=== PATIENT | female | born 1975 | race Caucasian/White ===

== ENCOUNTER 2017-10-31 19:14 | Emergency (ER) | payer SELFPAY ==
[~2017-10-31] VITALS: Ht 162.6 cm; Wt 62.4 kg
[2017-10-31] MEDS ORDERED: GABA600T2 PO (19:31)
[2017-10-31] MEDS ORDERED: TRAM50TA PO (19:31)
[2017-10-31] MEDS ORDERED: TIZA4TAB PO (19:31)
[2017-10-31 20:18] VITALS: BP 114/65
--- NOTE | 2017-10-31 20:21 | ED.ADGEN ---
Past History Past Medical History: COPD, Other Past Surgical History: No Surgical History Alcohol Use: None Drug Use: Marijuana Adult General Chief Complaint Chief Complaint Multiple medical complaints [facility] Patient is a 42-year-old female with history of hemorrhoids and total abdominal hysterectomy presents with multiple medical complaints. Patient reports intermittent left upper quadrant pain for several days, bright red to dark red blood on stools and on tissue paper with wiping, and small swollen hair follicle pubic region. No history of GI bleed. Denies dizziness lightheadedness chest pain shortness of breath. Denies other symptoms or complaints. [] Review of Systems Review of Systems ROS as per HPI. All other systems were reviewed and found to be within normal limits, except as documented in this note. Allergies Allergies Allergies Coded Allergies Type Severity Reaction Last Updated Verified codeine Allergy Unknown 10/31/17 Yes meperidine Allergy Unknown 10/31/17 Yes morphine Allergy Unknown 10/31/17 Yes Physical Exam Physical Exam Constitutional: Well developed, well nourished, no acute distress, non-toxic appearance. [] HENT: Normocephalic, atraumatic, bilateral external ears normal, oropharynx moist, no oral exudates, nose normal. [] Eyes: PERRLA, EOMI, conjunctiva normal, no discharge. [] Neck: Normal range of motion, no tenderness, supple, no stridor. [] Cardiovascular:Heart rate regular rhythm, no murmur [] Lungs & Thorax: Bilateral breath sounds clear to auscultation [] Abdomen: Bowel sounds normal, soft, no distention, nontender. [] Skin: Ingrown hair/shave bump over right inguinal region. No fluctuance. [] Back: No tenderness, no CVA tenderness. [] Extremities: No tenderness. [] Neurologic: Alert and oriented X 3, normal motor function, normal sensory function, no focal deficits noted. [] Psychologic: Affect normal, judgement normal, mood normal. [] Current Patient Data Vital Signs Vital Signs Date Time Temp Pulse Resp B/P (MAP) Pulse Ox O2 Delivery O2 Flow Rate FiO2 10/31/17 19:18 98.3 82 16 97 Room Air EKG EKG [] Radiology/Procedures Radiology/Procedures [] Course & Med Decision Making Course & Med Decision Making Pertinent Labs and Imaging studies reviewed. (See chart for details) [Benign abdominal exam with stable vitals. Patient's description suspicious of hemorrhoids. Will tx presumptively. Further evaluation per PCP.] Final Impression Final Impression [1. Abdominal pain 2. rectal bleeding 3. Ingrown hair] Problems: Dragon Disclaimer Dragon Disclaimer This electronic medical record was generated, in whole or in part, using a voice recognition dictation system. BRENTON SANTOS DO Oct 31, 2017 20:21
== END 2017-10-31 20:21 | disposition home or self-care (01) ==
LOC: ER 19:14
DX: K62.5 Hemorrhage of anus and rectum (principal); L73.1 Pseudofolliculitis barbae; J44.9 Chronic obstructive pulmonary disease, unspecified; F12.10 Cannabis abuse, uncomplicated; Z88.5 Allergy status to narcotic agent; Z88.8 Allergy status to other drugs, medicaments and biological substances
CPT/HCPCS: 99281

== ENCOUNTER 2018-07-04 20:17 | Emergency (ER) | payer SELFPAY ==
[~2018-07-04] VITALS: Ht 162.6 cm; Wt 55.3 kg
[~2018-07-04 20:17] MED LIST: GABA600T2 PO; TIZA4TAB PO; TRAM50TA PO
--- NOTE | 2018-07-04 21:09 | PHYS DOC ---
Past History Past Medical History: COPD, Other Past Surgical History: Cholecystectomy, Hysterectomy Alcohol Use: None Drug Use: Marijuana Adult General Chief Complaint Chief Complaint: GENERAL COMPLAINT HPI HPI 42-year-old female presents with neck pain and generalized fatigue. Patient states that she had a tooth pulled one week ago was placed on Keflex. She is still taking this medication. Since having a tooth pulled, the patient states she has had a sore throat with swallowing as well as generalized neck pain, worse on the left. She denies fever or chills. She has a history of having resistant infections in the past and is concerned about developing systemic blood infection. She has been feeling tired and generally weak the last several days. She has had chest heaviness, but denies shortness of breath or diaphoresis. She has no cardiac history. Review of Systems Review of Systems Constitutional: Denies fever or chills. General fatigue [] Eyes: Denies change in visual acuity, redness, or eye pain [] HENT: Sore throat [] Respiratory: Denies cough or shortness of breath [] Cardiovascular: No additional information not addressed in HPI [] GI: Denies abdominal pain, nausea, vomiting, bloody stools or diarrhea [] : Denies dysuria or hematuria [] Musculoskeletal: Denies back pain or joint pain [] Integument: Denies rash or skin lesions [] Neurologic: Denies headache, focal weakness or sensory changes [] Endocrine: Denies polyuria or polydipsia [] All other systems were reviewed and found to be within normal limits, except as documented in this note. Current Medications Current Medications Current Medications Medications (Trade) Dose Ordered Sig/[facility] Start Time Stop Time Status Last Admin Dose Admin Ketorolac Tromethamine (Toradol 30mg Vial) 30 mg 1X ONCE 07/04/18 21:30 07/04/18 21:31 Allergies Allergies Allergies Coded Allergies Type Severity Reaction Last Updated Verified codeine Allergy Unknown 10/31/17 Yes meperidine Allergy Unknown 10/31/17 Yes morphine Allergy Unknown 10/31/17 Yes Physical Exam Physical Exam Constitutional: Well developed, well nourished, no acute distress, non-toxic appearance. [] HENT: Normocephalic, atraumatic, bilateral external ears normal, oropharynx moist, small ulcerations on the palate. Poor dentition.[] Eyes: PERRLA, EOMI, conjunctiva normal, no discharge. [] Neck: Normal range of motion, supple, no stridor. Mild lymphadenopathy anterior left. Tenderness with palpation.[] Cardiovascular:Heart rate regular rhythm, no murmur [] Lungs & Thorax: Bilateral breath sounds clear to auscultation [] Abdomen: Bowel sounds normal, soft, no tenderness, no masses, no pulsatile masses. [] Skin: Warm, dry, no erythema, no rash. [] Back: No tenderness, no CVA tenderness. [] Extremities: No tenderness, no cyanosis, no clubbing, ROM intact, no edema. [] Neurologic: Alert and oriented X 3, normal motor function, normal sensory function, no focal deficits noted. [] Psychologic: Affect normal, judgement normal, mood normal. [] Current Patient Data Vital Signs Vital Signs Date Time Temp Pulse Resp B/P (MAP) Pulse Ox O2 Delivery O2 Flow Rate FiO2 07/04/18 20:17 97.4 74 18 97 Room Air EKG EKG Sinus rhythm, rate 68, normal axis, no ST elevations or depressions. Inverted T waves V2 V3.[] Radiology/Procedures Radiology/Procedures [] Course & Med Decision Making Course & Med Decision Making Pertinent Labs and Imaging studies reviewed. (See chart for details) The patient's labs are unremarkable except for potassium of 3.1. Her troponin is negative. Her EKG is negative. Her rapid strep screen is positive despite her Keflex. I will give her 1 g of Rocephin in the ED followed by 10 days of Cefdinir 600mg once daily. The patient has had low blood pressures during her stay in the ED. She states that she is always low. She does not appear to be symptomatic. We gave her a total of 2 L normal saline. She had urine output in the ED. Her MAP blood pressure has improved to greater than 60 and has been as high as 70. She has no complaints of dizziness or lightheadedness. She does not have a fever. Her heart rate remains in the 60s. Since the patient appears to be clinically stable and she feels well enough to go home, I will discharge her. Dragon Disclaimer Dragon Disclaimer This electronic medical record was generated, in whole or in part, using a voice recognition dictation system. Departure Departure: Referrals: NON,STAFF (PCP) Scripts Tramadol Hcl (TRAMADOL HCL) 50 Mg Tablet 50 MG PO PRN Q6HRS PRN for PAIN, #10 TAB Prov: BRENTON MONROY DO 07/04/18 Cefdinir (CEFDINIR) 300 Mg Capsule 2 CAP PO DAILY for strep, #20 CAP Prov: BRENTON MONROY DO 07/04/18 BRENTON MONROY DO Jul 04, 2018 21:09
[2018-07-04 21:10] LABS: ALBUMIN/GLOBULIN RATIO 1.2 (1.0-1.7); CALCIUM 9.5 mg/dL (8.5-10.1); CREATININE 0.7 mg/dL (0.6-1.0); GFR 91.3; POTASSIUM 3.1 mmol/L (3.5-5.1); TOTAL BILIRUBIN 0.2 mg/dL (0.2-1.0); TOTAL PROTEIN 7.3 g/dL (6.4-8.2)
[2018-07-04 21:12] LABS: BASO % 1 % (0-3); EOS # 0.1 x10^3/uL (0.0-0.7); EOS % 2 % (0-3); HEMATOCRIT 46.1 % (36.0-47.0); HEMOGLOBIN 15.9 g/dL (12.0-15.5); LYMPH # 3.6 x10^3/uL (1.0-4.8); LYMPH % 52 % (24-48); MEAN CORPUSCULAR HEMOGLOBIN 31 pg (25-35); MEAN CORPUSCULAR HGB CONC 34 g/dL (31-37); MEAN CORPUSCULAR VOLUME 90 fL (79-100); MONO # 0.3 x10^3/uL (0.0-1.1); MONO % 5 % (0-9); NEUT # 2.8 x10^3uL (1.8-7.7); NEUT % 41 % (31-73); PLATELET COUNT 211 x10^3/uL (140-400); RED BLOOD COUNT 5.13 x10^6/uL (3.50-5.40); RED CELL DISTRIBUTION WIDTH 12.9 % (11.5-14.5); WHITE BLOOD COUNT 6.9 x10^3/uL (4.0-11.0)
[2018-07-04] MEDS ORDERED: KETOROLAC 30 MG/ML VIAL. IV ONE (21:30)
--- NOTE | 2018-07-04 21:46 | RAD ---
PROCEDURE: CHEST PA LATERAL CLINICAL INDICATION: Chest pain COMPARISON: None FINDINGS: No pneumothorax identified. Cardiac and mediastinal contours unremarkable. No pulmonary consolidation or acute airspace disease. No acute osseous abnormalities identified. IMPRESSION: No pulmonary consolidation or acute airspace disease. Electronically signed by: Clark Back DO (07/04/2018 9:43 PM) [facility]
[2018-07-04] MEDS ORDERED: IV NORMAL SALINE 1,000ML 1,000 ML IV ONE ×2 (22:30→23:45)
[2018-07-04 22:43] LABS: BACTERIA,URINE 0 /HPF (0-FEW); BILIRUBIN,URINE NEG (NEG); CLARITY,URINE CLEAR; COLOR,URINE STRAW; GLUCOSE,URINE NEG (NEG); NITRITE,URINE NEG (NEG); RBC,URINE OCC /HPF (0-2); SQUAMOUS EPITHELIAL CELL,UR FEW /LPF; UROBILINOGEN,URINE 0.2 mg/dL (0.2 mg/dL); WBC,URINE OCC /HPF (0-4)
[2018-07-04] MEDS ORDERED: cefTRIAXone SODIUM 1 GM VIAL IV ONE (22:59)
[2018-07-04] MEDS ORDERED: IV NORMAL SALINE 50ML 50 ML ONE (22:59)
[2018-07-04] MEDS ORDERED: traMADol 50 MG TABLET PO ONE (23:00)
[2018-07-04] MEDS ORDERED: CEFD300C PO (23:02)
[2018-07-04] MEDS ORDERED: TRAM50TA PO (23:02)
[2018-07-05 00:17] VITALS: BP 87/47
--- NOTE | 2018-07-05 02:55 | EKG ---
[address] [address] Test Date: 2018-07-04 Test Time: 20:38:53 Pat Name: MY PURCELL Department: Room: Gender: F Admission Nurse Coordinator: : 1975 Requested By: BRENTON MONROY Order Number: [id number] Reading MD: Gallo Cook Measurements Intervals [place] Rate: 68 P: 38 DE: 164 QRS: 7 QRSD: 92 T: 38 QT: 410 QTc: 441 Interpretive Statements SINUS RHYTHM NORMAL ECG Electronically Signed On 07-11-2018 10:02:28 AMMONIUM HYDROXIDE OPERATOR by Gallo Cook
== END 2018-07-05 00:36 | disposition home or self-care (01) ==
LOC: ER 20:17
DX: J02.0 Streptococcal pharyngitis (principal); B95.0 Streptococcus, group A, as the cause of diseases classified elsewhere; M54.2 Cervicalgia; I95.9 Hypotension, unspecified; J44.9 Chronic obstructive pulmonary disease, unspecified; Z88.5 Allergy status to narcotic agent; Z88.8 Allergy status to other drugs, medicaments and biological substances
CPT/HCPCS: 36415; 71046; 80053; 81001; 84484; 85025; 87880; 93005; 96365; 96375; 99284; J0696; J1885; J7030

== ENCOUNTER 2018-07-13 00:23 | Emergency (ER) | payer SELFPAY ==
[~2018-07-13] VITALS: Ht 162.6 cm; Wt 55.3 kg
[2018-07-13 00:23] VITALS: BP 95/61
[~2018-07-13 00:23] MED LIST changes: +CEFD300C PO
--- NOTE | 2018-07-13 01:04 | PHYS DOC ---
Adult General Chief Complaint Chief Complaint toe pain [facility] HPI 42 years old female presented emergency department with left fifth toe tender swollen after injury at home she is able to ambulate Review of Systems Review of Systems Constitutional: Denies fever or chills [] Eyes: Denies change in visual acuity, redness, or eye pain [] HENT: Denies nasal congestion or sore throat [] Respiratory: Denies cough or shortness of breath [] Cardiovascular: No additional information not addressed in HPI [] GI: Denies abdominal pain, nausea, vomiting, bloody stools or diarrhea [] : Denies dysuria or hematuria [] Musculoskeletal: Denies back pain Integument: Denies rash or skin lesions [] Neurologic: Denies headache, focal weakness or sensory changes [] Endocrine: Denies polyuria or polydipsia [] All other systems were reviewed and found to be within normal limits, except as documented in this note. Allergies Allergies Allergies Coded Allergies Type Severity Reaction Last Updated Verified codeine Allergy Unknown 10/31/17 Yes meperidine Allergy Unknown 10/31/17 Yes morphine Allergy Unknown 10/31/17 Yes Physical Exam Physical Exam Constitutional: Well developed, well nourished, no acute distress, non-toxic appearance. [] HENT: Normocephalic, atraumatic, bilateral external ears normal, oropharynx moist, no oral exudates, nose normal. [] Eyes: PERRLA, EOMI, conjunctiva normal, no discharge. [] Neck: Normal range of motion, no tenderness, supple, no stridor. [] Cardiovascular:Heart rate regular rhythm, no murmur [] Lungs & Thorax: Bilateral breath sounds clear to auscultation [] Abdomen: Bowel sounds normal, soft, no tenderness, no masses, no pulsatile masses. [] Skin: Warm, dry, no erythema, no rash. [] Back: No tenderness, no CVA tenderness. [] Extremities: No tenderness, no cyanosis, no clubbing, ROM intact, swollen fifth toe Neurologic: Alert and oriented X 3, normal motor function, normal sensory function, no focal deficits noted. [] Psychologic: Affect normal, judgement normal, mood normal. [] Current Patient Data Vital Signs Vital Signs Date Time Temp Pulse Resp B/P (MAP) Pulse Ox O2 Delivery O2 Flow Rate FiO2 07/13/18 00:23 99.1 85 16 98 Room Air EKG EKG [] Radiology/Procedures Radiology/Procedures [] Course & Med Decision Making Course & Med Decision Making Pertinent Labs and Imaging studies reviewed. (See chart for details) [] Final Impression Final Impression [] Problems: (1) Toe fracture, left Qualifiers: Dragon Disclaimer Dragon Disclaimer This electronic medical record was generated, in whole or in part, using a voice recognition dictation system. BARRINGTON MORTENSEN MD Jul 13, 2018 01:04
--- NOTE | 2018-07-13 08:52 | RAD ---
Examination: 3 views of the left foot HISTORY: History of left foot injury, pain COMPARISON: None available FINDINGS: The alignment of the tarsal bones, tarsometatarsal joints, tarsal joints, interphalangeal joints grossly appears unremarkable. There is no acute fracture identified. IMPRESSION: No acute osseous findings Electronically signed by: Willi Mast MD (07/13/2018 8:48 AM) [id number]
== END 2018-07-13 01:08 | disposition home or self-care (01) ==
LOC: ER 00:23
DX: S92.502A Displaced unspecified fracture of left lesser toe(s), initial encounter for closed fracture (principal); Z88.5 Allergy status to narcotic agent; Z88.8 Allergy status to other drugs, medicaments and biological substances; X58.XXXA Exposure to other specified factors, initial encounter; Y93.89 Activity, other specified; Y92.098 Other place in other non-institutional residence as the place of occurrence of the external cause; Y99.8 Other external cause status
CPT/HCPCS: 73630; 99283

== ENCOUNTER 2018-08-08 16:14 | Emergency (ER) | payer SELFPAY ==
[~2018-08-08] VITALS: Ht 162.6 cm; Wt 55.3 kg
--- NOTE | 2018-08-08 16:43 | PHYS DOC ---
Past History Past Medical History: COPD, Other Past Surgical History: Appendectomy, Cholecystectomy, Hysterectomy Alcohol Use: None Drug Use: Marijuana Adult General Chief Complaint Chief Complaint: FLANK PAIN HPI HPI 43-year-old female presents with left flank pain. The patient has had this pain that radiates through to her abdomen intermittently for the last 2 days. She describes it as a sharp, stabbing pain. She's had some nausea but no vomiting. She denies fever or chills. She has had decreased urine output, but no dysuria. The patient has a known T12 compression fracture, but that was 3 years ago. 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 Review of Systems Review of Systems Constitutional: Denies fever or chills [] Eyes: Denies change in visual acuity, redness, or eye pain [] HENT: Denies nasal congestion or sore throat [] Respiratory: Denies cough or shortness of breath [] Cardiovascular: No additional information not addressed in HPI [] GI: Denies abdominal pain, nausea, vomiting, bloody stools or diarrhea [] : Urinary retention[] Musculoskeletal: Left flank pain[] Integument: Denies rash or skin lesions [] Neurologic: Denies headache, focal weakness or sensory changes [] Endocrine: Denies polyuria or polydipsia [] All other systems were reviewed and found to be within normal limits, except as documented in this note. Allergies Allergies Allergies Coded Allergies Type Severity Reaction Last Updated Verified Penicillins Allergy Mild 08/08/18 Yes codeine Allergy Unknown 10/31/17 Yes meperidine Allergy Unknown 10/31/17 Yes morphine Allergy Unknown 10/31/17 Yes Physical Exam Physical Exam Constitutional: Well developed, well nourished, no acute distress, non-toxic appearance. [] HENT: Normocephalic, atraumatic, bilateral external ears normal, oropharynx moist, no oral exudates, nose normal. [] Eyes: PERRLA, EOMI, conjunctiva normal, no discharge. [] Neck: Normal range of motion, no tenderness, supple, no stridor. [] Cardiovascular:Heart rate regular rhythm, no murmur [] Lungs & Thorax: Bilateral breath sounds clear to auscultation [] Abdomen: Bowel sounds normal, soft, mild left upper quadrant tenderness, no masses, no pulsatile masses. [] Skin: Warm, dry, no erythema, no rash. [] Back: No tenderness. Left CVA tenderness. [] Extremities: No tenderness, no cyanosis, no clubbing, ROM intact, no edema. [] Neurologic: Alert and oriented X 3, normal motor function, normal sensory function, no focal deficits noted. [] Psychologic: Affect normal, judgement normal, mood normal. [] Current Patient Data Vital Signs Vital Signs Date Time Temp Pulse Resp B/P (MAP) Pulse Ox O2 Delivery O2 Flow Rate FiO2 08/08/18 16:33 98.7 72 18 98 Room Air EKG EKG [] Radiology/Procedures Radiology/Procedures [] Impressions: PQRS Compliance statement: One or more of the following individualized dose reduction techniques were utilized for this examination: 1. Automated exposure control. 2. Adjustment of the mA and/or kV according to patient size. 3. Use of iterative reconstruction technique. Indication:NAUSEA,BILAT FLANK PAIN, INCREASED PAIN ON LEFT, NO VISUALIZED HEMATURIA, HX RENAL STONES.
TECHNIQUE: CT abdomen and pelvis without IV contrast with multiplanar reformats. COMPARISON: None FINDINGS: Limited evaluation of solid abdominal and pelvic organs due to lack of IV contrast. Heart is normal in size. No pericardial or pleural effusion. Clear lung bases. 3.2 x 1.7 cm subcapsular low attenuating lesion adjacent to segment 7 of the liver. Multiple scattered low attenuating lesions are seen in the liver the represented to such lesion in segment 4A measures 7 mm (series 2 image 35) and in segment IVb measures 1.2 cm (series 2 image 57). Spleen is unenlarged. Status post cholecystectomy. Noncontrast appearance of the pancreas is within normal limits. Adrenal glands demonstrate no nodularity. No nephrolithiasis or hydronephrosis. No free pelvic fluid or ascites. No bowel obstruction. Uterus is surgically absent. Urinary bladder demonstrates no radiopaque stone. No pneumoperitoneum or pneumatosis intestinalis. No bowel obstruction. No suspicious bony lesion. Questionable minimal anterior wedge-shaped compression deformity of T12 vertebral body with no retropulsion the spinal canal. IMPRESSION: Limited evaluation of solid abdominal and pelvic organs due to lack of IV contrast. 1. No nephrolithiasis or hydronephrosis. 2. Multiple liver lesions, indeterminate. Differential diagnoses includes multiple hepatic cysts, hemangiomas or metastasis. Nonemergent MRI of the abdomen with IV contrast recommended. 3. Small amount of subcapsular fluid collection along segment 7, nonspecific but may be a seroma. Correlate with previous abdominal surgery. 4. Minimal wedge-shaped compression deformity of T12 vertebral body with no retropulsion in the spinal canal, age indeterminate. Correlate with focal tenderness. Electronically signed by: Clark Tellez DO (08/08/2018 5:14 PM) [facility] DICTATED AND SIGNED BY: CLARK TELLEZ DO DATE: 08/08/18 0307 CC: BRENTON MONROY DO; TRENT SANDOVAL Course & Med Decision Making Course & Med Decision Making Pertinent Labs and Imaging studies reviewed. (See chart for details) The patient's CT is negative for kidney stones or acute findings. There are several abnormal findings including liver lesions of unknown etiology. See official read for more details. The patient's labs are unremarkable. Her urinalysis is negative for infection. I am unsure what is causing the patient's pain. I will give her a short course of [place]. I reviewed the case tracks database and the patient has several entries but they are spread out and all low -dose short course prescriptions. I have stressed to the patient's importance of having consistent relationship with a PCP. She is stable for discharge at this time. [] Dragon Disclaimer Dragon Disclaimer This electronic medical record was generated, in whole or in part, using a voice recognition dictation system. Departure Departure: Impression: Primary Impression: Left flank pain Disposition: HOME, SELF-CARE Condition: LEFT WITHOUT BEING SEEN Referrals: TRENT SANDOVAL (PCP) Patient Instructions: Flank Pain, Disc-bd-[facility] Scripts Hydrocodone Bit/Acetaminophen (NORCO 5-325 TABLET) 1 Each Tablet 1 TAB PO PRN Q6HRS PRN for PAIN, #10 TAB 0 Refills Prov: BRENTON MONROY DO 08/08/18 BRENTON MONROY DO Aug 08, 2018 16:43
[2018-08-08 17:05] LABS: BASO % 0 % (0-3); EOS % 0 % (0-3); HEMATOCRIT 43.1 % (36.0-47.0); HEMOGLOBIN 14.8 g/dL (12.0-15.5); LYMPH # 2.1 x10^3/uL (1.0-4.8); LYMPH % 36 % (24-48); MEAN CORPUSCULAR HEMOGLOBIN 31 pg (25-35); MEAN CORPUSCULAR HGB CONC 34 g/dL (31-37); MEAN CORPUSCULAR VOLUME 91 fL (79-100); MONO # 0.3 x10^3/uL (0.0-1.1); MONO % 5 % (0-9); NEUT # 3.3 x10^3uL (1.8-7.7); NEUT % 58 % (31-73); PLATELET COUNT 186 x10^3/uL (140-400); RED BLOOD COUNT 4.73 x10^6/uL (3.50-5.40); RED CELL DISTRIBUTION WIDTH 13.5 % (11.5-14.5); WHITE BLOOD COUNT 5.7 x10^3/uL (4.0-11.0)
[2018-08-08 17:19] LABS: ALBUMIN 3.6 g/dL (3.4-5.0); ALBUMIN/GLOBULIN RATIO 1.1 (1.0-1.7); CREATININE 0.7 mg/dL (0.6-1.0); GFR 90.9; POTASSIUM 3.7 mmol/L (3.5-5.1); TOTAL BILIRUBIN 0.3 mg/dL (0.2-1.0)
--- NOTE | 2018-08-08 17:19 | RAD ---
PQRS Compliance statement: One or more of the following individualized dose reduction techniques were utilized for this examination: 1. Automated exposure control. 2. Adjustment of the mA and/or kV according to patient size. 3. Use of iterative reconstruction technique. Indication:NAUSEA,BILAT FLANK PAIN, INCREASED PAIN ON LEFT, NO VISUALIZED HEMATURIA, HX RENAL STONES.
TECHNIQUE: CT abdomen and pelvis without IV contrast with multiplanar reformats. COMPARISON: None FINDINGS: Limited evaluation of solid abdominal and pelvic organs due to lack of IV contrast. Heart is normal in size. No pericardial or pleural effusion. Clear lung bases. 3.2 x 1.7 cm subcapsular low attenuating lesion adjacent to segment 7 of the liver. Multiple scattered low attenuating lesions are seen in the liver the represented to such lesion in segment 4A measures 7 mm (series 2 image 35) and in segment IVb measures 1.2 cm (series 2 image 57). Spleen is unenlarged. Status post cholecystectomy. Noncontrast appearance of the pancreas is within normal limits. Adrenal glands demonstrate no nodularity. No nephrolithiasis or hydronephrosis. No free pelvic fluid or ascites. No bowel obstruction. Uterus is surgically absent. Urinary bladder demonstrates no radiopaque stone. No pneumoperitoneum or pneumatosis intestinalis. No bowel obstruction. No suspicious bony lesion. Questionable minimal anterior wedge-shaped compression deformity of T12 vertebral body with no retropulsion the spinal canal. IMPRESSION: Limited evaluation of solid abdominal and pelvic organs due to lack of IV contrast. 1. No nephrolithiasis or hydronephrosis. 2. Multiple liver lesions, indeterminate. Differential diagnoses includes multiple hepatic cysts, hemangiomas or metastasis. Nonemergent MRI of the abdomen with IV contrast recommended. 3. Small amount of subcapsular fluid collection along segment 7, nonspecific but may be a seroma. Correlate with previous abdominal surgery. 4. Minimal wedge-shaped compression deformity of T12 vertebral body with no retropulsion in the spinal canal, age indeterminate. Correlate with focal tenderness. Electronically signed by: Clark Back DO (08/08/2018 5:14 PM) [facility]
[2018-08-08] MEDS: KETOROLAC 30 MG/ML VIAL. IV ONE (18:00)
[2018-08-08] MEDS: ONDANSETRON PF 4 MG/2 ML VIAL. IV ONE (18:00)
[2018-08-08] MEDS: HYDROcodone/APAP 5/325MG 1 TAB TABLET PO ONE (18:30)
[2018-08-08] MEDS ORDERED: HYDR-3165 PO (18:44)
[2018-08-08 18:59] VITALS: BP 140/93
[2018-08-08 19:04] LABS: BACTERIA,URINE 0 /HPF (0-FEW); BILIRUBIN,URINE NEG (NEG); CLARITY,URINE CLEAR; COLOR,URINE YELLOW; GLUCOSE,URINE NEG (NEG); NITRITE,URINE NEG (NEG); RBC,URINE OCC /HPF (0-2); SQUAMOUS EPITHELIAL CELL,UR OCC /LPF; UROBILINOGEN,URINE 0.2 mg/dL (0.2 mg/dL); WBC,URINE OCC /HPF (0-4)
== END 2018-08-08 19:00 | disposition home or self-care (01) ==
LOC: ER 16:14
DX: R10.12 Left upper quadrant pain (principal); R10.11 Right upper quadrant pain; R33.9 Retention of urine, unspecified; M43.8X4 Other specified deforming dorsopathies, thoracic region; J44.9 Chronic obstructive pulmonary disease, unspecified; Z90.49 Acquired absence of other specified parts of digestive tract; Z90.89 Acquired absence of other organs; Z90.710 Acquired absence of both cervix and uterus; Z88.0 Allergy status to penicillin; Z88.5 Allergy status to narcotic agent; Z88.8 Allergy status to other drugs, medicaments and biological substances
CPT/HCPCS: 36415; 74176; 80053; 81001; 85025; 87086; 96374; 96375; 99284; J1885; J2405

== ENCOUNTER 2018-08-19 18:34 | Emergency (ER) | payer SELFPAY ==
[~2018-08-19] VITALS: Ht 162.6 cm; Wt 55.3 kg
[~2018-08-19 18:34] MED LIST changes: +HYDR-3165 PO
[2018-08-19 18:44] VITALS: BP 101/61
--- NOTE | 2018-08-19 20:00 | PHYS DOC ---
Past History Past Medical History: COPD, Other Past Surgical History: Appendectomy, Cholecystectomy, Hysterectomy Alcohol Use: None Drug Use: Marijuana Adult General Chief Complaint Chief Complaint: MULTIPLE COMPLAINTS HPI HPI 43-year-old female presents with left forearm pain. The patient was playing with her nephew and think she probably just tweaked it. The patient has had a history of fractures in both forearms and is wants to make sure nothing more serious. She has multiple other chronic medical issues. Patient denies fever or chills. She has no loss of feeling. Patient has been concerned with carpal tunnel or cubital tunnel in both arms, but this being worked up by her PCP. Review of Systems Review of Systems Constitutional: Denies fever or chills [] Eyes: Denies change in visual acuity, redness, or eye pain [] HENT: Denies nasal congestion or sore throat [] Respiratory: Denies cough or shortness of breath [] Cardiovascular: No additional information not addressed in HPI [] GI: Denies abdominal pain, nausea, vomiting, bloody stools or diarrhea [] : Denies dysuria or hematuria [] Musculoskeletal: Left forearm pain[] Integument: Denies rash or skin lesions [] Neurologic: Denies headache, focal weakness or sensory changes [] Endocrine: Denies polyuria or polydipsia [] All other systems were reviewed and found to be within normal limits, except as documented in this note. Allergies Allergies Allergies Coded Allergies Type Severity Reaction Last Updated Verified Penicillins Allergy Mild 08/08/18 Yes codeine Allergy Unknown 10/31/17 Yes meperidine Allergy Unknown 10/31/17 Yes morphine Allergy Unknown 10/31/17 Yes Physical Exam Physical Exam Constitutional: Well developed, well nourished, no acute distress, non-toxic appearance. [] HENT: Normocephalic, atraumatic, bilateral external ears normal, oropharynx moist, no oral exudates, nose normal. [] Eyes: PERRLA, EOMI, conjunctiva normal, no discharge. [] Neck: Normal range of motion, no tenderness, supple, no stridor. [] Cardiovascular:Heart rate regular rhythm, no murmur [] Lungs & Thorax: Bilateral breath sounds clear to auscultation [] Abdomen: Bowel sounds normal, soft, no tenderness, no masses, no pulsatile masses. [] Skin: Warm, dry, no erythema, no rash. [] Back: No tenderness, no CVA tenderness. [] Extremities: Mild tenderness to palpation of the left forearm, no deformity, ecchymosis, or swelling. No cyanosis, no clubbing, ROM intact, no edema. [] Neurologic: Alert and oriented X 3, normal motor function, normal sensory function, no focal deficits noted. [] Psychologic: Affect normal, judgement normal, mood normal. [] Current Patient Data Vital Signs Vital Signs Date Time Temp Pulse Resp B/P (MAP) Pulse Ox O2 Delivery O2 Flow Rate FiO2 08/19/18 18:44 Room Air 08/19/18 18:44 98.1 69 20 96 EKG EKG [] Radiology/Procedures Radiology/Procedures [] Course & Med Decision Making Course & Med Decision Making Pertinent Labs and Imaging studies reviewed. (See chart for details) The patient's x-rays unremarkable. My exam was unremarkable. I believe she just strained her arm. She is stable for discharge at this time. [] Dragon Disclaimer Dragon Disclaimer This electronic medical record was generated, in whole or in part, using a voice recognition dictation system. Departure Departure: Impression: Primary Impression: Left forearm pain Disposition: HOME, SELF-CARE Condition: STABLE Referrals: TRENT SANDOVAL (PCP) BRENTON MONROY DO Aug 19, 2018 20:00
--- NOTE | 2018-08-20 08:33 | RAD ---
2 view left forearm study Clinical indications: Left forearm pain. History of connective tissue disorder and left wrist fracture FINDINGS: No acute fracture or dislocation or osteolytic process is seen. No left elbow joint effusion is seen. No radiopaque foreign body or soft tissue calcification is evident. IMPRESSION: No acute osseous abnormality. Electronically signed by: Rc Mccauley MD (08/20/2018 8:29 AM) [facility]
== END 2018-08-19 20:30 | disposition home or self-care (01) ==
LOC: ER 18:34
DX: M79.632 Pain in left forearm (principal); J44.9 Chronic obstructive pulmonary disease, unspecified; Z88.0 Allergy status to penicillin; Z88.5 Allergy status to narcotic agent; Z88.8 Allergy status to other drugs, medicaments and biological substances
CPT/HCPCS: 73090; 99283

== ENCOUNTER 2018-08-24 20:32 | Emergency (ER) | payer SELFPAY ==
[~2018-08-24] VITALS: Ht 162.6 cm; Wt 54.0 kg
[2018-08-24] MEDS ORDERED: ONDANSETRON PF 4 MG/2 ML VIAL. IV ONE (21:00)
[2018-08-24] MEDS ORDERED: IV NORMAL SALINE 1,000ML 1,000 ML IV SCH (21:00)
[2018-08-24 21:13] LABS: BARBITURATES NEG (NEG); BENZODIAZEPINES NEG (NEG); CANNABINOIDS POS (NEG); CLARITY,URINE CLOUDY; COCAINE NEG (NEG); COLOR,URINE YELLOW; METHADONE NEG (NEG); OPIATES NEG (NEG); PHENCYCLIDINE NEG (NEG)
[2018-08-24 21:14] LABS: AMORPHOUS SEDIMENT,UR PRESENT /HPF; BACTERIA,URINE 0 /HPF (0-FEW); BILIRUBIN,URINE NEG (NEG); GLUCOSE,URINE NEG (NEG); NITRITE,URINE NEG (NEG); RBC,URINE 0 /HPF (0-2); SQUAMOUS EPITHELIAL CELL,UR OCC /LPF; UROBILINOGEN,URINE 2 mg/dL (0.2 mg/dL); WBC,URINE RARE /HPF (0-4)
[2018-08-24 21:15] LABS: AMPHETAMINE/METHAMPHETAMINE NEG (NEG)
--- NOTE | 2018-08-24 21:37 | PHYS DOC ---
Past History Past Medical History: Asthma, COPD, Other Past Surgical History: Appendectomy, Cholecystectomy, Hysterectomy Alcohol Use: None Drug Use: Marijuana Adult General Chief Complaint Chief Complaint: ABDOMINAL PAIN HPI HPI Patient is a 43-year-old female who presents with complaint of left-sided flank pain for the last couple of days. Patient states that today pain is more severe and she rates it at a 10 out of 10. She states that the pain is sharp and stabbing in nature. She states the pain is worsened with movement. She denies any fever. She does report to nausea and vomiting. Patient states that she has not been able to keep anything down due to the vomiting. Patient is scheduled for an MRI tomorrow to evaluate hepatic lesions. Review of Systems Review of Systems Constitutional: Denies fever or chills [] Respiratory: Denies cough or shortness of breath [] Cardiovascular: No additional information not addressed in HPI [] GI: Positive left sided abdominal/flank pain with nausea and vomiting. Denies diarrhea [] : Denies dysuria or hematuria [] Musculoskeletal: Complains of left-sided back pain [] Integument: Denies rash or skin lesions [] All other systems were reviewed and found to be within normal limits, except as documented in this note. Current Medications Current Medications Current Medications Medications (Trade) Dose Ordered Sig/La Start Time Stop Time Status Last Admin Dose Admin Fentanyl Citrate (Fentanyl 2ml Vial) 50 mcg PRN Q15MIN PRN 08/24/18 21:00 08/25/18 20:59 Ondansetron HCl (Zofran) 4 mg 1X ONCE 08/24/18 21:00 08/24/18 21:04 DC Sodium Chloride 1,000 ml @ 1,000 mls/hr Q1H 08/24/18 21:00 08/24/18 21:59 Allergies Allergies Allergies Coded Allergies Type Severity Reaction Last Updated Verified Penicillins Allergy Mild 08/24/18 Yes codeine Allergy Unknown 08/24/18 Yes meperidine Allergy Unknown 08/24/18 Yes morphine Allergy Unknown 08/24/18 Yes Physical Exam Physical Exam Constitutional: Well developed, well nourished, no acute distress, non-toxic appearance. [] HENT: Normocephalic, atraumatic, bilateral external ears normal, oropharynx moist, no oral exudates, nose normal. [] Eyes: PERRLA, EOMI, conjunctiva normal, no discharge. [] Neck: Normal range of motion, no tenderness, supple, no stridor. [] Cardiovascular:Heart rate regular rhythm, no murmur [] Lungs & Thorax: Bilateral breath sounds clear to auscultation [] Abdomen: Bowel sounds normal, soft, no tenderness, no masses, no pulsatile masses. [] Skin: Warm, dry, no erythema, no rash. [] Back: No tenderness, no CVA tenderness. [] Extremities: No tenderness, no cyanosis, no clubbing, ROM intact, no edema. [] Neurologic: Alert and oriented X 3, normal motor function, normal sensory function, no focal deficits noted. [] Psychologic: Affect normal, judgement normal, mood normal. [] Current Patient Data Vital Signs Vital Signs Date Time Temp Pulse Resp B/P (MAP) Pulse Ox O2 Delivery O2 Flow Rate FiO2 08/24/18 20:32 98.1 70 20 98 Room Air Lab Results Laboratory Tests Test 08/24/18 20:48 Urine Collection Type Clean catch Urine Color Yellow Urine Clarity Cloudy Urine pH 8.0 Urine Specific [place] 1.015 Urine Protein Neg (NEG-TRACE) Urine Glucose (UA) Neg mg/dL (NEG) Urine Ketones (Stick) Neg mg/dL (NEG) Urine Blood Trace (NEG) Urine Nitrite Neg (NEG) Urine Bilirubin Neg (NEG) Urine Urobilinogen Dipstick 2 mg/dL (0.2 mg/dL) Urine Leukocyte Esterase Neg (NEG) Urine RBC 0 /HPF (0-2) Urine WBC Rare /HPF (0-4) Urine Squamous Epithelial Cells Occ /LPF Urine Amorphous Sediment Present /HPF Urine Bacteria 0 /HPF (0-FEW) Urine Mucus Slight /LPF Urine Opiates Screen Neg (NEG) Urine Methadone Screen Neg (NEG) Urine Barbiturates Neg (NEG) Urine Phencyclidine Screen Neg (NEG) Urine Amphetamine/Methamphetamine Neg (NEG) Urine Benzodiazepines Screen Neg (NEG) Urine Cocaine Screen Neg (NEG) Urine Cannabinoids Screen Pos (NEG) Urine Ethyl Alcohol Neg (NEG) EKG EKG [] Radiology/Procedures Radiology/Procedures [] Course & Med Decision Making Course & Med Decision Making Pertinent Labs and Imaging studies reviewed. (See chart for details) Patient moved to room upon arrival was evaluated by medical staff after which an IV was established and blood work drawn. Patient was given IV fluids. Patient repeatedly has asked for additional pain medication throughout her emergency room stay. At one point one of the hospital staff members had gone into the room to check on a monitor and noted that patient was sitting comfortably, apparently texting on her phone, and as soon as patient saw staff member, she started moaning stating that she was in a lot of pain. After initial dosage of pain medication, patient's blood pressure had dropped down to the 80s systolic. She was repeatedly informed that we would not be able to provide additional opiate pain medication. Patient was offered a dose of Toradol which she refused. At one point patient was also offered tramadol to which she stated she has a prescription for tramadol at home and just wants to be discharged if she is not going to receive any additional narcotic pain medication. Dragon Disclaimer Dragon Disclaimer This electronic medical record was generated, in whole or in part, using a voice recognition dictation system. Departure Departure: Impression: Primary Impression: Left flank pain Additional Impression: Drug-seeking behavior Disposition: 01 HOME, SELF-CARE Condition: STABLE Referrals: [facility] (PCP) Patient Instructions: Flank Pain Problem Qualifiers JENARO MEDINA Jr. DO Aug 24, 2018 21:37
[2018-08-24 21:45] LABS: BASO # 0.1 x10^3/uL (0.0-0.2); BASO % 1 % (0-3); EOS # 0.1 x10^3/uL (0.0-0.7); EOS % 1 % (0-3); HEMOGLOBIN 14.3 g/dL (12.0-15.5); LYMPH # 2.5 x10^3/uL (1.0-4.8); LYMPH % 30 % (24-48); MEAN CORPUSCULAR HEMOGLOBIN 31 pg (25-35); MEAN CORPUSCULAR HGB CONC 34 g/dL (31-37); MEAN CORPUSCULAR VOLUME 92 fL (79-100); MONO # 0.4 x10^3/uL (0.0-1.1); MONO % 5 % (0-9); NEUT # 5.1 x10^3uL (1.8-7.7); NEUT % 63 % (31-73); PLATELET COUNT 195 x10^3/uL (140-400); RED BLOOD COUNT 4.59 x10^6/uL (3.50-5.40); RED CELL DISTRIBUTION WIDTH 13.8 % (11.5-14.5); WHITE BLOOD COUNT 8.1 x10^3/uL (4.0-11.0)
[2018-08-24 21:57] LABS: ALBUMIN 3.3 g/dL (3.4-5.0); ALBUMIN/GLOBULIN RATIO 0.9 (1.0-1.7); CALCIUM 8.6 mg/dL (8.5-10.1); CREATININE 0.8 mg/dL (0.6-1.0); GFR 77.9; POTASSIUM 3.5 mmol/L (3.5-5.1); TOTAL BILIRUBIN 0.3 mg/dL (0.2-1.0); TOTAL PROTEIN 6.8 g/dL (6.4-8.2)
[2018-08-24 22:10] VITALS: BP 96/62
== END 2018-08-24 23:02 | disposition home or self-care (01) ==
LOC: ER 20:32
DX: R10.9 Unspecified abdominal pain (principal); R11.2 Nausea with vomiting, unspecified; M54.89 Other dorsalgia; J44.9 Chronic obstructive pulmonary disease, unspecified; Z76.5 Malingerer [conscious simulation]; Z90.49 Acquired absence of other specified parts of digestive tract; Z90.89 Acquired absence of other organs; Z90.710 Acquired absence of both cervix and uterus; Z88.0 Allergy status to penicillin; Z88.5 Allergy status to narcotic agent; Z88.8 Allergy status to other drugs, medicaments and biological substances
CPT/HCPCS: 36415; 80053; 80307; 81001; 83690; 85025; 96361; 96374; 96375; 99283; J2405; J3010; J7030

== ENCOUNTER 2018-08-25 15:33 | Emergency (ER) | payer SELFPAY ==
[~2018-08-25] VITALS: Ht 162.6 cm; Wt 55.8 kg
[2018-08-25 16:00] VITALS: BP 99/59
--- NOTE | 2018-08-25 16:23 | RAD ---
Three-view left elbow dated 08/25/2018. No comparison available. Clinical indication: Pain after fall today. FINDINGS: 3 views left elbow show normal bony alignment. No displaced fracture. No acute osseous or articular abnormality. No fat pad elevation to suggest joint effusion. IMPRESSION: No acute radiographic abnormality. Electronically signed by: Solomon Ryan MD (08/25/2018 4:18 PM) [id number]
[2018-08-25] MEDS ORDERED: HYDROcodone/APAP 5/325MG 1 TAB TABLET PO ONE (17:00)
[2018-08-25] MEDS ORDERED: ONDANSETRON ODT 4 MG TAB.RAPDIS PO ONE (17:00)
--- NOTE | 2018-08-25 17:08 | PHYS DOC ---
Past History Past Medical History: COPD, Other Past Surgical History: Appendectomy, Hysterectomy, Other Alcohol Use: None Drug Use: Marijuana Adult General Chief Complaint Chief Complaint: ELBOW PROBLEM HPI HPI 43-year-old female returns emergency room with left elbow pain. The patient states that she was walking outside of a fast food restaurant and slipped on the ice. She fell down onto her left elbow. She presents to see if it is broken. It is painful with flexion and extension. She denies any other injuries. Review of Systems Review of Systems Constitutional: Denies fever or chills [] Eyes: Denies change in visual acuity, redness, or eye pain [] HENT: Denies nasal congestion or sore throat [] Respiratory: Denies cough or shortness of breath [] Cardiovascular: No additional information not addressed in HPI [] GI: Denies abdominal pain, nausea, vomiting, bloody stools or diarrhea [] : Denies dysuria or hematuria [] Musculoskeletal: Left elbow pain[] Integument: Denies rash or skin lesions [] Neurologic: Denies headache, focal weakness or sensory changes [] Endocrine: Denies polyuria or polydipsia [] All other systems were reviewed and found to be within normal limits, except as documented in this note. Current Medications Current Medications Current Medications Medications (Trade) Dose Ordered Sig/[facility] Start Time Stop Time Status Last Admin Dose Admin Acetaminophen/ Hydrocodone Bitart (Lortab 5/325) 1 tab 1X ONCE 08/25/18 17:00 08/25/18 17:01 DC Ondansetron HCl (Zofran Odt) 4 mg 1X ONCE 08/25/18 17:00 08/25/18 17:01 DC Allergies Allergies Allergies Coded Allergies Type Severity Reaction Last Updated Verified Penicillins Allergy Mild 08/24/18 Yes codeine Allergy Unknown 08/24/18 Yes meperidine Allergy Unknown 08/24/18 Yes morphine Allergy Unknown 08/24/18 Yes Physical Exam Physical Exam Constitutional: Well developed, well nourished, no acute distress, non-toxic appearance. [] HENT: Normocephalic, atraumatic, bilateral external ears normal, oropharynx moist, no oral exudates, nose normal. [] Eyes: PERRLA, EOMI, conjunctiva normal, no discharge. [] Neck: Normal range of motion, no tenderness, supple, no stridor. [] Cardiovascular:Heart rate regular rhythm, no murmur [] Lungs & Thorax: Bilateral breath sounds clear to auscultation [] Abdomen: Bowel sounds normal, soft, no tenderness, no masses, no pulsatile masses. [] Skin: Warm, dry, no erythema, no rash. [] Back: No tenderness, no CVA tenderness. [] Extremities: There is palpation of the left elbow, no ecchymosis, no significant swelling, no deformity.[] Neurologic: Alert and oriented X 3, normal motor function, normal sensory function, no focal deficits noted. [] Psychologic: Affect normal, judgement normal, mood normal. [] Current Patient Data Vital Signs Vital Signs Date Time Temp Pulse Resp B/P (MAP) Pulse Ox O2 Delivery O2 Flow Rate FiO2 08/25/18 16:00 98.3 73 18 95 Room Air EKG EKG [] Radiology/Procedures Radiology/Procedures [] Course & Med Decision Making Course & Med Decision Making Pertinent Labs and Imaging studies reviewed. (See chart for details) The patient's x-rays negative for fracture. Patient has had several intermittent ER visits for various kinds of pain. She has had over 40 controlled substance prescriptions in the last year or more than 10 providers feeling more than 10 pharmacies, into her states. The patient I was able to treat her pain in the ED with a single oral tablet, but I was unable to give her any prescription medicine at discharge as she is ready cared for by a physician prescribing pain medication. She must follow up with that physician if she needs a change her pain medication. She is stable for discharge at this time. [] Dragon Disclaimer Dragon Disclaimer This electronic medical record was generated, in whole or in part, using a voice recognition dictation system. Departure Departure: Impression: Primary Impression: Left elbow pain Additional Impressions: Fall due to slipping on ice or snow Drug-seeking behavior Disposition: 01 HOME, SELF-CARE Condition: STABLE Patient Instructions: Elbow Contusion, [id number] Problem Qualifiers Additional Impressions: Fall due to slipping on ice or snow Encounter type: initial encounter Qualified Codes: W00.9XXA - Unspecified fall due to ice and snow, initial encounter BRENTON MONROY DO Aug 25, 2018 17:08
== END 2018-08-25 17:06 | disposition home or self-care (01) ==
LOC: ER 15:33
DX: M25.522 Pain in left elbow (principal); G89.11 Acute pain due to trauma; Z76.5 Malingerer [conscious simulation]; J44.9 Chronic obstructive pulmonary disease, unspecified; Z88.0 Allergy status to penicillin; Z88.5 Allergy status to narcotic agent; Z88.8 Allergy status to other drugs, medicaments and biological substances; W00.0XXA Fall on same level due to ice and snow, initial encounter; Y93.01 Activity, walking, marching and hiking; Y92.511 Restaurant or cafe as the place of occurrence of the external cause; Y99.8 Other external cause status
CPT/HCPCS: 73080; 99284; Q0162

== ENCOUNTER 2018-09-11 17:35 | Emergency (ER) | payer SELFPAY ==
[~2018-09-11] VITALS: Ht 162.6 cm; Wt 54.4 kg
[~2018-09-11 17:35] MED LIST changes: -GABA600T2 PO; +GABA600T7 PO
[2018-09-11 17:50] VITALS: BP 125/81
[2018-09-11] MEDS ORDERED: predniSONE 20 MG TABLET PO ONE (18:15)
[2018-09-11] MEDS ORDERED: ALBUTEROL SULFATE 2.5 MG/3 ML NEBU. NEB ONE (18:15)
[2018-09-11] MEDS ORDERED: ALBU2.5V8 INH (18:32)
[2018-09-11] MEDS ORDERED: AZIT500T2 PO (18:32)
[2018-09-11] MEDS ORDERED: PRED20TA PO (18:32)
--- NOTE | 2018-09-11 18:35 | PHYS DOC ---
Adult General Chief Complaint Chief Complaint cough HPI HPI 43 years old female presented to the emergency department with the chief complaint of congestion, cough she stated that she's been living without heat for the past 6 days she continued smoke and she is feeling congestion in her chest cough and unable to produce any sputum she also mentioned that she's been having low-grade temperature at night and feeling tremors Denies chest pain no palpitation no neck pain no back pain .no exertional chest pain or shortness breath Review of Systems Review of Systems Constitutional: Denies fever or chills [] Eyes: Denies change in visual acuity, redness, or eye pain [] HENT: Denies nasal congestion or sore throat [] Respiratory: Mentioned in history of present illness Cardiovascular: No additional information not addressed in HPI [] GI: Denies abdominal pain, nausea, vomiting, bloody stools or diarrhea [] : Denies dysuria or hematuria [] Musculoskeletal: Denies back pain or joint pain [] Integument: Denies rash or skin lesions [] Neurologic: Denies headache, focal weakness or sensory changes [] Endocrine: Denies polyuria or polydipsia [] All other systems were reviewed and found to be within normal limits, except as documented in this note. Current Medications Current Medications Current Medications Medications (Trade) Dose Ordered Sig/La Start Time Stop Time Status Last Admin Dose Admin Albuterol Sulfate (Ventolin) 2.5 mg 1X ONCE 09/11/18 18:15 09/11/18 18:17 DC 09/11/18 18:15 2.5 MG Prednisone (Prednisone) 60 mg 1X ONCE 09/11/18 18:15 09/11/18 18:17 DC Allergies Allergies Allergies Coded Allergies Type Severity Reaction Last Updated Verified Penicillins Allergy Mild 08/24/18 Yes codeine Allergy Unknown 08/24/18 Yes meperidine Allergy Unknown 08/24/18 Yes morphine Allergy Unknown 08/24/18 Yes Physical Exam Physical Exam Constitutional: Well developed, well nourished, no acute distress, non-toxic appearance. [] HENT: Normocephalic, atraumatic, bilateral external ears normal, oropharynx moist, no oral exudates, nose normal. [] Eyes: PERRLA, EOMI, conjunctiva normal, no discharge. [] Neck: Normal range of motion, no tenderness, supple, no stridor. [] Cardiovascular:Heart rate regular rhythm, no murmur [] Lungs & Thorax: Diminished bilaterally with inspiratory and expiratory wheezing no crackles no rhonchi Abdomen: Bowel sounds normal, soft, no tenderness, no masses, no pulsatile masses. [] Skin: Warm, dry, no erythema, no rash. [] Back: No tenderness, no CVA tenderness. [] Extremities: No tenderness, no cyanosis, no clubbing, ROM intact, no edema. [] Neurologic: Alert and oriented X 3, normal motor function, normal sensory function, no focal deficits noted. [] Psychologic: Affect normal, judgement normal, mood normal. [] Current Patient Data Vital Signs Vital Signs Date Time Temp Pulse Resp B/P (MAP) Pulse Ox O2 Delivery O2 Flow Rate FiO2 09/11/18 18:31 96 Room Air 09/11/18 17:50 98.5 93 22 EKG EKG [] Radiology/Procedures Radiology/Procedures [] Course & Med Decision Making Course & Med Decision Making Pertinent Labs and Imaging studies reviewed. (See chart for details) [] Final Impression Final Impression [] Problems: (1) COPD (chronic obstructive pulmonary disease) Qualifiers: Qualified Codes: J42 - Unspecified chronic bronchitis Dragon Disclaimer Dragon Disclaimer This electronic medical record was generated, in whole or in part, using a voice recognition dictation system. BARRINGTON MORTENSEN MD Sep 11, 2018 18:35
--- NOTE | 2018-09-11 22:51 | RAD ---
PA and lateral chest radiographs 09/11/2018 CLINICAL HISTORY: Preoperative evaluation pre rotator cuff surgery. PA and lateral digital radiographs of chest were obtained. Comparison study is dated 07/04/2018. The cardiac and mediastinal silhouettes are within normal limits in size and configuration. Elevation of the right hemidiaphragm is again seen. Blunting of the right costophrenic angle is noted which may reflect pleural thickening. This is unchanged. No acute pulmonary infiltrate is seen. No pneumothorax or definite pleural effusion is seen. Mild degenerative changes are seen involving the thoracic spine. IMPRESSION: No acute abnormality is seen. Electronically signed by: Harsh Melendez MD (09/11/2018 10:48 PM) [facility]
== END 2018-09-11 18:49 | disposition home or self-care (01) ==
LOC: ER 17:35
DX: J44.9 Chronic obstructive pulmonary disease, unspecified (principal); Z88.0 Allergy status to penicillin; Z88.5 Allergy status to narcotic agent; Z88.8 Allergy status to other drugs, medicaments and biological substances
CPT/HCPCS: 71046; 94640; 99283; J7512; J7613

== ENCOUNTER 2018-09-28 21:53 | Emergency (ER) | payer OTHER ==
[~2018-09-28] VITALS: Ht 162.6 cm; Wt 55.3 kg
[~2018-09-28 21:53] MED LIST changes: +ALBU2.5V8 INH; +AZIT500T2 PO; +PRED20TA PO
[2018-09-28] MEDS ORDERED: KETOROLAC 15 MG/ML VIAL. IV ONE (22:45)
[2018-09-28] MEDS ORDERED: IV NORMAL SALINE 1,000ML 1,000 ML IV ONE (22:45)
[2018-09-28] MEDS ORDERED: diphenhydrAMINE 50 MG/ML VIAL IVP ONE (22:45)
[2018-09-28] MEDS ORDERED: METOCLOPRAMIDE HCL 10 MG/2 ML VIAL. IV ONE (22:45)
[2018-09-28] MEDS ORDERED: DEXAMETHASONE SOD PHOS 10 MG/ML VIAL IV ONE (22:45)
[2018-09-28 23:05] LABS: BASO % 0 % (0-3); EOS # 0.1 x10^3/uL (0.0-0.7); EOS % 1 % (0-3); HEMATOCRIT 42.3 % (36.0-47.0); HEMOGLOBIN 14.4 g/dL (12.0-15.5); LYMPH # 4.1 x10^3/uL (1.0-4.8); LYMPH % 45 % (24-48); MEAN CORPUSCULAR HEMOGLOBIN 31 pg (25-35); MEAN CORPUSCULAR HGB CONC 34 g/dL (31-37); MEAN CORPUSCULAR VOLUME 91 fL (79-100); MONO # 0.3 x10^3/uL (0.0-1.1); MONO % 3 % (0-9); NEUT # 4.6 x10^3uL (1.8-7.7); NEUT % 51 % (31-73); PLATELET COUNT 269 x10^3/uL (140-400); RED BLOOD COUNT 4.65 x10^6/uL (3.50-5.40); RED CELL DISTRIBUTION WIDTH 13.4 % (11.5-14.5); WHITE BLOOD COUNT 9.1 x10^3/uL (4.0-11.0)
[2018-09-28 23:12] LABS: COLOR,URINE YELLOW
[2018-09-28 23:13] LABS: BACTERIA,URINE 0 /HPF (0-FEW); BILIRUBIN,URINE NEG (NEG); CLARITY,URINE CLEAR; GLUCOSE,URINE NEG (NEG); NITRITE,URINE NEG (NEG); RBC,URINE 0 /HPF (0-2); SQUAMOUS EPITHELIAL CELL,UR OCC /LPF; UROBILINOGEN,URINE 0.2 mg/dL (0.2 mg/dL); WBC,URINE RARE /HPF (0-4)
[2018-09-28 23:26] LABS: ALBUMIN 3.5 g/dL (3.4-5.0); ALBUMIN/GLOBULIN RATIO 1.1 (1.0-1.7); C REACTIVE PROTEIN 0.9 mg/L (0-3.3); CALCIUM 9.2 mg/dL (8.5-10.1); CREATININE 0.8 mg/dL (0.6-1.0); GFR 77.9; MAGNESIUM 2.2 mg/dL (1.8-2.4); POTASSIUM 3.6 mmol/L (3.5-5.1); TOTAL BILIRUBIN 0.3 mg/dL (0.2-1.0); TOTAL PROTEIN 6.8 g/dL (6.4-8.2)
--- NOTE | 2018-09-28 23:55 | RAD ---
Examination: CT HEAD WO CONTRAST History: Headache, weakness Comparison/Correlation: None Findings: Axial images of the head were obtained without contrast. Ventricles are normal size. No intracranial hemorrhage, midline shift, or mass effect. Ventricles are normal size. Toro-white matter differentiation is adequate. Bony structures are unremarkable. Impression: No acute process. PQRS Compliance Statement: One or more of the following individualized dose reduction techniques were utilized for this examination: 1. Automated exposure control 2. Adjustment of the mA and/or kV according to patient size 3. Use of iterative reconstruction technique Electronically signed by: Gus Roberson MD (09/28/2018 11:52 PM) [facility]
[2018-09-29 00:01] LABS: SEDIMENTATION RATE 6 (0-25)
[2018-09-29 00:28] LABS: BARBITURATES NEG (NEG); BENZODIAZEPINES POS (NEG); CANNABINOIDS POS (NEG); COCAINE NEG (NEG); METHADONE NEG (NEG); OPIATES NEG (NEG); PHENCYCLIDINE NEG (NEG)
[2018-09-29 00:29] LABS: AMPHETAMINE/METHAMPHETAMINE NEG (NEG)
--- NOTE | 2018-09-29 01:09 | PHYS DOC ---
Past History Past Medical History: COPD, Other Past Surgical History: Appendectomy, Hysterectomy, Other Smoking: Cigarettes, Greater than 1 pack/day Alcohol Use: None Drug Use: Marijuana Adult General Chief Complaint Chief Complaint: MULTIPLE COMPLAINTS HPI HPI 43-year-old female presents with multiple complaints including pain to top of her head and right anabaptism as well as right-sided chest discomfort which is been ongoing for last 2 days. Reports she thinks she might have "bumps" on her head. Reports they are very painful. Denies known trauma. Denies fever or chills. Reports has seen her PCP and is supposed to follow up with pari mutuel clerk , aws developer, and neurologist. Patient reports she has a known right-sided pleural effusion. Patient also concerned she might have some blood in her urine. Patient reports took some tramadol at home without significant improvement. Denies neck pain. Reports increased anxiety. Reports is currently being treated with 2nd round of antibiotics for bronchitis and is also taking prednisone. Also reports near syncopal episode x 2 today. Review of Systems Review of Systems Constitutional: Denies fever or chills [] Eyes: Denies change in visual acuity, redness, or eye pain [] HENT: Denies nasal congestion or sore throat [] Respiratory: Denies cough or shortness of breath [] Cardiovascular: Reports right sided chest pain; denies palpitations GI: Denies abdominal pain, nausea, vomiting, or diarrhea [] : Denies dysuria or hematuria [] Musculoskeletal: Denies back pain or joint pain [] Integument: Denies rash; reports sensation of bumps on her scalp Neurologic: Reports headache and hard time finding her words due to pain; near syncope; denies focal weakness or sensory changes Complete systems were reviewed and found to be within normal limits, except as documented in this note. Current Medications Current Medications Current Medications Medications (Trade) Dose Ordered Sig/La Start Time Stop Time Status Last Admin Dose Admin Dexamethasone Sodium Phosphate (Decadron) 10 mg 1X ONCE 09/28/18 22:45 09/28/18 23:09 DC Diphenhydramine HCl (Benadryl) 50 mg 1X ONCE 09/28/18 22:45 09/28/18 22:51 DC 09/28/18 22:56 50 MG Fentanyl Citrate (Fentanyl 2ml Vial) 50 mcg 1X ONCE 09/28/18 23:15 09/29/18 00:42 DC 09/28/18 23:12 50 MCG Ketorolac Tromethamine (Toradol 15mg Vial) 15 mg 1X ONCE 09/28/18 22:45 09/28/18 23:09 DC Metoclopramide HCl (Reglan Vial) 10 mg 1X ONCE 09/28/18 22:45 09/28/18 22:51 DC 09/28/18 22:56 10 MG Sodium Chloride 1,000 ml @ 1,000 mls/hr 1X ONCE 09/28/18 22:45 09/28/18 23:44 DC 09/28/18 22:55 1,000 MLS/HR Allergies Allergies Allergies Coded Allergies Type Severity Reaction Last Updated Verified Penicillins Allergy Mild 08/24/18 Yes codeine Allergy Unknown 08/24/18 Yes meperidine Allergy Unknown 08/24/18 Yes morphine Allergy Unknown 08/24/18 Yes Physical Exam Physical Exam Constitutional: Well developed, well nourished, no acute distress, non-toxic appearance. [] HENT: Normocephalic, atraumatic, no scalp lesions noted, scalp tender to light touch, bilateral TMs normal, oropharynx moist, nose normal. [] Eyes: PERRL, EOMI, conjunctiva normal, no discharge. [] Neck: Normal range of motion, no tenderness, supple, no meningeal signs Cardiovascular: Heart rate regular rhythm, no murmur [] Lungs & Thorax: Bilateral breath sounds clear to auscultation [] Abdomen: Soft, no tenderness Skin: Warm, dry, no erythema, no rash Extremities: No tenderness, ROM intact, no edema. [] Neurologic: Alert and oriented X 3, normal motor function, normal sensory function, no focal deficits noted. [] Psychologic: Affect anxious judgement normal Current Patient Data Vital Signs Vital Signs Date Time Temp Pulse Resp B/P (MAP) Pulse Ox O2 Delivery O2 Flow Rate FiO2 09/28/18 23:12 18 97 Room Air 09/28/18 21:53 98.0 79 Lab Results Laboratory Tests Test 09/28/18 22:00 09/28/18 22:40 Urine Collection Type Unknown Urine Color Yellow Urine Clarity Clear Urine pH 5.5 Urine Specific [place] 1.015 Urine Protein Neg (NEG-TRACE) Urine Glucose (UA) Neg mg/dL (NEG) Urine Ketones (Stick) Trace mg/dL (NEG) Urine Blood Neg (NEG) Urine Nitrite Neg (NEG) Urine Bilirubin Neg (NEG) Urine Urobilinogen Dipstick 0.2 mg/dL (0.2 mg/dL) Urine Leukocyte Esterase Neg (NEG) Urine RBC 0 /HPF (0-2) Urine WBC Rare /HPF (0-4) Urine Squamous Epithelial Cells Occ /LPF Urine Bacteria 0 /HPF (0-FEW) Urine Opiates Screen Neg (NEG) Urine Methadone Screen Neg (NEG) Urine Barbiturates Neg (NEG) Urine Phencyclidine Screen Neg (NEG) Urine Amphetamine/Methamphetamine Neg (NEG) Urine Benzodiazepines Screen Pos (NEG) Urine Cocaine Screen Neg (NEG) Urine Cannabinoids Screen Pos (NEG) Urine Ethyl Alcohol Neg (NEG) White Blood Count 9.1 x10^3/uL (4.0-11.0) Red Blood Count 4.65 x10^6/uL (3.50-5.40) Hemoglobin 14.4 g/dL (12.0-15.5) Hematocrit 42.3 % (36.0-47.0) Mean Corpuscular Volume 91 fL (79-100) Mean Corpuscular Hemoglobin 31 pg (25-35) Mean Corpuscular Hemoglobin Concent 34 g/dL (31-37) Red Cell Distribution Width 13.4 % (11.5-14.5) Platelet Count 269 x10^3/uL (140-400) Neutrophils (%) (Auto) 51 % (31-73) Lymphocytes (%) (Auto) 45 % (24-48) Monocytes (%) (Auto) 3 % (0-9) Eosinophils (%) (Auto) 1 % (0-3) Basophils (%) (Auto) 0 % (0-3) Neutrophils # (Auto) 4.6 x10^3uL (1.8-7.7) Lymphocytes # (Auto) 4.1 x10^3/uL (1.0-4.8) Monocytes # (Auto) 0.3 x10^3/uL (0.0-1.1) Eosinophils # (Auto) 0.1 x10^3/uL (0.0-0.7) Basophils # (Auto) 0.0 x10^3/uL (0.0-0.2) Erythrocyte Sedimentation Rate 6 (0-25) Sodium Level 144 mmol/L (136-145) Potassium Level 3.6 mmol/L (3.5-5.1) Chloride Level 106 mmol/L (98-107) Carbon Dioxide Level 30 mmol/L (21-32) Anion Gap 8 (6-14) Blood Urea Nitrogen 11 mg/dL (7-20) Creatinine 0.8 mg/dL (0.6-1.0) Estimated GFR (Cockcroft-Gault) 77.9 BUN/Creatinine Ratio 14 (6-20) Glucose Level 104 mg/dL (70-99) H Calcium Level 9.2 mg/dL (8.5-10.1) Magnesium Level 2.2 mg/dL (1.8-2.4) Total Bilirubin 0.3 mg/dL (0.2-1.0) Aspartate Amino Transferase (AST) 10 U/L (15-37) L Alanine Aminotransferase (ALT) 12 U/L (14-59) L Alkaline Phosphatase 65 U/L (46-116) Creatine Kinase 38 U/L (26-192) Creatine Kinase MB (Mass) 0.5 ng/mL (0.0-3.6) Creatine Kinase MB Relative Index 1.3 % (0-4) Troponin I Quantitative < 0.017 ng/mL (0-0.055) C-Reactive Protein 0.9 mg/L (0-3.3) Total Protein 6.8 g/dL (6.4-8.2) Albumin 3.5 g/dL (3.4-5.0) Albumin/Globulin Ratio 1.1 (1.0-1.7) Ethyl Alcohol Level < 10 mg/dL (0-10) EKG EKG @2255 NSR 69bpm, NO ST elevation Radiology/Procedures Radiology/Procedures CXR 2 view (preliminary interpretation by ED physician): right sided pleural effusion, NO other infiltration Course & Med Decision Making Course & Med Decision Making Pertinent Labs and Imaging studies reviewed. (See chart for details) Patient presents with history of headache even to light touch and right sided chest pain. History of known right pleural effusion. NIHSS 0. CXR stable. EKG stable. Labs obtained and posted to chart. Troponin x [address] head without acute process. Pain/nausea addressed. IVF hydration given. HEART score : 1. Chest pain low risk and atypical. Patient stable for discharge with outpatient follow-up with PCP/neurologist/ aws developer/pari mutuel clerk. Discussed findings and plan with patient and family , who acknowledge understanding and agreement. Ana Disclaimer Ana Disclaimer This electronic medical record was generated, in whole or in part, using a voice recognition dictation system. Departure Departure: Impression: Primary Impression: Headache Additional Impression: Atypical chest pain Disposition: HOME, SELF-CARE Condition: STABLE Referrals: TRENT SANDOVAL SHOTGUN SHELL ASSEMBLY MACHINE OPERATOR-C (PCP) Patient Instructions: Chest Pain (Nonspecific), [id number], Headache, FAQs Scripts Butalb/Acetaminophen/Caffeine ([id number] 50-325-40) 1 Each Tablet 1 EACH PO Q6HRS PRN for HEADACHE, #14 TAB Prov: RAIZA RIVERA DO 09/29/18 NIHSS - ED NIH Stroke Scale: NIH Stroke Scale Response (Comments) Value Level of Consciousness: 0 Alert/Responsive 0 LOC Questions: 0 Answers both correctly 0 LOC Commands: 0 Performs both tasks 0 Best Gaze: 0 Normal 0 Visual: 0 No visual loss 0 Facial Palsy: 0 Normal, symmetrical 0 Motor - Left Arm 0 No drift 0 Motor - Right Arm 0 No drift 0 Motor - Left Leg 0 No drift 0 Motor: Right Leg 0 No drift 0 Limb Ataxia: 0 Absent 0 Sensory: 0 No loss 0 Best Language: 0 Normal 0 Dysathria: 0 Normal 0 Extinction and Inattention: 0 Normal 0 Total 0 Problem Qualifiers Primary Impression: Headache Headache type: unspecified Headache chronicity pattern: unspecified pattern Intractability: not intractable Qualified Codes: R51 - Headache RAIZA RIVERA DO Sep 29, 2018 01:09
[2018-09-29] MEDS ORDERED: BUTA1TAB23 PO (01:21)
[2018-09-29 01:25] VITALS: BP 111/45
--- NOTE | 2018-09-29 01:43 | RAD ---
Two-view chest dated 09/28/2018. Comparison made to 09/11/2018. Clinical indication: Chest pain. FINDINGS: PA and lateral views obtained. Heart and mediastinal contours are stable. Lungs are somewhat hyperinflated. There is blunting of the bilateral costophrenic sulci, right greater than left, unchanged. No pneumothorax. No consolidation. IMPRESSION: 1. No acute radiographic abnormality. 2. Blunting of the bilateral costophrenic sulci, unchanged, likely related to chronic pleural thickening. Electronically signed by: Solomon Ryan MD (09/29/2018 1:41 AM) [facility] [place]
--- NOTE | 2018-09-29 19:13 | EKG ---
[address] [address] Test Date: 2018-09-28 Test Time: 22:55:26 Pat Name: MY PURCELL Department: Room: Gender: F Senior Administrator Support: SHELLI : 1975 Requested By: RAIZA RIVERA Order Number: [id number] Reading MD: Raffy Ndiaye MD Measurements Intervals [place] Rate: 69 P: CA: QRS: 48 QRSD: 86 T: 73 QT: 372 QTc: 400 Interpretive Statements SR Electronically Signed On 10-10-2018 21:28:02 CDT by Raffy Ndiaye MD
== END 2018-09-29 01:30 | disposition home or self-care (01) ==
LOC: ER 21:53
DX: R51 Headache (principal); R07.89 Other chest pain; R55 Syncope and collapse; J44.9 Chronic obstructive pulmonary disease, unspecified; F17.210 Nicotine dependence, cigarettes, uncomplicated; Z88.0 Allergy status to penicillin; Z88.5 Allergy status to narcotic agent
CPT/HCPCS: 36415; 70450; 71046; 80053; 80307; 81001; 82553; 83735; 84484; 85025; 85651; 86140; 93005; 96361; 96374; 96375; 99284; G0480; J1200; J2765; J3010; J7030

== ENCOUNTER 2018-09-29 22:46 | Emergency (ER) | payer OTHER ==
[~2018-09-29] VITALS: Ht 162.6 cm; Wt 52.2 kg
[~2018-09-29 22:46] MED LIST changes: +BUTA1TAB23 PO
--- NOTE | 2018-09-29 23:09 | ED.ADGEN ---
Past History Past Medical History: COPD, Other Past Surgical History: Appendectomy, Hysterectomy, Other Smoking: Cigarettes, Greater than 1 pack/day Alcohol Use: None Drug Use: Marijuana Adult General Chief Complaint Chief Complaint ... " My hand got caught in the elevator door..... " " All my finger in my Rt. hand got caught... " " .. I t missed my thumb..." HPI HPI Patient is a 43 year old female who presents with above hx and complaints of contusion type injury to Rt. hand. Patient is right-hand dominant. Distal neurovascular intact. Patient states any movement makes her fingers hurt. No recent findings of decreasing. Refill or edema. Patient denies any other injury. Patient has history of chronic pain issues. Patient been seen here 7 times since June for pain type complaints. Patient reports very low pain threshold by history. No other injuries reported. Patient did take one her tramadol for pain while in the emergency department. Review of Systems Review of Systems Constitutional: Denies fever or chills [] Eyes: Denies change in visual acuity, redness, or eye pain [] HENT: Denies nasal congestion or sore throat [] Respiratory: Denies cough or shortness of breath [] Cardiovascular: No additional information not addressed in HPI [] GI: Denies abdominal pain, nausea, vomiting, bloody stools or diarrhea [] : Denies dysuria or hematuria [] Musculoskeletal: Denies back pain or joint pain [complaints of contusion injury right hand Integument: Denies rash or skin lesions [] Neurologic: Denies headache, focal weakness or sensory changes [] Endocrine: Denies polyuria or polydipsia [] All other systems were reviewed and found to be within normal limits, except as documented in this note. Family History Family History Noncontributory Current Medications Current Medications Current Medications Medications (Trade) Dose Ordered Sig/La Start Time Stop Time Status Last Admin Dose Admin Ondansetron HCl (Zofran Odt) 4 mg STK-MED ONCE 09/30/18 00:00 09/30/18 00:15 DC See nursing for home meds Allergies Allergies Allergies Coded Allergies Type Severity Reaction Last Updated Verified Penicillins Allergy Mild 09/29/18 Yes codeine Allergy Unknown 09/29/18 Yes hydromorphone Allergy Unknown 09/29/18 Yes meperidine Allergy Unknown 09/29/18 Yes morphine Allergy Unknown 09/29/18 Yes Uncoded Allergies Type Severity Reaction Last Updated Verified steroids Adverse Reaction Unknown 09/29/18 Physical Exam Physical Exam Constitutional: Reports she is in acute distress, non-toxic appearance. [] HENT: Normocephalic, atraumatic, bilateral external ears normal, oropharynx moist, no oral exudates, nose normal. Poor dentition Eyes: PERRLA, EOMI, conjunctiva normal, no discharge. [] Neck: Normal range of motion, no tenderness, supple, no stridor. [] Cardiovascular:Heart rate regular rhythm, no murmur [] Lungs & Thorax: Bilateral breath sounds equal apexes with scattered wheezes on auscultation [] Abdomen: Bowel sounds normal, soft, no tenderness, no masses, no pulsatile masses. [Old surgery scars. Skin: Warm, dry, no erythema, no rash. [] Multiple tattoos. Back: No tenderness, no CVA tenderness. [] Extremities: Complains of right hand tenderness, no cyanosis, no clubbing, ROM intact, no edema. [] Neurologic: Alert and oriented X 3, normal motor function, normal sensory function, no focal deficits noted. [] Psychologic: Affect anxious, judgement normal, mood normal. [] Current Patient Data Vital Signs Vital Signs Date Time Temp Pulse Resp B/P (MAP) Pulse Ox O2 Delivery O2 Flow Rate FiO2 09/30/18 00:10 77 20 111/47 (68) 96 Room Air 09/29/18 22:55 98.6 Lab Results Laboratory Tests Test 09/29/18 23:15 Urine Collection Type Void Urine Color Yellow Urine Clarity Cloudy Urine pH 7.5 Urine Specific [place] 1.015 Urine Protein Neg (NEG-TRACE) Urine Glucose (UA) Neg mg/dL (NEG) Urine Ketones (Stick) Neg mg/dL (NEG) Urine Blood Trace (NEG) Urine Nitrite Neg (NEG) Urine Bilirubin Neg (NEG) Urine Urobilinogen Dipstick 0.2 mg/dL (0.2 mg/dL) Urine Leukocyte Esterase Neg (NEG) Urine RBC 1-2 /HPF (0-2) Urine WBC 1-4 /HPF (0-4) Urine Squamous Epithelial Cells Few /LPF Urine Amorphous Sediment Present /HPF Urine Bacteria 0 /HPF (0-FEW) Urine Opiates Screen Neg (NEG) Urine Methadone Screen Neg (NEG) Urine Barbiturates Pos (NEG) Urine Phencyclidine Screen Neg (NEG) Urine Amphetamine/Methamphetamine Neg (NEG) Urine Benzodiazepines Screen Neg (NEG) Urine Cocaine Screen Neg (NEG) Urine Cannabinoids Screen Pos (NEG) Urine Ethyl Alcohol Neg (NEG) EKG EKG [] Radiology/Procedures Radiology/Procedures My interpretation of hand x-ray shows no obvious fracture dislocation.[] Course & Med Decision Making Course & Med Decision Making Pertinent Labs and Imaging studies reviewed. (See chart for details) Hand splinted by me with tape-bipin splint. Distal neurovascular intact. Pt. does exhibit possible narcotic seeking behavior . Rest, ice packs, splint, Tylenol and ibuprofen as needed for pain. Follow-up primary care. Encourage pt to stop smoking. [] Final Impression Final Impression 1. Contusion[] Rt. Hand 2. Possible Narcotic Seeking Behavior 3. Hx. Polysubstance abuse and tobacco use Dragon Disclaimer Dragon Disclaimer This electronic medical record was generated, in whole or in part, using a voice recognition dictation system. Dragon Disclaimer This chart was dictated in whole or in part using Voice Recognition software in a busy, high-work load, and often noisy Emergency Department environment. It may contain unintended and wholly unrecognized errors or omissions. Discharge Summary Visit Information Final Diagnosis Problems Medical Problems: (1) Contusion Status: Acute Brief Hospital Course Allergies Allergies Coded Allergies Type Severity Reaction Last Updated Verified Penicillins Allergy Mild 09/29/18 Yes codeine Allergy Unknown 09/29/18 Yes hydromorphone Allergy Unknown 09/29/18 Yes meperidine Allergy Unknown 09/29/18 Yes morphine Allergy Unknown 09/29/18 Yes Uncoded Allergies Type Severity Reaction Last Updated Verified steroids Adverse Reaction Unknown 09/29/18 Vital Signs Vital Signs Date Time Temp Pulse Resp B/P (MAP) Pulse Ox O2 Delivery O2 Flow Rate FiO2 09/30/18 00:10 77 20 111/47 (68) 96 Room Air 09/29/18 22:55 98.6 Lab Results Laboratory Tests Test 09/29/18 23:15 Urine Collection Type Void Urine Color Yellow Urine Clarity Cloudy Urine pH 7.5 Urine Specific [place] 1.015 Urine Protein Neg (NEG-TRACE) Urine Glucose (UA) Neg mg/dL (NEG) Urine Ketones (Stick) Neg mg/dL (NEG) Urine Blood Trace (NEG) Urine Nitrite Neg (NEG) Urine Bilirubin Neg (NEG) Urine Urobilinogen Dipstick 0.2 mg/dL (0.2 mg/dL) Urine Leukocyte Esterase Neg (NEG) Urine RBC 1-2 /HPF (0-2) Urine WBC 1-4 /HPF (0-4) Urine Squamous Epithelial Cells Few /LPF Urine Amorphous Sediment Present /HPF Urine Bacteria 0 /HPF (0-FEW) Urine Opiates Screen Neg (NEG) Urine Methadone Screen Neg (NEG) Urine Barbiturates Pos (NEG) Urine Phencyclidine Screen Neg (NEG) Urine Amphetamine/Methamphetamine Neg (NEG) Urine Benzodiazepines Screen Neg (NEG) Urine Cocaine Screen Neg (NEG) Urine Cannabinoids Screen Pos (NEG) Urine Ethyl Alcohol Neg (NEG) Brief Hospital Course Ms. Osuna is a 43 old female who presented with contusion to Rt. hand in elevator door. Discharged home with bipin tape splint. To take narcotic meds she already been prescribed as directed for pain. Ice, elevation, rest Discharge Information Condition at Discharge: Improved, Stable Disposition/Orders: D/C to Home Dischare Medications Current Medications Ondansetron HCl (Zofran Odt) 8 mg 1X ONCE PO Last administered on 09/30/18at 00: 03; Admin Dose 8 MG; Start 09/30/18 at 00:00; Stop 09/30/18 at 00:15; Status DC Ondansetron HCl (Zofran Odt) 4 mg STK-MED ONCE .ROUTE ; Start 09/30/18 at 00:00; Stop 09/30/18 at 00:15; Status DC Active Scripts Active Hsfrpu-Anfvacrl-Zwfk 50-325-40 (Butalb/Acetaminophen/Caffeine) 1 Each Tablet 1 Each PO Q6HRS PRN Proair Hfa Inhaler (Albuterol Sulfate) 8.5 Gm Hfa.aer.ad 1 Puff INH PRN Q6HRS PRN 7 Days Reported Tizanidine Hcl (Tizanidine HCl) 4 Mg Tablet 4 Mg PO BID Gabapentin 600 Mg Tablet 600 Mg PO TID BEN BUCKLEY MD Sep 29, 2018 23:09
[2018-09-29 23:37] LABS: AMPHETAMINE/METHAMPHETAMINE NEG (NEG); BARBITURATES POS (NEG); BENZODIAZEPINES NEG (NEG); CANNABINOIDS POS (NEG); COCAINE NEG (NEG); METHADONE NEG (NEG); OPIATES NEG (NEG); PHENCYCLIDINE NEG (NEG)
[2018-09-29 23:44] LABS: BILIRUBIN,URINE NEG (NEG); CLARITY,URINE CLOUDY; COLOR,URINE YELLOW; GLUCOSE,URINE NEG (NEG); NITRITE,URINE NEG (NEG); UROBILINOGEN,URINE 0.2 mg/dL (0.2 mg/dL)
[2018-09-29 23:45] LABS: AMORPHOUS SEDIMENT,UR PRESENT /HPF; BACTERIA,URINE 0 /HPF (0-FEW); SQUAMOUS EPITHELIAL CELL,UR FEW /LPF
[2018-09-30] MEDS ORDERED: ONDANSETRON ODT 4 MG TAB.RAPDIS PO ONE
[2018-09-30] MEDS ORDERED: ONDANSETRON ODT 4 MG TAB.RAPDIS ONE
[2018-09-30 00:10] VITALS: BP 111/47
--- NOTE | 2018-09-30 00:13 | RAD ---
Three-view right hand dated 09/29/2018. No comparison available. CLINICAL INDICATION: Pain after injury. FINDINGS: 3 views right hand show normal bony alignment. No displaced fracture. No acute osseous or articular abnormality. Mild soft tissue swelling of the digits. IMPRESSION: Mild soft tissue swelling with no evidence of underlying acute bony abnormality. Electronically signed by: Solomon Ryan MD (09/30/2018 12:09 AM) [facility]
== END 2018-09-30 00:12 | disposition home or self-care (01) ==
LOC: ER 22:46
DX: S60.221A Contusion of right hand, initial encounter (principal); J44.9 Chronic obstructive pulmonary disease, unspecified; F17.210 Nicotine dependence, cigarettes, uncomplicated; F19.10 Other psychoactive substance abuse, uncomplicated; F12.10 Cannabis abuse, uncomplicated; Z88.0 Allergy status to penicillin; Z88.5 Allergy status to narcotic agent; Z88.8 Allergy status to other drugs, medicaments and biological substances; W23.0XXA Caught, crushed, jammed, or pinched between moving objects, initial encounter; Y93.89 Activity, other specified; Y92.89 Other specified places as the place of occurrence of the external cause; Y99.8 Other external cause status
CPT/HCPCS: 36415; 73130; 80307; 81001; 99284; Q0162

== ENCOUNTER 2018-10-03 22:53 | Emergency (ER) | payer OTHER ==
[~2018-10-03] VITALS: Ht 162.6 cm; Wt 52.2 kg
[2018-10-03] MEDS ORDERED: ONDANSETRON PF 4 MG/2 ML VIAL. IV ONE (23:15)
[2018-10-03] MEDS ORDERED: ASPIRIN 81 MG TAB.CHEW PO ONE (23:15)
[2018-10-03] MEDS ORDERED: KETOROLAC 30 MG/ML VIAL. IV ONE (23:15)
--- NOTE | 2018-10-03 23:17 | EKG ---
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
[2018-10-04] LABS: BASO % 1 % (0-3); EOS % 0 % (0-3); HEMATOCRIT 43.3 % (36.0-47.0); LYMPH # 3.7 x10^3/uL (1.0-4.8); LYMPH % 46 % (24-48); MEAN CORPUSCULAR HEMOGLOBIN 31 pg (25-35); MEAN CORPUSCULAR HGB CONC 35 g/dL (31-37); MEAN CORPUSCULAR VOLUME 90 fL (79-100); MONO # 0.4 x10^3/uL (0.0-1.1); MONO % 5 % (0-9); NEUT # 3.9 x10^3uL (1.8-7.7); NEUT % 48 % (31-73); PLATELET COUNT 163 x10^3/uL (140-400); RED BLOOD COUNT 4.82 x10^6/uL (3.50-5.40); RED CELL DISTRIBUTION WIDTH 13.4 % (11.5-14.5); WHITE BLOOD COUNT 8.1 x10^3/uL (4.0-11.0)
--- NOTE | 2018-10-04 00:01 | PHYS DOC ---
Past History Past Medical History: Anxiety, COPD, Other Past Surgical History: Appendectomy, Hysterectomy, Other Smoking: Cigarettes, Greater than 1 pack/day Alcohol Use: None Drug Use: Marijuana Adult General Chief Complaint Chief Complaint: CHEST PAIN HPI HPI Patient is a 43-year-old female who presents with complaint of chest discomfort that started this morning. She states that pain has been waxing and waning and describes pain as sharp and stabbing in nature. She states it is worse with deep breathing and with palpation. States that she has had intermittent episodes like this for over a year now. She states that she also has chronic back pain associated with a T12 fracture. She states that that pain is also flaring up at this time. She rates her pain to be a 9 out of 10. She states that she has had some nausea but no vomiting. Patient states the pain is worsened with deep breathing, coughing and with movements. She states that her tramadol is not helping with her pain. Review of Systems Review of Systems Constitutional: Denies fever or chills [] Respiratory: Complains of dry cough without shortness of breath [] Cardiovascular: No additional information not addressed in HPI [] GI: Denies abdominal pain. Denies vomiting or diarrhea. [] Musculoskeletal: Complains of mid to lower back pain [] Integument: Denies rash or skin lesions [] All other systems were reviewed and found to be within normal limits, except as documented in this note. Current Medications Current Medications Current Medications Medications (Trade) Dose Ordered Sig/La Start Time Stop Time Status Last Admin Dose Admin Aspirin (Children'S Aspirin) 324 mg 1X ONCE 10/03/18 23:15 10/03/18 23:16 DC 10/03/18 23:33 324 MG Indomethacin (Indocin) 50 mg 1X STAT 10/03/18 23:43 10/03/18 23:44 UNV Ketorolac Tromethamine (Toradol 30mg Vial) 30 mg 1X ONCE 10/03/18 23:15 10/03/18 23:16 UNV Ondansetron HCl (Zofran) 4 mg 1X ONCE 10/03/18 23:15 10/03/18 23:16 DC 10/03/18 23:33 4 MG Allergies Allergies Allergies Coded Allergies Type Severity Reaction Last Updated Verified Penicillins Allergy Mild 09/29/18 Yes codeine Allergy Unknown 09/29/18 Yes hydromorphone Allergy Unknown 09/29/18 Yes meperidine Allergy Unknown 09/29/18 Yes morphine Allergy Unknown 09/29/18 Yes Uncoded Allergies Type Severity Reaction Last Updated Verified steroids Adverse Reaction Unknown 09/29/18 Physical Exam Physical Exam Constitutional: Well developed, well nourished, no acute distress, non-toxic appearance. [] HENT: Normocephalic, atraumatic, bilateral external ears normal, oropharynx moist, no oral exudates, nose normal. [] Eyes: PERRLA, EOMI, conjunctiva normal, no discharge. [] Neck: Normal range of motion, no tenderness, supple, no stridor. [] Cardiovascular: Regular rate and rhythm[] Lungs & Thorax: Bilateral breath sounds clear to auscultation [] Abdomen: Bowel sounds normal, soft, no tenderness. [] Skin: Warm, dry, no erythema, no rash. [] Extremities: No tenderness, no cyanosis, no clubbing, ROM intact. [] Neurologic: Alert and oriented X 3, no focal deficits noted. [] EKG EKG EKG demonstrates normal sinus rhythm[] Radiology/Procedures Radiology/Procedures [] Impressions: Chest x-ray demonstrates no acute process Course & Med Decision Making Course & Med Decision Making Pertinent Labs and Imaging studies reviewed. (See chart for details) [] Dragon Disclaimer Dragon Disclaimer This electronic medical record was generated, in whole or in part, using a voice recognition dictation system. Departure Departure: Impression: Primary Impression: Chronic chest pain Additional Impression: Chronic back pain Disposition: 01 HOME, SELF-CARE Condition: STABLE Referrals: TRENT SANDOVAL CARPET CLEANING TECHNICIAN-C (PCP) Patient Instructions: Chest Wall Pain, Chronic Back Pain Problem Qualifiers Additional Impression: Chronic back pain Back pain location: thoracic back pain Back pain laterality: unspecified Qualified Codes: M54.6 - Pain in thoracic spine; G89.29 - Other chronic pain JENARO MEDINA Jr. DO Oct 04, 2018 00:01
[2018-10-04 00:11] LABS: ALBUMIN 3.9 g/dL (3.4-5.0); ALBUMIN/GLOBULIN RATIO 1.2 (1.0-1.7); CALCIUM 9.1 mg/dL (8.5-10.1); CREATININE 0.6 mg/dL (0.6-1.0); GFR 108.6; POTASSIUM 3.2 mmol/L (3.5-5.1); TOTAL BILIRUBIN 0.5 mg/dL (0.2-1.0); TOTAL PROTEIN 7.2 g/dL (6.4-8.2)
[2018-10-04] MEDS ORDERED: INDOMETHACIN 25 MG CAPSULE PO ONE (00:15)
[2018-10-04 00:30] VITALS: BP 86/59
[2018-10-04] MEDS ORDERED: POTASSIUM CHLORIDE 20 MEQ/15 ML ORAL LIQUID. PO ONE (00:30)
--- NOTE | 2018-10-04 06:40 | RAD ---
PROCEDURE: PORTABLE CHEST 1V CLINICAL INDICATION: chest pain COMPARISON: 09/28/2018 FINDINGS: No pneumothorax identified. Cardiac and mediastinal contours unremarkable. No pulmonary consolidation or acute airspace disease. No acute osseous abnormalities identified. IMPRESSION: No pulmonary consolidation or acute airspace disease. Electronically signed by: Clark Back DO (10/04/2018 6:36 AM) [facility]
== END 2018-10-04 01:00 | disposition home or self-care (01) ==
LOC: ER 22:53
DX: G89.29 Other chronic pain (principal); R07.89 Other chest pain; M54.6 Pain in thoracic spine; M54.5 Low back pain; F17.210 Nicotine dependence, cigarettes, uncomplicated; J44.9 Chronic obstructive pulmonary disease, unspecified; Z90.89 Acquired absence of other organs; Z90.710 Acquired absence of both cervix and uterus; Z88.0 Allergy status to penicillin; Z88.5 Allergy status to narcotic agent; Z88.8 Allergy status to other drugs, medicaments and biological substances
CPT/HCPCS: 36415; 71045; 80053; 84484; 85025; 93005; 96374; 99284; J2405

== ENCOUNTER 2018-10-13 18:19 | Emergency (ER) | payer OTHER ==
[~2018-10-13] VITALS: Ht 162.6 cm; Wt 55.3 kg
[~2018-10-13 18:19] MED LIST changes: -AMIT25TA PO; -ATOM60CA PO; -HYOS0.1264 PO; -LORA0.5T PO; -MELO7.5T29 PO; -METO10TA81 PO
[2018-10-13] MEDS ORDERED: PROCHLORPERAZINE 10 MG/2 ML VIAL. IV ONE (18:30)
[2018-10-13] MEDS ORDERED: diphenhydrAMINE 50 MG/ML VIAL IVP ONE (18:30)
[2018-10-13] MEDS ORDERED: IV NORMAL SALINE 1,000ML 1,000 ML IV ONE (18:45)
[2018-10-13 18:46] LABS: HEMATOCRIT 39.5 % (36.0-47.0); HEMOGLOBIN 13.6 g/dL (12.0-15.5); RED BLOOD COUNT 4.36 x10^6/uL (3.50-5.40); RED CELL DISTRIBUTION WIDTH 13.3 % (11.5-14.5); WHITE BLOOD COUNT 7.4 x10^3/uL (4.0-11.0)
[2018-10-13 18:57] LABS: CALCIUM 9.1 mg/dL (8.5-10.1); CREATININE 0.6 mg/dL (0.6-1.0); GFR 108.6
--- NOTE | 2018-10-13 19:42 | ED.ADGEN ---
Past History Past Medical History: Anxiety, COPD, Other Past Surgical History: Appendectomy, Hysterectomy, Other Smoking: Cigarettes, Greater than 1 pack/day Alcohol Use: None Drug Use: Marijuana Adult General Chief Complaint Chief Complaint headache HPI HPI 43 years old female presented to the emergency department with headache started a few days ago described her headache as a throbbing on the right side radiate to her back upon EMS arrival to her house they checked her carbon monoxide level and was 14 she was placed on oxygen symptoms improved prior to her presentation upon arrival to the ER she rated her pain 9 out of 10 describes a throbbing pain on the left and right side of her head radiating to the back and her neck no fever no chills no urgency no frequency no hematuria no neck pain no sore throat Review of Systems Review of Systems Constitutional: Denies fever or chills [] Eyes: Denies change in visual acuity, redness, or eye pain [] HENT: Denies nasal congestion or sore throat [] Respiratory: Denies cough or shortness of breath [] Cardiovascular: No additional information not addressed in HPI [] GI: Denies abdominal pain, nausea, vomiting, bloody stools or diarrhea [] : Denies dysuria or hematuria [] Musculoskeletal: Denies back pain or joint pain [] Integument: Denies rash or skin lesions [] Neurologic: Denies focal weakness or sensory changes [] Endocrine: Denies polyuria or polydipsia [] All other systems were reviewed and found to be within normal limits, except as documented in this note. Current Medications Current Medications Current Medications Medications (Trade) Dose Ordered Sig/La Start Time Stop Time Status Last Admin Dose Admin Diphenhydramine HCl (Benadryl) 25 mg 1X ONCE 10/13/18 18:30 10/13/18 18:31 DC 10/13/18 19:01 25 MG Fentanyl Citrate (Fentanyl 2ml Vial) 25 mcg 1X ONCE 10/13/18 18:30 10/13/18 18:31 DC 10/13/18 19:01 25 MCG Haloperidol Lactate (Haldol) 2 mg 1X ONCE 10/13/18 20:15 10/13/18 20:22 DC 10/13/18 20:27 2 MG Ketorolac Tromethamine (Toradol 30mg Vial) 30 mg 1X ONCE 10/13/18 20:15 10/13/18 20:22 DC 10/13/18 20:27 30 MG Potassium Chloride (Klor-Con) 40 meq 1X ONCE 10/13/18 19:45 10/13/18 19:47 DC 10/13/18 20:01 40 MEQ Prochlorperazine Edisylate (Compazine) 10 mg 1X ONCE 10/13/18 18:30 10/13/18 18:31 DC 10/13/18 20:01 10 MG Sodium Chloride 1,000 ml @ 1,000 mls/hr 1X ONCE 10/13/18 18:45 10/13/18 19:44 DC 10/13/18 19:02 1,000 MLS/HR Allergies Allergies Allergies Coded Allergies Type Severity Reaction Last Updated Verified Penicillins Allergy Mild 10/13/18 Yes codeine Allergy Unknown 10/13/18 Yes hydromorphone Allergy Unknown 10/13/18 Yes meperidine Allergy Unknown 10/13/18 Yes morphine Allergy Unknown 10/13/18 Yes Uncoded Allergies Type Severity Reaction Last Updated Verified steroids Adverse Reaction Unknown 09/29/18 Physical Exam Physical Exam Constitutional: Well developed, well nourished, no acute distress, non-toxic appearance. [] HENT: Normocephalic, atraumatic, bilateral external ears normal, oropharynx moist, no oral exudates, nose normal. [] Eyes: PERRLA, EOMI, conjunctiva normal, no discharge. [] Neck: Normal range of motion, no tenderness, supple, no stridor. [] Cardiovascular:Heart rate regular rhythm, no murmur [] Lungs & Thorax: Bilateral breath sounds clear to auscultation [] Abdomen: Bowel sounds normal, soft, no tenderness, no masses, no pulsatile masses. [] Skin: Warm, dry, no erythema, no rash. [] Back: No tenderness, no CVA tenderness. [] Extremities: No tenderness, no cyanosis, no clubbing, ROM intact, no edema. [] Neurologic: Alert and oriented X 3, normal motor function, normal sensory function, no focal deficits noted. [] Psychologic: Affect normal, judgement normal, mood normal. [] Current Patient Data Vital Signs Vital Signs Date Time Temp Pulse Resp B/P (MAP) Pulse Ox O2 Delivery O2 Flow Rate FiO2 10/13/18 20:05 77 22 110/65 (80) 98 Room Air 10/13/18 19:04 15.0 10/13/18 18:19 98.8 Lab Results Laboratory Tests Test 10/13/18 18:34 10/13/18 19:10 White Blood Count 7.4 x10^3/uL (4.0-11.0) Red Blood Count 4.36 x10^6/uL (3.50-5.40) Hemoglobin 13.6 g/dL (12.0-15.5) Hematocrit 39.5 % (36.0-47.0) Mean Corpuscular Volume 91 fL (79-100) Mean Corpuscular Hemoglobin 31 pg (25-35) Mean Corpuscular Hemoglobin Concent 34 g/dL (31-37) Red Cell Distribution Width 13.3 % (11.5-14.5) Platelet Count 188 x10^3/uL (140-400) Sodium Level 139 mmol/L (136-145) Potassium Level 3.0 mmol/L (3.5-5.1) #L Chloride Level 101 mmol/L (98-107) Carbon Dioxide Level 26 mmol/L (21-32) Anion Gap 12 (6-14) Blood Urea Nitrogen 10 mg/dL (7-20) Creatinine 0.6 mg/dL (0.6-1.0) Estimated GFR (Cockcroft-Gault) 108.6 Glucose Level 110 mg/dL (70-99) H Calcium Level 9.1 mg/dL (8.5-10.1) Carbon Monoxide, Quantitative 8.3 (0.0-1.5) H EKG EKG [] Radiology/Procedures Radiology/Procedures [] Course & Med Decision Making Course & Med Decision Making Pertinent Labs and Imaging studies reviewed. (See chart for details) Patient received oxygen via nonrebreather for 1 hour and then changed to Venturi mask, headache resolved, nausea resolved feeling much better she is requesting to go home [] Final Impression Final Impression [] Problems: (1) Headache Qualifiers: Qualified Codes: R51 - Headache (2) Carbon monoxide exposure Dragon Disclaimer Dragon Disclaimer This electronic medical record was generated, in whole or in part, using a voice recognition dictation system. BARRINGTON MORTENSEN MD Oct 13, 2018 19:42
[2018-10-13] MEDS ORDERED: POTASSIUM CHLORIDE 20 MEQ TABLET.ER. PO ONE (19:45)
--- NOTE | 2018-10-13 19:48 | RAD ---
CT HEAD WO CONTRAST History: Sharp shooting pain in the right side of the head, headache Comparison: September 28, 2018 Technique: Noncontrast CT imaging was performed of the head. Exposure: One or more of the following individualized dose reduction techniques were utilized for this examination: 1. Automated exposure control 2. Adjustment of the mA and/or kV according to patient size 3. Use of iterative reconstruction technique. Findings: No acute extra-axial or parenchymal hemorrhage is identified. There is no significant intra-axial mass effect, midline shift, or extra-axial fluid collection. The garcia-white differentiation of the major vascular territories is preserved. The ventricles, sulci, and cisterns are within normal limits in size and configuration. The mastoid air cells and the visualized paranasal sinuses are aerated. No acute calvarial abnormality is identified. Impression: 1. No acute intracranial abnormality is identified. Electronically signed by: Servando Perdomo MD (10/13/2018 7:45 PM) [facility]
[2018-10-13] MEDS ORDERED: HALOPERIDOL LACT 5 MG/ML VIAL. IVP ONE (20:15)
[2018-10-13] MEDS ORDERED: KETOROLAC 30 MG/ML VIAL. IV ONE (20:15)
[2018-10-13 21:10] VITALS: BP 109/68
== END 2018-10-13 21:30 | disposition home or self-care (01) ==
LOC: ER 18:19
DX: R51 Headache (principal); T58.91XA Toxic effect of carbon monoxide from unspecified source, accidental (unintentional), initial encounter; F41.9 Anxiety disorder, unspecified; J44.9 Chronic obstructive pulmonary disease, unspecified; F17.210 Nicotine dependence, cigarettes, uncomplicated; Z88.0 Allergy status to penicillin; Z88.5 Allergy status to narcotic agent; Z88.8 Allergy status to other drugs, medicaments and biological substances; Y92.89 Other specified places as the place of occurrence of the external cause
CPT/HCPCS: 36415; 70450; 80048; 82375; 85027; 96374; 96375; 99284; J0780; J1200; J1630; J1885; J3010; J7030

== ENCOUNTER → 2018-10-13 | Outpatient (CLI) | payer OTHER ==
[2018-10-04 00:30] VITALS: BP 86/59
[~2018-10-13] MED LIST changes: +AMIT25TA PO; +ATOM60CA PO; +HYOS0.1264 PO; +LORA0.5T PO; +MELO7.5T29 PO; +METO10TA81 PO
[2018-10-13 13:21] LABS: BASO % 0 % (0-3); EOS % 1 % (0-3); HEMATOCRIT 44.6 % (36.0-47.0); HEMOGLOBIN 14.9 g/dL (12.0-15.5); LYMPH # 2.1 x10^3/uL (1.0-4.8); LYMPH % 31 % (24-48); MEAN CORPUSCULAR HEMOGLOBIN 31 pg (25-35); MEAN CORPUSCULAR HGB CONC 33 g/dL (31-37); MEAN CORPUSCULAR VOLUME 92 fL (79-100); MONO # 0.2 x10^3/uL (0.0-1.1); MONO % 3 % (0-9); NEUT # 4.5 x10^3uL (1.8-7.7); NEUT % 65 % (31-73); PLATELET COUNT 214 x10^3/uL (140-400); RED BLOOD COUNT 4.85 x10^6/uL (3.50-5.40); RED CELL DISTRIBUTION WIDTH 13.8 % (11.5-14.5); WHITE BLOOD COUNT 6.9 x10^3/uL (4.0-11.0)
[2018-10-13 13:22] LABS: ALBUMIN 4.1 g/dL (3.4-5.0); ALBUMIN/GLOBULIN RATIO 1.4 (1.0-1.7); CALCIUM 9.3 mg/dL (8.5-10.1); CREATININE 0.7 mg/dL (0.6-1.0); GFR 90.9; POTASSIUM 3.9 mmol/L (3.5-5.1); TOTAL BILIRUBIN 0.2 mg/dL (0.2-1.0)
== END | disposition home or self-care (01) ==
LOC: SPEC 12:46
PROVIDERS: ATTEND Nurse Practitioner Family
DX: Z87.828 Personal history of other (healed) physical injury and trauma (principal)
CPT/HCPCS: 36415; 80053; 80061; 85025; 86705; 86709; 86803; 87340

== ENCOUNTER 2018-10-21 14:35 | Emergency (ER) | payer OTHER ==
[~2018-10-21] VITALS: Ht 162.6 cm; Wt 52.2 kg
[2018-10-21 14:53] VITALS: BP 114/71
[2018-10-21] MEDS ORDERED: IOHEXOL 300 MG/ML 75 ML VIAL. IV ONE (15:00)
--- NOTE | 2018-10-21 15:36 | PHYS DOC ---
Past History Past Medical History: Anxiety, COPD, Other Past Surgical History: Appendectomy, Hysterectomy, Other Smoking: Cigarettes, Greater than 1 pack/day Alcohol Use: None Drug Use: Marijuana Adult General Chief Complaint Chief Complaint: FLANK PAIN [facility] HPI 43-year-old female presents with left flank pain and "nodules" in her left lower abdomen. The patient tells me that she has nodules in the lower abdomen that have become painful. She also feels like these nodules are in her medial thighs bilaterally. She states they're tender to the touch and it is difficult for her to sleep. She denies dysuria or frequency she denies change in bowel habits. She was told years ago that she had nodules in her liver, but is never really follow this up. The patient is nauseous but has not vomited. Review of Systems Review of Systems Constitutional: Denies fever or chills [] Eyes: Denies change in visual acuity, redness, or eye pain [] HENT: Denies nasal congestion or sore throat [] Respiratory: Denies cough or shortness of breath [] Cardiovascular: No additional information not addressed in HPI [] GI: Left flank and left lower quadrant abdominal tenderness[] : Denies dysuria or hematuria [] Musculoskeletal: Denies back pain or joint pain [] Integument: Superficial abdominal tenderness[] Neurologic: Denies headache, focal weakness or sensory changes [] Endocrine: Denies polyuria or polydipsia [] All other systems were reviewed and found to be within normal limits, except as documented in this note. Current Medications Current Medications Current Medications Medications (Trade) Dose Ordered Sig/La Start Time Stop Time Status Last Admin Dose Admin Iohexol (Omnipaque 300 Mg/ml) 75 ml 1X ONCE 10/21/18 15:00 10/21/18 15:01 DC Ondansetron HCl (Zofran) 4 mg 1X ONCE 10/21/18 15:45 10/21/18 15:46 Allergies Allergies Allergies Coded Allergies Type Severity Reaction Last Updated Verified Penicillins Allergy Mild 10/13/18 Yes codeine Allergy Unknown 10/13/18 Yes hydromorphone Allergy Unknown 10/13/18 Yes meperidine Allergy Unknown 10/13/18 Yes morphine Allergy Unknown 10/13/18 Yes Uncoded Allergies Type Severity Reaction Last Updated Verified steroids Adverse Reaction Unknown 09/29/18 Physical Exam Physical Exam Constitutional: Well developed, well nourished, no acute distress, non-toxic appearance. [] HENT: Normocephalic, atraumatic, bilateral external ears normal, oropharynx moist, no oral exudates, nose normal. [] Eyes: PERRLA, EOMI, conjunctiva normal, no discharge. [] Neck: Normal range of motion, no tenderness, supple, no stridor. [] Cardiovascular:Heart rate regular rhythm, no murmur [] Lungs & Thorax: Bilateral breath sounds clear to auscultation [] Abdomen: Bowel sounds normal, soft, no tenderness, no masses, no pulsatile masses. I do not feel any discrete palpable masses in the abdomen or thighs. [] Skin: Warm, dry, no erythema, no rash. [] Back: No tenderness, no CVA tenderness. [] Extremities: No tenderness, no cyanosis, no clubbing, ROM intact, no edema. [] Neurologic: Alert and oriented X 3, normal motor function, normal sensory function, no focal deficits noted. [] Psychologic: Affect concerned, judgement normal, mood normal. [] Current Patient Data Vital Signs Vital Signs Date Time Temp Pulse Resp B/P (MAP) Pulse Ox O2 Delivery O2 Flow Rate FiO2 10/21/18 14:53 98.5 70 20 114/71 (85) 96 Room Air EKG EKG [] Radiology/Procedures Radiology/Procedures [] Course & Med Decision Making Course & Med Decision Making Pertinent Labs and Imaging studies reviewed. (See chart for details) The patient's labs are unremarkable. Her CT is significant for cerebral stool in the colon. Possible this is causing all of her pain and it could be what you palpate through her skin. We will give her a bottle of magnesium citrate in the ED. 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 [] Dragon Disclaimer Dragon Disclaimer This electronic medical record was generated, in whole or in part, using a voice recognition dictation system. Departure Departure: Impression: Primary Impression: Constipation by delayed colonic transit Disposition: HOME, SELF-CARE Condition: STABLE Referrals: TRENT SANDOVAL (PCP) Patient Instructions: Constipation, Adult, [id number] BRENTON MONROY DO Oct 21, 2018 15:36
[2018-10-21] MEDS ORDERED: ONDANSETRON PF 4 MG/2 ML VIAL. IV ONE (15:45)
[2018-10-21 15:52] LABS: BACTERIA,URINE 0 /HPF (0-FEW); BILIRUBIN,URINE NEG (NEG); CLARITY,URINE CLEAR; COLOR,URINE YELLOW; GLUCOSE,URINE NEG (NEG); NITRITE,URINE NEG (NEG); RBC,URINE RARE /HPF (0-2); SQUAMOUS EPITHELIAL CELL,UR OCC /LPF; UROBILINOGEN,URINE 0.2 mg/dL (0.2 mg/dL); WBC,URINE OCC /HPF (0-4)
[2018-10-21 16:09] LABS: BASO % 1 % (0-3); EOS # 0.1 x10^3/uL (0.0-0.7); EOS % 1 % (0-3); HEMATOCRIT 40.8 % (36.0-47.0); HEMOGLOBIN 14.3 g/dL (12.0-15.5); LYMPH # 3.2 x10^3/uL (1.0-4.8); LYMPH % 51 % (24-48); MEAN CORPUSCULAR HEMOGLOBIN 32 pg (25-35); MEAN CORPUSCULAR HGB CONC 35 g/dL (31-37); MEAN CORPUSCULAR VOLUME 91 fL (79-100); MONO # 0.3 x10^3/uL (0.0-1.1); MONO % 5 % (0-9); NEUT # 2.7 x10^3uL (1.8-7.7); NEUT % 43 % (31-73); PLATELET COUNT 190 x10^3/uL (140-400); RED BLOOD COUNT 4.49 x10^6/uL (3.50-5.40); RED CELL DISTRIBUTION WIDTH 13.9 % (11.5-14.5); WHITE BLOOD COUNT 6.4 x10^3/uL (4.0-11.0)
--- NOTE | 2018-10-21 16:23 | RAD ---
CT ABD PELV W/ IV CONTRST ONLY Indication: Lower abdominal pain, nodules of the lower abdomen Technique: Postcontrast CT imaging was performed of the abdomen pelvis, multiplanar reconstruction images submitted. No oral contrast was given. One or more of the following individualized dose reduction techniques were utilized for this examination: 1. Automated exposure control 2. Adjustment of the mA and/or kV according to patient size 3. Use of iterative reconstruction technique. Comparison: August 08, 2018 Findings: There are some foci of density of the lower lobes bilaterally although may be fibrotic change, extent to the pleural surface. There again multiple scattered hypodense foci of the liver, small foci difficult to accurately characterize. There is again lentiform focus of subcapsular fluid posteriorly of the right lobe about 3.1 cm x 1.2 cm in size, unchanged. Gallbladder is again not seen. There is dilatation of the common bile duct about 1.2 cm as seen previously. Both kidneys enhance, no hydronephrosis. There is no adrenal nodularity. There is mild distention of stomach. Evaluation of bowel is limited without oral contrast. There is fairly prominent retained stool in the colon greater of the right colon. Small bowel is not significantly dilated. There is no free air. There is no significant free fluid. There is some distention of the urinary bladder. There likely has been appendectomy. IMPRESSION: 1. There is prominent retained stool in the colon greater of the right colon. 2. There is mild distention of the urinary bladder. 3. There are again scattered small hypodense foci of the liver too small to accurately characterize. There is similar focus of subcapsular fluid along the posterior right lobe of the liver. 4. There is stable extrahepatic biliary ductal dilatation. Electronically signed by: Servando Perdomo MD (10/21/2018 4:21 PM) [facility]
[2018-10-21 16:25] LABS: ALBUMIN 3.4 g/dL (3.4-5.0); CALCIUM 8.7 mg/dL (8.5-10.1); CREATININE 0.7 mg/dL (0.6-1.0); GFR 90.9; POTASSIUM 3.9 mmol/L (3.5-5.1); TOTAL BILIRUBIN 0.1 mg/dL (0.2-1.0); TOTAL PROTEIN 6.9 g/dL (6.4-8.2)
[2018-10-21] MEDS ORDERED: MAGNESIUM CITRATE 296 ML SOLUTION. PO ONE (17:00)
== END 2018-10-21 17:09 | disposition home or self-care (01) ==
LOC: ER 14:35
DX: K59.01 Slow transit constipation (principal); F41.9 Anxiety disorder, unspecified; J44.9 Chronic obstructive pulmonary disease, unspecified; Z90.89 Acquired absence of other organs; Z90.710 Acquired absence of both cervix and uterus; F17.210 Nicotine dependence, cigarettes, uncomplicated; Z88.0 Allergy status to penicillin; Z88.5 Allergy status to narcotic agent; Z88.8 Allergy status to other drugs, medicaments and biological substances
CPT/HCPCS: 36415; 74177; 80053; 81001; 85025; 96374; 99284; J2405; Q9967

== ENCOUNTER 2018-11-01 18:27 | Emergency (ER) | payer OTHER ==
--- NOTE | 2018-11-01 18:49 | ED.ADGEN ---
Past History Past Medical History: Anxiety, COPD, Other Past Medical History Chronic Pain Past Surgical History: Appendectomy, Cholecystectomy, Hysterectomy, Oophorectomy, Other Smoking: Cigarettes, Greater than 1 pack/day Alcohol Use: None Drug Use: Marijuana Adult General Chief Complaint Chief Complaint ".. I was not doing anything.. I got up and almost completely passed out.. I got severe pain. in my upper, then in my lower back and low mid back.. I had a fracture there before.. it was a compression fx of 12 or somewhere near there.. .. I think I fractured my back to night ... when I got up... . I ve got apt. to see Dr. Garcia for my medical issues.. I had a CT but... the nurse said the results were not reported... I ve had MRI and CT before on my back.. and was to see Neurology... and Neurosurgery... but that was when I was seeing [facility]... I need some strong pain meds.. Tramadol is not working...". HPI HPI Patient is a 43 year old female who presents with above hx and complaints syncope or near syncope from severe mid back pain. Pt. denies specific recent hx of injury. Pt. has hx multiple pain complaints. Pt. seen in ED 12 for different times for pain complaints just the past 4 months. Pt. has history of chronic back pain since a T12 compression fracture years ago. . Patient has a history of polysubstance abuse. Patient does continue to smoke tobacco and marijuana. Patient has had hx endocarditis in the past. Patient's had MRSA in the past. Patient currently denies any current fever or chills. Denies problems with defecation or urination. 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 Patient denies history of HIV or immunosuppression. Patient's had multiple abdomen surgeries. Patient in the past has exhibited possible narcotic seeking type behaviors. Patient reports Dilaudid is usually helpful for "severe pain" with her. Review of Systems Review of Systems Constitutional: Denies fever or chills [] Eyes: Denies change in visual acuity, redness, or eye pain [] HENT: Denies nasal congestion or sore throat []Complaints of bad teeth. Respiratory: Denies cough or shortness of breath [] Cardiovascular: No additional information not addressed in HPI [] GI: Denies abdominal pain, , vomiting, bloody stools or diarrhea []Complaints of nausea. : Denies dysuria or hematuria [] Musculoskeletal: Complaints of generalize back pain, muscle pain and joint pain [] Integument: Denies rash or skin lesions [] Neurologic: Denies headache, focal weakness or sensory changes [] Endocrine: Denies polyuria or polydipsia [] All other systems were reviewed and found to be within normal limits, except as documented in this note. Family History Family History Noncontributory Current Medications Current Medications Current Medications Medications (Trade) Dose Ordered Sig/La Start Time Stop Time Status Last Admin Dose Admin Ceftriaxone Sodium 1 gm/ Sodium Chloride 50 ml @ 100 mls/hr 1X ONCE 11/01/18 21:00 11/01/18 21:29 DC 11/01/18 20:57 100 MLS/HR Ceftriaxone Sodium (Rocephin) 1 gm STK-MED ONCE 11/01/18 20:52 11/01/18 20:53 DC Ketorolac Tromethamine (Toradol 30mg Vial) 30 mg 1X ONCE 11/01/18 21:00 11/01/18 21:01 DC Lactated Ringer's 1,000 ml @ 1,000 mls/hr Q1H 11/01/18 19:55 11/01/18 20:54 DC 11/01/18 20:47 1,000 MLS/HR Ondansetron HCl (Zofran) 4 mg STK-MED ONCE 11/01/18 20:21 11/01/18 20:22 DC Orphenadrine Citrate (Norflex) 60 mg 1X ONCE 11/01/18 21:00 11/01/18 21:01 DC 11/01/18 20:56 60 MG Sodium Chloride 50 ml @ As Directed STK-MED ONCE 11/01/18 20:51 11/01/18 20:52 DC Allergies Allergies Allergies Coded Allergies Type Severity Reaction Last Updated Verified codeine Allergy Unknown 11/01/18 Yes meperidine Allergy Unknown 11/01/18 Yes morphine Allergy Unknown 11/01/18 Yes ketorolac Adverse Reaction Unknown 11/01/18 Yes Uncoded Allergies Type Severity Reaction Last Updated Verified steroids Adverse Reaction Unknown 09/29/18 Physical Exam Physical Exam Constitutional: Rates her distress as 9 out of 10, non-toxic appearance. [] HENT: Normocephalic, atraumatic, bilateral external ears normal, oropharynx moist, no oral exudates, nose normal. []Poor dentition Eyes: PERRLA, EOMI, conjunctiva normal, no discharge. [] Neck: Normal range of motion, no tenderness, supple, no stridor. [] Cardiovascular:Heart rate regular rhythm, no murmur [] Lungs & Thorax: Bilateral breath sounds equal apex with scattered wheezes on auscultation [] Abdomen: Bowel sounds normal, soft, no tenderness, no masses, no pulsatile masses. [] Multiple surgery scars abdomen. Declines rectal at this time. No saddle loss reported. Skin: Warm, dry, no erythema, no rash. Isra erection.[] Tattoo's. Back: L1 midline tenderness, no CVA tenderness. [] No flank tenderness. Extremities: No tenderness, no cyanosis, no clubbing, ROM intact, no edema. [] Scar right shoulder Neurologic: Alert and oriented X 3, normal motor function, normal sensory function, no focal deficits noted. []Straight leg lift on right and left exhibit mild sciatic type complaints. DTRs +2 patella and brachial. [employer] equal. Pt. is ambulatory without problems. Psychologic: Affect flat judgement normal, mood depressed Current Patient Data Vital Signs Vital Signs Date Time Temp Pulse Resp B/P (MAP) Pulse Ox O2 Delivery O2 Flow Rate FiO2 11/01/18 20:48 82 18 90/51 (64) 95 Room Air 11/01/18 18:34 99.0 Lab Results Laboratory Tests Test 11/01/18 19:00 11/01/18 20:40 Urine Collection Type Unknown Urine Color Yellow Urine Clarity Clear Urine pH 7.0 Urine Specific [place] 1.015 Urine Protein Neg (NEG-TRACE) Urine Glucose (UA) Neg mg/dL (NEG) Urine Ketones (Stick) Neg mg/dL (NEG) Urine Blood Trace (NEG) Urine Nitrite Neg (NEG) Urine Bilirubin Neg (NEG) Urine Urobilinogen Dipstick 0.2 mg/dL (0.2 mg/dL) Urine Leukocyte Esterase Trace (NEG) Urine RBC 3-5 /HPF (0-2) Urine WBC 1-4 /HPF (0-4) Urine Squamous Epithelial Cells Occ /LPF Urine Bacteria 0 /HPF (0-FEW) Urine Mucus Slight /LPF Urine Opiates Screen Neg (NEG) Urine Methadone Screen Neg (NEG) Urine Barbiturates Neg (NEG) Urine Phencyclidine Screen Neg (NEG) Urine Amphetamine/Methamphetamine Neg (NEG) Urine Benzodiazepines Screen Neg (NEG) Urine Cocaine Screen Neg (NEG) Urine Cannabinoids Screen Pos (NEG) Urine Ethyl Alcohol Neg (NEG) White Blood Count 10.6 x10^3/uL (4.0-11.0) Red Blood Count 4.74 x10^6/uL (3.50-5.40) Hemoglobin 15.0 g/dL (12.0-15.5) Hematocrit 43.3 % (36.0-47.0) Mean Corpuscular Volume 92 fL (79-100) Mean Corpuscular Hemoglobin 32 pg (25-35) Mean Corpuscular Hemoglobin Concent 35 g/dL (31-37) Red Cell Distribution Width 13.9 % (11.5-14.5) Platelet Count 196 x10^3/uL (140-400) Neutrophils (%) (Auto) 68 % (31-73) Lymphocytes (%) (Auto) 27 % (24-48) Monocytes (%) (Auto) 4 % (0-9) Eosinophils (%) (Auto) 1 % (0-3) Basophils (%) (Auto) 1 % (0-3) Neutrophils # (Auto) 7.2 x10^3uL (1.8-7.7) Lymphocytes # (Auto) 2.8 x10^3/uL (1.0-4.8) Monocytes # (Auto) 0.5 x10^3/uL (0.0-1.1) Eosinophils # (Auto) 0.1 x10^3/uL (0.0-0.7) Basophils # (Auto) 0.1 x10^3/uL (0.0-0.2) Erythrocyte Sedimentation Rate 7 (0-25) Prothrombin Time 9.4 SEC (9.4-11.4) Prothrombin Time INR 0.9 (0.9-1.1) PTT 25 SEC (23-33) D-Dimer (Caryn) 0.29 mg/L (0.00-0.50) Sodium Level 142 mmol/L (136-145) Potassium Level 3.7 mmol/L (3.5-5.1) Chloride Level 104 mmol/L (98-107) Carbon Dioxide Level 31 mmol/L (21-32) Anion Gap 7 (6-14) Blood Urea Nitrogen 9 mg/dL (7-20) Creatinine 0.8 mg/dL (0.6-1.0) Estimated GFR (Cockcroft-Gault) 77.9 Glucose Level 92 mg/dL (70-99) Calcium Level 9.2 mg/dL (8.5-10.1) Magnesium Level 2.0 mg/dL (1.8-2.4) Total Bilirubin 0.2 mg/dL (0.2-1.0) Direct Bilirubin < 0.1 mg/dL (0.0-0.2) Aspartate Amino Transferase (AST) 18 U/L (15-37) Alanine Aminotransferase (ALT) 26 U/L (14-59) Alkaline Phosphatase 71 U/L (46-116) Creatine Kinase 47 U/L (26-192) Troponin I Quantitative < 0.017 ng/mL (0-0.055) Total Protein 6.8 g/dL (6.4-8.2) Albumin 3.3 g/dL (3.4-5.0) L Lipase 60 U/L (73-393) L EKG EKG My interpretation EKG shows a sinus rhythm at 76 bpm. No findings acute STEMI with contralateral changes.[] Radiology/Procedures Radiology/Procedures Refuse X-ray or CT[]- begged pt. to complete CT to evaluate her back pain complaints. Pt. Refused even plain CXR PA and Lateral. Course & Med Decision Making Course & Med Decision Making Pertinent Labs and Imaging studies reviewed. (See chart for details) Pt. refusing to complete CT . Stating unable to lay down for CT. Previous exam completed with pt. laying down. Pt. stating she need stronger pain meds. Refuses Tylenol. Now states she has an allergy to Toradol. Pt. demanding discharge if she does not receive a narcotic pain med. Pt. states she has tramadol at home, but need a stronger pain med. Advised pt. no narcotics at this time would be given pending completion of X-ray. Pt. then advised she would go to another hospital a get Strong meds for her pain. Advised her Tramadol at home was not working. Pt. advised she was going to another hospital for stronger pain meds. Advised if I did not give her meds here she would start yelling. Pt. then asked to be discharged. Note pt. left ambulatory without problem. Pt. to follow up with primary. [] Final Impression Final Impression 1. Ohsvrjd-pbmk-vsqecbh- from pain 2. Back pain[]- some localized to mid back center 3. Demonstrate Possible Narcotic Seeking Behaviors 4. Hx. of Chronic Pain 5. Hx. of Polysubstance Abuse, MJ, Tob. currently 6. Hx. of Endocarditis 7, In possible Narcotic Withdrawal 8. Essentially normal CBC, electrolytes,troponin, d-dimer and sedimentation rate 9. Possible UTI- Dragon Disclaimer Dragon Disclaimer This electronic medical record was generated, in whole or in part, using a voice recognition dictation system. Discharge Summary Visit Information Final Diagnosis Problems Medical Problems: (1) Back pain Status: Acute Brief Hospital Course Allergies Allergies Coded Allergies Type Severity Reaction Last Updated Verified codeine Allergy Unknown 11/01/18 Yes meperidine Allergy Unknown 11/01/18 Yes morphine Allergy Unknown 11/01/18 Yes ketorolac Adverse Reaction Unknown 11/01/18 Yes Uncoded Allergies Type Severity Reaction Last Updated Verified steroids Adverse Reaction Unknown 09/29/18 Vital Signs Vital Signs Date Time Temp Pulse Resp B/P (MAP) Pulse Ox O2 Delivery O2 Flow Rate FiO2 11/01/18 20:48 82 18 90/51 (64) 95 Room Air 11/01/18 18:34 99.0 Lab Results Laboratory Tests Test 11/01/18 19:00 11/01/18 20:40 Urine Collection Type Unknown Urine Color Yellow Urine Clarity Clear Urine pH 7.0 Urine Specific [place] 1.015 Urine Protein Neg (NEG-TRACE) Urine Glucose (UA) Neg mg/dL (NEG) Urine Ketones (Stick) Neg mg/dL (NEG) Urine Blood Trace (NEG) Urine Nitrite Neg (NEG) Urine Bilirubin Neg (NEG) Urine Urobilinogen Dipstick 0.2 mg/dL (0.2 mg/dL) Urine Leukocyte Esterase Trace (NEG) Urine RBC 3-5 /HPF (0-2) Urine WBC 1-4 /HPF (0-4) Urine Squamous Epithelial Cells Occ /LPF Urine Bacteria 0 /HPF (0-FEW) Urine Mucus Slight /LPF Urine Opiates Screen Neg (NEG) Urine Methadone Screen Neg (NEG) Urine Barbiturates Neg (NEG) Urine Phencyclidine Screen Neg (NEG) Urine Amphetamine/Methamphetamine Neg (NEG) Urine Benzodiazepines Screen Neg (NEG) Urine Cocaine Screen Neg (NEG) Urine Cannabinoids Screen Pos (NEG) Urine Ethyl Alcohol Neg (NEG) White Blood Count 10.6 x10^3/uL (4.0-11.0) Red Blood Count 4.74 x10^6/uL (3.50-5.40) Hemoglobin 15.0 g/dL (12.0-15.5) Hematocrit 43.3 % (36.0-47.0) Mean Corpuscular Volume 92 fL (79-100) Mean Corpuscular Hemoglobin 32 pg (25-35) Mean Corpuscular Hemoglobin Concent 35 g/dL (31-37) Red Cell Distribution Width 13.9 % (11.5-14.5) Platelet Count 196 x10^3/uL (140-400) Neutrophils (%) (Auto) 68 % (31-73) Lymphocytes (%) (Auto) 27 % (24-48) Monocytes (%) (Auto) 4 % (0-9) Eosinophils (%) (Auto) 1 % (0-3) Basophils (%) (Auto) 1 % (0-3) Neutrophils # (Auto) 7.2 x10^3uL (1.8-7.7) Lymphocytes # (Auto) 2.8 x10^3/uL (1.0-4.8) Monocytes # (Auto) 0.5 x10^3/uL (0.0-1.1) Eosinophils # (Auto) 0.1 x10^3/uL (0.0-0.7) Basophils # (Auto) 0.1 x10^3/uL (0.0-0.2) Erythrocyte Sedimentation Rate 7 (0-25) Prothrombin Time 9.4 SEC (9.4-11.4) Prothromb Time International Ratio 0.9 (0.9-1.1) Activated Partial Thromboplast Time 25 SEC (23-33) D-Dimer (Caryn) 0.29 mg/L (0.00-0.50) Sodium Level 142 mmol/L (136-145) Potassium Level 3.7 mmol/L (3.5-5.1) Chloride Level 104 mmol/L (98-107) Carbon Dioxide Level 31 mmol/L (21-32) Anion Gap 7 (6-14) Blood Urea Nitrogen 9 mg/dL (7-20) Creatinine 0.8 mg/dL (0.6-1.0) Estimated GFR (Cockcroft-Gault) 77.9 Glucose Level 92 mg/dL (70-99) Calcium Level 9.2 mg/dL (8.5-10.1) Magnesium Level 2.0 mg/dL (1.8-2.4) Total Bilirubin 0.2 mg/dL (0.2-1.0) Direct Bilirubin < 0.1 mg/dL (0.0-0.2) Aspartate Amino Transf (AST/SGOT) 18 U/L (15-37) Alanine Aminotransferase (ALT/SGPT) 26 U/L (14-59) Alkaline Phosphatase 71 U/L (46-116) Creatine Kinase 47 U/L (26-192) Troponin I Quantitative < 0.017 ng/mL (0-0.055) Total Protein 6.8 g/dL (6.4-8.2) Albumin 3.3 g/dL (3.4-5.0) Lipase 60 U/L (73-393) Brief Hospital Course Ms. Osuna is a 43 old female who presented with back pain. Refuse x-rays or CT. Seemed to exhibiting narcotic seeking behavior. Pt. left ambulatory without problem. Pt. encouraged to keep follow up with Dr. Bueno and review labs. Discharge Information Condition at Discharge: Stable Disposition/Orders: D/C to Home Dischare Medications Current Medications Lactated Ringer's 1,000 ml @ 1,000 mls/hr Q1H IV Last administered on at 20:47; Admin Dose 1,000 MLS/HR; Start 11/01/18 at 19:55; Stop 11/01/18 at 20:54; Status DC Ondansetron HCl (Zofran) 8 mg 1X ONCE IV Last administered on 11/01/18at 20:46 ; Admin Dose 8 MG; Start 11/01/18 at 20:30; Stop 11/01/18 at 20:31; Status DC Ondansetron HCl (Zofran) 4 mg STK-MED ONCE .ROUTE ; Start 11/01/18 at 20:21; Stop 11/01/18 at 20:22; Status DC Ceftriaxone Sodium 1 gm/ Sodium Chloride 50 ml @ 100 mls/hr 1X ONCE IV Last administered on 11/01/18at 20:57; Admin Dose 100 MLS/HR; Start 11/01/18 at 21:00 ; Stop 11/01/18 at 21:29; Status DC Ketorolac Tromethamine (Toradol 30mg Vial) 30 mg 1X ONCE IV ; Start 11/01/18 at 21:00; Stop 11/01/18 at 21:01; Status DC Orphenadrine Citrate (Norflex) 60 mg 1X ONCE IV Last administered on at 20:56; Admin Dose 60 MG; Start 11/01/18 at 21:00; Stop 11/01/18 at 21:01; Status DC Sodium Chloride 50 ml @ As Directed STK-MED ONCE .ROUTE ; Start 11/01/18 at 20: 51; Stop 11/01/18 at 20:52; Status DC Ceftriaxone Sodium (Rocephin) 1 gm STK-MED ONCE .ROUTE ; Start 11/01/18 at 20:52 ; Stop 11/01/18 at 20:53; Status DC Active Scripts Active Aglbbd-Vrwrgzix-Nemt 50-325-40 (Butalb/Acetaminophen/Caffeine) 1 Each Tablet 1 Each PO Q6HRS PRN Proair Hfa Inhaler (Albuterol Sulfate) 8.5 Gm Hfa.aer.ad 1 Puff INH PRN Q6HRS PRN 7 Days Reported Tizanidine Hcl (Tizanidine HCl) 4 Mg Tablet 4 Mg PO BID Gabapentin 600 Mg Tablet 600 Mg PO TID Ana Disclaimer This chart was dictated in whole or in part using Voice Recognition software in a busy, high-work load, and often noisy Emergency Department environment. It may contain unintended and wholly unrecognized errors or omissions. BEN BUCKLEY MD Nov 01, 2018 18:49
[2018-11-01 19:39] LABS: AMPHETAMINE/METHAMPHETAMINE NEG (NEG); BARBITURATES NEG (NEG); BENZODIAZEPINES NEG (NEG); CANNABINOIDS POS (NEG); COCAINE NEG (NEG); METHADONE NEG (NEG); OPIATES NEG (NEG); PHENCYCLIDINE NEG (NEG)
[2018-11-01 19:44] LABS: CLARITY,URINE CLEAR; COLOR,URINE YELLOW
[2018-11-01 19:45] LABS: BACTERIA,URINE 0 /HPF (0-FEW); BILIRUBIN,URINE NEG (NEG); GLUCOSE,URINE NEG (NEG); NITRITE,URINE NEG (NEG); SQUAMOUS EPITHELIAL CELL,UR OCC /LPF; UROBILINOGEN,URINE 0.2 mg/dL (0.2 mg/dL)
[2018-11-01] MEDS ORDERED: IV RINGERS SOLUTION,LACTATED 1,000 ML IV SCH (19:55)
[2018-11-01] MEDS ORDERED: ONDANSETRON PF 4 MG/2 ML VIAL. ONE (20:21)
[2018-11-01] MEDS ORDERED: ONDANSETRON PF 4 MG/2 ML VIAL. IV ONE (20:30)
[2018-11-01 20:48] VITALS: BP 90/51
[2018-11-01] MEDS ORDERED: IV NORMAL SALINE 50ML 50 ML ONE (20:51)
[2018-11-01] MEDS ORDERED: cefTRIAXone SODIUM 1 GM VIAL ONE (20:52)
[2018-11-01] MEDS: KETOROLAC 30 MG/ML VIAL. IV ONE ×2 (20:56→21:00)
[2018-11-01] MEDS ORDERED: ORPHENADRINE CITRATE 60 MG/2 ML VIAL. IV ONE (21:00)
[2018-11-01 21:22] LABS: BASO # 0.1 x10^3/uL (0.0-0.2); BASO % 1 % (0-3); EOS # 0.1 x10^3/uL (0.0-0.7); EOS % 1 % (0-3); HEMATOCRIT 43.3 % (36.0-47.0); LYMPH # 2.8 x10^3/uL (1.0-4.8); LYMPH % 27 % (24-48); MEAN CORPUSCULAR HEMOGLOBIN 32 pg (25-35); MEAN CORPUSCULAR HGB CONC 35 g/dL (31-37); MEAN CORPUSCULAR VOLUME 92 fL (79-100); MONO # 0.5 x10^3/uL (0.0-1.1); MONO % 4 % (0-9); NEUT # 7.2 x10^3uL (1.8-7.7); NEUT % 68 % (31-73); PLATELET COUNT 196 x10^3/uL (140-400); RED BLOOD COUNT 4.74 x10^6/uL (3.50-5.40); RED CELL DISTRIBUTION WIDTH 13.9 % (11.5-14.5); WHITE BLOOD COUNT 10.6 x10^3/uL (4.0-11.0)
[2018-11-01 21:40] LABS: ALBUMIN 3.3 g/dL (3.4-5.0); ALK PHOS 71 U/L (46-116); ALT (SGPT) 26 U/L (14-59); ANION GAP 7 (6-14); AST (SGOT) 18 U/L (15-37); BLOOD UREA NITROGEN 9 mg/dL (7-20); CALCIUM 9.2 mg/dL (8.5-10.1); CARBON DIOXIDE 31 mmol/L (21-32); CHLORIDE 104 mmol/L (98-107); CREATININE 0.8 mg/dL (0.6-1.0); DIRECT BILIRUBIN < 0.1 mg/dL (0.0-0.2); GFR 77.9; GLUCOSE 92 mg/dL (70-99); LIPASE 60 U/L (73-393); POTASSIUM 3.7 mmol/L (3.5-5.1); SODIUM 142 mmol/L (136-145); TOTAL BILIRUBIN 0.2 mg/dL (0.2-1.0); TOTAL PROTEIN 6.8 g/dL (6.4-8.2)
[2018-11-01 22:26] LABS: SEDIMENTATION RATE 7 (0-25)
--- NOTE | 2018-11-02 06:58 | EKG ---
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
== END 2018-11-01 22:41 | disposition home or self-care (01) ==
LOC: ER 18:27
DX: R55 Syncope and collapse (principal); G89.29 Other chronic pain; M54.5 Low back pain; F12.10 Cannabis abuse, uncomplicated; F17.210 Nicotine dependence, cigarettes, uncomplicated; F41.9 Anxiety disorder, unspecified; J44.9 Chronic obstructive pulmonary disease, unspecified; Z90.89 Acquired absence of other organs; Z90.721 Acquired absence of ovaries, unilateral; Z90.49 Acquired absence of other specified parts of digestive tract; Z88.5 Allergy status to narcotic agent; Z88.8 Allergy status to other drugs, medicaments and biological substances
CPT/HCPCS: 36415; 80048; 80076; 80307; 81001; 82550; 83690; 83735; 84443; 84484; 85025; 85379; 85610; 85651; 85730; 87086; 93005; 96365; 96375; 99284; J0696; J2360; J2405; J7120; J1885

== ENCOUNTER 2018-11-26 10:59 | Observation (INO) | payer OTHER ==
[~2018-11-26] VITALS: Ht 162.6 cm; Wt 53.7 kg
--- NOTE | 2018-11-26 13:00 | RAD ---
EXAM: Chest, single view. HISTORY: Chest pain. COMPARISON: 10/03/2018 FINDINGS: A frontal view of the chest obtained. There is stable blunting of the right costophrenic angle. There is no infiltrate. There is no pneumothorax. The heart is normal in size. There is stable sclerosis involving the proximal right humerus. IMPRESSION: Stable blunting of the right costophrenic angle likely due to basilar pleural thickening. Electronically signed by: Ximena Cedeño MD (11/26/2018 12:57 PM) [facility]
[2018-11-26] MEDS: IV NORMAL SALINE 1,000ML 1,000 ML IV SCH (13:18)
[2018-11-26 13:19] LABS: BASO # 0.1 x10^3/uL (0.0-0.2); BASO % 1 % (0-3); EOS % 0 % (0-3); HEMATOCRIT 42.9 % (36.0-47.0); HEMOGLOBIN 14.9 g/dL (12.0-15.5); LYMPH # 2.8 x10^3/uL (1.0-4.8); LYMPH % 37 % (24-48); MEAN CORPUSCULAR HEMOGLOBIN 31 pg (25-35); MEAN CORPUSCULAR HGB CONC 35 g/dL (31-37); MEAN CORPUSCULAR VOLUME 90 fL (79-100); MONO # 0.3 x10^3/uL (0.0-1.1); MONO % 3 % (0-9); NEUT # 4.4 x10^3uL (1.8-7.7); NEUT % 58 % (31-73); PLATELET COUNT 167 x10^3/uL (140-400); RED BLOOD COUNT 4.75 x10^6/uL (3.50-5.40); RED CELL DISTRIBUTION WIDTH 13.8 % (11.5-14.5); WHITE BLOOD COUNT 7.5 x10^3/uL (4.0-11.0)
[2018-11-26] MEDS: ONDANSETRON PF 4 MG/2 ML VIAL. IV ONE (13:19)
[2018-11-26] MEDS: ASPIRIN 81 MG TAB.CHEW PO ONE (13:19)
[2018-11-26 13:23] LABS: AMPHETAMINE/METHAMPHETAMINE NEG (NEG); BARBITURATES NEG (NEG); BENZODIAZEPINES NEG (NEG); CANNABINOIDS POS (NEG); COCAINE NEG (NEG); METHADONE NEG (NEG); OPIATES NEG (NEG); PHENCYCLIDINE NEG (NEG)
[2018-11-26 13:26] LABS: BACTERIA,URINE 0 /HPF (0-FEW); BILIRUBIN,URINE NEG (NEG); CLARITY,URINE CLEAR; COLOR,URINE YELLOW; GLUCOSE,URINE NEG (NEG); NITRITE,URINE NEG (NEG); RBC,URINE RARE /HPF (0-2); UROBILINOGEN,URINE 0.2 mg/dL (0.2 mg/dL); WBC,URINE RARE /HPF (0-4)
[2018-11-26 13:37] LABS: ALBUMIN 3.6 g/dL (3.4-5.0); CALCIUM 8.9 mg/dL (8.5-10.1); CREATININE 0.6 mg/dL (0.6-1.0); GFR 108.6; POTASSIUM 3.7 mmol/L (3.5-5.1); TOTAL BILIRUBIN 0.3 mg/dL (0.2-1.0); TOTAL PROTEIN 7.2 g/dL (6.4-8.2)
[2018-11-26] MEDS ORDERED: ACETAMINOPHEN 325 MG TABLET PO ONE (13:45)
--- NOTE | 2018-11-26 13:46 | PHYS DOC ---
Past History Past Medical History: Anxiety, COPD, Other Past Surgical History: Appendectomy, Cholecystectomy, Hysterectomy, Oophorectomy, Other Smoking: Cigarettes, Greater than 1 pack/day Alcohol Use: None Drug Use: Marijuana Adult General Chief Complaint Chief Complaint: MULTIPLE COMPLAINTS [facility] HPI Patient is a 43-year-old female who presents with multiple complaints to include chest pain and shortness breath. Patient states that over the last week she has been having increasing frequency of chest discomfort with dyspnea on exertion. Patient states that the chest pain is worsened with exertion. Patient also complains of some abdominal bloating. She states that she was seen at last month for similar complaints with her stomach. She states that they had performed an ultrasound to evaluate the abdomen. She indicates that she has been having some nausea but no vomiting and no diarrhea. Patient actually states that she has been thinking that she is a bit constipated but after taking some stool softeners she does not think that she is constipated. Review of Systems Review of Systems Constitutional: Denies fever or chills [] Respiratory: Complains of exertional shortness of breath [] Cardiovascular: No additional information not addressed in HPI [] GI: Complains of abdominal bloating but no vomiting or diarrhea [] Musculoskeletal: Complains of mid and lower back pain [] All other systems were reviewed and found to be within normal limits, except as documented in this note. Current Medications Current Medications Current Medications Medications (Trade) Dose Ordered Sig/[facility] Start Time Stop Time Status Last Admin Dose Admin Acetaminophen (Tylenol) 650 mg 1X ONCE 11/26/18 13:45 11/26/18 13:45 DC Aspirin (Children'S Aspirin) 324 mg 1X ONCE 11/26/18 12:30 11/26/18 12:35 DC 11/26/18 13:19 324 MG Fentanyl Citrate (Fentanyl 2ml Vial) 25 mcg 1X ONCE 11/26/18 13:45 11/26/18 13:46 UNV Ondansetron HCl (Zofran) 4 mg 1X ONCE 11/26/18 12:45 11/26/18 12:46 DC 11/26/18 13:19 4 MG Sodium Chloride 1,000 ml @ 1,000 mls/hr Q1H 11/26/18 12:28 11/26/18 13:27 DC 11/26/18 13:18 1,000 MLS/HR Allergies Allergies Allergies Coded Allergies Type Severity Reaction Last Updated Verified codeine Allergy Unknown 11/01/18 Yes meperidine Allergy Unknown 11/01/18 Yes morphine Allergy Unknown 11/01/18 Yes ketorolac Adverse Reaction Unknown 11/01/18 Yes Uncoded Allergies Type Severity Reaction Last Updated Verified steroids Adverse Reaction Unknown 09/29/18 Physical Exam Physical Exam Constitutional: Well developed, well nourished, no acute distress, non-toxic appearance. [] HENT: Normocephalic, atraumatic, bilateral external ears normal, oropharynx moist, no oral exudates, nose normal. [] Eyes: PERRLA, EOMI, conjunctiva normal, no discharge. [] Neck: Normal range of motion, no tenderness, supple, no stridor. [] Cardiovascular: Regular rate and rhythm[] Lungs & Thorax: Bilateral breath sounds clear to auscultation [] Abdomen: Bowel sounds normal, soft, no tenderness,. [] Skin: Warm, dry, no erythema, no rash. [] Extremities: No tenderness, no cyanosis, no clubbing, ROM intact. [] Neurologic: Alert and oriented X 3, no focal deficits noted. [] Current Patient Data Lab Results Laboratory Tests Test 11/26/18 13:05 White Blood Count 7.5 x10^3/uL (4.0-11.0) Red Blood Count 4.75 x10^6/uL (3.50-5.40) Hemoglobin 14.9 g/dL (12.0-15.5) Hematocrit 42.9 % (36.0-47.0) Mean Corpuscular Volume 90 fL (79-100) Mean Corpuscular Hemoglobin 31 pg (25-35) Mean Corpuscular Hemoglobin Concent 35 g/dL (31-37) Red Cell Distribution Width 13.8 % (11.5-14.5) Platelet Count 167 x10^3/uL (140-400) Neutrophils (%) (Auto) 58 % (31-73) Lymphocytes (%) (Auto) 37 % (24-48) Monocytes (%) (Auto) 3 % (0-9) Eosinophils (%) (Auto) 0 % (0-3) Basophils (%) (Auto) 1 % (0-3) Neutrophils # (Auto) 4.4 x10^3uL (1.8-7.7) Lymphocytes # (Auto) 2.8 x10^3/uL (1.0-4.8) Monocytes # (Auto) 0.3 x10^3/uL (0.0-1.1) Eosinophils # (Auto) 0.0 x10^3/uL (0.0-0.7) Basophils # (Auto) 0.1 x10^3/uL (0.0-0.2) Urine Collection Type Unknown Urine Color Yellow Urine Clarity Clear Urine pH 7.0 Urine Specific [place] 1.010 Urine Protein Neg (NEG-TRACE) Urine Glucose (UA) Neg mg/dL (NEG) Urine Ketones (Stick) Neg mg/dL (NEG) Urine Blood Small (NEG) Urine Nitrite Neg (NEG) Urine Bilirubin Neg (NEG) Urine Urobilinogen Dipstick 0.2 mg/dL (0.2 mg/dL) Urine Leukocyte Esterase Neg (NEG) Urine RBC Rare /HPF (0-2) Urine WBC Rare /HPF (0-4) Urine Squamous Epithelial Cells None /LPF Urine Bacteria 0 /HPF (0-FEW) Sodium Level 143 mmol/L (136-145) Potassium Level 3.7 mmol/L (3.5-5.1) Chloride Level 105 mmol/L (98-107) Carbon Dioxide Level 30 mmol/L (21-32) Anion Gap 8 (6-14) Blood Urea Nitrogen 5 mg/dL (7-20) L Creatinine 0.6 mg/dL (0.6-1.0) Estimated GFR (Cockcroft-Gault) 108.6 BUN/Creatinine Ratio 8 (6-20) Glucose Level 83 mg/dL (70-99) Calcium Level 8.9 mg/dL (8.5-10.1) Magnesium Level 2.0 mg/dL (1.8-2.4) Total Bilirubin 0.3 mg/dL (0.2-1.0) Aspartate Amino Transferase (AST) 14 U/L (15-37) L Alanine Aminotransferase (ALT) 21 U/L (14-59) Alkaline Phosphatase 66 U/L (46-116) Troponin I Quantitative < 0.017 ng/mL (0-0.055) UP-Ygj-H-Type Natriuretic Peptide 109 pg/mL (0-124) Total Protein 7.2 g/dL (6.4-8.2) Albumin 3.6 g/dL (3.4-5.0) Albumin/Globulin Ratio 1.0 (1.0-1.7) Lipase 62 U/L (73-393) L Urine Opiates Screen Neg (NEG) Urine Methadone Screen Neg (NEG) Urine Barbiturates Neg (NEG) Urine Phencyclidine Screen Neg (NEG) Urine Amphetamine/Methamphetamine Neg (NEG) Urine Benzodiazepines Screen Neg (NEG) Urine Cocaine Screen Neg (NEG) Urine Cannabinoids Screen Pos (NEG) Urine Ethyl Alcohol Neg (NEG) EKG EKG EKG demonstrates normal sinus rhythm with no ST segment abnormalities.[] Radiology/Procedures Radiology/Procedures [] Impressions: PROCEDURE: PORTABLE CHEST 1V EXAM: Chest, single view. HISTORY: Chest pain. COMPARISON: 10/03/2018 FINDINGS: A frontal view of the chest obtained. There is stable blunting of the right costophrenic angle. There is no infiltrate. There is no pneumothorax. The heart is normal in size. There is stable sclerosis involving the proximal right humerus. IMPRESSION: Stable blunting of the right costophrenic angle likely due to basilar pleural thickening. Electronically signed by: Ximena Cedeño MD (11/26/2018 12:57 PM) [facility] Course & Med Decision Making Course & Med Decision Making Pertinent Labs and Imaging studies reviewed. (See chart for details) [] Dragon Disclaimer Dragon Disclaimer This electronic medical record was generated, in whole or in part, using a voice recognition dictation system. Departure Departure: Impression: Primary Impression: Chest pain Disposition: 09 ADMITTED INPATIENT Admitting Physician: Norman Zuniga Condition: IMPROVED Referrals: PCP,UNKNOWN (PCP) Problem Qualifiers Primary Impression: Chest pain Chest pain type: unspecified Qualified Codes: R07.9 - Chest pain, unspecified JENARO MEDINA Jr. DO November 26, 2018 13:46
[2018-11-26] MEDS ORDERED: ONDANSETRON PF 4 MG/2 ML VIAL. IV PRN (14:00)
[2018-11-26 14:59] VITALS: BP 107/62
[2018-11-26] MEDS ORDERED: ATOM60CA PO (15:01)
[2018-11-26] MEDS ORDERED: LORA0.5T PO (15:06)
[2018-11-26] MEDS ORDERED: AMIT25TA PO (15:06)
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
== END 2018-11-26 19:00 | disposition home or self-care (01) ==
LOC: ER 10:59 → 1 SOUTH 14:20 → INTOOBSV 14:20
PROVIDERS: ADMIT Family Medicine; ATTEND Family Medicine
DX: R07.9 Chest pain, unspecified (principal); J44.9 Chronic obstructive pulmonary disease, unspecified; F17.210 Nicotine dependence, cigarettes, uncomplicated; F12.90 Cannabis use, unspecified, uncomplicated; Z87.442 Personal history of urinary calculi; Z90.49 Acquired absence of other specified parts of digestive tract; Z90.710 Acquired absence of both cervix and uterus; Z88.8 Allergy status to other drugs, medicaments and biological substances
CPT/HCPCS: 36415; 71045; 80053; 80061; 80307; 81001; 83690; 83735; 83880; 84443; 84484; 85025; 96374; G0378; G0379; J2405; 99284-25; J7030

== ENCOUNTER 2018-12-11 20:06 | Emergency (ER) | payer OTHER ==
[~2018-12-11] VITALS: Ht 162.6 cm; Wt 53.0 kg
[~2018-12-11 20:06] MED LIST changes: +AMIT25TA PO; +ATOM60CA PO; +LORA0.5T PO
[2018-12-11] MEDS ORDERED: IV NORMAL SALINE 1,000ML 1,000 ML IV SCH (20:23)
[2018-12-11] MEDS ORDERED: ONDANSETRON PF 4 MG/2 ML VIAL. IV ONE (20:30)
[2018-12-11] MEDS ORDERED: ASPIRIN 81 MG TAB.CHEW PO ONE (20:30)
[2018-12-11 20:35] LABS: BASO # 0.1 x10^3/uL (0.0-0.2); BASO % 1 % (0-3); EOS # 0.1 x10^3/uL (0.0-0.7); EOS % 1 % (0-3); HEMATOCRIT 46.6 % (36.0-47.0); HEMOGLOBIN 16.4 g/dL (12.0-15.5); LYMPH # 3.4 x10^3/uL (1.0-4.8); LYMPH % 40 % (24-48); MEAN CORPUSCULAR HEMOGLOBIN 32 pg (25-35); MEAN CORPUSCULAR HGB CONC 35 g/dL (31-37); MEAN CORPUSCULAR VOLUME 90 fL (79-100); MONO # 0.5 x10^3/uL (0.0-1.1); MONO % 6 % (0-9); NEUT # 4.5 x10^3uL (1.8-7.7); NEUT % 52 % (31-73); PLATELET COUNT 200 x10^3/uL (140-400); RED BLOOD COUNT 5.17 x10^6/uL (3.50-5.40); RED CELL DISTRIBUTION WIDTH 13.7 % (11.5-14.5); WHITE BLOOD COUNT 8.5 x10^3/uL (4.0-11.0)
--- NOTE | 2018-12-11 20:36 | PHYS DOC ---
Past History Past Medical History: Anxiety, Constipation, COPD, Endometriosis, Kidney Stones, Other Past Surgical History: Appendectomy, Cholecystectomy, Hysterectomy, Oophorectomy, Other Smoking: Cigarettes, Greater than 1 pack/day Alcohol Use: None Drug Use: Marijuana Adult General Chief Complaint Chief Complaint: CHEST PAIN HPI HPI Patient is a 43-year-old female who presents with complaint of left-sided chest wall pressure. Patient was seen here on November 26 and was admitted on that day for chest pain. Patient states that her symptoms have remained essentially the same since that time and admits that she had left hospital AGAINST MEDICAL ADVICE due to reported anxiety. Patient states that she just wasn't able to take the pressure on her chest any longer so decided to come back into the emergency room. She admits to nausea but is had no vomiting. She states that the pain in her chest has been constant for about 2 weeks now. She states that the pain is worsened with deep breathing and with movement. She states that nothing is improving her pain.[] Review of Systems Review of Systems Constitutional: Denies fever or chills [] Respiratory: Denies cough or shortness of breath [] Cardiovascular: No additional information not addressed in HPI [] GI: Denies abdominal pain.admits to nausea without vomiting or diarrhea [] Integument: Denies rash or skin lesions [] Neurologic: Denies headache, focal weakness or sensory changes [] All other systems were reviewed and found to be within normal limits, except as documented in this note. Current Medications Current Medications Current Medications Medications (Trade) Dose Ordered Sig/[facility] Start Time Stop Time Status Last Admin Dose Admin Aspirin (Children'S Aspirin) 324 mg 1X ONCE 12/11/18 20:30 12/11/18 20:31 UNV Ondansetron HCl (Zofran) 4 mg 1X ONCE 12/11/18 20:30 12/11/18 20:31 UNV Sodium Chloride 1,000 ml @ 1,000 mls/hr Q1H 12/11/18 20:23 12/11/18 21:22 UNV Allergies Allergies Allergies Coded Allergies Type Severity Reaction Last Updated Verified codeine Allergy Unknown 11/01/18 Yes meperidine Allergy Unknown 11/01/18 Yes morphine Allergy Unknown 11/01/18 Yes ketorolac Adverse Reaction Unknown 11/01/18 Yes Uncoded Allergies Type Severity Reaction Last Updated Verified steroids Adverse Reaction Unknown 09/29/18 Physical Exam Physical Exam Constitutional: Well developed, well nourished, no acute distress, non-toxic appearance. [] HENT: Normocephalic, atraumatic, bilateral external ears normal, oropharynx moist, no oral exudates, nose normal. [] Eyes: PERRLA, EOMI, conjunctiva normal, no discharge. [] Neck: Normal range of motion, no tenderness, supple. [] Cardiovascular: Regular rate and rhythm. There is reproducible chest wall tenderness along the left lower anterior rib margin.[] Lungs & Thorax: Bilateral breath sounds clear to auscultation [] Abdomen: Bowel sounds normal, soft, no tenderness. [] Skin: Warm, dry, no erythema, no rash. [] Extremities: No tenderness, no cyanosis, no clubbing, ROM intact, no edema. [] Neurologic: Alert and oriented X 3, no focal deficits noted. [] EKG EKG EKG demonstrates normal sinus rhythm with rate of 73.[] Radiology/Procedures Radiology/Procedures [] Impressions: Chest x-ray demonstrates no acute process. Course & Med Decision Making Course & Med Decision Making Pertinent Labs and Imaging studies reviewed. (See chart for details) [] Dragon Disclaimer Dragon Disclaimer This electronic medical record was generated, in whole or in part, using a voice recognition dictation system. Departure Departure: Impression: Primary Impression: Chest wall pain Disposition: HOME, SELF-CARE Condition: STABLE Referrals: GISSELLE HALL MD (PCP) Patient Instructions: Chest Wall Pain Additional Instructions: Call to schedule appointment with your primary care provider first thing tomorrow morning for ongoing management of your chronic pain. JENARO MEDINA Jr. DO December 11, 2018 20:36
--- NOTE | 2018-12-11 20:50 | RAD ---
Single view chest dated 12/11/2018. Comparison made to 11/26/2018. CLINICAL INDICATION: Chest pain. FINDINGS: Single upright portable exam performed. Heart and mediastinal contours are stable. Lungs are somewhat hyperinflated but otherwise clear. No consolidation or pleural effusion. There is blunting of the costophrenic sulci, unchanged. IMPRESSION: No acute radiographic abnormality. Stable findings compared to 11/26/2018. Electronically signed by: Solomon Ryan MD (12/11/2018 8:47 PM) [facility]
[2018-12-11 20:55] LABS: ALBUMIN/GLOBULIN RATIO 1.1 (1.0-1.7); CALCIUM 9.4 mg/dL (8.5-10.1); CREATININE 0.7 mg/dL (0.6-1.0); GFR 90.9; MAGNESIUM 2.2 mg/dL (1.8-2.4); POTASSIUM 4.1 mmol/L (3.5-5.1); TOTAL BILIRUBIN 0.3 mg/dL (0.2-1.0); TOTAL PROTEIN 7.5 g/dL (6.4-8.2)
[2018-12-11] MEDS ORDERED: KETOROLAC 15 MG/ML VIAL. IV ONE (21:00)
[2018-12-11] MEDS ORDERED: ACETAMINOPHEN 325 MG TABLET PO ONE (21:00)
[2018-12-11 21:20] VITALS: BP 99/52
--- NOTE | 2018-12-12 11:22 | EKG ---
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
== END 2018-12-11 21:29 | disposition home or self-care (01) ==
LOC: ER 20:06
DX: R07.89 Other chest pain (principal); F41.9 Anxiety disorder, unspecified; J44.9 Chronic obstructive pulmonary disease, unspecified; F17.210 Nicotine dependence, cigarettes, uncomplicated; Z87.442 Personal history of urinary calculi; Z88.5 Allergy status to narcotic agent; Z88.8 Allergy status to other drugs, medicaments and biological substances
CPT/HCPCS: 36415; 71045; 80053; 83690; 83735; 83880; 84484; 85025; 87040; 93005; 96374; 96375; 99285; J1885; J2405; J7030

== ENCOUNTER 2018-12-17 10:28 | Emergency (ER) | payer OTHER ==
[~2018-12-17] VITALS: Ht 162.6 cm; Wt 53.0 kg
[2018-12-17] MEDS ORDERED: IV NORMAL SALINE 1,000ML 1,000 ML IV SCH (10:53)
--- NOTE | 2018-12-17 10:58 | PHYS DOC ---
Past History Past Medical History: Anxiety, Constipation, COPD, Endometriosis, Kidney Stones, Other Past Surgical History: Appendectomy, Cholecystectomy, Hysterectomy, Oophorectomy, Other Smoking: Cigarettes, Greater than 1 pack/day Alcohol Use: None Drug Use: Marijuana Adult General Chief Complaint Chief Complaint: ABDOMINAL PAIN HPI HPI Patient is a 43-year-old female presenting with upper abdominal pain for the past 2-3 days. Normally it is on the left side however over the past 2-3 days it is been on the right side. She has had long-standing issues on the left side for which she is reporting that she is post to have surgery next month. She is concerned that she has pancreatitis again. She denies any alcohol use. Reports that she is having increased burping and belching. Also some shortness of breath. Denies any diarrhea. Some nausea is present without any vomiting. She admits to using marijuana with her last use 2 days ago. She denies any dysuria or hematuria. Denies any vaginal bleeding or discharge. Surgical history is significant for appendectomy, cholecystectomy, as well as hysterectomy. Nothing makes the symptoms better or worse. Symptoms are severe in intensity.[] Review of Systems Review of Systems Constitutional: Denies fever or chills [] Eyes: Denies change in visual acuity, redness, or eye pain [] HENT: Denies nasal congestion or sore throat [] Respiratory: Denies cough or shortness of breath [] Cardiovascular: See history of present illness[] GI: See history of present illness[] : Denies dysuria or hematuria [] Musculoskeletal: Denies back pain or joint pain [] Integument: Denies rash or skin lesions [] Neurologic: Denies headache, focal weakness or sensory changes [] Endocrine: Denies polyuria or polydipsia [] All other systems were reviewed and found to be within normal limits, except as documented in this note. Allergies Allergies Allergies Coded Allergies Type Severity Reaction Last Updated Verified codeine Allergy Unknown 11/01/18 Yes meperidine Allergy Unknown 11/01/18 Yes morphine Allergy Unknown 11/01/18 Yes Uncoded Allergies Type Severity Reaction Last Updated Verified steroids Adverse Reaction Unknown 09/29/18 Physical Exam Physical Exam Constitutional: Well developed, well nourished, no acute distress, non-toxic appearance. [] HENT: Normocephalic, atraumatic, bilateral external ears normal, oropharynx moist, no oral exudates, nose normal. [] Eyes: PERRLA, EOMI, conjunctiva normal, no discharge. [] Neck: Normal range of motion, no tenderness, supple, no stridor. [] Cardiovascular:Heart rate regular rhythm, no murmur [] Lungs & Thorax: Bilateral breath sounds clear to auscultation [] Abdomen: Bowel sounds normal, soft, epigastric and right upper quadrant tenderness without rebound, no guarding, no rigidity, sits up and lays back without any difficulty, no masses, no pulsatile masses. [] Skin: Warm, dry, no erythema, no rash. [] Back: No tenderness, no CVA tenderness. [] Extremities: No tenderness, no cyanosis, no clubbing, ROM intact, no edema. [] Neurologic: Alert and oriented X 3, normal motor function, normal sensory function, no focal deficits noted. [] Psychologic: Affect normal, judgement normal, mood normal. [] Current Patient Data Vital Signs Vital Signs Date Time Temp Pulse Resp B/P (MAP) Pulse Ox O2 Delivery O2 Flow Rate FiO2 12/17/18 10:28 98.3 86 16 97 Room Air EKG EKG EKG shows a sinus rhythm at 73 bpm, normal axis, QTC of 396 ms, no ST elevations. Interpreted by me at 1111. [] Radiology/Procedures Radiology/Procedures PROCEDURE: CT ABDOMEN PELVIS WO CONTRAST CT study of abdomen and pelvis with contrast Clinical indications: Right-sided abdominal pain. History of appendectomy and cholecystectomy. COMPARISON: October 21, 2018. TECHNIQUE: Noncontrast helical CT scanning of the abdomen and pelvis was performed. Without contrast, the sensitivity to detect organ pathology and GI tract pathology is decreased. PQRS compliance Statement One or more of the following individualized dose reduction techniques were utilized for this study: 1. Automated exposure control 2. Adjustment of the mA and/or kV according to patient size 3. Use of iterative reconstruction technique FINDINGS: The previously seen indeterminate subcentimeter hypodense nodules of the liver are difficult to discern today without IV contrast due to their small size. No obvious enlarging hepatic mass is seen otherwise. Again seen is a posterior subcapsular fluid collection of the liver which is stable. The spleen is not enlarged. The pancreas is unremarkable this noncontrast study. The gallbladder is surgically absent. The extra hepatic biliary tree is mildly prominent but otherwise unchanged consistent with the reservoir effect after cholecystectomy. No adrenal mass is evident. No hydronephrosis or hydroureter is seen. No renal mass is seen on either side on this noncontrast study. The urinary bladder wall is smooth. Uterus is surgically absent. No focal aneurysmal dilatation of the abdominal aorta is seen. No enlarged abdominal or pelvic lymphadenopathy is evident. No obstructive bowel pattern is evident. There is mild fecal retention throughout the colon and rectosigmoid region. No free air or free fluid or mesenteric edema is seen. Chronic scarring is seen within the posterior right lung base. No new lung base consolidation is evident. Again seen is a compression fracture T12 which is stable. No lytic process is evident. IMPRESSION: No acute abnormality of the abdomen or pelvis.[] Course & Med Decision Making Course & Med Decision Making Pertinent Labs and Imaging studies reviewed. (See chart for details) ED course: Patient arrived, was placed in bed, and tolerated exam well. She was transported to and from [place] with any complications. She was given IV fluids as well as antiemetics and anti-spasmodics. She reports feeling anxious after the antispasmodics. Vital signs were obtained that showed a heart rate in the 50s. Normal blood pressure. He elected to let that medication apple eyes rather than aggressively chasing it with anti-anxiety medicines. After the return of the laboratory and imaging studies, these were discussed with the patient and her partner at her request. All questions were answered. She was discharged in improved condition. Medical decision making: There is no evidence of pancreatitis, pericarditis, obstruction, perforation, kidney stone, nor other significant intra-abdominal pathology nor cardiac issue. Review of her previous records as well as evaluation of K tra reveals a long history of narcotic use and seeking behavior. Do not see any evidence of pathology requiring narcotic prescription at this time.[] Dragon Disclaimer Dragon Disclaimer This electronic medical record was generated, in whole or in part, using a voice recognition dictation system. Departure Departure: Impression: Primary Impression: Abdominal pain Disposition: HOME, SELF-CARE Condition: IMPROVED Referrals: GISSELLE HALL MD (PCP) Follow-up in 2 days Patient Instructions: Abdominal Pain (Nonspecific), Chronic Pain Management Additional Instructions: Follow-up with your regular doctor in 2 days. Continue your regular medicine as prescribed. Return to the ER if worsening discomfort or any other concerns. Scripts Metoclopramide Hcl (REGLAN) 10 Mg Tablet 10 MG PO QID for nausea and vomiting, #30 TAB Prov: ELMO CASTRO DO 12/17/18 Meloxicam (MELOXICAM) 7.5 Mg Tablet 7.5 MG PO DAILY for PAIN, #20 TAB Prov: ELMO CASTRO DO 12/17/18 Hyoscyamine Sulfate (LEVSIN) 0.125 Mg Tablet 0.125 MG PO QID for abdominal pain/cramping, #30 TAB Prov: ELMO CASTRO DO 12/17/18 Problem Qualifiers Primary Impression: Abdominal pain Abdominal location: right upper quadrant Qualified Codes: R10.11 - Right upper quadrant pain ELMO CASTRO DO December 17, 2018 10:58
--- NOTE | 2018-12-17 11:02 | EKG ---
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
[2018-12-17] MEDS ORDERED: KETOROLAC 30 MG/ML VIAL. IV ONE (11:15)
[2018-12-17] MEDS ORDERED: PROCHLORPERAZINE 10 MG/2 ML VIAL. IV ONE (11:15)
[2018-12-17] MEDS ORDERED: DICYCLOMINE 20 MG/2 ML AMPUL. IM ONE (11:15)
[2018-12-17 11:28] LABS: BASO % 0 % (0-3); EOS % 1 % (0-3); HEMATOCRIT 42.6 % (36.0-47.0); LYMPH # 2.4 x10^3/uL (1.0-4.8); LYMPH % 34 % (24-48); MEAN CORPUSCULAR HEMOGLOBIN 31 pg (25-35); MEAN CORPUSCULAR HGB CONC 35 g/dL (31-37); MEAN CORPUSCULAR VOLUME 89 fL (79-100); MONO # 0.3 x10^3/uL (0.0-1.1); MONO % 4 % (0-9); NEUT # 4.5 x10^3uL (1.8-7.7); NEUT % 61 % (31-73); PLATELET COUNT 171 x10^3/uL (140-400); RED BLOOD COUNT 4.77 x10^6/uL (3.50-5.40); RED CELL DISTRIBUTION WIDTH 13.4 % (11.5-14.5); WHITE BLOOD COUNT 7.3 x10^3/uL (4.0-11.0)
[2018-12-17 11:43] LABS: ALBUMIN 3.9 g/dL (3.4-5.0); ALBUMIN/GLOBULIN RATIO 1.1 (1.0-1.7); CALCIUM 9.3 mg/dL (8.5-10.1); CREATININE 0.9 mg/dL (0.6-1.0); TOTAL BILIRUBIN 0.3 mg/dL (0.2-1.0); TOTAL PROTEIN 7.3 g/dL (6.4-8.2)
--- NOTE | 2018-12-17 12:34 | RAD ---
CT study of abdomen and pelvis with contrast Clinical indications: Right-sided abdominal pain. History of appendectomy and cholecystectomy. COMPARISON: October 21, 2018. TECHNIQUE: Noncontrast helical CT scanning of the abdomen and pelvis was performed. Without contrast, the sensitivity to detect organ pathology and GI tract pathology is decreased. PQRS compliance Statement One or more of the following individualized dose reduction techniques were utilized for this study: 1. Automated exposure control 2. Adjustment of the mA and/or kV according to patient size 3. Use of iterative reconstruction technique FINDINGS: The previously seen indeterminate subcentimeter hypodense nodules of the liver are difficult to discern today without IV contrast due to their small size. No obvious enlarging hepatic mass is seen otherwise. Again seen is a posterior subcapsular fluid collection of the liver which is stable. The spleen is not enlarged. The pancreas is unremarkable this noncontrast study. The gallbladder is surgically absent. The extra hepatic biliary tree is mildly prominent but otherwise unchanged consistent with the reservoir effect after cholecystectomy. No adrenal mass is evident. No hydronephrosis or hydroureter is seen. No renal mass is seen on either side on this noncontrast study. The urinary bladder wall is smooth. Uterus is surgically absent. No focal aneurysmal dilatation of the abdominal aorta is seen. No enlarged abdominal or pelvic lymphadenopathy is evident. No obstructive bowel pattern is evident. There is mild fecal retention throughout the colon and rectosigmoid region. No free air or free fluid or mesenteric edema is seen. Chronic scarring is seen within the posterior right lung base. No new lung base consolidation is evident. Again seen is a compression fracture T12 which is stable. No lytic process is evident. IMPRESSION: No acute abnormality of the abdomen or pelvis. Electronically signed by: Rc Mccauley MD (12/17/2018 12:30 PM) [facility]
[2018-12-17 12:37] VITALS: BP 95/58
[2018-12-17 12:42] LABS: BACTERIA,URINE 0 /HPF (0-FEW); BILIRUBIN,URINE NEG (NEG); CLARITY,URINE CLEAR; COLOR,URINE YELLOW; GLUCOSE,URINE NEG (NEG); NITRITE,URINE NEG (NEG); SQUAMOUS EPITHELIAL CELL,UR OCC /LPF; UROBILINOGEN,URINE 0.2 mg/dL (0.2 mg/dL); WBC,URINE RARE /HPF (0-4)
[2018-12-17 12:43] LABS: AMPHETAMINE/METHAMPHETAMINE NEG (NEG); BARBITURATES NEG (NEG); BENZODIAZEPINES NEG (NEG); CANNABINOIDS POS (NEG); COCAINE NEG (NEG); METHADONE NEG (NEG); OPIATES NEG (NEG); PHENCYCLIDINE NEG (NEG)
[2018-12-17] MEDS ORDERED: METO10TA81 PO (12:44)
[2018-12-17] MEDS ORDERED: MELO7.5T29 PO (12:44)
[2018-12-17] MEDS ORDERED: HYOS0.1264 PO (12:44)
== END 2018-12-17 12:50 | disposition home or self-care (01) ==
LOC: ER 10:28
DX: R10.11 Right upper quadrant pain (principal); R10.13 Epigastric pain; R14.2 Eructation; R06.02 Shortness of breath; F41.9 Anxiety disorder, unspecified; J44.9 Chronic obstructive pulmonary disease, unspecified; F17.210 Nicotine dependence, cigarettes, uncomplicated; Z87.442 Personal history of urinary calculi; Z90.49 Acquired absence of other specified parts of digestive tract; Z90.89 Acquired absence of other organs; Z90.710 Acquired absence of both cervix and uterus; Z90.722 Acquired absence of ovaries, bilateral; Z88.5 Allergy status to narcotic agent; Z88.8 Allergy status to other drugs, medicaments and biological substances
CPT/HCPCS: 36415; 74176; 80053; 80307; 81001; 83690; 84484; 85025; 93005; 96372; 96374; 96375; 99285; J0500; J0780; J1885; J7030

== ENCOUNTER 2018-12-31 08:03 | Emergency (ER) | payer OTHER ==
[~2018-12-31] VITALS: Ht 162.6 cm; Wt 51.8 kg
[2018-12-31 08:03] VITALS: BP 104/73
[~2018-12-31 08:03] MED LIST changes: +HYOS0.1264 PO; +MELO7.5T29 PO; +METO10TA81 PO
--- NOTE | 2018-12-31 09:03 | RAD ---
Right tibia-fibula AP lateral x-rays HISTORY: Pain and contusion. FINDINGS: No fracture or dislocation. Dystrophic soft tissue calcification typical of fat necrosis at the anterior pretibial soft tissues. IMPRESSION: No acute osseous injury. Electronically signed by: Curtis Melchor MD (12/31/2018 9:00 AM) [facility]
[2018-12-31] MEDS ORDERED: TRAM50TA PO (09:34)
--- NOTE | 2018-12-31 09:34 | PHYS DOC ---
Past History Past Medical History: Anxiety, Constipation, COPD, Endometriosis, Kidney Stones, Other Additional Past Medical Histor: Endometriosis Past Surgical History: Appendectomy, Cholecystectomy, Hysterectomy, Oophorectomy, Other Smoking: Cigarettes, Greater than 1 pack/day Alcohol Use: None Drug Use: Marijuana Adult General Chief Complaint Chief Complaint: LOWER EXT PAIN HPI HPI 43-year-old female presents with right lower extremity pain to calf and anterior tibia since yesterday. Patient reports she accidentally got it shut in a door. Patient reports history of known pretibial lesion which has increased over the years. Patient reports she has not had ability to follow with anyone regarding. Denies any laceration. Reports some slight bruising to calf. Denies redness. Review of Systems Review of Systems Constitutional: Denies fever or chills Eyes: Denies redness or eye pain HENT: Denies nasal congestion or sore throat Respiratory: Denies cough or shortness of breath Cardiovascular: Denies chest pain or palpitations GI: Denies abdominal pain, nausea, or vomiting : Denies dysuria or hematuria Musculoskeletal: Reports right lower leg and calf pain and tenderness Integument: Denies rash; reports ecchymosis Neurologic: Denies headache, focal weakness or sensory changes Complete systems were reviewed and found to be within normal limits, except as documented in this note. Allergies Allergies Allergies Coded Allergies Type Severity Reaction Last Updated Verified codeine Allergy Unknown 11/01/18 Yes meperidine Allergy Unknown 11/01/18 Yes morphine Allergy Unknown 11/01/18 Yes Uncoded Allergies Type Severity Reaction Last Updated Verified steroids Adverse Reaction Unknown 09/29/18 Physical Exam Physical Exam Constitutional: Well developed, well nourished, no acute distress, non-toxic appearance HENT: Normocephalic, atraumatic, oropharynx moist Eyes: Conjunctiva normal, no discharge Neck: Normal range of motion, no tenderness, supple Cardiovascular: Heart rate normal, regular rhythm Lungs & Thorax: Bilateral breath sounds clear to auscultation, no wheezing Skin: Warm, dry, no erythema, small ecchymosis noted to right calf Extremities: Right calf pain and anterior tibial pain on palpation, no def ormity, CR < 2 sec, PT/DP +2 Neurologic: Alert and oriented X 3, no focal deficits noted Psychologic: Affect normal, judgement normal EKG EKG [] Radiology/Procedures Radiology/Procedures PROCEDURE: TIBIA FIBULA RIGHT Right tibia-fibula AP lateral x-rays HISTORY: Pain and contusion. FINDINGS: No fracture or dislocation. Dystrophic soft tissue calcification typical of fat necrosis at the anterior pretibial soft tissues. IMPRESSION: No acute osseous injury. Electronically signed by: Curtis Melchor MD (12/31/2018 9:00 AM) [facility] Course & Med Decision Making Course & Med Decision Making Pertinent Imaging studies reviewed. (See chart for details) Patient presents with right tib-fib and calf tenderness after report of blunt trauma. No obvious deformity noted. Limb neurovascularly intact. Patient has history of chronic soft tissue lesion which has not been followed in several years. Pain addressed. Ice applied. X-ray obtained without acute fracture or dislocation. Ghulam wrap applied. Crutches provided. Patient stable for discharge with outpatient follow-up with PCP/orthopedics. Orthopedic referral provided. Discussed findings and plan with patient and family, who acknowledge understanding and agreement. Dragon Disclaimer Dragon Disclaimer This electronic medical record was generated, in whole or in part, using a voice recognition dictation system. Splinting Splinting : Location: Right Tib/Fib Pre-Made Type: GHULAM bandage Pre-Proc Neuro Vasc Exam: normal Post-Proc Neuro Vasc Exam: normal, unchanged from pre-exam Departure Departure: Impression: Primary Impression: Contusion of right lower leg, initial encounter Disposition: 01 HOME, SELF-CARE Condition: STABLE Referrals: GISSELLE HALL MD (PCP) LISA AGUILA MD Patient Instructions: Contusion, [id number], Crutch Use, [id number], RICE - Routine Care for Injuries, Myih-ue-Hduu Scripts Tramadol Hcl (TRAMADOL HCL) 50 Mg Tablet 50 MG PO PRN Q6HRS PRN for PAIN, #10 TAB Prov: RAIZA RIVERA DO 12/31/18 RAIZA RIVERA DO Dec 31, 2018 09:34
[2018-12-31] MEDS ORDERED: traMADol 50 MG TABLET PO ONE (10:00)
== END 2018-12-31 09:48 | disposition home or self-care (01) ==
LOC: ER 08:03
DX: S80.11XA Contusion of right lower leg, initial encounter (principal); F41.9 Anxiety disorder, unspecified; J44.9 Chronic obstructive pulmonary disease, unspecified; Z87.442 Personal history of urinary calculi; F17.210 Nicotine dependence, cigarettes, uncomplicated; Z88.5 Allergy status to narcotic agent; Z88.8 Allergy status to other drugs, medicaments and biological substances; W22.8XXA Striking against or struck by other objects, initial encounter; Y93.89 Activity, other specified; Y92.89 Other specified places as the place of occurrence of the external cause; Y99.8 Other external cause status
CPT/HCPCS: 73590; 99284

== ENCOUNTER 2019-01-03 10:44 | Emergency (ER) | payer OTHER ==
[~2019-01-03] VITALS: Ht 162.6 cm; Wt 52.2 kg
[2019-01-03 11:01] VITALS: BP 126/74
[2019-01-03] MEDS ORDERED: ONDA4TAB7 PO (11:46)
[2019-01-03] MEDS ORDERED: HYDR-3165 PO (11:46)
--- NOTE | 2019-01-03 11:46 | PHYS DOC ---
Past History Past Medical History: Other Additional Past Medical Histor: Endometriosis, Francois-Danlos syndrome Past Surgical History: Appendectomy, Cholecystectomy, Hysterectomy Smoking: Cigarettes, Greater than 1 pack/day Additional Smoking Information: 7/DAY Alcohol Use: None Drug Use: Marijuana Adult General Chief Complaint Chief Complaint: LOWER EXTREMITY EDEMA HPI HPI Patient is a 43-year-old female presents with right leg pain. She is here for pain management while waiting for an appointment with Dr. Villalobos. She is able to walk on it. Denies any new trauma. She was seen 3 days ago for this. She reports that she has increased walking to do today because she does not have a car. Tramadol does work at she gets headaches with it. Pain is moderate to severe[] Review of Systems Review of Systems Constitutional: Denies fever or chills [] Eyes: Denies change in visual acuity, redness, or eye pain [] HENT: Denies nasal congestion or sore throat [] Respiratory: Denies cough or shortness of breath [] Cardiovascular: No chest pain or palpitations[] GI: Denies abdominal pain, nausea, vomiting, bloody stools or diarrhea [] : Denies dysuria or hematuria [] Musculoskeletal: Denies back pain, see history of present illness[] Integument: Denies rash or skin lesions [] Neurologic: Denies headache, focal weakness or sensory changes [] Endocrine: Denies polyuria or polydipsia [] All other systems were reviewed and found to be within normal limits, except as documented in this note. Allergies Allergies Allergies Coded Allergies Type Severity Reaction Last Updated Verified codeine Allergy Unknown 11/01/18 Yes meperidine Allergy Unknown 11/01/18 Yes morphine Allergy Unknown 11/01/18 Yes Uncoded Allergies Type Severity Reaction Last Updated Verified steroids Adverse Reaction Unknown 09/29/18 Physical Exam Physical Exam Constitutional: Well developed, well nourished, no acute distress, non-toxic ap pearance. [] HENT: Normocephalic, atraumatic, bilateral external ears normal, oropharynx moist, no oral exudates, nose normal. [] Eyes: PERRLA, EOMI, conjunctiva normal, no discharge. [] Neck: Normal range of motion, no tenderness, supple, no stridor. [] Cardiovascular:Heart rate regular rhythm, no murmur [] Lungs & Thorax: Bilateral breath sounds clear to auscultation [] Abdomen: Bowel sounds normal, soft, no tenderness, no masses, no pulsatile masses. [] Skin: Warm, dry, no erythema, no rash. [] Back: No tenderness, no CVA tenderness. [] Extremities: No cyanosis, no clubbing, ROM intact, mild edema of right anterior lower leg with tenderness[] Neurologic: Alert and oriented X 3, normal motor function, normal sensory function, no focal deficits noted. [] Psychologic: Affect normal, judgement normal, mood normal. [] Current Patient Data Vital Signs Vital Signs Date Time Temp Pulse Resp B/P (MAP) Pulse Ox O2 Delivery O2 Flow Rate FiO2 01/03/19 11:01 98.7 97 20 95 Room Air EKG EKG [] Radiology/Procedures Radiology/Procedures [] Course & Med Decision Making Course & Med Decision Making Pertinent Labs and Imaging studies reviewed. (See chart for details) Medical decision making: Patient had x-rays performed on 12/31/2018 that showed dystrophic soft tissue calcification typical fat necrosis at the anterior pretibial soft tissues. Believe that is what I am feeling. There was no acute osseous injury. Patient has follow-up with her orthopedic surgeon. Will prescribe a short course of narcotic pain medicine.[] Dragon Disclaimer Dragon Disclaimer This electronic medical record was generated, in whole or in part, using a voice recognition dictation system. Departure Departure: Impression: Primary Impression: Fat necrosis Disposition: HOME, SELF-CARE Condition: IMPROVED Referrals: KAREN PRAJAPATI MD (PCP) Follow-up in 2 days Patient Instructions: Contusion Additional Instructions: Follow-up with your regular doctor in 2 days. Keep your appointment with Dr. Villalobos. Return to the ER if worsening pain or any other concerns. Scripts Ondansetron Hcl (ZOFRAN) 4 Mg Tablet 1 TAB PO Q6HRS for nausea or vomiting, #10 TAB Prov: ELMO CASTRO DO 01/03/19 Hydrocodone Bit/Acetaminophen (NORCO 5-325 TABLET) 1 Each Tablet 1 TAB PO Q4-6HRS for severe pain, #10 TAB Prov: ELMO CASTRO DO 01/03/19 ELMO CASTRO DO Jan 03, 2019 11:46
[2019-01-03] MEDS ORDERED: ONDANSETRON ODT 4 MG TAB.RAPDIS PO ONE (12:00)
== END 2019-01-03 11:50 | disposition home or self-care (01) ==
LOC: ER 10:44
DX: M79.89 Other specified soft tissue disorders (principal); M79.604 Pain in right leg; R51 Headache; F17.210 Nicotine dependence, cigarettes, uncomplicated; Z88.5 Allergy status to narcotic agent; Z88.8 Allergy status to other drugs, medicaments and biological substances
CPT/HCPCS: 99283; Q0162

== ENCOUNTER 2019-01-06 11:35 | Emergency (ER) | payer OTHER ==
[~2019-01-06] VITALS: Ht 162.6 cm; Wt 51.8 kg
[~2019-01-06 11:35] MED LIST changes: +ONDA4TAB7 PO
--- NOTE | 2019-01-06 11:55 | PHYS DOC ---
Past History Past Medical History: Other Additional Past Medical Histor: Endometriosis, Francois-Danlos syndrome Past Surgical History: Appendectomy, Cholecystectomy, Hysterectomy Smoking: Cigarettes, Greater than 1 pack/day Alcohol Use: None Drug Use: Marijuana Adult General Chief Complaint Chief Complaint: OTHER COMPLAINTS HPI HPI Patient is a 43-year-old female presents complaining of neck pain and increased pain with turning her neck. This started yesterday. She has a long-standing lymph node and it feels like "it grew friends"on the left side. Pain was improved with hydrocodone, but she took her last tablet last night. There is no difficulty breathing or swallowing. No fever. No weakness or numbness in her arms or legs. No loss of bowel or bladder control. No recent weight changes. Movement makes the symptoms worse. Pain is moderate to severe in intensity.[] Review of Systems Review of Systems Constitutional: Denies fever or chills [] Eyes: Denies change in visual acuity, redness, or eye pain [] HENT: Denies nasal congestion or sore throat, see history of present illness [] Respiratory: Denies cough or shortness of breath [] Cardiovascular: No chest pain or palpitations[] GI: Denies abdominal pain, nausea, vomiting, bloody stools or diarrhea [] : Denies dysuria or hematuria [] Musculoskeletal: Denies back pain or joint pain [] Integument: Denies rash or skin lesions [] Neurologic: Denies headache, focal weakness or sensory changes [] Endocrine: Denies polyuria or polydipsia [] All other systems were reviewed and found to be within normal limits, except as documented in this note. Allergies Allergies Allergies Coded Allergies Type Severity Reaction Last Updated Verified codeine Allergy Unknown 11/01/18 Yes Uncoded Allergies Type Severity Reaction Last Updated Verified steroids Adverse Reaction Unknown 09/29/18 Physical Exam Physical Exam Constitutional: Well developed, well nourished, no acute distress, non-toxic appearance. [] HENT: Normocephalic, atraumatic, bilateral external ears normal, oropharynx moist, no oral exudates, nose normal. [] Eyes: PERRLA, EOMI, conjunctiva normal, no discharge. [] Neck: Range of motion with turning left to right, no nuchal rigidity, no midline step off or crepitus on palpation of the cervical spine, no significant lymphadenopathy, diffuse tenderness, no bruit, supple, no stridor. [] Cardiovascular:Heart rate regular rhythm, no murmur [] Lungs & Thorax: Bilateral breath sounds clear to auscultation [] Abdomen: Bowel sounds normal, soft, no tenderness, no masses, no pulsatile masses. [] Skin: Warm, dry, no erythema, no rash. [] Back: No tenderness, no CVA tenderness. [] Extremities: No tenderness, no cyanosis, no clubbing, ROM intact, no edema. [] Neurologic: Alert and oriented X 3, normal motor function, normal sensory function, no focal deficits noted. [] Psychologic: Affect normal, judgement normal, mood normal. [] EKG EKG [] Radiology/Procedures Radiology/Procedures EXAM: CT NECK SOFT TISSUES WITH CONTRAST. HISTORY: Neck pain and swelling. TECHNIQUE: Computed tomography of the neck soft tissues was performed after the intravenous administration of iodinated contrast. COMPARISON: None. FINDINGS: Images of the lung apices reveal moderate centrilobular emphysema or multiple blebs bilaterally in the apices. Bone windows reveal no suspicious lesions. A skin marker is placed at the site of concern along the left neck. Underlying this, there are small posterior cervical lymph nodes that measure up to 8 x 4 mm. These are likely reactive. There are no pathologically enlarged cervical or supraclavicular lymph nodes. The parotid glands and submandibular glands are unremarkable. The thyroid gland reveals no focal lesions. There are no clear laryngeal or pharyngeal masses. IMPRESSION: 1. The palpable sites of concern along the left neck correspond with a subcentimeter posterior cervical triangle lymph nodes. These are likely reactive. Follow-up of palpable findings to resolution or stability is recommended.[] Course & Med Decision Making Course & Med Decision Making Pertinent Labs and Imaging studies reviewed. (See chart for details) ED course: Patient arrived, was placed in bed, and tolerated exam well. She was transported to and from [place] with any complications. She noted that she had some nausea and so this was addressed with medication while in the emergency department. The return of the laboratory and imaging findings, these were discussed with the patient who voiced understanding. All questions were answered. She was discharged in improved condition. Medical decision making: There is no evidence of meningitis or encephalitis. No evidence of ischemia or lymphoma. No evidence of airway or esophageal compromise. Nontoxic patient. This appears to be a reactive lymphadenopathy. We'll cover with outpatient antibiotics, and pain medicine.[] Dragon Disclaimer Dragon Disclaimer This electronic medical record was generated, in whole or in part, using a voice recognition dictation system. Departure Departure: Impression: Primary Impression: Reactive cervical lymphadenopathy Disposition: 01 HOME, SELF-CARE Condition: IMPROVED Referrals: KAREN PRAJAPATI MD (PCP) Follow-up in 2 days Additional Instructions: You have reactive lymph nodes on the CAT scan. WHAT YOU NEED TO KNOW: Lymphadenopathy is swelling of your lymph nodes. Lymph nodes are small organs that are part of your immune system. The lymph nodes are found throughout your body. They are most easily felt in your neck, under your arms, and near your groin. Lymphadenopathy can occur in one or more areas of your body. It is usua lly caused by an infection. DISCHARGE INSTRUCTIONS: Return to the emergency department if: The swollen lymph nodes bleed. You have swollen lymph nodes in your neck that affect your breathing or swallowing. Contact your healthcare provider if: You have a fever. You have a new swollen and painful lymph node. You have a skin rash. Your lymph node remains swollen or painful, or it gets bigger. Your lymph node has red streaks around it, or the skin around the lymph node is red. You have questions or concerns about your condition or care. Follow up with your healthcare provider as directed: In 2 days Write down your questions so you remember to ask them during your visits. Self-care: Do not poke or squeeze the swollen lymph nodes. Apply heat to the swollen glands. You may use warm compresses, or an electric heating pad set on low. Rest as needed. If you have a fever, rest until your temperature returns to normal. Return to your normal daily activities slowly after your fever is gone. Scripts Oxaprozin (OXAPROZIN) 600 Mg Tablet 600 MG PO BID for PAIN, #20 TAB Prov: ELMO CASTRO DO 01/06/19 Amoxicillin (AMOXICILLIN) 500 Mg Tablet 1 TAB PO TID for LYMPHADENOPATHY, #30 TAB Prov: ELMO CASTRO DO 01/06/19 ELMO CASTRO DO Jan 06, 2019 11:55
[2019-01-06] MEDS ORDERED: IOHEXOL 300 MG/ML 75 ML VIAL. IV ONE (12:00)
[2019-01-06 12:31] LABS: BASO # 0.1 x10^3/uL (0.0-0.2); BASO % 1 % (0-3); EOS # 0.1 x10^3/uL (0.0-0.7); EOS % 1 % (0-3); HEMATOCRIT 41.2 % (36.0-47.0); HEMOGLOBIN 14.2 g/dL (12.0-15.5); LYMPH # 1.9 x10^3/uL (1.0-4.8); LYMPH % 29 % (24-48); MEAN CORPUSCULAR HEMOGLOBIN 32 pg (25-35); MEAN CORPUSCULAR HGB CONC 35 g/dL (31-37); MEAN CORPUSCULAR VOLUME 92 fL (79-100); MONO # 0.3 x10^3/uL (0.0-1.1); MONO % 5 % (0-9); NEUT # 4.3 x10^3uL (1.8-7.7); NEUT % 65 % (31-73); PLATELET COUNT 190 x10^3/uL (140-400); RED BLOOD COUNT 4.46 x10^6/uL (3.50-5.40); WHITE BLOOD COUNT 6.7 x10^3/uL (4.0-11.0)
[2019-01-06 12:37] LABS: CREATININE 0.6 mg/dL (0.6-1.0); GFR 108.6; PREG TEST PT QUAL NEGATIVE (NEG)
[2019-01-06] MEDS ORDERED: PROCHLORPERAZINE 10 MG/2 ML VIAL. IV ONE (12:45)
[2019-01-06 13:33] VITALS: BP 112/68
--- NOTE | 2019-01-06 13:59 | RAD ---
EXAM: CT NECK SOFT TISSUES WITH CONTRAST. HISTORY: Neck pain and swelling. TECHNIQUE: Computed tomography of the neck soft tissues was performed after the intravenous administration of iodinated contrast. COMPARISON: None. FINDINGS: Images of the lung apices reveal moderate centrilobular emphysema or multiple blebs bilaterally in the apices. Bone windows reveal no suspicious lesions. A skin marker is placed at the site of concern along the left neck. Underlying this, there are small posterior cervical lymph nodes that measure up to 8 x 4 mm. These are likely reactive. There are no pathologically enlarged cervical or supraclavicular lymph nodes. The parotid glands and submandibular glands are unremarkable. The thyroid gland reveals no focal lesions. There are no clear laryngeal or pharyngeal masses. IMPRESSION: 1. The palpable sites of concern along the left neck correspond with a subcentimeter posterior cervical triangle lymph nodes. These are likely reactive. Follow-up of palpable findings to resolution or stability is recommended. *One or more of the following individualized dose reduction techniques were utilized for this examination: 1. Automated exposure control. 2. Adjustment of the mA and/or kV according to patient size. 3. Use of iterative reconstruction technique. Electronically signed by: Camryn Oneill MD (01/06/2019 1:55 PM) [facility]
[2019-01-06] MEDS ORDERED: OXAP600T2 PO (14:10)
[2019-01-06] MEDS ORDERED: AMOX500T PO (14:10)
== END 2019-01-06 14:20 | disposition home or self-care (01) ==
LOC: ER 11:35
DX: R59.0 Localized enlarged lymph nodes (principal); F17.210 Nicotine dependence, cigarettes, uncomplicated; Z88.5 Allergy status to narcotic agent
CPT/HCPCS: 36415; 70491; 80048; 84703; 85025; 87040; 87077; 87205; 96374; 99285; J0780; Q9967

== ENCOUNTER 2019-01-09 13:19 | Emergency (ER) | payer OTHER ==
[~2019-01-09] VITALS: Ht 162.6 cm; Wt 52.2 kg
[~2019-01-09 13:19] MED LIST changes: +AMOX500T PO; +OXAP600T2 PO
[2019-01-09 13:48] VITALS: BP 114/64
[2019-01-09] MEDS ORDERED: LORazepam 1 MG TABLET ONE (13:57)
[2019-01-09] MEDS ORDERED: LORazepam 1 MG TABLET PO ONE (14:00)
[2019-01-09] MEDS ORDERED: LORA0.5T PO (14:00)
--- NOTE | 2019-01-09 14:00 | PHYS DOC ---
Past History Past Medical History: COPD, Other Additional Past Medical Histor: Endometriosis, Francois-Danlos syndrome Past Surgical History: Appendectomy, Cholecystectomy, Hysterectomy, Other Smoking: Cigarettes, Greater than 1 pack/day Alcohol Use: Sober Drug Use: Other Adult General Chief Complaint Chief Complaint: ANXIETY/PANIC ATTACK HPI HPI Patient is a 43-year-old female with known benzodiazepine requiring anxiety presents with a panic attack. She is out of her benzodiazepines. She admits she has an appointment tomorrow and does not need a prescription for benzos. She states she has some things going on that are very stressful with her significant other which caused her to have a panic attack today. She had an appointment at the [facility] with a counselor today but did not get her prescriptions. She is not suicidal or homicidal.[] Review of Systems Review of Systems Constitutional: Denies fever or chills [] Eyes: Denies change in visual acuity, redness, or eye pain [] HENT: Denies nasal congestion or sore throat [] Respiratory: Denies cough or shortness of breath [] Cardiovascular: No additional information not addressed in HPI [] GI: Denies abdominal pain, nausea, vomiting, bloody stools or diarrhea [] : Denies dysuria or hematuria [] Musculoskeletal: Denies back pain or joint pain [] Integument: Denies rash or skin lesions [] Neurologic: Denies headache, focal weakness or sensory changes [] Endocrine: Denies polyuria or polydipsia [] All other systems were reviewed and found to be within normal limits, except as documented in this note. Current Medications Current Medications Current Medications Medications (Trade) Dose Ordered Sig/La Start Time Stop Time Status Last Admin Dose Admin Lorazepam (Ativan) 1 mg 1X ONCE 01/09/19 14:00 01/09/19 14:01 UNV Allergies Allergies Allergies Coded Allergies Type Severity Reaction Last Updated Verified codeine Allergy Unknown 11/01/18 Yes Uncoded Allergies Type Severity Reaction Last Updated Verified steroids Adverse Reaction Unknown 09/29/18 Physical Exam Physical Exam Constitutional: Well developed, well nourished, no acute distress, non-toxic appearance. [] HENT: Normocephalic, atraumatic, bilateral external ears normal, oropharynx mo ist, no oral exudates, nose normal. [] Eyes: PERRLA, EOMI, conjunctiva normal, no discharge. [] Neck: Normal range of motion, no tenderness, supple, no stridor. [] Cardiovascular:Heart rate regular rhythm, no murmur [] Lungs & Thorax: Bilateral breath sounds clear to auscultation [] Abdomen: Bowel sounds normal, soft, no tenderness, no masses, no pulsatile masses. [] Skin: Warm, dry, no erythema, no rash. [] Back: No tenderness, no CVA tenderness. [] Extremities: No tenderness, no cyanosis, no clubbing, ROM intact, no edema. [] Neurologic: Alert and oriented X 3, normal motor function, normal sensory function, no focal deficits noted. [] Psychologic: Anxious and tearful[] Current Patient Data Vital Signs Vital Signs Date Time Temp Pulse Resp B/P (MAP) Pulse Ox O2 Delivery O2 Flow Rate FiO2 01/09/19 13:48 98.6 76 22 95 Room Air EKG EKG [] Radiology/Procedures Radiology/Procedures [] Course & Med Decision Making Course & Med Decision Making Pertinent Labs and Imaging studies reviewed. (See chart for details) [ED course: Evaluation reveals a 43-year-old female with panic attack. She was given 1 mg of Ativan during her stay in the department. I feel she is safe to go home for the rest the day.] Dragon Disclaimer Dragon Disclaimer This electronic medical record was generated, in whole or in part, using a voice recognition dictation system. Departure Departure: Impression: Primary Impression: Panic attack Disposition: HOME, SELF-CARE Condition: STABLE Referrals: GISSELLE HALL MD (PCP) Patient Instructions: Anxiety and Panic Attacks Additional Instructions: [facility]. Return to the emergency permit any new or concerning symptoms Scripts Lorazepam (LORAZEPAM) 0.5 Mg Tablet 1 TAB PO TID for anxiety for 3 Days, #9 TAB Prov: GERRI GRAJEDA DO 01/09/19 GERRI GRAJEDA DO Jan 09, 2019 14:00
== END 2019-01-09 14:05 | disposition home or self-care (01) ==
LOC: ER 13:19
DX: F41.0 Panic disorder [episodic paroxysmal anxiety] (principal); J44.9 Chronic obstructive pulmonary disease, unspecified; F17.210 Nicotine dependence, cigarettes, uncomplicated; Z88.5 Allergy status to narcotic agent
CPT/HCPCS: 99284

== ENCOUNTER 2019-01-13 08:16 | Emergency (ER) | payer OTHER ==
[~2019-01-13] VITALS: Ht 162.6 cm; Wt 51.8 kg
[2019-01-13] MEDS ORDERED: IV NORMAL SALINE 1,000ML 1,000 ML IV ONE (08:45)
[2019-01-13] MEDS ORDERED: MORPHINE SULFATE 2 MG/ML DISP.SYRIN. IV ONE (08:45)
[2019-01-13] MEDS ORDERED: ONDANSETRON PF 4 MG/2 ML VIAL. IV ONE (08:45)
--- NOTE | 2019-01-13 08:54 | PHYS DOC ---
Past History Past Medical History: COPD, Other Additional Past Medical Histor: Endometriosis, Francois-Danlos syndrome Past Surgical History: Appendectomy, Cholecystectomy, Hysterectomy, Other Smoking: Cigarettes, Greater than 1 pack/day Alcohol Use: Sober Drug Use: Other Adult General Chief Complaint Chief Complaint: LOWER EXT PAIN HPI HPI 43-year-old female presents with right lower extremity pain. The patient has been seen in this ED a couple of times for this. She tells me that this morning she up and could not bear weight on her right leg is pain from the mid lower leg up into her right hip. She denies any trauma or falls. She was told that she had some fat necrosis in her lower leg. She tells me that she is supposed to be following up with Dr. Villalobos, but she had lots of pain today and couldn't wait. She denies fever or chills. She has had some episodes of vomiting. Review of Systems Review of Systems Constitutional: Denies fever or chills [] Eyes: Denies change in visual acuity, redness, or eye pain [] HENT: Denies nasal congestion or sore throat [] Respiratory: Denies cough or shortness of breath [] Cardiovascular: No additional information not addressed in HPI [] GI: Denies abdominal pain, nausea, vomiting, bloody stools or diarrhea [] : Denies dysuria or hematuria [] Musculoskeletal: Right lower extremity pain[] Integument: Denies rash or skin lesions [] Neurologic: Denies headache, focal weakness or sensory changes [] Endocrine: Denies polyuria or polydipsia [] All other systems were reviewed and found to be within normal limits, except as documented in this note. Current Medications Current Medications Current Medications Medications (Trade) Dose Ordered Sig/[facility] Start Time Stop Time Status Last Admin Dose Admin Morphine Sulfate (Morphine 2mg Syringe) 2 mg 1X ONCE 01/13/19 08:45 01/13/19 08:46 UNV Ondansetron HCl (Zofran) 4 mg 1X ONCE 01/13/19 08:45 01/13/19 08:46 UNV Sodium Chloride 1,000 ml @ 1,000 mls/hr 1X ONCE 01/13/19 08:45 01/13/19 09:44 UNV Allergies Allergies Allergies Coded Allergies Type Severity Reaction Last Updated Verified codeine Allergy Unknown 11/01/18 Yes Uncoded Allergies Type Severity Reaction Last Updated Verified steroids Adverse Reaction Unknown 09/29/18 Physical Exam Physical Exam Constitutional: Well developed, well nourished, no acute distress, non-toxic appearance. [] HENT: Normocephalic, atraumatic, bilateral external ears normal, oropharynx moist, no oral exudates, nose normal. [] Eyes: PERRLA, EOMI, conjunctiva normal, no discharge. [] Neck: Normal range of motion, no tenderness, supple, no stridor. [] Cardiovascular:Heart rate regular rhythm, no murmur [] Lungs & Thorax: Bilateral breath sounds clear to auscultation [] Abdomen: Bowel sounds normal, soft, no tenderness, no masses, no pulsatile masses. [] Skin: Warm, dry, no erythema, no rash. [] Back: No tenderness, no CVA tenderness. [] Extremities: no cyanosis, no clubbing, ROM intact, no edema. Tenderness over the anterior right tibia.[] Neurologic: Alert and oriented X 3, normal motor function, normal sensory function, no focal deficits noted. [] Psychologic: Affect normal, judgement normal, mood anxious and emotional. [] Current Patient Data Vital Signs Vital Signs Date Time Temp Pulse Resp B/P (MAP) Pulse Ox O2 Delivery O2 Flow Rate FiO2 01/13/19 08:32 Room Air 01/13/19 08:25 97.9 89 20 99 EKG EKG [] Radiology/Procedures Radiology/Procedures [] Impressions: Indication: Pain TECHNIQUE: 2 views of the right hip COMPARISON: None Findings/ impression: No acute fracture or dislocation. No evidence of osteoarthritis. Right SI joint within normal limits. Electronically signed by: Clark Back DO (01/13/2019 9:27 AM) [facility] DICTATED AND SIGNED BY: CLARK BACK DO DATE: 01/13/19 0927 CC: BRENTON MONROY DO; GISSELLE HALL MD ~ [facility] Compliance statement: One or more of the following individualized dose reduction techniques were utilized for this examination: 1. Automated exposure control. 2. Adjustment of the mA and/or kV according to patient size. 3. Use of iterative reconstruction technique. INDICATION: Right hip pain. Rule out fracture and/or mass. TECHNIQUE: CT of the right hip and entire right lower extremity without and with IV contrast with multiplanar reformats. COMPARISON: None FINDINGS: No hip joint osteoarthritis. No suspicious bony lesion. No acute fractures. Urinary bladder is severely distended. No right inguinal adenopathy. No joint effusion. No apparent soft tissue mass is seen. No skin edema or inflammatory changes to suggest cellulitis. No apparent enhancing mass seen. IMPRESSION: No acute findings. Electronically signed by: Clark Back DO (01/13/2019 12:40 PM) [facility] DICTATED AND SIGNED BY: CLARK BACK DO DATE: 01/13/19 1240 CC: BRENTON MONROY DO; GISSELLE HALL MD ~ Course & Med Decision Making Course & Med Decision Making Pertinent Labs and Imaging studies reviewed. (See chart for details) On exam, the patient had tenderness over the right anterior tibia, but no skin changes or deformity. The patient appeared be very dramatic about her pain. She has been given tramadol and hydrocodone prescriptions within the last 2 weeks from this facility. The patient's hip x-rays are unremarkable. I've given her 4 mg of Zofran and 6 total milligrams of morphine to help with her pain. Labs are pending. The patient's labs are unremarkable. I don't see any acute reason for the patient's pain. I've advised that she follow-up with Dr. Villalobos as already planned. The patient has been unable to tolerate her pain. She has had additional Dilaudid for her pain. I discussed the patient with Dr. Maldonado and he has recommended CT of the right hip and transferred to [facility] for admission. He will admit the patient. She will go by ambulance. [] Dragon Disclaimer Dragon Disclaimer This electronic medical record was generated, in whole or in part, using a voice recognition dictation system. Departure Departure: Impression: Primary Impression: Right hip pain Additional Impression: Intractable pain Disposition: 02 XFER SHT-TRM HOSP Condition: STABLE Referrals: GISSELLE HALL MD (PCP) Problem Qualifiers BRENTON MONROY DO Jan 13, 2019 08:54
--- NOTE | 2019-01-13 09:30 | RAD ---
Indication: Pain TECHNIQUE: 2 views of the right hip COMPARISON: None Findings/ impression: No acute fracture or dislocation. No evidence of osteoarthritis. Right SI joint within normal limits. Electronically signed by: Clark Back DO (01/13/2019 9:27 AM) [facility]
[2019-01-13 09:42] LABS: MEAN CORPUSCULAR HEMOGLOBIN 30 pg (25-35); MEAN CORPUSCULAR VOLUME 93 fL (79-100); RED BLOOD COUNT 4.61 x10^6/uL (3.50-5.40); WHITE BLOOD COUNT 6.3 x10^3/uL (4.0-11.0)
[2019-01-13 09:43] LABS: MEAN CORPUSCULAR HGB CONC 32 g/dL (31-37); PLATELET COUNT 187 x10^3/uL (140-400); RED CELL DISTRIBUTION WIDTH 13.5 % (11.5-14.5)
[2019-01-13] MEDS ORDERED: diphenhydrAMINE 50 MG/ML VIAL IVP ONE (09:45)
[2019-01-13] MEDS ORDERED: MORPHINE SULFATE 4 MG/ML DISP.SYRIN. IV ONE (09:45)
[2019-01-13 10:02] LABS: HEMOGLOBIN ISTAT 13.9 gm/dL; POTASSIUM ISTAT 4.7 mmol/L (3.5-5.0)
[2019-01-13 10:12] LABS: % ATYL 2 % (0-0); % EOS 1 % (0-5); % LYMPHS 30 % (24-48); % MONOS 5 % (0-10); % SEGS 62 % (35-66)
[2019-01-13 10:13] LABS: PLT ESTIMATE ADEQUATE (ADEQUATE)
[2019-01-13] MEDS ORDERED: HYDROmorphone PF 1 MG/ML DISP.SYRIN IV ONE ×2 (11:30→13:00)
[2019-01-13] MEDS ORDERED: IOHEXOL 300 MG/ML 75 ML VIAL. IV ONE (11:45)
--- NOTE | 2019-01-13 12:43 | RAD ---
PQRS Compliance statement: One or more of the following individualized dose reduction techniques were utilized for this examination: 1. Automated exposure control. 2. Adjustment of the mA and/or kV according to patient size. 3. Use of iterative reconstruction technique. INDICATION: Right hip pain. Rule out fracture and/or mass. TECHNIQUE: CT of the right hip and entire right lower extremity without and with IV contrast with multiplanar reformats. COMPARISON: None FINDINGS: No hip joint osteoarthritis. No suspicious bony lesion. No acute fractures. Urinary bladder is severely distended. No right inguinal adenopathy. No joint effusion. No apparent soft tissue mass is seen. No skin edema or inflammatory changes to suggest cellulitis. No apparent enhancing mass seen. IMPRESSION: No acute findings. Electronically signed by: Clark Back DO (01/13/2019 12:40 PM) [facility]
[2019-01-13 13:11] VITALS: BP 90/54
[2019-01-13 13:37] LABS: BACTERIA,URINE 0 /HPF (0-FEW); BILIRUBIN,URINE NEG (NEG); CLARITY,URINE HAZY; COLOR,URINE YELLOW; GLUCOSE,URINE NEG (NEG); NITRITE,URINE NEG (NEG); SQUAMOUS EPITHELIAL CELL,UR FEW /LPF; UROBILINOGEN,URINE 0.2 mg/dL (0.2 mg/dL); WBC,URINE RARE /HPF (0-4)
== END 2019-01-13 13:40 | disposition short-term general hospital (02) ==
LOC: ER 08:16
DX: M25.551 Pain in right hip (principal); M79.604 Pain in right leg; M79.89 Other specified soft tissue disorders; R11.11 Vomiting without nausea; J44.9 Chronic obstructive pulmonary disease, unspecified; Q79.6 Ehlers-Danlos syndromes; F17.210 Nicotine dependence, cigarettes, uncomplicated; Z88.5 Allergy status to narcotic agent
CPT/HCPCS: 36415; 73502; 73702; 80047; 81001; 85007; 85025; 85651; 86140; 96361; 96374; 96375; 96376; 99285; J1170; J1200; J2060; J2270; J2405; J7030

== ENCOUNTER 2019-01-16 13:00 | Emergency (ER) | payer OTHER ==
[~2019-01-16] VITALS: Ht 162.6 cm; Wt 52.2 kg
[2019-01-16 13:19] VITALS: BP 107/79
[2019-01-16] MEDS ORDERED: METH4TAB2 PO (13:38)
--- NOTE | 2019-01-16 13:38 | PHYS DOC ---
Past History Past Medical History: COPD, Other Additional Past Medical Histor: Endometriosis, Francois-Danlos syndrome Past Surgical History: Appendectomy, Cholecystectomy, Hysterectomy, Other Smoking: Cigarettes, Greater than 1 pack/day Alcohol Use: Sober Drug Use: Other Adult General Chief Complaint Chief Complaint: LOWER EXT PAIN HPI HPI Patient is a 43 year old female who presents with complaint of right lower leg pain. Patient is on multiple visits to the emergency department with the same complaint. Was last seen on January 13, 2019 here in the emergency department. Underwent CT imaging of the entire right lower extremity with no abnormalities found. Notes that her pain is in the anterior proximal to mid right lower leg and worsens with walking. States that she also suffers from anxiety and states that this could be worsening her symptoms. The patient was transferred to [facility] after her last visit in the emergency Department, however she states that she signed out AGAINST MEDICAL ADVICE once she was there as she was afraid they may have to do surgery. Patient is slated to follow-up with Dr. Villalobos of orthopedic surgery and her appointment is on February 08. Has received multiple narcotic prescriptions recently from the emergency department. Has not noticed any increasing swelling or redness to the right lower extremity. States that the pain sometimes radiates up towards the back of her right leg and hip with movement. Currently out of pain medication. Review of Systems Review of Systems Constitutional: Denies fever or chills [] Eyes: Denies change in visual acuity, redness, or eye pain [] HENT: Denies nasal congestion or sore throat [] Respiratory: Denies cough or shortness of breath [] Cardiovascular: Denies chest pain or edema [] GI: Denies abdominal pain, nausea, vomiting, bloody stools or diarrhea [] : Denies dysuria or hematuria [] Musculoskeletal: Right lower leg pain[] Integument: Denies rash or skin lesions [] Neurologic: Denies headache, focal weakness or sensory changes [] All other systems were reviewed and found to be within normal limits, except as documented in this note. Current Medications Current Medications Current Medications Medications (Trade) Dose Ordered Sig/La Start Time Stop Time Status Last Admin Dose Admin Tramadol HCl (Ultram) 50 mg 1X ONCE 01/16/19 13:45 01/16/19 13:46 UNV Allergies Allergies Allergies Coded Allergies Type Severity Reaction Last Updated Verified codeine Allergy Intermediate 01/16/19 Yes Uncoded Allergies Type Severity Reaction Last Updated Verified steroids Adverse Reaction Unknown 09/29/18 Physical Exam Physical Exam Constitutional: Alert, afebrile, appears anxious. [] HENT: Normocephalic, atraumatic, bilateral external ears normal, oropharynx moist, no oral exudates, nose normal. [] Eyes: PERRLA, EOMI, conjunctiva normal, no discharge. [] Neck: Normal range of motion, no tenderness, supple, no stridor. [] Cardiovascular:Heart rate regular rhythm, no murmur [] Lungs & Thorax: Bilateral breath sounds clear to auscultation [] Abdomen: Bowel sounds normal, soft, no tenderness, no masses, no pulsatile masses. [] Skin: Warm, dry, no erythema, no rash. [] Back: No tenderness, no CVA tenderness. [] Extremities: There is palpation along right anterior tibialis muscle, no palpable tightness in the compartment, normal pulses in the right lower extremity including dorsalis pedis and posterior tibialis, normal range of motion, normal weightbearing. [] Neurologic: Alert and oriented X 3, normal motor function, normal sensory function, no focal deficits noted. [] Current Patient Data Vital Signs Vital Signs Date Time Temp Pulse Resp B/P (MAP) Pulse Ox O2 Delivery O2 Flow Rate FiO2 01/16/19 13:19 98.8 99 22 97 Room Air Lab Results Not performed EKG EKG Not performed[] Radiology/Procedures Radiology/Procedures Not performed[] Course & Med Decision Making Course & Med Decision Making Pertinent Labs and Imaging studies reviewed. (See chart for details) The patient has had multiple evaluations in the emergency department with no d efinitive cause for the patient's pain symptoms. As weightbearing as worsened her symptoms, I suggested use of crutches. Patient was given crutches to help reduce weightbearing to the affected extremity while it is painful. Patient was given 1 tramadol dose in the emergency department. Prescribed Medrol Dosepak for higher powered anti-inflammatory effect to see if this will help improve symptoms. Advised to keep the scheduled appointment with orthopedic surgery. Advised return to emergency department for any worsening symptoms. Patient was understanding and in agreement with treatment plan.[] Dragon Disclaimer Dragon Disclaimer This electronic medical record was generated, in whole or in part, using a voice recognition dictation system. Departure Departure: Impression: Primary Impression: Pain of right lower leg Disposition: HOME, SELF-CARE Condition: STABLE Referrals: GISSELLE HALL MD (PCP) Patient Instructions: Pain of Unknown Etiology (Pain without a known Cause) Additional Instructions: Be sure to follow with Dr. Villalobos of orthopedic surgery as previously scheduled. Return to the emergency department for any worsening symptoms. Scripts Methylprednisolone (MEDROL) 4 Mg Tab.ds.pk 1 PKG PO UD, #1 PKG Prov: KIERRA ANGLIN MD 01/16/19 KIERRA ANGLIN MD Jan 16, 2019 13:38
[2019-01-16] MEDS ORDERED: traMADol 50 MG TABLET PO ONE (13:45)
== END 2019-01-16 13:45 | disposition home or self-care (01) ==
LOC: ER 13:00
DX: M79.661 Pain in right lower leg (principal); J44.9 Chronic obstructive pulmonary disease, unspecified; Q79.6 Ehlers-Danlos syndromes; F17.210 Nicotine dependence, cigarettes, uncomplicated; Z88.5 Allergy status to narcotic agent
CPT/HCPCS: 99283

== ENCOUNTER 2019-02-28 17:35 | Emergency (ER) | payer OTHER ==
[~2019-02-28] VITALS: Ht 162.6 cm; Wt 51.8 kg
[~2019-02-28 17:35] MED LIST changes: +METH4TAB2 PO; -TIZA4TAB PO; +TIZA4TAB2 PO
[2019-02-28] MEDS ORDERED: IOHEXOL 240 MG/ML 50ML VIAL. ONE (18:35)
--- NOTE | 2019-02-28 18:39 | PHYS DOC ---
Past History Past Medical History: COPD, Other Additional Past Medical Histor: Endometriosis, Francois-Danlos syndrome Past Surgical History: Appendectomy, Cholecystectomy, Hysterectomy, Other Smoking: Cigarettes, Greater than 1 pack/day Alcohol Use: Sober Drug Use: Marijuana, Other Adult General Chief Complaint Chief Complaint: LOWER EXT PAIN [facility] HPI Patient is a 43-year-old female presents with lower abdominal pain that goes superiorly into her upper abdomen as well as some chest discomfort. This is been intermittently occurring for the past 4 days. She's noted bruising on the inside of both eyes. No specific leg pain. No worsening with exertion. No dysuria, no vaginal discharge. Patient has a history of a hysterectomy. No diarrhea. No relief with home medicines. 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 Patient denies being on any blood thinners. Symptoms are waxing and waning, and are severe when they're at their worst.[] Review of Systems Review of Systems Constitutional: Denies fever or chills [] Eyes: Denies change in visual acuity, redness, or eye pain [] HENT: Denies nasal congestion or sore throat [] Respiratory: Denies cough or shortness of breath [] Cardiovascular: No additional information not addressed in HPI [] GI: See History of present illness[] : Denies dysuria or hematuria [] Musculoskeletal: Denies back pain or joint pain [] Integument: Denies rash or skin lesions [] Neurologic: Denies headache, focal weakness or sensory changes [] Endocrine: Denies polyuria or polydipsia [] All other systems were reviewed and found to be within normal limits, except as documented in this note. Current Medications Current Medications Current Medications Medications (Trade) Dose Ordered Sig/La Start Time Stop Time Status Last Admin Dose Admin Hyoscyamine (Anaspaz) 0.125 mg 1X ONCE 02/28/19 18:45 02/28/19 18:46 UNV Iohexol (Omnipaque 240 Mg/ml) 50 ml STK-MED ONCE 02/28/19 18:35 02/28/19 18:35 DC Ketorolac Tromethamine (Toradol 30mg Vial) 30 mg 1X ONCE 02/28/19 18:45 02/28/19 18:46 UNV Metoclopramide HCl (Reglan Vial) 10 mg 1X ONCE 02/28/19 18:45 02/28/19 18:46 UNV Allergies Allergies Allergies Coded Allergies Type Severity Reaction Last Updated Verified codeine Allergy Intermediate 01/16/19 Yes Uncoded Allergies Type Severity Reaction Last Updated Verified steroids Adverse Reaction Unknown 09/29/18 Physical Exam Physical Exam Constitutional: Well developed, well nourished, no acute distress, non-toxic appearance. [] HENT: Normocephalic, atraumatic, bilateral external ears normal, oropharynx moist, no oral exudates, nose normal. [] Eyes: PERRLA, EOMI, conjunctiva normal, no discharge. [] Neck: Normal range of motion, no tenderness, supple, no stridor. [] Cardiovascular:Heart rate regular rhythm, no murmur [] Lungs & Thorax: Bilateral breath sounds clear to auscultation, no tenderness to palpation along the sternum. [] Abdomen: Bowel sounds normal, soft, lower abdominal tenderness, no rebound, no guarding, no rigidity, able to sit up and lay back without any difficulty, no masses, no pulsatile masses. [] Skin: Warm, dry, no erythema, no rash. Scattered bruises bilateral thighs. [] Back: No tenderness, no CVA tenderness. [] Extremities: No tenderness, no cyanosis, no clubbing, ROM intact, no edema. [] Neurologic: Alert and oriented X 3, normal motor function, normal sensory function, no focal deficits noted. [] Psychologic: Affect normal, judgement normal, mood normal. [] Current Patient Data Vital Signs Vital Signs Date Time Temp Pulse Resp B/P (MAP) Pulse Ox O2 Delivery O2 Flow Rate FiO2 02/28/19 17:57 98.4 81 18 Room Air EKG EKG [] Radiology/Procedures Radiology/Procedures PROCEDURE: CT ABD PELV W/ORAL&IV CONTRAST PQRS Compliance Statement: One or more of the following individualized dose reduction techniques were utilized for this examination: 1. Automated exposure control 2. Adjustment of the mA and/or kV according to patient size 3. Use of iterative reconstruction technique CT abdomen/pelvis with contrast 02/28/2019 6:31 PM INDICATION: Lower abdominal pain COMPARISON: CT abdomen/pelvis December 17, 2018 TECHNIQUE: Multiple axial CT images of the abdomen and pelvis were obtained after the intravenous administration of 75 mL Omnipaque 300. Coronal and sagittal reformats are provided. FINDINGS: Lung bases are clear. Heart size is within normal limits. Stable subcapsular cystic lesion with peripheral calcification measuring 3.4 x 1.5 cm. Subcentimeter hypodensities scattered throughout the liver statistically favored represent simple cysts or biliary hamartomas. Gallbladder is surgically absent. Mild intrahepatic and extra hepatic biliary ductal dilatation most favors reservoir effect status post cholecystectomy. Spleen, bilateral adrenal glands and pancreas are normal in appearance. The abdominal aorta is normal in course and caliber. There are no pathologically enlarged lymph nodes in the abdomen and pelvis. There is no abdominal free fluid. There is no free intraperitoneal air. Moderate amount of stool is noted throughout the colon. Appendix is not definitively visualized. Oral contrast was administered. Opacified bowel loops demonstrate normal mucosal fold pattern. Stomach is normal in appearance. No bowel obstruction or inflammation. The kidneys enhance symmetrically. There is no suspicious renal mass. There is no hydronephrosis. There are no suspected calculi within the kidneys, ureters or urinary bladder. Urinary bladder is within normal limits given degree of distention. Status post hysterectomy. No suspicious adnexal masses are identified. No suspicious osseous abnormality. Stable superior plate compression deformity involving T12 with 15 percent height loss. IMPRESSION: No acute abnormality is identified in abdomen and pelvis. Chest x-ray shows no infiltrate, no effusion, no pneumothorax[] Course & Med Decision Making Course & Med Decision Making Pertinent Labs and Imaging studies reviewed. (See chart for details) ED course: Patient arrived, was placed in bed, and tolerated exam well. She was able to tolerate oral contrast was transported to and from CT with any complications. She received IV narcotic pain medicine which didn't improve her pain. After the return of the laboratory and imaging studies, these were discussed with the patient who voiced understanding. All questions were answered. She was discharged in improved condition. Medical decision making: There is no evidence of an obstruction perforation, dissecting aneurysm which was a high concern due to her history of Francois- Danlos, no evidence of urinary tract infection, appendicitis, diverticulitis, nor significant electrolyte abnormality. No evidence of urinary tract infection. No evidence of a fracture or dislocation given her history of Francois-Danlos syndrome. No evidence of acute coronary syndrome nor dissecting thoracic aneurysm. Reluctant to give the patient additional outpatient narcotic pain medicines because it appears that she has many of them prescribed by multiple prescribers including 120 hydrocodone acetaminophen 7.5/325 mg tablets prescribed on 02/08/2019, and no narcotics on her urine drug screen.[] Dragon Disclaimer Dragon Disclaimer This electronic medical record was generated, in whole or in part, using a voice recognition dictation system. Departure Departure: Impression: Primary Impression: Lower abdominal pain Disposition: HOME, SELF-CARE Condition: STABLE Referrals: GISSELLE HALL MD (PCP) Follow-up in 2 days Patient Instructions: Abdominal Pain Additional Instructions: Drink plenty of fluids, frequent small sips. No fatty foods, no milk, and no pepper for the next 48 hours. For the next 48 hours eat a diet rich in carbohydrates with foods such as bananas, rice, applesauce, and toast. Follow-up with your regular doctor in 2 days. Return to the ER if worsening pain, difficulty breathing, fever of more than 101�, or any other concerns. Was given and 3 Scripts Oxaprozin (OXAPROZIN) 600 Mg Tablet 600 MG PO BID for pin, #20 TAB Prov: ELMO CASTRO DO 02/28/19 ELMO CASTRO DO Feb 28, 2019 18:39
[2019-02-28] MEDS ORDERED: KETOROLAC 30 MG/ML VIAL. IV ONE (18:45)
[2019-02-28] MEDS ORDERED: HYOSCYAMINE 0.125 MG TAB.RAPDIS PO ONE (18:45)
[2019-02-28] MEDS ORDERED: METOCLOPRAMIDE HCL 10 MG/2 ML VIAL. IV ONE (18:45)
[2019-02-28] MEDS ORDERED: IOHEXOL 300 MG/ML 75 ML VIAL. IV ONE (19:00)
[2019-02-28 19:20] LABS: BARBITURATES NEG (NEG); BENZODIAZEPINES POS (NEG); CANNABINOIDS POS (NEG); COCAINE NEG (NEG); METHADONE NEG (NEG); OPIATES NEG (NEG); PHENCYCLIDINE NEG (NEG)
[2019-02-28 19:21] LABS: AMPHETAMINE/METHAMPHETAMINE NEG (NEG)
[2019-02-28 19:24] LABS: BILIRUBIN,URINE NEG (NEG); CLARITY,URINE CLEAR; COLOR,URINE STRAW; GLUCOSE,URINE NEG (NEG)
[2019-02-28 19:25] LABS: BACTERIA,URINE FEW /HPF (0-FEW); NITRITE,URINE NEG (NEG); SQUAMOUS EPITHELIAL CELL,UR OCC /LPF; UROBILINOGEN,URINE 0.2 mg/dL (0.2 mg/dL); WBC,URINE OCC /HPF (0-4)
[2019-02-28 19:33] LABS: BASO % 1 % (0-3); EOS # 0.1 x10^3/uL (0.0-0.7); EOS % 1 % (0-3); HEMATOCRIT 42.9 % (36.0-47.0); HEMOGLOBIN 14.4 g/dL (12.0-15.5); LYMPH # 2.8 x10^3/uL (1.0-4.8); LYMPH % 43 % (24-48); MEAN CORPUSCULAR HEMOGLOBIN 31 pg (25-35); MEAN CORPUSCULAR HGB CONC 34 g/dL (31-37); MEAN CORPUSCULAR VOLUME 93 fL (79-100); MONO # 0.3 x10^3/uL (0.0-1.1); MONO % 5 % (0-9); NEUT # 3.3 x10^3uL (1.8-7.7); NEUT % 50 % (31-73); PLATELET COUNT 188 x10^3/uL (140-400); RED CELL DISTRIBUTION WIDTH 13.9 % (11.5-14.5); WHITE BLOOD COUNT 6.5 x10^3/uL (4.0-11.0)
[2019-02-28 19:50] LABS: ALBUMIN 3.6 g/dL (3.4-5.0); ALBUMIN/GLOBULIN RATIO 1.2 (1.0-1.7); CALCIUM 8.8 mg/dL (8.5-10.1); CREATININE 0.6 mg/dL (0.6-1.0); GFR 108.6; POTASSIUM 3.7 mmol/L (3.5-5.1); TOTAL BILIRUBIN 0.1 mg/dL (0.2-1.0); TOTAL PROTEIN 6.6 g/dL (6.4-8.2)
--- NOTE | 2019-02-28 19:57 | EKG ---
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
--- NOTE | 2019-02-28 20:34 | RAD ---
PQRS Compliance Statement: One or more of the following individualized dose reduction techniques were utilized for this examination: 1. Automated exposure control 2. Adjustment of the mA and/or kV according to patient size 3. Use of iterative reconstruction technique CT abdomen/pelvis with contrast 02/28/2019 6:31 PM INDICATION: Lower abdominal pain COMPARISON: CT abdomen/pelvis December 17, 2018 TECHNIQUE: Multiple axial CT images of the abdomen and pelvis were obtained after the intravenous administration of 75 mL Omnipaque 300. Coronal and sagittal reformats are provided. FINDINGS: Lung bases are clear. Heart size is within normal limits. Stable subcapsular cystic lesion with peripheral calcification measuring 3.4 x 1.5 cm. Subcentimeter hypodensities scattered throughout the liver statistically favored represent simple cysts or biliary hamartomas. Gallbladder is surgically absent. Mild intrahepatic and extra hepatic biliary ductal dilatation most favors reservoir effect status post cholecystectomy. Spleen, bilateral adrenal glands and pancreas are normal in appearance. The abdominal aorta is normal in course and caliber. There are no pathologically enlarged lymph nodes in the abdomen and pelvis. There is no abdominal free fluid. There is no free intraperitoneal air. Moderate amount of stool is noted throughout the colon. Appendix is not definitively visualized. Oral contrast was administered. Opacified bowel loops demonstrate normal mucosal fold pattern. Stomach is normal in appearance. No bowel obstruction or inflammation. The kidneys enhance symmetrically. There is no suspicious renal mass. There is no hydronephrosis. There are no suspected calculi within the kidneys, ureters or urinary bladder. Urinary bladder is within normal limits given degree of distention. Status post hysterectomy. No suspicious adnexal masses are identified. No suspicious osseous abnormality. Stable superior plate compression deformity involving T12 with 15 percent height loss. IMPRESSION: No acute abnormality is identified in abdomen and pelvis. Electronically signed by: Helga Weir MD (02/28/2019 8:31 PM) [facility]
[2019-02-28] MEDS ORDERED: OXAP600T2 PO (20:53)
[2019-02-28 21:06] VITALS: BP 94/38
--- NOTE | 2019-02-28 23:07 | RAD ---
Chest radiograph 02/28/2019 6:31 PM INDICATION: Chest pain COMPARISON: December 11, 2018 TECHNIQUE: Portable upright frontal view of the chest is provided. FINDINGS: The cardiomediastinal silhouette is within normal limits. There are no pleural effusions. There is no pulmonary vascular congestion. There is no pneumothorax. Stable blunting of the right costophrenic angle suggestive of pleural thickening. No significant osseous abnormality is identified. IMPRESSION: Suspect pleural thickening at the right lung base without acute cardiopulmonary process. Electronically signed by: Helga Weir MD (02/28/2019 11:04 PM) [facility]
== END 2019-02-28 21:06 | disposition home or self-care (01) ==
LOC: ER 17:35
DX: S70.12XA Contusion of left thigh, initial encounter (principal); S70.11XA Contusion of right thigh, initial encounter; R10.30 Lower abdominal pain, unspecified; R07.89 Other chest pain; F17.210 Nicotine dependence, cigarettes, uncomplicated; J44.9 Chronic obstructive pulmonary disease, unspecified; Z90.49 Acquired absence of other specified parts of digestive tract; Z90.89 Acquired absence of other organs; Z88.5 Allergy status to narcotic agent; Z90.710 Acquired absence of both cervix and uterus; X58.XXXA Exposure to other specified factors, initial encounter; Y93.89 Activity, other specified; Y92.89 Other specified places as the place of occurrence of the external cause; Y99.8 Other external cause status
CPT/HCPCS: 36415; 71045; 74177; 80053; 80307; 81001; 83690; 84484; 85025; 85610; 85730; 87491; 87591; 93005; 96374; 96375; 99285; J2765; J3010; Q9967

== ENCOUNTER 2019-04-01 09:44 | Emergency (ER) | payer OTHER ==
[2019-04-01] MEDS ORDERED: ACETAMINOPHEN 500 MG TABLET PO ONE (10:20)
--- NOTE | 2019-04-01 10:32 | RAD ---
AP portable chest radiograph 04/01/2019 Clinical History: Chest pain for one day. An AP erect portable digital radiograph of the chest was obtained. Comparison study is dated 02/28/2019. The cardiac silhouette is normal in size. The thoracic aorta is minimally tortuous. Blunting of the right costophrenic angle is seen which could reflect pleural thickening versus a small right pleural effusion. No acute pulmonary infiltrate is seen. No pneumothorax is noted. The osseous structures are unchanged. IMPRESSION: No acute pulmonary infiltrate is seen. Electronically signed by: Harsh Melendez MD (04/01/2019 10:29 AM) [facility]
[2019-04-01 10:43] LABS: BASO % 1 % (0-3); EOS % 1 % (0-3); HEMOGLOBIN 15.5 g/dL (12.0-15.5); LYMPH # 1.5 x10^3/uL (1.0-4.8); LYMPH % 35 % (24-48); MEAN CORPUSCULAR HEMOGLOBIN 32 pg (25-35); MEAN CORPUSCULAR HGB CONC 35 g/dL (31-37); MEAN CORPUSCULAR VOLUME 93 fL (79-100); MONO # 0.3 x10^3/uL (0.0-1.1); MONO % 6 % (0-9); NEUT # 2.4 x10^3uL (1.8-7.7); NEUT % 57 % (31-73); PLATELET COUNT 139 x10^3/uL (140-400); RED BLOOD COUNT 4.85 x10^6/uL (3.50-5.40); RED CELL DISTRIBUTION WIDTH 13.8 % (11.5-14.5); WHITE BLOOD COUNT 4.2 x10^3/uL (4.0-11.0)
[2019-04-01 10:55] LABS: ALBUMIN 3.7 g/dL (3.4-5.0); CREATININE 0.7 mg/dL (0.6-1.0); GFR 90.9; POTASSIUM 3.5 mmol/L (3.5-5.1); TOTAL BILIRUBIN 0.3 mg/dL (0.2-1.0); TOTAL PROTEIN 7.4 g/dL (6.4-8.2)
--- NOTE | 2019-04-01 11:48 | PHYS DOC ---
Past History Past Medical History: Other Additional Past Medical Histor: adhd; endocarditis; kidney stones Past Surgical History: Hysterectomy Smoking: Cigarettes, Greater than 1 pack/day Alcohol Use: None Drug Use: None Adult General Chief Complaint Chief Complaint: MULTIPLE COMPLAINTS HPI HPI Patient is a 43 yo f with cc of complaints of some left-sided neck pain as well as left upper back pain. Times last couple of days. She was having some pain underneath her left jaw for about a week that went away but now is more in her left lateral neck she has history of chronic neck pain she tells me she has nerve damage. She also had some tingling at the tip of her tongue. She wanted to get her heart checked out because she has history of endocarditis although at this point time she has no fever no chest pain no shortness of breath otherwise well she was at [employer] prior to coming over Review of Systems Review of Systems Constitutional: Denies fever or chills [] Eyes: Denies change in visual acuity, redness, or eye pain [] Neurologic: Denies headache, focal weakness or sensory changes [] All other systems were reviewed and found to be within normal limits, except as documented in this note. Current Medications Current Medications Current Medications Medications (Trade) Dose Ordered Sig/La Start Time Stop Time Status Last Admin Dose Admin Acetaminophen (Tylenol) 1,000 mg 1X ONCE 04/01/19 10:20 04/01/19 10:21 DC 04/01/19 10:13 1,000 MG Allergies Allergies Allergies Coded Allergies Type Severity Reaction Last Updated Verified codeine Allergy Intermediate 01/16/19 Yes amitriptyline Allergy Unknown 02/28/19 Yes ketorolac Allergy Unknown 02/28/19 Yes Uncoded Allergies Type Severity Reaction Last Updated Verified steroids Adverse Reaction Unknown 09/29/18 Physical Exam Physical Exam Constitutional: Well developed, well nourished, no acute distress, non-toxic appearance. [] HENT: Normocephalic, atraumatic, bilateral external ears normal, oropharynx moist, no oral exudates, nose normal. [] Eyes: PERRLA, EOMI, conjunctiva normal, no discharge. [] Neck: Normal range of motion,mild lateral muscle tenderness no focal midline ttp also mild just medial to scapula muslce ttp Cardiovascular:Heart rate regular rhythm, no murmur [] Lungs & Thorax: Bilateral breath sounds clear to auscultation [] Abdomen: Bowel sounds normal, soft, no tenderness, no masses, no pulsatile masses. [] Skin: Warm, dry, no erythema, no rash. [] Back: No tenderness, no CVA tenderness. [] Extremities: No tenderness, no cyanosis, no clubbing, ROM intact, no edema. [] Neurologic: Alert and oriented X 3, normal motor function, normal sensory function, no focal deficits noted. [] Psychologic: Affect normal, judgement normal, mood normal. [] Current Patient Data Vital Signs Vital Signs Date Time Temp Pulse Resp B/P (MAP) Pulse Ox O2 Delivery O2 Flow Rate FiO2 04/01/19 10:21 76 18 93 Room Air bp 130/87 per marc crane Lab Results Laboratory Tests Test 04/01/19 09:53 04/01/19 10:31 04/01/19 10:32 Troponin I Quantitative < 0.017 ng/mL (0-0.055) POC Urine HCG, Qualitative hcg negative (Negative) White Blood Count 4.2 x10^3/uL (4.0-11.0) Red Blood Count 4.85 x10^6/uL (3.50-5.40) Hemoglobin 15.5 g/dL (12.0-15.5) Hematocrit 45.0 % (36.0-47.0) Mean Corpuscular Volume 93 fL (79-100) Mean Corpuscular Hemoglobin 32 pg (25-35) Mean Corpuscular Hemoglobin Concent 35 g/dL (31-37) Red Cell Distribution Width 13.8 % (11.5-14.5) Platelet Count 139 x10^3/uL (140-400) L Neutrophils (%) (Auto) 57 % (31-73) Lymphocytes (%) (Auto) 35 % (24-48) Monocytes (%) (Auto) 6 % (0-9) Eosinophils (%) (Auto) 1 % (0-3) Basophils (%) (Auto) 1 % (0-3) Neutrophils # (Auto) 2.4 x10^3uL (1.8-7.7) Lymphocytes # (Auto) 1.5 x10^3/uL (1.0-4.8) Monocytes # (Auto) 0.3 x10^3/uL (0.0-1.1) Eosinophils # (Auto) 0.0 x10^3/uL (0.0-0.7) Basophils # (Auto) 0.0 x10^3/uL (0.0-0.2) Sodium Level 138 mmol/L (136-145) Potassium Level 3.5 mmol/L (3.5-5.1) Chloride Level 101 mmol/L (98-107) Carbon Dioxide Level 25 mmol/L (21-32) Anion Gap 12 (6-14) Blood Urea Nitrogen 6 mg/dL (7-20) L Creatinine 0.7 mg/dL (0.6-1.0) Estimated GFR (Cockcroft-Gault) 90.9 BUN/Creatinine Ratio 9 (6-20) Glucose Level 124 mg/dL (70-99) H Calcium Level 9.0 mg/dL (8.5-10.1) Total Bilirubin 0.3 mg/dL (0.2-1.0) Aspartate Amino Transferase (AST) 18 U/L (15-37) Alanine Aminotransferase (ALT) 18 U/L (14-59) Alkaline Phosphatase 68 U/L (46-116) Total Protein 7.4 g/dL (6.4-8.2) Albumin 3.7 g/dL (3.4-5.0) Albumin/Globulin Ratio 1.0 (1.0-1.7) EKG EKG []nsr rate 62 twi noted. identical to 07/04/18 Radiology/Procedures Radiology/Procedures [] Impressions: The cardiac silhouette is normal in size. The thoracic aorta is minimally tortuous. Blunting of the right costophrenic angle is seen which could reflect pleural thickening versus a small right pleural effusion. No acute pulmonary infiltrate is seen. No pneumothorax is noted. The osseous structures are unchanged. IMPRESSION: No acute pulmonary infiltrate is seen. Electronically signed by: Harsh Melendez MD (04/01/2019 10:29 AM) [facility] DICTATED AND SIGNED BY: HARSH MELENDEZ MD DATE: 04/01/19 1029 CC: MARTHA MOON MD; GISSELLE HALL MD ~ Course & Med Decision Making Course & Med Decision Making Pertinent Labs and Imaging studies reviewed. (See chart for details) 43 yo f with cc of some neck pain suspect chronic checked labs/trop everything looks good. 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 just lateral muscle area. Dragon Disclaimer Dragon Disclaimer This electronic medical record was generated, in whole or in part, using a voice recognition dictation system. Departure Departure: Impression: Primary Impression: Neck pain Disposition: 01 HOME, SELF-CARE Condition: STABLE Patient Instructions: Muscle Strain, [id number] MARTHA MONO MD Apr 01, 2019 11:48
--- NOTE | 2019-04-02 03:33 | EKG ---
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
== END 2019-04-01 11:15 | disposition home or self-care (01) ==
LOC: ER 09:44
DX: M54.2 Cervicalgia (principal); G89.29 Other chronic pain; M54.6 Pain in thoracic spine; F17.210 Nicotine dependence, cigarettes, uncomplicated; Z90.710 Acquired absence of both cervix and uterus; Z87.442 Personal history of urinary calculi; Z88.5 Allergy status to narcotic agent; Z88.8 Allergy status to other drugs, medicaments and biological substances
CPT/HCPCS: 36415; 71045; 80053; 81025; 84484; 85025; 93005; 99285

== ENCOUNTER 2019-04-10 22:29 | Emergency (ER) | payer OTHER ==
[~2019-04-10] VITALS: Ht 162.6 cm; Wt 54.4 kg
[2019-04-10 22:35] VITALS: BP 94/38
--- NOTE | 2019-04-10 22:47 | ED.ADGEN ---
Past History Past Medical History: Other Additional Past Medical Histor: adhd; endocarditis; kidney stones; right shoulder dislocations Past Surgical History: Hysterectomy Smoking: Cigarettes, Greater than 1 pack/day Alcohol Use: None Drug Use: None Adult General Chief Complaint Chief Complaint ".. I dislocated my shoulder when I tripped and fell down three broken stairs at my house.. I had this shoulder repaired previously.. It feels like I dis located it again. ... HPI HPI Patient is a 43 year old female who presents with above hx and complaints if dislocated Rt. shoulder. Patient has had previous repair of right shoulder. Distal neurovascular intact. Patient is right-hand dominant. Patient refuses to move shoulder because of pain complaints. Patient did receive fentanyl en route by paramedics. Review of Systems Review of Systems Constitutional: Denies fever or chills [] Eyes: Denies change in visual acuity, redness, or eye pain [] HENT: Denies nasal congestion or sore throat [] Respiratory: Denies cough or shortness of breath [] Cardiovascular: No additional information not addressed in HPI [] GI: Denies abdominal pain, nausea, vomiting, bloody stools or diarrhea [] : Denies dysuria or hematuria [] Musculoskeletal: Denies back pain or joint pain []complains of right shoulder pain Integument: Denies rash or skin lesions [] Neurologic: Denies headache, focal weakness or sensory changes [] Endocrine: Denies polyuria or polydipsia [] All other systems were reviewed and found to be within normal limits, except as documented in this note. Family History Family History Noncontributory Current Medications Current Medications Current Medications Medications (Trade) Dose Ordered Sig/[facility] Start Time Stop Time Status Last Admin Dose Admin Acetaminophen (Tylenol) 1,000 mg 1X ONCE 04/11/19 01:00 04/11/19 01:01 DC Morphine Sulfate (Morphine 10mg Syringe) 10 mg 1X ONCE 04/10/19 23:45 04/10/19 23:46 DC 04/10/19 23:42 10 MG Allergies Allergies Allergies Coded Allergies Type Severity Reaction Last Updated Verified codeine Allergy Intermediate 01/16/19 Yes amitriptyline Allergy Unknown 02/28/19 Yes ketorolac Allergy Unknown 02/28/19 Yes Corticosteroids (Glucocorticoids) Adverse Reaction Intermediate 04/10/19 Yes Physical Exam Physical Exam Constitutional: Reports acute distress, non-toxic appearance. [] HENT: Normocephalic, atraumatic, bilateral external ears normal, oropharynx moist, no oral exudates, nose normal. []Poor dentition Eyes: PERRLA, EOMI, conjunctiva normal, no discharge. [] Neck: Normal range of motion, no tenderness, supple, no stridor. [] Cardiovascular:Heart rate regular rhythm, no murmur [] Lungs & Thorax: Bilateral breath sounds equal apex with scattered wheezes on auscultation [] Abdomen: Bowel sounds normal, soft, no tenderness, no masses, no pulsatile masses. [] Skin: Warm, dry, no erythema, no rash. [] Back: No tenderness, no CVA tenderness. [] Extremities: Right shoulder tenderness, no cyanosis, no clubbing, ROM limited in right shoulder because of pain complaints, no edema. [] Old surgery scars pulsatile shoulder. Sensation in right deltoid. Neurologic: Alert and oriented X 3, normal motor function, normal sensory function, no focal deficits noted. [] Psychologic: Affect anxious, judgement normal, mood normal. [] Current Patient Data Vital Signs Vital Signs Date Time Temp Pulse Resp B/P (MAP) Pulse Ox O2 Delivery O2 Flow Rate FiO2 04/10/19 23:42 18 98 04/10/19 22:35 98.6 96 Room Air Lab Results Laboratory Tests Test 04/10/19 23:39 Urine Collection Type Unknown Urine Color Yellow Urine Clarity Clear Urine pH 6.5 Urine Specific [place] 1.010 Urine Protein Neg (NEG-TRACE) Urine Glucose (UA) Neg mg/dL (NEG) Urine Ketones (Stick) Neg mg/dL (NEG) Urine Blood Small (NEG) Urine Nitrite Neg (NEG) Urine Bilirubin Neg (NEG) Urine Urobilinogen Dipstick 0.2 mg/dL (0.2 mg/dL) Urine Leukocyte Esterase Trace (NEG) Urine RBC 0 /HPF (0-2) Urine WBC 5-10 /HPF (0-4) Urine Squamous Epithelial Cells Occ /LPF Urine Bacteria 0 /HPF (0-FEW) Urine Opiates Screen Pos (NEG) Urine Methadone Screen Neg (NEG) Urine Barbiturates Neg (NEG) Urine Phencyclidine Screen Neg (NEG) Urine Amphetamine/Methamphetamine Neg (NEG) Urine Benzodiazepines Screen Neg (NEG) Urine Cocaine Screen Neg (NEG) Urine Cannabinoids Screen Pos (NEG) Urine Ethyl Alcohol Neg (NEG) EKG EKG [] Radiology/Procedures Radiology/Procedures [][place] [address] IMAGING REPORT Signed PATIENT: MY DERAS ACCOUNT: [id number] : 1975 LOCATION: ER AGE: 43 SEX: F EXAM STATUS: REG ER ORD. PHYSICIAN: BEN BUCKLEY MD REASON: Inj from fall, right chest and shoulder pain, cannnot lower arm PROCEDURE: SHOULDER 2+V RIGHT PA and lateral chest x-ray HISTORY: Right-sided chest pain after fall injury. FINDINGS: Heart size normal. Mediastinal silhouette is normal. Slight elevation of the right lateral diaphragm stable. Mild bilateral chronic pleural effusions or pleural thickening along the diaphragms also stable. No pneumothorax. No pulmonary opacities. Bones are unremarkable. IMPRESSION: No acute process. Stable exam. Right shoulder x-rays 4 views HISTORY: Fall, right shoulder pain, cannot abduct the arm. FINDINGS: There is a fixation pin at the medial humeral head similar to prior x-rays likely from prior biceps tenodesis. There is abnormal abduction of the humerus on all x-rays resulting in a somewhat unusual appearance of the humeral head and neck on the AP films due to overlapping of the head and neck which may limit the ability to detect a fracture however on the scapular Y film there is no apparent fracture. IMPRESSION: Abnormal abduction of the humerus. In light of this there is no fracture or dislocation evident. See discussion above. Electronically signed by: Natalio Melchor MD (04/11/2019 12:31 AM) [facility] DICTATED AND SIGNED BY: NATALIO MELCHOR MD DATE: 04/11/19 003 CC: BEN BUCKLEY MD; GISSELLE HALL MD ~ Course & Med Decision Making Course & Med Decision Making Pertinent Labs and Imaging studies reviewed. (See chart for details) Patient use ice packs as needed. Tylenol ibuprofen pain. Follow-up primary care. Return if any concerns. [] Final Impression Final Impression 1. Rt. shoulder injury[] 2. Narcotic seeking behavior. 3. Marijuana and tobacco use Dragon Disclaimer Dragon Disclaimer This electronic medical record was generated, in whole or in part, using a voice recognition dictation system. Dragon Disclaimer This chart was dictated in whole or in part using Voice Recognition software in a busy, high-work load, and often noisy Emergency Department environment. It may contain unintended and wholly unrecognized errors or omissions. BEN BUCKLEY MD Apr 10, 2019 22:47
[2019-04-10] MEDS ORDERED: MORPHINE SULFATE 10 MG/ML SYRINGE. SQ ONE (23:45)
[2019-04-11 00:35] LABS: BACTERIA,URINE 0 /HPF (0-FEW); BILIRUBIN,URINE NEG (NEG); CLARITY,URINE CLEAR; COLOR,URINE YELLOW; GLUCOSE,URINE NEG (NEG); NITRITE,URINE NEG (NEG); RBC,URINE 0 /HPF (0-2); SQUAMOUS EPITHELIAL CELL,UR OCC /LPF; UROBILINOGEN,URINE 0.2 mg/dL (0.2 mg/dL)
--- NOTE | 2019-04-11 00:35 | RAD ---
PA and lateral chest x-ray HISTORY: Right-sided chest pain after fall injury. FINDINGS: Heart size normal. Mediastinal silhouette is normal. Slight elevation of the right lateral diaphragm stable. Mild bilateral chronic pleural effusions or pleural thickening along the diaphragms also stable. No pneumothorax. No pulmonary opacities. Bones are unremarkable. IMPRESSION: No acute process. Stable exam. Right shoulder x-rays 4 views HISTORY: Fall, right shoulder pain, cannot abduct the arm. FINDINGS: There is a fixation pin at the medial humeral head similar to prior x-rays likely from prior biceps tenodesis. There is abnormal abduction of the humerus on all x-rays resulting in a somewhat unusual appearance of the humeral head and neck on the AP films due to overlapping of the head and neck which may limit the ability to detect a fracture however on the scapular Y film there is no apparent fracture. IMPRESSION: Abnormal abduction of the humerus. In light of this there is no fracture or dislocation evident. See discussion above. Electronically signed by: Curtis Melchor MD (04/11/2019 12:31 AM) [facility]
[2019-04-11 00:36] LABS: BARBITURATES NEG (NEG); BENZODIAZEPINES NEG (NEG); CANNABINOIDS POS (NEG); COCAINE NEG (NEG); METHADONE NEG (NEG); OPIATES POS (NEG); PHENCYCLIDINE NEG (NEG)
[2019-04-11 00:37] LABS: AMPHETAMINE/METHAMPHETAMINE NEG (NEG)
[2019-04-11] MEDS ORDERED: ACETAMINOPHEN 500 MG TABLET PO ONE (01:00)
== END 2019-04-11 01:15 | disposition home or self-care (01) ==
LOC: ER 22:29
DX: S49.91XA Unspecified injury of right shoulder and upper arm, initial encounter (principal); M24.511 Contracture, right shoulder; F17.210 Nicotine dependence, cigarettes, uncomplicated; Z76.5 Malingerer [conscious simulation]; F12.90 Cannabis use, unspecified, uncomplicated; Z87.442 Personal history of urinary calculi; Z88.5 Allergy status to narcotic agent; Z88.8 Allergy status to other drugs, medicaments and biological substances; W10.8XXA Fall (on) (from) other stairs and steps, initial encounter; Y93.89 Activity, other specified; Y92.89 Other specified places as the place of occurrence of the external cause; Y99.8 Other external cause status
CPT/HCPCS: 36415; 71046; 73030; 80307; 81001; 87086; 96372; 99285; J2270; 99284

== ENCOUNTER → 2019-12-11 | Outpatient (CLI) | payer OTHER ==
[~2019-12-11] MED LIST changes: +ALPR0.5T PO; +FAMO-63 PO; +PEG4000S8 PO
--- NOTE | 2019-12-11 13:16 | RAD ---
EXAM: LUMBAR SPINE 2-3V, CERVICAL SPINE 2-3V 12/11/2019 12:00 AM CLINICAL INDICATION:Neck and back pain. COMPARISON:CT abdomen and pelvis 02/28/2019 TECHNIQUE:3 views of the cervical spine. 3 views of the lumbar spine. FINDINGS:Cervical spine: No acute fracture. The cervical spine is normal in alignment. Disc spaces are maintained. Facet joints are normal. Prevertebral soft tissue is normal. Lumbar spine: There are small ribs at T12 and 5 nonrib-bearing lumbar vertebral bodies. Unchanged old mild compression deformity of T12 superior endplate. No acute fracture. Vertebral body heights and disc spaces are maintained. Facet joints are within normal limits. There is mild degenerative joint disease of the right sacroiliac joint. IMPRESSION: 1. Normal cervical spine. 2. Normal lumbar spine. 3. Unchanged old mild T12 compression fracture. Electronically signed by: Yamini Malhotra MD (12/11/2019 1:13 PM) [id number]
== END | disposition home or self-care (01) ==
LOC: LAB 12:12
PROVIDERS: ATTEND Family Medicine
DX: M47.814 Spondylosis without myelopathy or radiculopathy, thoracic region (principal)
CPT/HCPCS: 72040; 72100

== ENCOUNTER 2020-01-21 11:53 | Emergency (ER) | payer OTHER ==
[~2020-01-21] VITALS: Ht 162.6 cm; Wt 50.5 kg
[2020-01-21 11:53] VITALS: BP 123/73
[~2020-01-21 11:53] MED LIST changes: -ALPR0.5T PO; -FAMO-63 PO; -PEG4000S8 PO
[2020-01-21] MEDS ORDERED: diazePAM 2 MG TABLET. PO ONE (12:30)
--- NOTE | 2020-01-21 12:31 | PHYS DOC ---
Past History Past Medical History: Anxiety, Depression, Kidney Stones, Other Additional Past Medical Histor: adhd; endocarditis; right shoulder dislocations Past Surgical History: Hysterectomy Smoking: Cigarettes, Greater than 1 pack/day Alcohol Use: None Drug Use: None General Adult EDM: Chief Complaint: SORE THROAT HPI: HPI: 44-year-old female presents with report of sensation of a "lump in her throat "which is been intermittent for the past few days. Patient denies any problems swallowing. Denies actual pain in her throat. Denies fever or chills. Denies known sick contacts. Patient does report some increased life stressors. Reports history of anxiety and depression. Review of Systems: Review of Systems: Constitutional: Denies fever or chills Eyes: Denies redness or eye pain HENT: Denies nasal congestion; reports sensation of "lump "in throat Respiratory: Denies cough or shortness of breath Cardiovascular: Denies chest pain or palpitations GI: Denies abdominal pain, nausea, or vomiting : Denies dysuria or hematuria Musculoskeletal: Denies back pain or joint pain Integument: Denies rash or skin lesions Neurologic: Denies headache, focal weakness or sensory changes Complete systems were reviewed and found to be within normal limits, except as documented in this note. Allergies: Allergies: Allergies Coded Allergies Type Severity Reaction Last Updated Verified codeine Allergy Intermediate 01/16/19 Yes amitriptyline Allergy Unknown 02/28/19 Yes ketorolac Allergy Unknown 02/28/19 Yes Corticosteroids (Glucocorticoids) Adverse Reaction Intermediate 04/10/19 Yes Physical Exam: PE: Constitutional: Well developed, well nourished, anxious HENT: Normocephalic, atraumatic, no tonsillar erythema or exudate Eyes: Conjunctiva normal, no discharge Neck: Normal range of motion, no tenderness, supple, no significant lymphadenopathy Lungs & Thorax: No respiratory distress, equal chest rise and fall Skin: Warm, dry, no erythema, no rash Extremities: No tenderness, ROM intact, no edema Neurologic: Alert and oriented X 3, no focal deficits noted Psychologic: Affect anxious, judgment normal EKG: EKG: [] Radiology/Procedures: Radiology/Procedures: [] Course & Med Decision Making: Course & Med Decision Making Patient presents with HPI and physical exam consistent for anxiety. No tonsillar erythema or exudate appreciated. Patient is afebrile. Symptomatic treatment provided. Patient stable for discharge with outpatient follow-up with PCP. Discussed findings and plan with patient, who acknowledges understanding and agreement. Ana Disclaimer: Ana Disclaimer: This electronic medical record was generated, in whole or in part, using a voice recognition dictation system. Departure Departure: Impression: Primary Impression: Anxiety Disposition: HOME/RESIDENCE PRIOR TO ADM Condition: STABLE Referrals: HEBER GRAJEDA MD (PCP) DASHA PRICE MD Patient Instructions: Anxiety and Panic Attacks, [id number] Justification of Admission: Justification of Admission: Justification of Admission Dx: N/A RAIZA RIVERA DO Jan 21, 2020 12:31
== END 2020-01-21 12:40 | disposition home or self-care (01) ==
LOC: ER 11:53
DX: F41.9 Anxiety disorder, unspecified (principal); J02.9 Acute pharyngitis, unspecified; F17.210 Nicotine dependence, cigarettes, uncomplicated; Z87.442 Personal history of urinary calculi; Z88.5 Allergy status to narcotic agent; Z88.8 Allergy status to other drugs, medicaments and biological substances
CPT/HCPCS: 99283

== ENCOUNTER 2020-02-01 14:38 | Emergency (ER) | payer OTHER ==
[~2020-02-01] VITALS: Ht 162.6 cm; Wt 50.0 kg
[2020-02-01 15:46] LABS: BILIRUBIN,URINE NEG (NEG); CLARITY,URINE CLEAR; COLOR,URINE STRAW; GLUCOSE,URINE NEG (NEG); NITRITE,URINE NEG (NEG); UROBILINOGEN,URINE 0.2 mg/dL (0.2 mg/dL)
[2020-02-01 15:47] LABS: BACTERIA,URINE 0 /HPF (0-FEW); SQUAMOUS EPITHELIAL CELL,UR FEW /LPF; WBC,URINE OCC /HPF (0-4)
[2020-02-01] MEDS ORDERED: IOHEXOL 240 MG/ML 50ML VIAL. ONE (15:54)
[2020-02-01 16:15] LABS: BASO % 0 % (0-3); EOS % 0 % (0-3); HEMATOCRIT 45.3 % (36.0-47.0); HEMOGLOBIN 15.6 g/dL (12.0-15.5); LYMPH # 2.4 x10^3/uL (1.0-4.8); LYMPH % 22 % (24-48); MEAN CORPUSCULAR HEMOGLOBIN 32 pg (25-35); MEAN CORPUSCULAR HGB CONC 34 g/dL (31-37); MEAN CORPUSCULAR VOLUME 92 fL (79-100); MONO # 0.5 x10^3/uL (0.0-1.1); MONO % 5 % (0-9); NEUT # 8.3 x10^3uL (1.8-7.7); NEUT % 73 % (31-73); PLATELET COUNT 182 x10^3/uL (140-400); RED BLOOD COUNT 4.93 x10^6/uL (3.50-5.40); RED CELL DISTRIBUTION WIDTH 13.7 % (11.5-14.5); WHITE BLOOD COUNT 11.3 x10^3/uL (4.0-11.0)
[2020-02-01] MEDS ORDERED: CONTRAST GIVEN MC PRN (16:15)
[2020-02-01] MEDS ORDERED: IOHEXOL 300 MG/ML 75 ML VIAL. IV ONE (16:15)
[2020-02-01] MEDS ORDERED: ONDANSETRON PF 4 MG/2 ML VIAL. IVP ONE (16:15)
[2020-02-01] MEDS ORDERED: IOHEXOL 240 MG/ML 50ML VIAL. PO ONE (16:15)
[2020-02-01 16:34] LABS: CALCIUM 9.5 mg/dL (8.5-10.1); CREATININE 0.8 mg/dL (0.6-1.0); GFR 77.6; POTASSIUM 3.8 mmol/L (3.5-5.1)
[2020-02-01 16:38] LABS: ALBUMIN 4.1 g/dL (3.4-5.0); ALBUMIN/GLOBULIN RATIO 1.2 (1.0-1.7); TOTAL BILIRUBIN 0.4 mg/dL (0.2-1.0); TOTAL PROTEIN 7.5 g/dL (6.4-8.2)
[2020-02-01] MEDS ORDERED: MORPHINE SULFATE 4 MG/ML DISP.SYRIN. IV ONE (17:00)
--- NOTE | 2020-02-01 17:34 | RAD ---
CT abdomen and pelvis with contrast. HISTORY: Left upper quadrant abdominal pain, history of pancreatitis CT scan the abdomen pelvis was done using 75 mL Omnipaque 300 contrast. Comparison is made with a study from February 2019. There is respiratory motion artifact. There is scarring or atelectasis in the lung bases. There is mild elevation of the right diaphragm. There are multiple tiny hepatic cysts without change. There is a cyst or subcapsular low-density collection along the right liver without change. Spleen and adrenal glands are unremarkable. Pancreas is normal in appearance. There is no CT evidence of an acute pancreatitis. Common duct is dilated. There is dilatation the intrahepatic bile ducts. The patient's had a cholecystectomy. Bile duct dilatation is similar to the prior study. There is no mass or hydronephrosis in the kidneys. There is no bowel obstruction. There is no free air or free fluid. Patient's had a hysterectomy. There is density at the cecal tip probably from a appendectomy. The appendix is not identified. There is moderate stool in the right colon. IMPRESSION: 1. No bowel obstruction or acute finding in the abdomen. 2. There is not CT evidence of acute pancreatitis. 3. Hepatic cysts without change. 4. Dilated bile duct similar to the prior study PQRS Compliance Statement: One or more of the following individualized dose reduction techniques were utilized for this examination: 1. Automated exposure control 2. Adjustment of the mA and/or kV according to patient size 3. Use of iterative reconstruction technique Electronically signed by: Nikolay Martinez MD (02/01/2020 5:31 PM) [facility]
[2020-02-01 17:40] VITALS: BP 107/52
[2020-02-01] MEDS ORDERED: ONDA4TAB7 PO (17:43)
--- NOTE | 2020-02-01 17:43 | PHYS DOC ---
Past History Past Medical History: Alcoholism, COPD, Pancreatitis Additional Past Medical Histor: adhd; endocarditis; right shoulder dislocations Past Surgical History: Other Smoking: Cigarettes, Greater than 1 pack/day Alcohol Use: Sober Additional Alcohol Information: 10 days sober. States abdominal pain caused her to drink alcohol and prior to that she was sober 11 months Drug Use: None Adult General Chief Complaint Chief Complaint: ABDOMINAL PAIN HPI HPI Patient is a [age] year old [sex] who presents with [] Review of Systems Review of Systems Constitutional: Denies fever or chills [] Eyes: Denies change in visual acuity, redness, or eye pain [] HENT: Denies nasal congestion or sore throat [] Respiratory: Denies cough or shortness of breath [] Cardiovascular: No additional information not addressed in HPI [] GI: Denies abdominal pain, nausea, vomiting, bloody stools or diarrhea [] : Denies dysuria or hematuria [] Musculoskeletal: Denies back pain or joint pain [] Integument: Denies rash or skin lesions [] Neurologic: Denies headache, focal weakness or sensory changes [] Endocrine: Denies polyuria or polydipsia [] All other systems were reviewed and found to be within normal limits, except as documented in this note. Current Medications Current Medications Current Medications Medications (Trade) Dose Ordered Sig/La Start Time Stop Time Status Last Admin Dose Admin Info (Do NOT chart on this entry -- for MONITORING) 1 each PRN DAILY PRN 02/01/20 16:15 02/03/20 16:14 Iohexol (Omnipaque 240 Mg/ml) 50 ml 1X ONCE 02/01/20 16:15 02/01/20 16:16 DC 02/01/20 17:04 50 ML Iohexol (Omnipaque 300 Mg/ml) 75 ml 1X ONCE 02/01/20 16:15 02/01/20 16:16 DC 02/01/20 17:04 75 ML Morphine Sulfate (Morphine 4mg Syringe) 4 mg 1X ONCE 02/01/20 17:00 02/01/20 17:01 DC 02/01/20 16:55 4 MG Ondansetron HCl (Zofran) 4 mg 1X ONCE 02/01/20 16:15 02/01/20 16:17 DC 02/01/20 16:21 4 MG Allergies Allergies Allergies Coded Allergies Type Severity Reaction Last Updated Verified codeine Allergy Intermediate 01/16/19 Yes amitriptyline Allergy Unknown 02/28/19 Yes ketorolac Allergy Unknown 02/28/19 Yes meperidine Allergy Unknown 02/01/20 Yes Corticosteroids (Glucocorticoids) Adverse Reaction Intermediate 04/10/19 Yes Physical Exam Physical Exam Constitutional: Well developed, well nourished, no acute distress, non-toxic appearance. [] HENT: Normocephalic, atraumatic, bilateral external ears normal, oropharynx moist, no oral exudates, nose normal. [] Eyes: PERRLA, EOMI, conjunctiva normal, no discharge. [] Neck: Normal range of motion, no tenderness, supple, no stridor. [] Cardiovascular:Heart rate regular rhythm, no murmur [] Lungs & Thorax: Bilateral breath sounds clear to auscultation [] Abdomen: Bowel sounds normal, soft, no tenderness, no masses, no pulsatile masses. [] Skin: Warm, dry, no erythema, no rash. [] Back: No tenderness, no CVA tenderness. [] Extremities: No tenderness, no cyanosis, no clubbing, ROM intact, no edema. [] Neurologic: Alert and oriented X 3, normal motor function, normal sensory function, no focal deficits noted. [] Psychologic: Affect normal, judgement normal, mood normal. [] Current Patient Data Vital Signs Vital Signs Date Time Temp Pulse Resp B/P (MAP) Pulse Ox O2 Delivery O2 Flow Rate FiO2 02/01/20 17:40 76 16 107/52 (70) 98 Room Air 02/01/20 17:25 0.0 02/01/20 14:45 98.1 Lab Results Laboratory Tests Test 02/01/20 15:16 02/01/20 15:29 02/01/20 15:50 Urine Collection Type Unknown Urine Color Straw Urine Clarity Clear Urine pH 7.5 Urine Specific [place] 1.015 Urine Protein Neg (NEG-TRACE) Urine Glucose (UA) Neg mg/dL (NEG) Urine Ketones (Stick) Neg mg/dL (NEG) Urine Blood Mod (NEG) Urine Nitrite Neg (NEG) Urine Bilirubin Neg (NEG) Urine Urobilinogen Dipstick 0.2 mg/dL (0.2 mg/dL) Urine Leukocyte Esterase Neg (NEG) Urine RBC 6-10 /HPF (0-2) Urine WBC Occ /HPF (0-4) Urine Squamous Epithelial Cells Few /LPF Urine Bacteria 0 /HPF (0-FEW) POC Urine HCG, Qualitative hcg negative (Negative) White Blood Count 11.3 x10^3/uL (4.0-11.0) H Red Blood Count 4.93 x10^6/uL (3.50-5.40) Hemoglobin 15.6 g/dL (12.0-15.5) H Hematocrit 45.3 % (36.0-47.0) Mean Corpuscular Volume 92 fL (79-100) Mean Corpuscular Hemoglobin 32 pg (25-35) Mean Corpuscular Hemoglobin Concent 34 g/dL (31-37) Red Cell Distribution Width 13.7 % (11.5-14.5) Platelet Count 182 x10^3/uL (140-400) Neutrophils (%) (Auto) 73 % (31-73) Lymphocytes (%) (Auto) 22 % (24-48) L Monocytes (%) (Auto) 5 % (0-9) Eosinophils (%) (Auto) 0 % (0-3) Basophils (%) (Auto) 0 % (0-3) Neutrophils # (Auto) 8.3 x10^3uL (1.8-7.7) H Lymphocytes # (Auto) 2.4 x10^3/uL (1.0-4.8) Monocytes # (Auto) 0.5 x10^3/uL (0.0-1.1) Eosinophils # (Auto) 0.0 x10^3/uL (0.0-0.7) Basophils # (Auto) 0.0 x10^3/uL (0.0-0.2) Sodium Level 141 mmol/L (136-145) Potassium Level 3.8 mmol/L (3.5-5.1) Chloride Level 102 mmol/L (98-107) Carbon Dioxide Level 30 mmol/L (21-32) Anion Gap 9 (6-14) Blood Urea Nitrogen 8 mg/dL (7-20) Creatinine 0.8 mg/dL (0.6-1.0) Estimated GFR (Cockcroft-Gault) 77.6 BUN/Creatinine Ratio 10 (6-20) Glucose Level 91 mg/dL (70-99) Calcium Level 9.5 mg/dL (8.5-10.1) Total Bilirubin 0.4 mg/dL (0.2-1.0) Aspartate Amino Transferase (AST) 11 U/L (15-37) L Alanine Aminotransferase (ALT) 16 U/L (14-59) Alkaline Phosphatase 72 U/L (46-116) Total Protein 7.5 g/dL (6.4-8.2) Albumin 4.1 g/dL (3.4-5.0) Albumin/Globulin Ratio 1.2 (1.0-1.7) Lipase 73 U/L (73-393) EKG EKG [] Radiology/Procedures Radiology/Procedures [] Course & Med Decision Making Course & Med Decision Making Pertinent Labs and Imaging studies reviewed. (See chart for details) [] Dragon Disclaimer Dragon Disclaimer This electronic medical record was generated, in whole or in part, using a voice recognition dictation system. Departure Departure: Impression: Primary Impression: Abdominal pain Disposition: 01 HOME/RESIDENCE PRIOR TO ADM Condition: STABLE Referrals: HEBER GRAJEDA MD (PCP) Patient Instructions: Abdominal Pain Scripts Ondansetron Hcl (ZOFRAN) 4 Mg Tablet 1 TAB PO PRN Q6HRS PRN for NAUSEA, #6 TAB Prov: CARLA MONTENEGRO MD 02/01/20 Justification of Admission: Justification of Admission: Justification of Admission Dx: No CARLA MONTENEGRO MD Feb 01, 2020 17:43
[2020-02-01] MEDS ORDERED: LIDO:MAALOX 1:1 20 ML SINGLE DOSE. PO ONE (17:45)
== END 2020-02-01 17:52 | disposition home or self-care (01) ==
LOC: ER 14:38
DX: R10.32 Left lower quadrant pain (principal); R11.2 Nausea with vomiting, unspecified; R19.7 Diarrhea, unspecified; F10.20 Alcohol dependence, uncomplicated; J44.9 Chronic obstructive pulmonary disease, unspecified; F17.210 Nicotine dependence, cigarettes, uncomplicated; Z88.5 Allergy status to narcotic agent; Z88.8 Allergy status to other drugs, medicaments and biological substances; Y90.9 Presence of alcohol in blood, level not specified
CPT/HCPCS: 36415; 74177; 80053; 81001; 81025; 83690; 85025; 96374; 96375; 99285; J2270; J2405; Q9966; Q9967

== ENCOUNTER 2020-02-05 18:26 | Emergency (ER) | payer OTHER ==
[~2020-02-05] VITALS: Ht 162.6 cm; Wt 48.6 kg
[2020-02-05] MEDS ORDERED: IV NORMAL SALINE 1,000ML 1,000 ML IV ONE (19:30)
--- NOTE | 2020-02-05 19:48 | PHYS DOC ---
Past History Past Medical History: Alcoholism, COPD, Pancreatitis Additional Past Medical Histor: adhd; endocarditis; right shoulder dislocations Past Surgical History: Other Smoking: Cigarettes, Greater than 1 pack/day Alcohol Use: Sober Drug Use: None General Adult EDM: Chief Complaint: FLANK PAIN HPI: HPI: 44-year-old female, prior history of hysterectomy, cholecystectomy, pancreatitis and peritonitis, who presents for evaluation of left upper quadrant pain over the last several days. She was seen on 01/31, with negative CT imaging. She was sent by her primary physician due to ongoing pain. Reported nausea and vomiting. Pain is worsened with movement. Prior history of peritonitis in the setting of hysterectomy. Review of Systems: Review of Systems: Gen: No fever, chills. Eyes: No blurred vision, diplopia. ENT: No nasal congestion, sore throat. CV: No CP, palpitations. Resp. No SOB, cough. GI: Reports left upper quadrant abd pain, N/V. : No dysuria, hematuria. Neuro: No CAI, dizziness, weakness. MSK: No myalgia, arthralgia, back pain. Skin: No acute rash or lesion. Heart Score: Risk Factors: Risk Factors: DM, Current or recent (<one month) smoker, HTN, HLP, family history of CAD, obesity. Risk Scores: Score 0 - 3: 2.5% MACE over next 6 weeks - Discharge Home Score 4 - 6: 20.3% MACE over next 6 weeks - Admit for Clinical Observation Score 7 - 10: 72.7% MACE over next 6 weeks - Early Invasive Strategies Current Medications: Current Meds: Current Medications Medications (Trade) Dose Ordered Sig/La Start Time Stop Time Status Last Admin Dose Admin Sodium Chloride 1,000 ml @ 1,000 mls/hr 1X ONCE 02/05/20 19:30 02/05/20 20:29 02/05/20 19:30 1,000 MLS/HR Allergies: Allergies: Allergies Coded Allergies Type Severity Reaction Last Updated Verified codeine Allergy Intermediate 01/16/19 Yes amitriptyline Allergy Unknown 02/28/19 Yes ketorolac Allergy Unknown 02/28/19 Yes meperidine Allergy Unknown 02/01/20 Yes Corticosteroids (Glucocorticoids) Adverse Reaction Intermediate 04/10/19 Yes Physical Exam: PE: Gen: NAD. Well nourished. Head: NC/AT. Eyes: No scleral icterus. No conjunctival injection. ENT: MMM. Posterior OP clear. Neck: Supple. NT. CV: RRR. Peripheral pulses intact. Resp: CTAB. Abd: Soft. ND. Diffuse nonfocal tenderness. No rebound, guarding, or rigidity. MSK: No peripheral cyanosis. No edema. Neuro: A&Ox3. Strength & sensation grossly intact throughout. Skin. Warm. Dry. Psych: Appropriate mood & affect. Current Patient Data: Labs: Laboratory Tests Test 02/05/20 19:23 02/05/20 19:40 White Blood Count 7.8 x10^3/uL (4.0-11.0) Red Blood Count 4.64 x10^6/uL (3.50-5.40) Hemoglobin 14.8 g/dL (12.0-15.5) Hematocrit 43.1 % (36.0-47.0) Mean Corpuscular Volume 93 fL (79-100) Mean Corpuscular Hemoglobin 32 pg (25-35) Mean Corpuscular Hemoglobin Concent 34 g/dL (31-37) Red Cell Distribution Width 13.7 % (11.5-14.5) Platelet Count 174 x10^3/uL (140-400) Neutrophils (%) (Auto) 54 % (31-73) Lymphocytes (%) (Auto) 38 % (24-48) Monocytes (%) (Auto) 6 % (0-9) Eosinophils (%) (Auto) 2 % (0-3) Basophils (%) (Auto) 1 % (0-3) Neutrophils # (Auto) 4.2 x10^3uL (1.8-7.7) Lymphocytes # (Auto) 3.0 x10^3/uL (1.0-4.8) Monocytes # (Auto) 0.4 x10^3/uL (0.0-1.1) Eosinophils # (Auto) 0.1 x10^3/uL (0.0-0.7) Basophils # (Auto) 0.1 x10^3/uL (0.0-0.2) Sodium Level 141 mmol/L (136-145) Potassium Level 3.8 mmol/L (3.5-5.1) Chloride Level 105 mmol/L (98-107) Carbon Dioxide Level 26 mmol/L (21-32) Anion Gap 10 (6-14) Blood Urea Nitrogen 9 mg/dL (7-20) Creatinine 0.7 mg/dL (0.6-1.0) Estimated GFR (Cockcroft-Gault) 90.5 BUN/Creatinine Ratio 13 (6-20) Glucose Level 99 mg/dL (70-99) Calcium Level 8.7 mg/dL (8.5-10.1) Total Bilirubin 0.2 mg/dL (0.2-1.0) Aspartate Amino Transferase (AST) 15 U/L (15-37) Alanine Aminotransferase (ALT) 16 U/L (14-59) Alkaline Phosphatase 68 U/L (46-116) Troponin I Quantitative < 0.017 ng/mL (0-0.055) Total Protein 7.1 g/dL (6.4-8.2) Albumin 3.8 g/dL (3.4-5.0) Albumin/Globulin Ratio 1.2 (1.0-1.7) Lipase 114 U/L (73-393) Serum Test, Qualitative Negative (NEG) Urine Collection Type Unknown Urine Color Yellow Urine Clarity Clear Urine pH 6.0 Urine Specific [place] >=1.030 Urine Protein Neg (NEG-TRACE) Urine Glucose (UA) 100 mg/dL (NEG) Urine Ketones (Stick) Trace mg/dL (NEG) Urine Blood Mod (NEG) Urine Nitrite Pos (NEG) Urine Bilirubin Neg (NEG) Urine Urobilinogen Dipstick 1.0 mg/dL (0.2 mg/dL) Urine Leukocyte Esterase Neg (NEG) Urine RBC 11-20 /HPF (0-2) Urine WBC 1-4 /HPF (0-4) Urine Squamous Epithelial Cells Few /LPF Urine Bacteria Few /HPF (0-FEW) Urine Mucus Mod /LPF EKG: EKG: [] Radiology/Procedures: Radiology/Procedures: linear opacities at the lung bases could be from scarring or atelectasis. Low density region along the periphery of the right lobe of the liver is again seen measuring up to 37 mm and could be from a cyst or other causes such as seroma or lymphocele. Mild scattered calcific atherosclerosis. Abdominal aortic aneurysm. Additional subcentimeter low-density hepatic lesions are seen and a common finding frequently from causes such as cyst or hemangioma. The liver is enlarged. Limited evaluation of the pancreas without contrast. Spleen unremarkable. Low-density thickening of the left adrenal gland which could be from adenoma or hyperplasia. No hydronephrosis. Mild hypodensity in the medullary kidney bilaterally which could be from mild medullary nephrocalcinosis. Urinary bladder is decompressed. Contrast within the colon. Appendix not well seen. No evidence of bowel obstruction.. Mild compression fracture of T12. This was also present on prior. Degenerative changes of the spine. IMPRESSION: * Similar examination compared to prior. Electronically signed by: Rogelio Cornelius MD (02/05/2020 9:21 PM) [id number] Course & Med Decision Making: Course & Med Decision Making Pertinent Labs and Imaging studies reviewed. (See chart for details) In summary, 44-year-old female who presents for evaluation of recurrent/ongoing left upper quadrant pain, with a prior history of gastritis on Carafate and pantoprazole. Was sent by primary physician due to ongoing pain. She was seen 4 days ago for similar symptoms. Imaging at that time was negative, with repeat imaging today unrevealing. Repeat imaging was obtained due to reported significant worsening pain. Lab work is otherwise unrevealing. Benign abdominal examination without peritoneal signs. Suspect gastric etiology, possibly gastritis or gastroparesis; though no history of diabetes mellitus. Will be discharged home with prescription for Reglan and Pepcid. Outpatient gastroenterology follow-up at [facility] per patient. Also provided with contact information for gastroenterology at [facility]. Ana Disclaimer: Ana Disclaimer: This electronic medical record was generated, in whole or in part, using a voice recognition dictation system. Departure Departure: Impression: Primary Impression: LUQ abdominal pain Disposition: 01 HOME/RESIDENCE PRIOR TO ADM Condition: STABLE Referrals: HEBER GRAJEDA MD (PCP) [facility] GASTROINTESTINAL CONS Patient Instructions: Gastritis, Adult, Nast-ca-[id number] Additional Instructions: Please follow-up with gastroenterology. You may benefit from outpatient endoscopy and/or gastric emptying study. Continue your pantoprazole and Carafate. Start taking the prescribed medications as well. Return to the ED if you develop new or worsening symptoms. Scripts Famotidine (PEPCID) 20 Mg Tablet 2 TAB PO BID for gastritis, #30 TAB 0 Refills Prov: LEJONY H DO 02/05/20 Metoclopramide Hcl (REGLAN) 10 Mg Tablet 1 TAB PO QID for nausea, #20 TAB 0 Refills before food and bedtime Prov: JONY BULLARD DO 02/05/20 Justification of Admission: Justification of Admission: Justification of Admission Dx: No JONY BULLARD DO Feb 05, 2020 19:48
[2020-02-05 19:52] LABS: BASO # 0.1 x10^3/uL (0.0-0.2); BASO % 1 % (0-3); EOS # 0.1 x10^3/uL (0.0-0.7); EOS % 2 % (0-3); HEMATOCRIT 43.1 % (36.0-47.0); HEMOGLOBIN 14.8 g/dL (12.0-15.5); LYMPH % 38 % (24-48); MEAN CORPUSCULAR HEMOGLOBIN 32 pg (25-35); MEAN CORPUSCULAR HGB CONC 34 g/dL (31-37); MEAN CORPUSCULAR VOLUME 93 fL (79-100); MONO # 0.4 x10^3/uL (0.0-1.1); MONO % 6 % (0-9); NEUT # 4.2 x10^3uL (1.8-7.7); NEUT % 54 % (31-73); PLATELET COUNT 174 x10^3/uL (140-400); RED BLOOD COUNT 4.64 x10^6/uL (3.50-5.40); RED CELL DISTRIBUTION WIDTH 13.7 % (11.5-14.5); WHITE BLOOD COUNT 7.8 x10^3/uL (4.0-11.0)
[2020-02-05 19:55] LABS: CALCIUM 8.7 mg/dL (8.5-10.1); CREATININE 0.7 mg/dL (0.6-1.0); GFR 90.5; POTASSIUM 3.8 mmol/L (3.5-5.1)
[2020-02-05 19:57] LABS: PREG TEST PT QUAL NEGATIVE (NEG)
[2020-02-05 20:00] LABS: ALBUMIN 3.8 g/dL (3.4-5.0); ALBUMIN/GLOBULIN RATIO 1.2 (1.0-1.7); TOTAL BILIRUBIN 0.2 mg/dL (0.2-1.0); TOTAL PROTEIN 7.1 g/dL (6.4-8.2)
[2020-02-05] MEDS ORDERED: IOHEXOL 300 MG/ML 75 ML VIAL. IV ONE (20:00)
[2020-02-05 20:22] LABS: CLARITY,URINE CLEAR; COLOR,URINE YELLOW; GLUCOSE,URINE 100 mg/dL (NEG)
[2020-02-05 20:23] LABS: BACTERIA,URINE FEW /HPF (0-FEW); BILIRUBIN,URINE NEG (NEG); NITRITE,URINE POS (NEG); SQUAMOUS EPITHELIAL CELL,UR FEW /LPF
[2020-02-05] MEDS ORDERED: ONDANSETRON PF 4 MG/2 ML VIAL. ONE (20:47)
[2020-02-05] MEDS ORDERED: ONDANSETRON PF 4 MG/2 ML VIAL. IVP ONE (21:00)
[2020-02-05] MEDS ORDERED: HALOPERIDOL LACT 5 MG/ML VIAL. IVP ONE (21:15)
[2020-02-05] MEDS ORDERED: fentaNYL PF 250 MCG/5 ML VIAL IV ONE (21:15)
--- NOTE | 2020-02-05 21:24 | RAD ---
INDICATION: Reason: LUQ, Left flank pain, N/V. HX:Pancreatitis, cholecystectomy, gabriel / Spl. Instructions: / History: COMPARISON: February 01, 2020 TECHNIQUE: Axial CT images obtained through the abdomen and pelvis without contrast One or more of the following individualized dose reduction techniques were utilized for this examination: 1. Automated exposure control; 2. Adjustment of the mA and/or kV according to patient size; 3. Use of iterative reconstruction technique. FINDINGS: linear opacities at the lung bases could be from scarring or atelectasis. Low density region along the periphery of the right lobe of the liver is again seen measuring up to 37 mm and could be from a cyst or other causes such as seroma or lymphocele. Mild scattered calcific atherosclerosis. Abdominal aortic aneurysm. Additional subcentimeter low-density hepatic lesions are seen and a common finding frequently from causes such as cyst or hemangioma. The liver is enlarged. Limited evaluation of the pancreas without contrast. Spleen unremarkable. Low-density thickening of the left adrenal gland which could be from adenoma or hyperplasia. No hydronephrosis. Mild hypodensity in the medullary kidney bilaterally which could be from mild medullary nephrocalcinosis. Urinary bladder is decompressed. Contrast within the colon. Appendix not well seen. No evidence of bowel obstruction.. Mild compression fracture of T12. This was also present on prior. Degenerative changes of the spine. IMPRESSION: * Similar examination compared to prior. Electronically signed by: Rogelio Cornelius MD (02/05/2020 9:21 PM) [id number]
[2020-02-05 21:49] VITALS: BP 117/67
[2020-02-05] MEDS ORDERED: FAMO-63 PO (21:56)
[2020-02-05] MEDS ORDERED: METO10TA81 PO (21:56)
== END 2020-02-05 22:03 | disposition home or self-care (01) ==
LOC: ER 18:26
DX: R10.12 Left upper quadrant pain (principal); R11.2 Nausea with vomiting, unspecified; J44.9 Chronic obstructive pulmonary disease, unspecified; K86.1 Other chronic pancreatitis; F90.9 Attention-deficit hyperactivity disorder, unspecified type; F17.210 Nicotine dependence, cigarettes, uncomplicated; F10.10 Alcohol abuse, uncomplicated; Z98.890 Other specified postprocedural states; Z88.5 Allergy status to narcotic agent; Z88.8 Allergy status to other drugs, medicaments and biological substances; Z88.6 Allergy status to analgesic agent; Z90.49 Acquired absence of other specified parts of digestive tract; Z90.710 Acquired absence of both cervix and uterus
CPT/HCPCS: 36415; 74176; 80053; 81001; 83690; 84484; 84703; 85025; 96361; 96374; 96375; 99284; J2405; J3010; J7030

== ENCOUNTER 2020-02-12 14:18 | Emergency (ER) | payer OTHER ==
[~2020-02-12] VITALS: Ht 162.6 cm; Wt 48.3 kg
[~2020-02-12 14:18] MED LIST changes: +FAMO-63 PO
[2020-02-12] MEDS: IV NORMAL SALINE 1,000ML 1,000 ML IV ONE (14:57)
[2020-02-12] MEDS: ONDANSETRON PF 4 MG/2 ML VIAL. IV ONE (14:59)
[2020-02-12 15:07] LABS: BASO % 0 % (0-3); EOS # 0.1 x10^3/uL (0.0-0.7); EOS % 1 % (0-3); HEMATOCRIT 42.4 % (36.0-47.0); HEMOGLOBIN 14.7 g/dL (12.0-15.5); LYMPH # 2.6 x10^3/uL (1.0-4.8); LYMPH % 27 % (24-48); MEAN CORPUSCULAR HEMOGLOBIN 32 pg (25-35); MEAN CORPUSCULAR HGB CONC 35 g/dL (31-37); MEAN CORPUSCULAR VOLUME 93 fL (79-100); MONO # 0.4 x10^3/uL (0.0-1.1); MONO % 5 % (0-9); NEUT # 6.6 x10^3uL (1.8-7.7); NEUT % 67 % (31-73); PLATELET COUNT 172 x10^3/uL (140-400); RED BLOOD COUNT 4.54 x10^6/uL (3.50-5.40); RED CELL DISTRIBUTION WIDTH 13.7 % (11.5-14.5); WHITE BLOOD COUNT 9.8 x10^3/uL (4.0-11.0)
[2020-02-12 15:16] LABS: CALCIUM 9.3 mg/dL (8.5-10.1); CREATININE 0.8 mg/dL (0.6-1.0); GFR 77.6; POTASSIUM 3.6 mmol/L (3.5-5.1)
[2020-02-12 15:21] LABS: ALBUMIN 3.9 g/dL (3.4-5.0); ALBUMIN/GLOBULIN RATIO 1.2 (1.0-1.7); TOTAL BILIRUBIN 0.1 mg/dL (0.2-1.0); TOTAL PROTEIN 7.2 g/dL (6.4-8.2)
[2020-02-12 15:29] VITALS: BP 99/57
[2020-02-12 15:42] LABS: BILIRUBIN,URINE NEG (NEG); CLARITY,URINE CLEAR; COLOR,URINE YELLOW; GLUCOSE,URINE NEG (NEG)
[2020-02-12 15:43] LABS: BACTERIA,URINE FEW /HPF (0-FEW); NITRITE,URINE NEG (NEG); SQUAMOUS EPITHELIAL CELL,UR FEW /LPF; UROBILINOGEN,URINE 0.2 mg/dL (0.2 mg/dL); WBC,URINE OCC /HPF (0-4)
[2020-02-12] MEDS ORDERED: TRAM50TA PO (15:53)
--- NOTE | 2020-02-12 15:53 | PHYS DOC ---
Past History Past Medical History: Alcoholism, Anxiety, COPD, Pancreatitis, Pneumonia Additional Past Medical Histor: adhd; endocarditis; right shoulder dislocations, H PYLORI Past Surgical History: Cholecystectomy, Hysterectomy Smoking: Cigarettes, Greater than 1 pack/day Alcohol Use: Sober Drug Use: None General Adult EDM: Chief Complaint: NAUSEA/VOMITING/DIARRHEA HPI: HPI: Patient is a 44-year-old female with chronic abdominal pain. She presents with 2-1/2-month history of left upper quadrant pain. She has medication at home but she says is just not working. She has a follow-up appointment in the way of a consult in the coming weeks. In the past she is had an opioid dependence based on her chronic abdominal pain. She denies any fever chills or sweats. She denies any vomiting she has had some nausea. [] Review of Systems: Review of Systems: Constitutional: Denies fever or chills Eyes: Denies change in visual acuity HENT: Denies nasal congestion or sore throat Respiratory: Denies cough or shortness of breath Cardiovascular: Denies chest pain or edema GI: Per HPI : Denies dysuria Musculoskeletal: Denies back pain or joint pain Integument: Denies rash Neurologic: Denies headache, focal weakness or sensory changes Endocrine: Denies polyuria or polydipsia Lymphatic: Denies swollen glands Psychiatric: Denies depression or anxiety Heart Score: Risk Factors: Risk Factors: DM, Current or recent (<one month) smoker, HTN, HLP, family history of CAD, obesity. Risk Scores: Score 0 - 3: 2.5% MACE over next 6 weeks - Discharge Home Score 4 - 6: 20.3% MACE over next 6 weeks - Admit for Clinical Observation Score 7 - 10: 72.7% MACE over next 6 weeks - Early Invasive Strategies Current Medications: Current Meds: Current Medications Medications (Trade) Dose Ordered Sig/La Start Time Stop Time Status Last Admin Dose Admin Fentanyl Citrate (Fentanyl 2ml Vial) 50 mcg 1X ONCE 02/12/20 14:30 02/12/20 14:35 DC 02/12/20 15:01 50 MCG Ondansetron HCl (Zofran) 4 mg 1X ONCE 02/12/20 14:30 02/12/20 14:35 DC 02/12/20 14:59 4 MG Sodium Chloride 1,000 ml @ 1,000 mls/hr 1X ONCE 02/12/20 14:30 02/12/20 15:30 DC 02/12/20 14:57 1,000 MLS/HR Allergies: Allergies: Allergies Coded Allergies Type Severity Reaction Last Updated Verified codeine Allergy Intermediate 01/16/19 Yes Sulfa (Sulfonamide Antibiotics) Allergy Unknown 02/12/20 Yes amitriptyline Allergy Unknown 02/28/19 Yes meperidine Allergy Unknown 02/01/20 Yes Corticosteroids (Glucocorticoids) Adverse Reaction Intermediate 04/10/19 Yes Physical Exam: PE: Constitutional: Well developed, well nourished, no acute distress, non-toxic appearance. [] HENT: Normocephalic, atraumatic, bilateral external ears normal, oropharynx moist, no oral exudates, nose normal. [] Eyes: PERRLA, EOMI, conjunctiva normal, no discharge. [] Neck: Normal range of motion, no tenderness, supple, no stridor. [] Cardiovascular:Heart rate regular rhythm, no murmur [] Lungs & Thorax: Bilateral breath sounds clear to auscultation [] Abdomen: Bowel sounds normal, soft, no tenderness, no masses, no pulsatile masses. [] Skin: Warm, dry, no erythema, no rash. [] Back: No tenderness, no CVA tenderness. [] Extremities: No tenderness, no cyanosis, no clubbing, ROM intact, no edema. [] Neurologic: Alert and oriented X 3, normal motor function, normal sensory function, no focal deficits noted. [] Psychologic: Anxious. [] Current Patient Data: Labs: Laboratory Tests Test 02/12/20 14:30 02/12/20 14:52 Urine Collection Type Unknown Urine Color Yellow Urine Clarity Clear Urine pH 7.0 Urine Specific [place] 1.020 Urine Protein Neg (NEG-TRACE) Urine Glucose (UA) Neg mg/dL (NEG) Urine Ketones (Stick) Neg mg/dL (NEG) Urine Blood Small (NEG) Urine Nitrite Neg (NEG) Urine Bilirubin Neg (NEG) Urine Urobilinogen Dipstick 0.2 mg/dL (0.2 mg/dL) Urine Leukocyte Esterase Neg (NEG) Urine RBC 6-10 /HPF (0-2) Urine WBC Occ /HPF (0-4) Urine Squamous Epithelial Cells Few /LPF Urine Bacteria Few /HPF (0-FEW) White Blood Count 9.8 x10^3/uL (4.0-11.0) Red Blood Count 4.54 x10^6/uL (3.50-5.40) Hemoglobin 14.7 g/dL (12.0-15.5) Hematocrit 42.4 % (36.0-47.0) Mean Corpuscular Volume 93 fL (79-100) Mean Corpuscular Hemoglobin 32 pg (25-35) Mean Corpuscular Hemoglobin Concent 35 g/dL (31-37) Red Cell Distribution Width 13.7 % (11.5-14.5) Platelet Count 172 x10^3/uL (140-400) Neutrophils (%) (Auto) 67 % (31-73) Lymphocytes (%) (Auto) 27 % (24-48) Monocytes (%) (Auto) 5 % (0-9) Eosinophils (%) (Auto) 1 % (0-3) Basophils (%) (Auto) 0 % (0-3) Neutrophils # (Auto) 6.6 x10^3uL (1.8-7.7) Lymphocytes # (Auto) 2.6 x10^3/uL (1.0-4.8) Monocytes # (Auto) 0.4 x10^3/uL (0.0-1.1) Eosinophils # (Auto) 0.1 x10^3/uL (0.0-0.7) Basophils # (Auto) 0.0 x10^3/uL (0.0-0.2) Sodium Level 142 mmol/L (136-145) Potassium Level 3.6 mmol/L (3.5-5.1) Chloride Level 105 mmol/L (98-107) Carbon Dioxide Level 27 mmol/L (21-32) Anion Gap 10 (6-14) Blood Urea Nitrogen 10 mg/dL (7-20) Creatinine 0.8 mg/dL (0.6-1.0) Estimated GFR (Cockcroft-Gault) 77.6 BUN/Creatinine Ratio 13 (6-20) Glucose Level 94 mg/dL (70-99) Calcium Level 9.3 mg/dL (8.5-10.1) Total Bilirubin 0.1 mg/dL (0.2-1.0) L Aspartate Amino Transferase (AST) 13 U/L (15-37) L Alanine Aminotransferase (ALT) 20 U/L (14-59) Alkaline Phosphatase 67 U/L (46-116) Total Protein 7.2 g/dL (6.4-8.2) Albumin 3.9 g/dL (3.4-5.0) Albumin/Globulin Ratio 1.2 (1.0-1.7) Lipase 80 U/L (73-393) Vital Signs: Vital Signs Date Time Temp Pulse Resp B/P (MAP) Pulse Ox O2 Delivery O2 Flow Rate FiO2 02/12/20 15:04 49 20 119/59 (79) 95 Room Air 02/12/20 14:25 98.2 EKG: EKG: [] Radiology/Procedures: Radiology/Procedures: [] Course & Med Decision Making: Course & Med Decision Making Pertinent Labs and Imaging studies reviewed. (See chart for details) [ED course: Evaluation reveals a 44-year-old female with an exacerbation of chronic abdominal pain. She was given IV fluids fentanyl and Zofran during her stay in the department which did help alleviate her symptoms. I informed the patient that her laboratory studies look normal and encouraged her to follow with her consult as scheduled.] Dragon Disclaimer: Dragon Disclaimer: This electronic medical record was generated, in whole or in part, using a voice recognition dictation system. Departure Departure: Impression: Primary Impression: Abdominal pain, chronic, left upper quadrant Disposition: 01 HOME/RESIDENCE PRIOR TO ADM Condition: STABLE Referrals: HEBER GRAJEDA MD (PCP) Patient Instructions: Abdominal Pain Additional Instructions: Return to the emergency department with any new or concerning symptoms Scripts Tramadol Hcl (TRAMADOL HCL) 50 Mg Tablet 50 MG PO PRN Q6HRS PRN for PAIN, #15 TAB Prov: GERRI GRAJEDA DO 02/12/20 Justification of Admission: Justification of Admission: Justification of Admission Dx: No GERRI GRAJEDA DO Feb 12, 2020 15:53
[2020-02-14] MEDS ORDERED: ALPRAZolam 0.25 MG TABLET PO ONE (12:30)
== END 2020-02-12 16:10 | disposition home or self-care (01) ==
LOC: ER 14:18
DX: G89.29 Other chronic pain (principal); R10.12 Left upper quadrant pain; J44.9 Chronic obstructive pulmonary disease, unspecified; F10.20 Alcohol dependence, uncomplicated; F17.210 Nicotine dependence, cigarettes, uncomplicated; Z90.49 Acquired absence of other specified parts of digestive tract; Z88.5 Allergy status to narcotic agent; Z88.2 Allergy status to sulfonamides; Z88.8 Allergy status to other drugs, medicaments and biological substances; Y90.9 Presence of alcohol in blood, level not specified
CPT/HCPCS: 36415; 80053; 81001; 83690; 85025; 96374; 96375; 99284; J2405; J3010; J7030; 99285-25

== ENCOUNTER 2020-02-14 11:53 | Emergency (ER) | payer OTHER ==
[~2020-02-14] VITALS: Ht 162.6 cm; Wt 48.3 kg
[2020-02-14] MEDS ORDERED: ALPRAZolam 0.5 MG TABLET PO ONE (12:30)
[2020-02-14] MEDS ORDERED: ALPR0.5T PO (12:38)
--- NOTE | 2020-02-14 12:38 | PHYS DOC ---
Past History Past Medical History: Alcoholism, Anxiety, COPD, Pancreatitis, Pneumonia Additional Past Medical Histor: adhd; endocarditis; right shoulder dislocations, H PYLORI Past Surgical History: Cholecystectomy, Hysterectomy Smoking: Cigarettes, Greater than 1 pack/day Alcohol Use: Sober Drug Use: None Adult General Chief Complaint Chief Complaint: MEDICATION REFILL HPI HPI Patient is a 44-year-old female well-known to our facility presents for anxiety. Patient has a long period of anxiety and PTSD related to prior service and male partners. She is established with Dr. Conklin, a psychiatrist in the area for whom she seeks her mental health care from. She is prescribed Xanax, 0.5 mg daily as needed with last fill on 01/22/2020. She states she has been sober from alcohol but had a relapse this last 22 January. She reports losing keys, her phone, and 8 days worth of her medicine and so, she is out. She is currently living in a stressful home environment with her current who also suffers from his own mental health problems. He is pending psychiatric inpatient treatment February 25, 2020. Her home life has been hectic due to this impending date. She is attempted to contact Dr. Conklin and has follow-up scheduled within the next couple weeks. She has not been able to see her counselor consistently recently due to lack of access given loss of phone and lack of access to provider given COVID-19 pandemic. She presents today in acute anxiety requesting temporary medication refill until she sees Dr. Conklin. She is anxious today, denies any suicidal ideation or self-harm Review of Systems Review of Systems Constitutional: Denies fever or chills [] Eyes: Denies change in visual acuity, redness, or eye pain [] HENT: Denies nasal congestion or sore throat [] Respiratory: Denies cough or shortness of breath [] Cardiovascular: No chest pain, palpitations GI: Denies abdominal pain, nausea, vomiting, bloody stools or diarrhea [] : Denies dysuria or hematuria [] Musculoskeletal: Denies back pain or joint pain [] Integument: Denies rash or skin lesions [] Neurologic: Denies headache, focal weakness or sensory changes [] Endocrine: Denies polyuria or polydipsia [] All other systems were reviewed and found to be within normal limits, except as documented in this note. Allergies Allergies Allergies Coded Allergies Type Severity Reaction Last Updated Verified codeine Allergy Intermediate 01/16/19 Yes Sulfa (Sulfonamide Antibiotics) Allergy Unknown 02/12/20 Yes amitriptyline Allergy Unknown 02/28/19 Yes meperidine Allergy Unknown 02/01/20 Yes Corticosteroids (Glucocorticoids) Adverse Reaction Intermediate 04/10/19 Yes Physical Exam Physical Exam Constitutional: Well developed, skinny, appears malnourished, mild distress, non-toxic appearance. Thin in appearance [] HENT: Normocephalic, atraumatic, bilateral external ears normal, oropharynx moist, no oral exudates, nose normal. [] Eyes: PERRLA, EOMI, conjunctiva normal, no discharge. [] Neck: Normal range of motion, no tenderness, supple, no stridor. [] Cardiovascular:Heart rate regular rhythm, no murmur [] Lungs & Thorax: Bilateral breath sounds clear to auscultation [] Abdomen: Bowel sounds normal, soft, no tenderness, no masses, no pulsatile masses. [] Skin: Warm, dry, no erythema, no rash. Tattoos on bilateral upper extremities [] Back: No tenderness, no CVA tenderness. [] Extremities: No tenderness, no cyanosis, no clubbing, ROM intact, no edema. [] Neurologic: Alert and oriented X 3, normal motor function, normal sensory function, no focal deficits noted. [] Psychologic: Anxious, depressed mood, normal judgment, no active homicidal or suicidal ideation [] EKG EKG [] Radiology/Procedures Radiology/Procedures [] Course & Med Decision Making Course & Med Decision Making Pertinent Labs and Imaging studies reviewed from recent ER visit 2 days ago. (See chart for details) Patient seen immediately on ED arrival. Vital signs within normal limits. Grossly non-concerning physical exam. Patient is not an acute harm to self or others at this time I do believe patient is suffering from panic attack. I have given 0.5 mg Xanax today. I have written x1 pill of 0.5 mg Xanax as needed use for acute anxiety until patient is seen by Dr. Cnoklin within the next 2 to 7 days Patient feels safe at home, went over contingency plans with her and created a safe escape plan while in ED today. Patient knows she is welcome here if she feels unsafe Discussed local resources for her but she is well versed on these. All questions and concerns addressed prior to departure. Strict return precautions given with good understanding by patient [] Dragon Disclaimer Dragon Disclaimer This electronic medical record was generated, in whole or in part, using a voice recognition dictation system. Departure Departure: Impression: Primary Impression: Anxiety Additional Impressions: PTSD (post-traumatic stress disorder) Drug-seeking behavior Disposition: HOME/RESIDENCE PRIOR TO ADM Condition: STABLE Referrals: HEBER GRAJEDA MD (PCP) Follow-up to ensure counseling sessions and appointment with Dr. Conklin is scheduled within 2 to 7 days Follow-up on patient's contingency plans in outpatient setting Routine outpatient wellness care Patient Instructions: Anxiety and Panic Attacks, Qqcl-iy-Nrdu Scripts Alprazolam (XANAX) 0.5 Mg Tablet 1 TAB PO PRN PRN for ANXIETY / AGITATION for 1 Day, #1 TAB Prov: DIAN TORO DO 02/14/20 Justification of Admission: Justification of Admission: Justification of Admission Dx: No Problem Qualifiers DIAN TORO DO Feb 14, 2020 12:38
[2020-02-14] MEDS ORDERED: ALPRAZolam 0.25 MG TABLET PO ONE (12:45)
== END 2020-02-14 13:12 | disposition home or self-care (01) ==
LOC: ER 11:53
DX: F41.9 Anxiety disorder, unspecified (principal); F43.10 Post-traumatic stress disorder, unspecified; Z76.5 Malingerer [conscious simulation]; J44.9 Chronic obstructive pulmonary disease, unspecified; F10.20 Alcohol dependence, uncomplicated; F17.210 Nicotine dependence, cigarettes, uncomplicated; Z88.5 Allergy status to narcotic agent; Z88.2 Allergy status to sulfonamides; Z88.8 Allergy status to other drugs, medicaments and biological substances; Y90.9 Presence of alcohol in blood, level not specified
CPT/HCPCS: 99283

== ENCOUNTER 2020-02-27 02:50 | Emergency (ER) | payer OTHER ==
[~2020-02-27] VITALS: Ht 162.6 cm; Wt 48.3 kg
[~2020-02-27 02:50] MED LIST changes: +ALPR0.5T PO
--- NOTE | 2020-02-27 02:58 | PHYS DOC ---
Past History Past Medical History: Alcoholism, Anxiety, COPD, GERD, IBS, Kidney Stones, Pancreatitis, Pneumonia Additional Past Medical Histor: adhd; endocarditis; right shoulder dislocations, H PYLORI Past Surgical History: Cholecystectomy, Hysterectomy Smoking: Cigarettes, Greater than 1 pack/day Alcohol Use: Sober Drug Use: None General Adult EDM: Chief Complaint: ABDOMINAL PAIN HPI: HPI: "..I ve been trying to tuff..it .out this Lt. flank and abdomen pain the past couple days.. it just got to hurting to bad to... night...".."...I have chronic abdomen pain..and my anxiety..just makes it worse..." Patient is a 44 year old female who presents with Lt flank and up Lt abd. pain x 48 rhs. Patient localizes pain in left upper quadrant and left flank. Patient has known history of chronic abdomen pain. Patient also has known history of anxiety, PTSD, depression, pancreatitis, pneumonia, urinary tract infections, kidney stones,, appears to have drug-seeking behavior patterns. Patient has had previous multiple abdomen surgeries cholecystectomy, hysterectomy, appendectomy, right shoulder dislocations, laparotomies due to complications of other surgeries. Patient denies any recent trauma. Patient denies any recent bad food intake. Patient denies any specific ill contacts. No recent fever or chills. No recent travel outside the [place] area Review of Systems: Review of Systems: Constitutional: Denies fever or chills Eyes: Denies change in visual acuity HENT: Denies nasal congestion or sore throat Respiratory: Denies cough or shortness of breath Cardiovascular: Denies chest pain or edema GI: Complains of generalized and left upper quadrant abdominal pain, nausea, vomiting,. Denies bloody stools or diarrhea : Denies dysuria Musculoskeletal: Denies back pain or joint pain Integument: Denies rash Neurologic: Denies headache, focal weakness or sensory changes Endocrine: Denies polyuria or polydipsia Lymphatic: Denies swollen glands Psychiatric: Denies depression or anxiety Heart Score: Risk Factors: Risk Factors: DM, Current or recent (<one month) smoker, HTN, HLP, family history of CAD, obesity. Risk Scores: Score 0 - 3: 2.5% MACE over next 6 weeks - Discharge Home Score 4 - 6: 20.3% MACE over next 6 weeks - Admit for Clinical Observation Score 7 - 10: 72.7% MACE over next 6 weeks - Early Invasive Strategies Family History: Family History: Noncontributory Current Medications: Current Meds: See nursing for home meds Allergies: Allergies: Allergies Coded Allergies Type Severity Reaction Last Updated Verified codeine Allergy Intermediate 01/16/19 Yes Sulfa (Sulfonamide Antibiotics) Allergy Unknown 02/12/20 Yes amitriptyline Allergy Unknown 02/28/19 Yes meperidine Allergy Unknown 02/01/20 Yes Corticosteroids (Glucocorticoids) Adverse Reaction Intermediate 04/10/19 Yes Physical Exam: PE: Constitutional: Reports acute distress, non-toxic appearance. [] HENT: Normocephalic, atraumatic, bilateral external ears normal, oropharynx moist, no oral exudates, nose normal. [] Eyes: PERRLA, EOMI, conjunctiva normal, no discharge. [] Neck: Normal range of motion, no tenderness, supple, no stridor. [] Cardiovascular:Heart rate regular rhythm, no murmur [] Lungs & Thorax: Bilateral breath sounds equal apex with scattered wheezes auscultation [] Abdomen: Bowel sounds decreased, soft, complains of left flank and upper abdomen tenderness, no masses, no pulsatile masses. [Distended. Old surgery scars. Rebound to left upper quadrant Skin: Warm, dry, no erythema, no rash. [] Back: No tenderness, no CVA tenderness. [] Extremities: No tenderness, no cyanosis, no clubbing, ROM intact, no edema. [] No psoas sign on left or right. Neurologic: Alert and oriented X 3, normal motor function, normal sensory function, no focal deficits noted. [] Psychologic: Affect very anxious, judgement normal, mood normal. [] EKG: EKG: [] Radiology/Procedures: Radiology/Procedures: [][address] [address] IMAGING REPORT Signed PATIENT: MY DERAS ACCOUNT: [id number] : 1975 LOCATION: ER AGE: 44 SEX: F EXAM STATUS: REG ER ORD. PHYSICIAN: BEN BUCKLEY MD REASON: Severe abdomen pain with nausea PROCEDURE: ACUTE ABDOMEN SERIES INDICATION: Reason: Severe abdomen pain with nausea / Spl. Instructions: / History: COMPARISON: February 05, 2020 CT abdomen IMPRESSION: 3 views of the chest and abdomen obtained. Blunting of right costophrenic angle is again seen. No definite new region of airspace consolidation. Cardiac silhouette is unremarkable. There is air-filled distention of the large bowel measuring up to approximately 7 cm but the patient also had some prominence of the large bowel prior exam as well. Causes such as colonic ileus within the differential. Electronically signed by: Dayna Velasquez MD (02/27/2020 3:58 AM) [id number] DICTATED AND SIGNED BY: DAYNA VELASQUEZ MD DATE: 02/27/20 0358 CC: BEN BUCKLEY MD; HEBER GRAJEDA MD ~ Course & Med Decision Making: Course & Med Decision Making Pertinent Labs and Imaging studies reviewed. (See chart for details) Patient stay on a clear fluid diet only for the next 48 hours. No solids or milk products. Patient to drink GoLYTELY with fruit juice until actively stooling. Keep follow-up with primary care. Reexam after stooling clear if still having abdomen pain. Avoid marijuana since it can cause a cyclic vomiting and exacerbation of abdomen pain. Note pt.requested discharge after morphine injection. Refused complete her IV fluids. Impression: 1. Acute on chronic abdomen pain 2. Constipation 3. History of ileus and adhesions 4. Tobacco and marijuana use 5. History of possible drug-seeking behavior [] Dragon Disclaimer: Dragon Disclaimer: This electronic medical record was generated, in whole or in part, using a voice recognition dictation system. Departure Departure: Disposition: 01 HOME/RESIDENCE PRIOR TO ADM Condition: STABLE Referrals: HEBER GRAJEDA MD (PCP) Scripts Peg 3350/Na Sulf,Bicarb,Cl/Kcl (GOLYTELY SOLUTION) 4,000 Ml Soln.recon 4000 ML PO 1X for constipation,obstipation, #1 MISC Prov: BEN BUCKLEY MD 02/27/20 Justification of Admission: Justification of Admission: Justification of Admission Dx: N/A Dragon Disclaimer This chart was dictated in whole or in part using Voice Recognition software in a busy, high-work load, and often noisy Emergency Department environment. It may contain unintended and wholly unrecognized errors or omissions. Dragon Disclaimer This chart was dictated in whole or in part using Voice Recognition software in a busy, high-work load, and often noisy Emergency Department environment. It may contain unintended and wholly unrecognized errors or omissions. Dragon Disclaimer This chart was dictated in whole or in part using Voice Recognition software in a busy, high-work load, and often noisy Emergency Department environment. It may contain unintended and wholly unrecognized errors or omissions. BEN BUCKLEY MD Feb 27, 2020 02:58
[2020-02-27] MEDS ORDERED: MORPHINE SULFATE 10 MG/ML SYRINGE. SQ ONE (03:30)
[2020-02-27] MEDS ORDERED: ONDANSETRON PF 4 MG/2 ML VIAL. IVP ONE (03:30)
[2020-02-27] MEDS ORDERED: IV RINGERS SOLUTION,LACTATED 1,000 ML IV SCH (03:30)
[2020-02-27] MEDS ORDERED: MAGNESIUM HYDROXIDE 2,400 MG/30 ML ORAL.SUSP. PO ONE (03:30)
[2020-02-27] MEDS ORDERED: FAMOTIDINE 20 MG/2 ML VIAL IVP ONE (03:30)
[2020-02-27] MEDS ORDERED: KETOROLAC 30 MG/ML VIAL. IVP ONE (03:30)
[2020-02-27 03:36] LABS: BASO % 1 % (0-3); EOS # 0.1 x10^3/uL (0.0-0.7); EOS % 1 % (0-3); HEMATOCRIT 41.2 % (36.0-47.0); HEMOGLOBIN 14.3 g/dL (12.0-15.5); LYMPH # 2.9 x10^3/uL (1.0-4.8); LYMPH % 41 % (24-48); MEAN CORPUSCULAR HEMOGLOBIN 32 pg (25-35); MEAN CORPUSCULAR HGB CONC 35 g/dL (31-37); MEAN CORPUSCULAR VOLUME 93 fL (79-100); MONO # 0.3 x10^3/uL (0.0-1.1); MONO % 5 % (0-9); NEUT # 3.7 x10^3uL (1.8-7.7); NEUT % 52 % (31-73); PLATELET COUNT 161 x10^3/uL (140-400); RED BLOOD COUNT 4.43 x10^6/uL (3.50-5.40); RED CELL DISTRIBUTION WIDTH 13.8 % (11.5-14.5); WHITE BLOOD COUNT 7.1 x10^3/uL (4.0-11.0)
[2020-02-27 03:43] LABS: BILIRUBIN,URINE NEG (NEG); CLARITY,URINE HAZY; COLOR,URINE YELLOW; GLUCOSE,URINE NEG (NEG); NITRITE,URINE NEG (NEG); RBC,URINE OCC /HPF (0-2); UROBILINOGEN,URINE 0.2 mg/dL (0.2 mg/dL); WBC,URINE OCC /HPF (0-4)
[2020-02-27 03:44] LABS: BACTERIA,URINE 0 /HPF (0-FEW); SQUAMOUS EPITHELIAL CELL,UR FEW /LPF
[2020-02-27 03:46] LABS: CALCIUM 8.8 mg/dL (8.5-10.1); CREATININE 0.9 mg/dL (0.6-1.0); GFR 67.7; POTASSIUM 3.7 mmol/L (3.5-5.1)
[2020-02-27 03:48] LABS: BARBITURATES NEG (NEG); BENZODIAZEPINES POS (NEG); CANNABINOIDS POS (NEG); COCAINE NEG (NEG); METHADONE NEG (NEG); OPIATES NEG (NEG); PHENCYCLIDINE NEG (NEG)
[2020-02-27 03:51] LABS: ALBUMIN 3.7 g/dL (3.4-5.0); DIRECT BILIRUBIN 0.1 mg/dL (0.0-0.2); TOTAL BILIRUBIN 0.2 mg/dL (0.2-1.0); TOTAL PROTEIN 6.6 g/dL (6.4-8.2)
[2020-02-27 03:54] LABS: AMPHETAMINE/METHAMPHETAMINE NEG (NEG)
--- NOTE | 2020-02-27 04:01 | RAD ---
INDICATION: Reason: Severe abdomen pain with nausea / Spl. Instructions: / History: COMPARISON: February 05, 2020 CT abdomen IMPRESSION: 3 views of the chest and abdomen obtained. Blunting of right costophrenic angle is again seen. No definite new region of airspace consolidation. Cardiac silhouette is unremarkable. There is air-filled distention of the large bowel measuring up to approximately 7 cm but the patient also had some prominence of the large bowel prior exam as well. Causes such as colonic ileus within the differential. Electronically signed by: Rogelio Cornelius MD (02/27/2020 3:58 AM) [id number]
[2020-02-27] MEDS ORDERED: PEG4000S8 PO (04:17)
[2020-02-27 04:30] VITALS: BP 97/43
== END 2020-02-27 05:00 | disposition home or self-care (01) ==
LOC: ER 02:50
DX: K59.00 Constipation, unspecified (principal); R10.84 Generalized abdominal pain; R10.12 Left upper quadrant pain; F41.9 Anxiety disorder, unspecified; J44.9 Chronic obstructive pulmonary disease, unspecified; K21.9 Gastro-esophageal reflux disease without esophagitis; K58.9 Irritable bowel syndrome, unspecified; F17.210 Nicotine dependence, cigarettes, uncomplicated; F12.10 Cannabis abuse, uncomplicated; Z87.442 Personal history of urinary calculi; Z90.49 Acquired absence of other specified parts of digestive tract; Z90.710 Acquired absence of both cervix and uterus; Z88.2 Allergy status to sulfonamides; Z88.8 Allergy status to other drugs, medicaments and biological substances
CPT/HCPCS: 36415; 74022; 80048; 80076; 80307; 81001; 82150; 82550; 83690; 84484; 85025; 85610; 85730; 87086; 96361; 96372; 96374; 96375; 99284; G0480; J1885; J2270; J2405; J3490; J7120

== ENCOUNTER 2020-03-04 17:45 | Emergency (ER) | payer OTHER ==
[~2020-03-04] VITALS: Ht 162.6 cm; Wt 48.0 kg
[~2020-03-04 17:45] MED LIST changes: +PEG4000S8 PO
[2020-03-04] MEDS ORDERED: IV NORMAL SALINE 1,000ML 1,000 ML IV SCH (18:08)
--- NOTE | 2020-03-04 18:16 | PHYS DOC ---
Past History Past Medical History: Alcoholism, Anxiety, COPD, GERD, IBS, Kidney Stones, Pancreatitis, Pneumonia Additional Past Medical Histor: adhd; endocarditis; right shoulder dislocations, H PYLORI Past Surgical History: Cholecystectomy, Hysterectomy Smoking: Cigarettes, Greater than 1 pack/day Alcohol Use: Sober Drug Use: None Adult General Chief Complaint Chief Complaint: FLANK PAIN HPI HPI Patient is a 44-year-old female who presents with acute on chronic abdominal pain Onset was several months ago as this is chronic in nature; however, reports this is acutely worsened in last 48 hours with known inciting event Nothing known makes better, patient has been taking Carafate and PPI without significant relief Eating makes worse, reports pain is worse approximately 1 to 2 hours after eat ing Timing of symptoms have waxed and waned since onset, patient reports being well established with urology in outpatient setting and was recently referred to outpatient gastroenterology for evaluation Prior to arrival, patient was seen by her PCP, Dr. Bueno, who recommended patient seek ED evaluation for troublesome abdominal pain given acute on chronic symptoms and feelings of anorexia for the past 24 hours Patient denies any febrile illness, COVID-19 contacts, changes in medications, recent antibiotic use, or recent travel. Of note, patient has prior total hysterectomy involving bilateral ovaries, cholecystectomy, and appendectomy Review of Systems Review of Systems Fourteen body systems of review of systems have been reviewed. See HPI for pertinent positives and negative responses, other walters all other systems are negative, non-pertinent or non-contributory Allergies Allergies Allergies Coded Allergies Type Severity Reaction Last Updated Verified codeine Allergy Intermediate 01/16/19 Yes Sulfa (Sulfonamide Antibiotics) Allergy Unknown 02/12/20 Yes amitriptyline Allergy Unknown 02/28/19 Yes meperidine Allergy Unknown 02/01/20 Yes Corticosteroids (Glucocorticoids) Adverse Reaction Intermediate 04/10/19 Yes Physical Exam Physical Exam Constitutional: Well developed, well nourished, moderate distress, non-toxic appearance. Able to ambulate with cane to ED room without issues HENT: Normocephalic, atraumatic, bilateral external ears normal, oropharynx moist, no oral exudates, nose normal. Eyes: PERRLA, EOMI, conjunctiva normal, no discharge. Neck: Normal range of motion, no tenderness, supple, no stridor. Cardiovascular: Heart rate regular, sinus rhythm, no murmurs rubs or gallops Lungs & Thorax: Bilateral breath sounds clear to auscultation Abdomen: Bowel sounds normal, soft, generalized tenderness diffusely, no rebound, voluntary guarding present, no masses, no pulsatile masses. Nonsurgical abdomen, no peritoneal signs Skin: Warm, dry, no erythema, no rash. Back: No tenderness, no CVA tenderness. Extremities: No tenderness, no cyanosis, no clubbing, ROM intact, no edema. Neurologic: Alert and oriented X 3, grossly normal motor & sensory function, no focal deficits noted. Psychologic: Judgment normal, anxious, tearful Current Patient Data Vital Signs Vital Signs Date Time Temp Pulse Resp B/P (MAP) Pulse Ox O2 Delivery O2 Flow Rate FiO2 03/04/20 17:57 97.8 56 14 102/57 (72) 98 Room Air Lab Results Laboratory Tests Test 03/04/20 18:33 White Blood Count 6.6 x10^3/uL Red Blood Count 4.46 x10^6/uL Hemoglobin 14.2 g/dL Hematocrit 41.4 % Mean Corpuscular Volume 93 fL Mean Corpuscular Hemoglobin 32 pg Mean Corpuscular Hemoglobin Concent 34 g/dL Red Cell Distribution Width 13.8 % Platelet Count 172 x10^3/uL Neutrophils (%) (Auto) 48 % Lymphocytes (%) (Auto) 44 % Monocytes (%) (Auto) 6 % Eosinophils (%) (Auto) 1 % Basophils (%) (Auto) 0 % Neutrophils # (Auto) 3.2 x10^3uL Lymphocytes # (Auto) 2.9 x10^3/uL Monocytes # (Auto) 0.4 x10^3/uL Eosinophils # (Auto) 0.1 x10^3/uL Basophils # (Auto) 0.0 x10^3/uL Sodium Level 141 mmol/L Potassium Level 3.7 mmol/L Chloride Level 104 mmol/L Carbon Dioxide Level 29 mmol/L Anion Gap 8 Blood Urea Nitrogen 8 mg/dL Creatinine 0.7 mg/dL Estimated GFR (Cockcroft-Gault) 90.5 BUN/Creatinine Ratio 11 Glucose Level 87 mg/dL Calcium Level 8.8 mg/dL Total Bilirubin 0.2 mg/dL Aspartate Amino Transf (AST/SGOT) 17 U/L Alanine Aminotransferase (ALT/SGPT) 23 U/L Alkaline Phosphatase 67 U/L Troponin I Quantitative < 0.017 ng/mL Total Protein 6.5 g/dL Albumin 3.5 g/dL Albumin/Globulin Ratio 1.2 Lipase 117 U/L Current Medications Medications (Trade) Dose Ordered Sig/La Route PRN Reason Start Time Stop Time Status Last Admin Dose Admin Morphine Sulfate (Morphine 4mg Syringe) 4 mg PRN Q15MIN PRN IV/SQ PAIN GREATER THAN 3/10 03/04/20 18:15 03/05/20 18:14 03/04/20 18:48 Sodium Chloride 1,000 ml @ 1,000 mls/hr Q1H IV 03/04/20 18:08 03/04/20 19:07 DC 03/04/20 18:49 Iohexol (Omnipaque 300 Mg/ml) 75 ml 1X ONCE IV 03/04/20 18:30 03/04/20 18:31 DC 03/04/20 18:35 Ondansetron HCl (Zofran) 4 mg 1X ONCE IVP 03/04/20 19:00 03/04/20 19:01 DC 03/04/20 18:49 EKG EKG EKG ordered and interpreted by myself at 1830 hrs. as sinus rhythm at 63 bpm, unremarkable intervals, no axis deviation, right bundle branch block, T wave inversions in leads V1 through V3. This EKG was reviewed to prior study obtained 02/28/2019. Findings of right bundle branch block and T wave inversions in leads V1 through 3 were present at that time as well. Overall, no ischemic changes, no STEMI Radiology/Procedures Radiology/Procedures PROCEDURE: CHEST AP ONLY Exam: Chest one view INDICATION: Chest and epigastric pain TECHNIQUE: Frontal view of the chest Comparisons: 04/10/2019 FINDINGS: The cardiomediastinal silhouette and pulmonary vessels are within normal limits. The lung and pleural spaces are clear. IMPRESSION: No acute cardiopulmonary process. Electronically signed by: Yamile Belcher MD (03/04/2020 7:13 PM) [id number] PROCEDURE: CT ABD PELV W/ IV CONTRST ONLY INDICATION: Reason: abdominal pain; hx hysterectomy, appendectomy, cholecystectomy / Spl. Instructions: / History: COMPARISON: February 05, 2020 TECHNIQUE: Axial CT images obtained through the abdomen and pelvis with contrast. One or more of the following individualized dose reduction techniques were utilized for this examination: 1. Automated exposure control; 2. Adjustment of the mA and/or kV according to patient size; 3. Use of iterative reconstruction technique. FINDINGS: Linear opacity at the right lung base is again seen and could be from atelectasis or scarring. Abdominal aorta is not aneurysmal. There is scattered plaque. Numerous low-density lesions are scattered throughout the liver. Repeat demonstration of a cystic region along the peripheral aspect of the right lobe liver with rim calcification measuring approximately 18 x 34 mm. The liver appears prominent in size. No peripancreatic fluid collection. Heterogenous enhancement of the spleen. No hydronephrosis. Urinary bladder is somewhat distended at time of exam. No dilated loops of bowel to suggest obstruction. Mild prominence of the wall of some of small bowel loops. Can the from regions of contraction Mild wedging of the T12 vertebral body similar to prior. IMPRESSION: * No evidence of bowel obstruction. * Repeat demonstration of numerous low-density lesions scattered throughout the liver. Electronically signed by: Rogelio Cornelius MD (03/04/2020 7:04 PM) [id number] Course & Med Decision Making Course & Med Decision Making Nontoxic-appearing patient who ambulated to her ED room without issues was seen on immediate presentation by myself Vital signs stable, comprehensive history and physical exam obtained, further reviewed patient's previous visits and studies and subsequently ordered pertinent labs and imaging today IV access obtained, IV fluids started in addition to a total of 4 mg IV morphine with significant relief in symptoms ED course reviewed, no emergent/surgical processes identified this visit. No indication for further work-up or admission at this time Patient reports having technical difficulties causing her to miss recent GI telehealth visit, I advised patient to call them first thing tomorrow morning to reschedule this In meantime, recommended continued supportive care for her acute on chronic abdo bernie pain. Advise continue use of PPI and Carafate Strict return precautions discussed with good understanding by patient, all questions and concerns addressed prior to discharge home in stable condition Draglo Disclaimer Dragon Disclaimer This electronic medical record was generated, in whole or in part, using a voice recognition dictation system. Departure Departure: Impression: Primary Impression: Chronic generalized abdominal pain Disposition: HOME/RESIDENCE PRIOR TO ADM Condition: IMPROVED Referrals: HEBER BUENO MD (PCP) Patient Instructions: Abdominal Pain (Nonspecific) Additional Instructions: You have been evaluated in the Emergency Department today for abdominal pain. Your evaluation was not suggestive of any emergent condition requiring medical intervention at this time. However, some abdominal problems make take more time to appear. Therefore, it is important for you to watch for any new symptoms or worsening of your current condition. Please follow up with your primary care physician. I also recommend you follow- up with previously referred to cage shift manager for evaluation and need for potential outpatient scope Return to the Emergency Department if you experience worsening pain, persistent fevers greater than 100.4, recurrent vomiting, blood in vomit, blood in stool, dark tarry stool, chest pain, difficulty breathing, or any other concerning symptoms. Justification of Admission: Justification of Admission: Justification of Admission Dx: N/A DIAN TORO DO Mar 04, 2020 18:16
--- NOTE | 2020-03-04 18:24 | EKG ---
[address] [address] Test Date: 2020-03-04 Test Time: 18:17:44 Pat Name: MY DERAS Department: Room: Gender: F Geodetic Technician: KRISTA : 1975 Requested By: DIAN TORO Order Number: [id number] Reading MD: Measurements Intervals [place] Rate: 63 P: 53 SD: 156 QRS: 53 QRSD: 92 T: 59 QT: 370 QTc: 381 Interpretive Statements SINUS ARRHYTHMIA INCOMPLETE RIGHT BUNDLE BRANCH BLOCK T ABNORMALITY IN ANTEROSEPTAL LEADS ABNORMAL ECG RI6.02 No previous ECG available for comparison
[2020-03-04] MEDS ORDERED: IOHEXOL 300 MG/ML 75 ML VIAL. IV ONE (18:30)
[2020-03-04] MEDS: MORPHINE SULFATE 4 MG/ML DISP.SYRIN. IV/SQ PRN ×2 (18:48→19:45)
[2020-03-04] MEDS ORDERED: ONDANSETRON PF 4 MG/2 ML VIAL. IVP ONE (19:00)
[2020-03-04 19:02] LABS: BASO % 0 % (0-3); EOS # 0.1 x10^3/uL (0.0-0.7); EOS % 1 % (0-3); HEMATOCRIT 41.4 % (36.0-47.0); HEMOGLOBIN 14.2 g/dL (12.0-15.5); LYMPH # 2.9 x10^3/uL (1.0-4.8); LYMPH % 44 % (24-48); MEAN CORPUSCULAR HEMOGLOBIN 32 pg (25-35); MEAN CORPUSCULAR HGB CONC 34 g/dL (31-37); MEAN CORPUSCULAR VOLUME 93 fL (79-100); MONO # 0.4 x10^3/uL (0.0-1.1); MONO % 6 % (0-9); NEUT # 3.2 x10^3uL (1.8-7.7); NEUT % 48 % (31-73); PLATELET COUNT 172 x10^3/uL (140-400); RED BLOOD COUNT 4.46 x10^6/uL (3.50-5.40); RED CELL DISTRIBUTION WIDTH 13.8 % (11.5-14.5); WHITE BLOOD COUNT 6.6 x10^3/uL (4.0-11.0)
--- NOTE | 2020-03-04 19:07 | RAD ---
INDICATION: Reason: abdominal pain; hx hysterectomy, appendectomy, cholecystectomy / Spl. Instructions: / History: COMPARISON: February 05, 2020 TECHNIQUE: Axial CT images obtained through the abdomen and pelvis with contrast. One or more of the following individualized dose reduction techniques were utilized for this examination: 1. Automated exposure control; 2. Adjustment of the mA and/or kV according to patient size; 3. Use of iterative reconstruction technique. FINDINGS: Linear opacity at the right lung base is again seen and could be from atelectasis or scarring. Abdominal aorta is not aneurysmal. There is scattered plaque. Numerous low-density lesions are scattered throughout the liver. Repeat demonstration of a cystic region along the peripheral aspect of the right lobe liver with rim calcification measuring approximately 18 x 34 mm. The liver appears prominent in size. No peripancreatic fluid collection. Heterogenous enhancement of the spleen. No hydronephrosis. Urinary bladder is somewhat distended at time of exam. No dilated loops of bowel to suggest obstruction. Mild prominence of the wall of some of small bowel loops. Can the from regions of contraction Mild wedging of the T12 vertebral body similar to prior. IMPRESSION: * No evidence of bowel obstruction. * Repeat demonstration of numerous low-density lesions scattered throughout the liver. Electronically signed by: Rogelio Cornelius MD (03/04/2020 7:04 PM) [id number]
--- NOTE | 2020-03-04 19:16 | RAD ---
Exam: Chest one view INDICATION: Chest and epigastric pain TECHNIQUE: Frontal view of the chest Comparisons: 04/10/2019 FINDINGS: The cardiomediastinal silhouette and pulmonary vessels are within normal limits. The lung and pleural spaces are clear. IMPRESSION: No acute cardiopulmonary process. Electronically signed by: Yamile Belcher MD (03/04/2020 7:13 PM) [id number]
[2020-03-04 19:20] LABS: ALBUMIN 3.5 g/dL (3.4-5.0); ALBUMIN/GLOBULIN RATIO 1.2 (1.0-1.7); CALCIUM 8.8 mg/dL (8.5-10.1); CREATININE 0.7 mg/dL (0.6-1.0); GFR 90.5; POTASSIUM 3.7 mmol/L (3.5-5.1); TOTAL BILIRUBIN 0.2 mg/dL (0.2-1.0); TOTAL PROTEIN 6.5 g/dL (6.4-8.2)
[2020-03-04 19:45] VITALS: BP 108/61
[2020-03-04 19:58] LABS: AMPHETAMINE/METHAMPHETAMINE NEG (NEG); BARBITURATES NEG (NEG); BENZODIAZEPINES NEG (NEG); CANNABINOIDS POS (NEG); COCAINE NEG (NEG); METHADONE NEG (NEG); OPIATES POS (NEG); PHENCYCLIDINE NEG (NEG)
[2020-03-04 20:11] LABS: BACTERIA,URINE 0 /HPF (0-FEW); BILIRUBIN,URINE NEG (NEG); CLARITY,URINE CLEAR; COLOR,URINE YELLOW; GLUCOSE,URINE NEG (NEG); NITRITE,URINE NEG (NEG); RBC,URINE OCC /HPF (0-2); SQUAMOUS EPITHELIAL CELL,UR OCC /LPF; UROBILINOGEN,URINE 0.2 mg/dL (0.2 mg/dL); WBC,URINE OCC /HPF (0-4)
== END 2020-03-04 19:56 | disposition home or self-care (01) ==
LOC: ER 17:45
DX: G89.29 Other chronic pain (principal); R10.84 Generalized abdominal pain; F41.9 Anxiety disorder, unspecified; J44.9 Chronic obstructive pulmonary disease, unspecified; K52.89 Other specified noninfective gastroenteritis and colitis; F17.210 Nicotine dependence, cigarettes, uncomplicated; F10.20 Alcohol dependence, uncomplicated; Z87.442 Personal history of urinary calculi; Z90.49 Acquired absence of other specified parts of digestive tract; Z90.710 Acquired absence of both cervix and uterus; Z88.5 Allergy status to narcotic agent; Z88.2 Allergy status to sulfonamides; Z88.8 Allergy status to other drugs, medicaments and biological substances; Y90.9 Presence of alcohol in blood, level not specified
CPT/HCPCS: 36415; 71045; 74177; 80053; 80307; 81001; 83690; 84484; 85025; 93005; 96361; 96374; 96375; 96376; 99285; J2270; J2405; J7030; Q9967

== ENCOUNTER 2020-03-16 08:26 | Emergency (ER) | payer OTHER ==
[~2020-03-16] VITALS: Ht 162.6 cm; Wt 48.0 kg
[2020-03-16 08:30] VITALS: BP 118/63
--- NOTE | 2020-03-16 08:56 | PHYS DOC ---
Past History Past Medical History: Alcoholism, Anxiety, COPD, GERD, IBS, Kidney Stones, Pancreatitis, Pneumonia Additional Past Medical Histor: adhd; endocarditis; right shoulder dislocations, H PYLORI Past Surgical History: Cholecystectomy, Hysterectomy Smoking: Cigarettes, Greater than 1 pack/day Alcohol Use: Sober Drug Use: None General Adult EDM: Chief Complaint: RIB PAIN HPI: HPI: 44-year-old female presents with left-sided rib pain. She is being treated for this by her primary care physician with steroids. She does not clearly explain what her diagnosis is. She has had what sounds like a spontaneous pneumothorax in the past and she states that this feels similar. She denies fever chills. Review of Systems: Review of Systems: Constitutional: Denies fever or chills Eyes: Denies change in visual acuity HENT: Denies nasal congestion or sore throat Respiratory: Denies cough or shortness of breath Cardiovascular: Denies chest pain or edema GI: Denies abdominal pain, nausea, vomiting, bloody stools or diarrhea : Denies dysuria Musculoskeletal: Left rib pain Integument: Denies rash Neurologic: Denies headache, focal weakness or sensory changes Endocrine: Denies polyuria or polydipsia Lymphatic: Denies swollen glands Psychiatric: Denies depression or anxiety Heart Score: Risk Factors: Risk Factors: DM, Current or recent (<one month) smoker, HTN, HLP, family history of CAD, obesity. Risk Scores: Score 0 - 3: 2.5% MACE over next 6 weeks - Discharge Home Score 4 - 6: 20.3% MACE over next 6 weeks - Admit for Clinical Observation Score 7 - 10: 72.7% MACE over next 6 weeks - Early Invasive Strategies Allergies: Allergies: Allergies Coded Allergies Type Severity Reaction Last Updated Verified codeine Allergy Intermediate 01/16/19 Yes Sulfa (Sulfonamide Antibiotics) Allergy Unknown 02/12/20 Yes amitriptyline Allergy Unknown 02/28/19 Yes meperidine Allergy Unknown 02/01/20 Yes Corticosteroids (Glucocorticoids) Adverse Reaction Intermediate 04/10/19 Yes Physical Exam: PE: Constitutional: Well developed, thin, no acute distress, non-toxic appearance. [] HENT: Normocephalic, atraumatic, bilateral external ears normal, oropharynx sonyn st, no oral exudates, nose normal. [] Eyes: PERRLA, EOMI, conjunctiva normal, no discharge. [] Neck: Normal range of motion, no tenderness, supple, no stridor. [] Cardiovascular:Heart rate regular rhythm, no murmur [] Lungs & Thorax: Bilateral breath sounds clear to auscultation [] Abdomen: Bowel sounds normal, soft, no tenderness, no masses, no pulsatile masses. [] Skin: Warm, dry, no erythema, no rash. [] Back: No tenderness, no CVA tenderness. [] Extremities: No tenderness, no cyanosis, no clubbing, ROM intact, no edema. [] Neurologic: Alert and oriented X 3, normal motor function, normal sensory function, no focal deficits noted. [] Psychologic: Affect normal, judgement normal, mood anxious. [] Current Patient Data: Vital Signs: Vital Signs Date Time Temp Pulse Resp B/P (MAP) Pulse Ox O2 Delivery O2 Flow Rate FiO2 03/16/20 08:30 98.4 64 16 118/63 (81) 96 Room Air EKG: EKG: [] Radiology/Procedures: Radiology/Procedures: [] Impressions: CHEST PA LATERAL Clinical indications: LEFT RIB/CHEST PAIN, SHORTNESS OF BREATH, HX SMOKER, COPD, emphysema COMPARISON: 03/04/2020. April 10, 2019. Findings: Chronic blunting the lateral costophrenic angles is seen consistent chronic pleural thickening. No acute lung infiltrate or pleural effusion or pulmonary edema or lung mass or pneumothorax is seen. The heart size, pulmonary vasculature, mediastinum and both rene are unremarkable. The osseous structures appear intact. Surgical anchor is seen within the right shoulder. Impression: No acute radiographic abnormality is seen. Electronically signed by: Wesley Mccauley MD (03/16/2020 9:33 AM) [id number] DICTATED AND SIGNED BY: WESLEY MCCAULEY MD DATE: 03/16/20 0933 CC: BRENTON MONROY DO; HEBER GRAJEDA MD ~ Course & Med Decision Making: Course & Med Decision Making Pertinent Labs and Imaging studies reviewed. (See chart for details) The patient's chest x-ray is negative for acute findings. Unsure why the ribs are hurting more this morning. I advised she continue treatment and follow-up with her primary physician as planned. She is stable for discharge at this time. [] Dragon Disclaimer: Draglo Disclaimer: This electronic medical record was generated, in whole or in part, using a voice recognition dictation system. Departure Departure: Impression: Primary Impression: Rib pain on left side Disposition: 01 HOME/RESIDENCE PRIOR TO ADM Condition: STABLE Referrals: HEBER GRAJEDA MD (PCP) Patient Instructions: Chest Wall Pain, [id number] Justification of Admission: Justification of Admission: Justification of Admission Dx: N/A BRENTON MONROY DO Mar 16, 2020 08:55
--- NOTE | 2020-03-16 09:36 | RAD ---
CHEST PA LATERAL Clinical indications: LEFT RIB/CHEST PAIN, SHORTNESS OF BREATH, HX SMOKER, COPD, emphysema COMPARISON: 03/04/2020. April 10, 2019. Findings: Chronic blunting the lateral costophrenic angles is seen consistent chronic pleural thickening. No acute lung infiltrate or pleural effusion or pulmonary edema or lung mass or pneumothorax is seen. The heart size, pulmonary vasculature, mediastinum and both rene are unremarkable. The osseous structures appear intact. Surgical anchor is seen within the right shoulder. Impression: No acute radiographic abnormality is seen. Electronically signed by: Rc Mccauley MD (03/16/2020 9:33 AM) [id number]
== END 2020-03-16 09:55 | disposition home or self-care (01) ==
LOC: ER 08:26
DX: R07.81 Pleurodynia (principal); J44.9 Chronic obstructive pulmonary disease, unspecified; K21.9 Gastro-esophageal reflux disease without esophagitis; K58.9 Irritable bowel syndrome, unspecified; F17.210 Nicotine dependence, cigarettes, uncomplicated; F10.20 Alcohol dependence, uncomplicated; F41.9 Anxiety disorder, unspecified; Z87.442 Personal history of urinary calculi; Z88.5 Allergy status to narcotic agent; Z88.2 Allergy status to sulfonamides; Z88.8 Allergy status to other drugs, medicaments and biological substances; Y90.9 Presence of alcohol in blood, level not specified
CPT/HCPCS: 71046; 99283

== ENCOUNTER 2020-04-08 15:29 | Emergency (ER) | payer OTHER ==
[~2020-04-08] VITALS: Ht 162.6 cm; Wt 47.9 kg
--- NOTE | 2020-04-08 16:40 | RAD ---
EXAM: CHEST AP ONLY INDICATION: Reason: chest pain / Spl. Instructions: / History: . TECHNIQUE: Single view COMPARISON: 03/16/2020 chest x-ray FINDINGS: The heart size is normal. The great vessels appear unremarkable. There is no hilar or mediastinal mass. The lungs are clear. There is no pleural effusion or pneumothorax. Proximal right humerus shows ill-defined reticular densities in the marrow of the proximal right humerus that is suggestive of an enchondroma or healing bone infarct. IMPRESSION: No active cardiopulmonary disease. Is there any chance the patient has sickle cell disease ? Electronically signed by: Henok Mcallister MD (04/08/2020 4:37 PM) [id number]
[2020-04-08 16:44] LABS: BASO % 0 % (0-3); CREATININE 0.7 mg/dL (0.6-1.0); EOS # 0.1 x10^3/uL (0.0-0.7); EOS % 1 % (0-3); GFR 90.5; HEMATOCRIT 43.6 % (36.0-47.0); HEMOGLOBIN 14.9 g/dL (12.0-15.5); LYMPH # 2.6 x10^3/uL (1.0-4.8); LYMPH % 45 % (24-48); MEAN CORPUSCULAR HEMOGLOBIN 32 pg (25-35); MEAN CORPUSCULAR HGB CONC 34 g/dL (31-37); MEAN CORPUSCULAR VOLUME 94 fL (79-100); MONO # 0.2 x10^3/uL (0.0-1.1); MONO % 4 % (0-9); NEUT # 2.9 x10^3uL (1.8-7.7); NEUT % 50 % (31-73); PLATELET COUNT 172 x10^3/uL (140-400); POTASSIUM 3.3 mmol/L (3.5-5.1); RED BLOOD COUNT 4.63 x10^6/uL (3.50-5.40); WHITE BLOOD COUNT 5.8 x10^3/uL (4.0-11.0)
[2020-04-08 16:58] LABS: ALBUMIN 3.8 g/dL (3.4-5.0); ALBUMIN/GLOBULIN RATIO 1.2 (1.0-1.7); TOTAL BILIRUBIN 0.3 mg/dL (0.2-1.0); TOTAL PROTEIN 7.1 g/dL (6.4-8.2)
[2020-04-08] MEDS ORDERED: ONDANSETRON PF 4 MG/2 ML VIAL. IVP ONE (17:30)
--- NOTE | 2020-04-08 18:06 | PHYS DOC ---
Past History Past Medical History: Alcoholism, Anxiety, COPD, GERD, IBS, Kidney Stones, Pancreatitis, Pneumonia Additional Past Medical Histor: adhd; endocarditis; right shoulder dislocations, H PYLORI (CARLA MARIA MD) Past Surgical History: Appendectomy, Cholecystectomy, Hysterectomy, Ooph orectomy, Other Additional Past Surgical Histo: RIGHT SHOULDER X2 (CARLA MARIA MD) Smoking: Cigarettes, Greater than 1 pack/day Alcohol Use: Sober Additional Alcohol Information: LAST DRINK 1.5 MONTHS AGO Drug Use: None (CARLA MARIA MD) Adult General Chief Complaint Chief Complaint: CHEST PAIN HPI HPI Patient is a 44-year-old female who is well-known to this emergency who presents to the emergency room complaining of chest pain that radiates into her face, abdomen, groin, leg. She states this started earlier today. She also has chronic abdominal pain. She is having pain in the back of her head. She denies any fever, cough, shortness of breath, rhinorrhea, nausea, vomiting. She is requesting something for pain. She states the pain is a sharp pain and has been constant. (CARLA MARIA MD) Review of Systems Review of Systems General: Denies fever, chills, sweats, fatigue Eyes: Denies drainage, blurred vision, eye redness HENT: Denies rhinorrhea, sore throat, earache Respiratory: Denies cough, shortness of breath, wheezing Cardiac: Denies edema. Reports palpitations, chest pain GI: Denies Nausea, vomiting reports abdominal pain MSK: Denies back pain, neck pain Skin: Denies rash, jaundice Neuro: Denies headache, dizziness Psychiatric: Denies SI/HI (CARLA MARIA MD) Current Medications Current Medications Current Medications Medications (Trade) Dose Ordered Sig/La Start Time Stop Time Status Last Admin Dose Admin Ondansetron HCl (Zofran) 4 mg 1X ONCE 04/08/20 17:30 04/08/20 17:37 DC 04/08/20 17:31 4 MG (CARLA MARIA MD) Allergies Allergies Allergies Coded Allergies Type Severity Reaction Last Updated Verified codeine Allergy Intermediate 04/08/20 Yes Sulfa (Sulfonamide Antibiotics) Allergy Unknown 04/08/20 Yes amitriptyline Allergy Unknown 04/08/20 Yes meperidine Allergy Unknown 04/08/20 Yes Corticosteroids (Glucocorticoids) Adverse Reaction Intermediate 04/08/20 Yes (CARLA MARIA MD) Physical Exam Physical Exam General: Awake, alert, NAD. Well Nourished, well hydrated. Cooperative HEENT: Atraumatic, EOMI, PERRL, airway patent, moist oral mucosa Neck: Supple, trachea midline Respiratory: CTA bilaterally, normal effort, no wheezing/crackles CV: RRR, no murmur, cap refill <2 GI: Soft, nondistended, nontender, no masses MSK: No obvious deformities Skin: Warm, dry, intact Neuro: A&O x3, speech NL, sensory and motor grossly intact, no focal deficits Psych: Normal affect, normal mood, not suicidal or homicidal (CARLA MARIA MD) Current Patient Data Vital Signs Vital Signs Date Time Temp Pulse Resp B/P (MAP) Pulse Ox O2 Delivery O2 Flow Rate FiO2 04/08/20 18:00 52 20 87/50 (62) 98 Room Air 04/08/20 15:33 98.1 Lab Results Laboratory Tests Test 04/08/20 16:05 White Blood Count 5.8 x10^3/uL (4.0-11.0) Red Blood Count 4.63 x10^6/uL (3.50-5.40) Hemoglobin 14.9 g/dL (12.0-15.5) Hematocrit 43.6 % (36.0-47.0) Mean Corpuscular Volume 94 fL (79-100) Mean Corpuscular Hemoglobin 32 pg (25-35) Mean Corpuscular Hemoglobin Concent 34 g/dL (31-37) Red Cell Distribution Width 14.0 % (11.5-14.5) Platelet Count 172 x10^3/uL (140-400) Neutrophils (%) (Auto) 50 % (31-73) Lymphocytes (%) (Auto) 45 % (24-48) Monocytes (%) (Auto) 4 % (0-9) Eosinophils (%) (Auto) 1 % (0-3) Basophils (%) (Auto) 0 % (0-3) Neutrophils # (Auto) 2.9 x10^3uL (1.8-7.7) Lymphocytes # (Auto) 2.6 x10^3/uL (1.0-4.8) Monocytes # (Auto) 0.2 x10^3/uL (0.0-1.1) Eosinophils # (Auto) 0.1 x10^3/uL (0.0-0.7) Basophils # (Auto) 0.0 x10^3/uL (0.0-0.2) Sodium Level 140 mmol/L (136-145) Potassium Level 3.3 mmol/L (3.5-5.1) L Chloride Level 104 mmol/L (98-107) Carbon Dioxide Level 27 mmol/L (21-32) Anion Gap 9 (6-14) Blood Urea Nitrogen 8 mg/dL (7-20) Creatinine 0.7 mg/dL (0.6-1.0) Estimated GFR (Cockcroft-Gault) 90.5 BUN/Creatinine Ratio 11 (6-20) Glucose Level 86 mg/dL (70-99) Calcium Level 9.0 mg/dL (8.5-10.1) Total Bilirubin 0.3 mg/dL (0.2-1.0) Aspartate Amino Transferase (AST) 11 U/L (15-37) L Alanine Aminotransferase (ALT) 20 U/L (14-59) Alkaline Phosphatase 60 U/L (46-116) Troponin I Quantitative < 0.017 ng/mL (0-0.055) CV-Twv-Z-Type Natriuretic Peptide 18 pg/mL (0-124) Total Protein 7.1 g/dL (6.4-8.2) Albumin 3.8 g/dL (3.4-5.0) Albumin/Globulin Ratio 1.2 (1.0-1.7) (CARLA MARIA MD) EKG EKG [] (CARLA MARIA MD) Radiology/Procedures Radiology/Procedures [] (CARLA MARIA MD) Course & Med Decision Making Course & Med Decision Making Pertinent Labs and Imaging studies reviewed. (See chart for details) Patient is a 44 year-old female well-known to this emergency room who presents to the Emergency Room complaining of chest pain and abdominal pain. At this time, given patient's risk factors and story there is concern for possible cardiac pathology. EKG was ordered and shows normal sinus rhythm. At this time there is no signs of STEMI, pericarditis, or unstable arrthymia on EKG. Patient has received aspirin today. CBC, BMP, troponin, CXR were ordered to evaluate for causes of chest pain including ACS, anemia, electrolyte abnormalities that can lead to arrhythmias, PTX, pneumonia, pneumomediastinum. Patient does not have any abdominal tenderness that would suggest pancreaititis or cholecystitis and does not need an abdominal work up at this time. Patient's HEART score is 1 placing the patient at low risk. Patient does not have any signs or symptoms suggestive of endocarditis. Patient requested pain medicine multiple times while here in the emergency room. Patient will need a delta troponin. If normal patient is stable for discharge. Patient discussed with oncoming physician who will assume care. (CARLA MARIA MD) Course & Med Decision Making I have received signout on the patient's emergency department care from Dr. Maria. We discussed the history, physical exam findings, completed and pending laboratory results and imaging studies. We have also discussed the current treatment plan and expected clinical course. Please refer to further update notes for additional information regarding the patient's final diagnosis and disposition. In brief patient is a 44-year-old female who presents with chief complaint of chest pain and abdominal pain. EKG unremarkable. Patient has had multiple extensive cardiac work-ups in the recent past. 2 troponins obtained today were both negative. Patient does have a low risk heart score. Patient is appropriate for discharge home at this time. On my repeat evaluation she remains chest pain-free. Return precautions discussed and understood. Instructed to follow-up with her primary care physician. Stable for discharge home. (PATRICIA SANTIAGO DO) Dragon Disclaimer Dragon Disclaimer This electronic medical record was generated, in whole or in part, using a voice recognition dictation system. (CARLA MARIA MD) Departure Departure: Impression: Primary Impression: Headache Additional Impression: Chest pain Disposition: 01 HOME/RESIDENCE PRIOR TO ADM Condition: STABLE Referrals: HEBER GRAJEDA MD (PCP) Patient Instructions: Chest Pain (Nonspecific) Justification of Admission: Justification of Admission: Justification of Admission Dx: N/A (CARLA MARIA MD) Justification of Admission Dx: N/A (PATRICIA SANTIAGO DO) Problem Qualifiers Primary Impression: Headache Headache type: unspecified Headache chronicity pattern: unspecified pattern Intractability: not intractable Qualified Codes: R51 - Headache Additional Impression: Chest pain Chest pain type: unspecified Qualified Codes: R07.9 - Chest pain, unspecified CARLA MARIA MD Apr 08, 2020 18:06 PATRICIA SANTIAGO DO Apr 08, 2020 18:56
[2020-04-08] MEDS ORDERED: IV NORMAL SALINE 1,000ML 1,000 ML IV ONE (18:15)
[2020-04-08 19:00] VITALS: BP 103/61
--- NOTE | 2020-04-10 07:04 | EKG ---
[address] [address] Test Date: 2020-04-08 Test Time: 15:37:36 Pat Name: MY DERAS Department: Room: Gender: F [employer] Operator: PJ : 1975 Requested By: CARLA MONTENEGRO Order Number: [id number] Reading MD: Measurements Intervals [place] Rate: 68 P: 54 MS: 148 QRS: 42 QRSD: 88 T: 52 QT: 370 QTc: 398 Interpretive Statements SINUS RHYTHM VENTRICULAR PREMATURE COMPLEX(ES) ATRIAL PREMATURE COMPLEX(ES) R-S TRANSITION ZONE IN V LEADS DISPLACED TO THE RIGHT INCOMPLETE RIGHT BUNDLE BRANCH BLOCK ABNORMAL ECG RI6.02 No previous ECG available for comparison
== END 2020-04-08 19:04 | disposition home or self-care (01) ==
LOC: ER 15:29
DX: R07.9 Chest pain, unspecified (principal); R51 Headache; G89.29 Other chronic pain; F10.20 Alcohol dependence, uncomplicated; F41.9 Anxiety disorder, unspecified; J44.9 Chronic obstructive pulmonary disease, unspecified; K21.9 Gastro-esophageal reflux disease without esophagitis; K58.9 Irritable bowel syndrome, unspecified; F17.210 Nicotine dependence, cigarettes, uncomplicated; Z87.442 Personal history of urinary calculi; Z90.49 Acquired absence of other specified parts of digestive tract; Z90.89 Acquired absence of other organs; Z90.710 Acquired absence of both cervix and uterus; Z90.722 Acquired absence of ovaries, bilateral; Z88.5 Allergy status to narcotic agent; Z88.2 Allergy status to sulfonamides; Z88.8 Allergy status to other drugs, medicaments and biological substances; Y90.9 Presence of alcohol in blood, level not specified
CPT/HCPCS: 36415; 71045; 80053; 83880; 84484; 85025; 93005; 96361; 96374; 99285; J2405; J7030

== ENCOUNTER 2020-04-25 07:10 | Emergency (ER) | payer OTHER ==
[~2020-04-25] VITALS: Ht 162.6 cm; Wt 48.6 kg
--- NOTE | 2020-04-25 07:37 | PHYS DOC ---
Past History Past Medical History: Alcoholism, Anxiety, COPD, GERD, IBS, Kidney Stones, Pancreatitis, Pneumonia Additional Past Medical Histor: adhd; endocarditis; right shoulder dislocations, H PYLORI Past Surgical History: Appendectomy, Cholecystectomy, Hysterectomy, Oophorectomy, Other Additional Past Surgical Histo: RIGHT SHOULDER X2 Smoking: Cigarettes, Greater than 1 pack/day Alcohol Use: Sober Drug Use: None General Adult EDM: Chief Complaint: SHOULDER INJURY HPI: HPI: Patient is a 44-year-old female who presented to ER for evaluation of right shoulder pain after she was lifting a bag of dog food about 1 hour ago. Patient felt like her shoulder popped out of the place because it stuck at 90 degree angle. Patient has history of recurrent right shoulder dislocation, previous surgery in her right shoulder in the past. Patient denies any weakness or numbness in her right finger. Patient said she can not rest her right shoulder down. Review of Systems: Review of Systems: Constitutional: Denies fever or chills Eyes: Denies change in visual acuity HENT: Denies nasal congestion or sore throat Respiratory: Denies cough or shortness of breath Cardiovascular: Denies chest pain or edema GI: Denies abdominal pain, nausea, vomiting, bloody stools or diarrhea : Denies dysuria Musculoskeletal: Positive for right shoulder pain. Integument: Denies rash Neurologic: Denies headache, focal weakness or sensory changes Endocrine: Denies polyuria or polydipsia Lymphatic: Denies swollen glands Psychiatric: Denies depression or anxiety Heart Score: Risk Factors: Risk Factors: DM, Current or recent (<one month) smoker, HTN, HLP, family history of CAD, obesity. Risk Scores: Score 0 - 3: 2.5% MACE over next 6 weeks - Discharge Home Score 4 - 6: 20.3% MACE over next 6 weeks - Admit for Clinical Observation Score 7 - 10: 72.7% MACE over next 6 weeks - Early Invasive Strategies Allergies: Allergies: Allergies Coded Allergies Type Severity Reaction Last Updated Verified codeine Allergy Intermediate 04/08/20 Yes Sulfa (Sulfonamide Antibiotics) Allergy Unknown 04/08/20 Yes amitriptyline Allergy Unknown 04/08/20 Yes meperidine Allergy Unknown 04/08/20 Yes Corticosteroids (Glucocorticoids) Adverse Reaction Intermediate 04/08/20 Yes Physical Exam: PE: Constitutional: Well developed, well nourished, no acute distress, non-toxic appearance. [] HENT: Normocephalic, atraumatic, bilateral external ears normal, oropharynx moist, no oral exudates, nose normal. [] Eyes: PERRLA, EOMI, conjunctiva normal, no discharge. [] Neck: Normal range of motion, no tenderness, supple, no stridor. [] Cardiovascular:Heart rate regular rhythm, no murmur [] Lungs & Thorax: Bilateral breath sounds clear to auscultation [] Abdomen: Bowel sounds normal, soft, no tenderness, no masses, no pulsatile m asses. [] Skin: Warm, dry, no erythema, no rash. [] Back: No tenderness, no CVA tenderness. [] Extremities: Patient held her right shoulder in abducted position. She will not allow us to exam her right shoulder. She said she cannot pull her right shoulder into her chest. There is no deformity noted. No swelling. Patient can move all fingers and wrist on right side. NO neurovascular deficit. Neurologic: Alert and oriented X 3, normal motor function, normal sensory function, no focal deficits noted. [] Psychologic: Affect normal, judgement normal, mood normal. [] Current Patient Data: Vital Signs: Current Medications Medications (Trade) Dose Ordered Sig/La Route PRN Reason Start Time Stop Time Status Last Admin Dose Admin Ondansetron HCl (Zofran) 4 mg 1X ONCE IVP 04/25/20 07:45 04/25/20 07:46 DC 04/25/20 07:48 Fentanyl Citrate (Fentanyl 2ml Vial) 50 mcg 1X ONCE IVP 04/25/20 07:45 04/25/20 07:46 DC 04/25/20 07:50 Fentanyl Citrate (Fentanyl 2ml Vial) 100 mcg STK-MED ONCE .ROUTE 04/25/20 07:46 04/25/20 07:46 DC Sodium Chloride 1,000 ml @ 1,000 mls/hr 1X ONCE IV 04/25/20 08:30 04/25/20 09:29 Ketamine HCl (Ketamine) 100 mg 1X ONCE IV 04/25/20 08:30 04/25/20 08:34 DC Ketamine HCl (Ketamine) 500 mg STK-MED ONCE .ROUTE 04/25/20 08:29 04/25/20 08:29 DC Midazolam HCl (Versed) 5 mg 1X ONCE IV 04/25/20 08:45 04/25/20 08:46 DC Midazolam HCl (Versed) 5 mg STK-MED ONCE .ROUTE 04/25/20 08:34 04/25/20 08:35 DC EKG: EKG: [] Radiology/Procedures: Radiology/Procedures: [][address] [address] IMAGING REPORT Signed PATIENT: MY DERAS ACCOUNT: [id number] : 1975 LOCATION: ER AGE: 44 SEX: F EXAM STATUS: PRE ER ORD. PHYSICIAN: KELLIE CONNELLY DO REASON: right shoulder injured - best images obtained PROCEDURE: SHOULDER 2+V RIGHT Examination: SHOULDER 2+V RIGHT History: right shoulder injured - best images obtained Comparison/Correlation: None Findings: 3 images of the right shoulder were obtained. Nonstandard positioning on images provided noted and this limits evaluation. Deformity of the proximal right humeral neck is suggested. Correlate with previous history of trauma. No acute fracture evident on images provided. No evidence of dislocation. Acromioclavicular joint is unremarkable. Impression: Limited exam.No acute process. Electronically signed by: Gus Tyler MD (04/25/2020 8:44 AM) [id number] DICTATED AND SIGNED BY: GUS TYLER MD DATE: 04/25/20 0844 CC: KELLIE CONNELLY DO; HEBER GRAJEDA MD ~ Course & Med Decision Making: Course & Med Decision Making Pertinent Labs and Imaging studies reviewed. (See chart for details) There is no evidence of dislocation but patient was acting like something is wrong with her right shoulder because she cannot rest it down. This physician decided to give medication to sedate her so we can exam her better. Patient asked what medication we are going to use, when told that we are using ketamine. She said why ketamine but not versed. Patient earlier did not include ketamine at the medication she was allergic to. She said whenever she got ketamine, she did not like it, " I WAS ACTING CRAZY". Patient requested versed. Patient was given 5 mg of versed. She was not sedated. She was awake and alert. This physician informed her that we are going to straight her right elbow out first. This physician slowly straighted her right elbow while talking with her and distracting her. Patient was observed actively adducting and abducting her right shoulder without any problem. This physician informed patient that her right shoulder was not dislocated. Patient became mad and said that because " you violently yanked on it and popped it in place". She can move her right shoulder now without any problem. Patient was informed that her right shoulder was not dislocated because she can actually move it without any problem. She was not happy with it. PATIENT DECLINED REPEAT XRAY OF HER RIGHT SHOULDER Draglo Disclaimer: Ana Disclaimer: This electronic medical record was generated, in whole or in part, using a voice recognition dictation system. Departure Departure: Impression: Primary Impression: Right shoulder pain Disposition: 01 HOME/RESIDENCE PRIOR TO ADM Condition: STABLE Referrals: HEBER GRAJEDA MD (PCP) PLEASE FOLLOW UP WITH YOUR DOCTOR ON TUESDAY Patient Instructions: Sedation, Moderate, Adult, Shoulder Pain KELLIE CONNELLY DO Apr 25, 2020 07:37
[2020-04-25] MEDS ORDERED: ONDANSETRON PF 4 MG/2 ML VIAL. IVP ONE (07:45)
[2020-04-25] MEDS ORDERED: KETAMINE HCL 500 MG/10 ML VIAL. ONE (08:29)
[2020-04-25] MEDS ORDERED: IV NORMAL SALINE 1,000ML 1,000 ML IV ONE (08:30)
[2020-04-25] MEDS ORDERED: KETAMINE HCL IN NACL, ISO-OSM 50 MG/5 ML SYRINGE IV ONE (08:30)
[2020-04-25] MEDS ORDERED: MIDAZOLAM HCL PF 5 MG/5 ML VIAL. ONE (08:34)
[2020-04-25] MEDS ORDERED: MIDAZOLAM HCL PF 5 MG/5 ML VIAL. IV ONE (08:45)
--- NOTE | 2020-04-25 08:47 | RAD ---
Examination: SHOULDER 2+V RIGHT History: right shoulder injured - best images obtained Comparison/Correlation: None Findings: 3 images of the right shoulder were obtained. Nonstandard positioning on images provided noted and this limits evaluation. Deformity of the proximal right humeral neck is suggested. Correlate with previous history of trauma. No acute fracture evident on images provided. No evidence of dislocation. Acromioclavicular joint is unremarkable. Impression: Limited exam.No acute process. Electronically signed by: Gus Roberson MD (04/25/2020 8:44 AM) [id number]
[2020-04-25 09:44] VITALS: BP 102/74
== END 2020-04-25 09:45 | disposition home or self-care (01) ==
LOC: ER 07:10
DX: M25.511 Pain in right shoulder (principal); F10.20 Alcohol dependence, uncomplicated; J44.9 Chronic obstructive pulmonary disease, unspecified; K21.9 Gastro-esophageal reflux disease without esophagitis; K58.9 Irritable bowel syndrome, unspecified; F17.210 Nicotine dependence, cigarettes, uncomplicated; Z87.442 Personal history of urinary calculi; Z88.5 Allergy status to narcotic agent; Z88.2 Allergy status to sulfonamides; Z88.8 Allergy status to other drugs, medicaments and biological substances; Y90.9 Presence of alcohol in blood, level not specified
CPT/HCPCS: 73030; 96361; 96374; 96375; 99285; J2250; J2405; J3010; J7030

== ENCOUNTER → 2020-05-14 | Outpatient (CLI) | payer OTHER ==
[2020-04-25 09:44] VITALS: BP 102/74
--- NOTE | 2020-05-14 10:05 | RAD ---
KNEE LEFT 3V 05/14/2020 12:00 AM INDICATION: Left knee pain COMPARISON: None available. TECHNIQUE: 3 views of left knee are provided. FINDINGS/ IMPRESSION: No significant knee joint effusion. There is no acute fracture or dislocation. Joint spaces are maintained. Bone mineralization is within normal limits. Regional soft tissues are within normal limits. There is no soft tissue gas or osseous erosion. No radiopaque foreign body. Electronically signed by: Helga Weir MD (05/14/2020 10:01 AM) [id number]
--- NOTE | 2020-05-14 11:44 | RAD ---
EXAMINATION: HIP RIGHT 2V WITH PELVIS CLINICAL HISTORY: Right hip pain TECHNIQUE: HIP RIGHT 2V WITH PELVIS Number of Images/Views: 3 COMPARISON: None FINDINGS: Joint spaces and alignment maintained in the right hip. Limited evaluation of the left hip unremarkable. Pubic symphysis and SI joints maintained. No acute fracture. Surgical clips projected anterior to the left SI joint. IMPRESSION: No acute osseous abnormality right hip. Electronically signed by: Tomer Villarreal DO (05/14/2020 11:41 AM) [id number]
== END ==
LOC: DXRAD 09:31
PROVIDERS: ATTEND Physician Assistant
DX: M25.562 Pain in left knee (principal); M25.551 Pain in right hip
CPT/HCPCS: 73502; 73562

== ENCOUNTER 2020-05-25 07:50 | Emergency (ER) | payer OTHER ==
[~2020-05-25] VITALS: Ht 162.6 cm; Wt 48.6 kg
[2020-05-25 07:50] VITALS: BP 103/65
== END 2020-05-25 08:20 | disposition left against medical advice (07) ==
LOC: ER 07:50
DX: M54.9 Dorsalgia, unspecified (principal); Z53.21 Procedure and treatment not carried out due to patient leaving prior to being seen by health care provider

== ENCOUNTER 2020-06-05 12:20 | Emergency (ER) | payer OTHER ==
[~2020-06-05] VITALS: Ht 162.6 cm; Wt 48.6 kg
[2020-06-05 12:33] VITALS: BP 126/76
--- NOTE | 2020-06-05 13:25 | PHYS DOC ---
Past History Past Medical History: Anxiety, COPD, Seizure, Other Additional Past Medical Histor: adhd; endocarditis; right shoulder dislocations, H PYLORI Past Surgical History: Cholecystectomy, Hysterectomy, Other Additional Past Surgical Histo: shoulder repair, hernia, abd surgery,tumor removal Smoking: Cigarettes, Greater than 1 pack/day Alcohol Use: None Drug Use: None Adult General Chief Complaint Chief Complaint: Dysphagia HPI HPI Patient is a 44yo female presenting for dysphagia. Has extensive history of dysphagia and recently had outpatient EGD performed at [facility] that was unremarkable in past 4 weeks. Reports trying to take AM medications and feels she has a pill stuck in the back of her throat. She is tolerating PO intake at this time, no fever Review of Systems Review of Systems Fourteen body systems of review of systems have been reviewed. See HPI for pertinent positives and negative responses, other walters all other systems are negative, non-pertinent or non-contributory Allergies Allergies Allergies Coded Allergies Type Severity Reaction Last Updated Verified codeine Allergy Intermediate 04/25/20 Yes Sulfa (Sulfonamide Antibiotics) Allergy Unknown 04/25/20 Yes amitriptyline Allergy Unknown 04/25/20 Yes meperidine Allergy Unknown 04/25/20 Yes Corticosteroids (Glucocorticoids) Adverse Reaction Intermediate 04/25/20 Yes Physical Exam Physical Exam Constitutional: Well developed, well nourished, no acute distress, non-toxic appearance. HENT: Normocephalic, atraumatic, bilateral external ears normal, oropharynx moist, no oral exudates, nose normal. Eyes: PERRLA, EOMI, conjunctiva normal, no discharge. Neck: Normal range of motion, no tenderness, supple, no stridor. Cardiovascular: Heart rate regular, sinus rhythm, no murmurs rubs or gallops Lungs & Thorax: Bilateral breath sounds clear to auscultation Abdomen: Bowel sounds normal, soft, no tenderness, no masses, no pulsatile masses. Nonsurgical abdomen, no peritoneal signs Skin: Warm, dry, no erythema, no rash. Back: No tenderness, no CVA tenderness. Extremities: No tenderness, no cyanosis, no clubbing, ROM intact, no edema. Neurologic: Alert and oriented X 3, grossly normal motor & sensory function, no focal deficits noted. Psychologic: Affect normal, judgement normal, mood normal. Current Patient Data Vital Signs Vital Signs Date Time Temp Pulse Resp B/P (MAP) Pulse Ox O2 Delivery O2 Flow Rate FiO2 11/12/20 12:33 97.8 60 16 126/76 (93) 96 Room Air EKG EKG [] Radiology/Procedures Radiology/Procedures [] Heart Score Risk Factors: Risk Factors: DM, Current or recent (<one month) smoker, HTN, HLP, family history of CAD, obesity. Risk Scores: Risk Factors: DM, Current or recent (<one month) smoker, HTN, HLP, family history of CAD, obesity. Course & Med Decision Making Course & Med Decision Making Glidoscope used at bedside and evaluated patient's posterior oropharynx , no observable pill in areas evaluated above vocal cords Airway patient, no resp distress, I do not have any concern for impending resp compromise I advised patient to follow-up in outpatient setting to discuss potential balloon of esophageal area if this is likely cause of patient's symptoms. She is safe for departure home at this time Dragon Disclaimer Dragon Disclaimer This electronic medical record was generated, in whole or in part, using a voice recognition dictation system. Departure Departure: Impression: Primary Impression: Dysphagia Disposition: 01 DC HOME SELF CARE/HOMELESS Condition: STABLE Referrals: HEBER GRAJEDA MD (PCP) Patient Instructions: Dysphagia Additional Instructions: As discussed prior to ER departure, please call your primary care physician to schedule outpatient follow-up in upcoming 7 days. Also recommend you call your GI physician immediately after departure to discuss ER visit for further Your evaluation was not suggestive of any emergent condition requiring medical intervention at this time. However, some problems make take more time to appear. Therefore, it is important for you to watch for any new symptoms or worsening of your current condition. Return to the Emergency Department if you experience worsening pain, persistent fevers greater than 100.4, recurrent vomiting, blood in vomit, blood in stool, dark tarry stool, chest pain, difficulty breathing, or any other concerning symptoms. DIAN TORO DO Jun 05, 2020 13:25
== END 2020-06-05 13:38 | disposition home or self-care (01) ==
LOC: ER 12:20
DX: R13.10 Dysphagia, unspecified (principal); F41.9 Anxiety disorder, unspecified; J44.9 Chronic obstructive pulmonary disease, unspecified; F17.210 Nicotine dependence, cigarettes, uncomplicated; Z90.710 Acquired absence of both cervix and uterus; Z90.49 Acquired absence of other specified parts of digestive tract; Z98.890 Other specified postprocedural states; Z88.5 Allergy status to narcotic agent; Z88.2 Allergy status to sulfonamides; Z88.8 Allergy status to other drugs, medicaments and biological substances
CPT/HCPCS: 99284

== ENCOUNTER 2020-06-22 09:41 | Emergency (ER) | payer OTHER ==
[~2020-06-22] VITALS: Ht 162.6 cm; Wt 48.6 kg
[2020-06-22 09:42] VITALS: BP 126/76
--- NOTE | 2020-06-22 10:00 | PHYS DOC ---
Past History Past Medical History: Anxiety, COPD, Seizure, Other Additional Past Medical Histor: adhd; endocarditis; right shoulder dislocations, H PYLORI Past Surgical History: Cholecystectomy, Hysterectomy, Other Additional Past Surgical Histo: shoulder repair, hernia, abd surgery,tumor removal Smoking: Cigarettes, Greater than 1 pack/day Alcohol Use: None Drug Use: None Adult General Chief Complaint Chief Complaint: SKIN RASH/ABSCESS HPI HPI Patient is a 44-year-old female well-known to our facility who presents for skin issue on scalp. She reports having an unknown appearing lesion on her scalp for quite a long time "but she has been scratching it more recently which has in turn causes mild bleeding and continued pruritus. She has not tried anything in attempt to alleviate itching. She has never had this evaluated by her primary care physician. She has no history of skin cancers or other concerning abnormalities. No fever Review of Systems Review of Systems Fourteen body systems of review of systems have been reviewed. See HPI for pertinent positives and negative responses, other walters all other systems are negative, non-pertinent or non-contributory Allergies Allergies Allergies Coded Allergies Type Severity Reaction Last Updated Verified codeine Allergy Intermediate 04/25/20 Yes Sulfa (Sulfonamide Antibiotics) Allergy Unknown 04/25/20 Yes amitriptyline Allergy Unknown 04/25/20 Yes meperidine Allergy Unknown 04/25/20 Yes Corticosteroids (Glucocorticoids) Adverse Reaction Intermediate 04/25/20 Yes Physical Exam Physical Exam Constitutional: Well developed, well nourished, no acute distress, non-toxic appearance. HENT: Normocephalic, atraumatic, bilateral external ears normal, oropharynx dry, no oral exudates, nose normal. Eyes: PERRLA, EOMI, conjunctiva normal, no discharge. Neck: Normal range of motion, no tenderness, supple, no stridor. Cardiovascular: Heart rate regular, sinus rhythm, no murmurs rubs or gallops Lungs & Thorax: Bilateral breath sounds clear to auscultation Abdomen: Bowel sounds normal, soft, no tenderness, no masses, no pulsatile masses. Nonsurgical abdomen, no peritoneal signs Skin: Warm, dry, no erythema, no rash. Inflamed nevus on superior portion of scalp with obvious self-induced excoriations noted, no abscess, no streaking, no other signs of infection or other concerning Derm pathology Back: No tenderness, no CVA tenderness. Extremities: No tenderness, no cyanosis, no clubbing, ROM intact, no edema. Neurologic: Alert and oriented X 3, grossly normal motor & sensory function, no focal deficits noted. Psychologic: Affect normal, judgement normal, anxious mood Current Patient Data Vital Signs Vital Signs Date Time Temp Pulse Resp B/P (MAP) Pulse Ox O2 Delivery O2 Flow Rate FiO2 06/22/20 09:42 98.3 84 16 126/76 (93) 98 Room Air EKG EKG [] Radiology/Procedures Radiology/Procedures [] Heart Score Risk Factors: Risk Factors: DM, Current or recent (<one month) smoker, HTN, HLP, family history of CAD, obesity. Risk Scores: Risk Factors: DM, Current or recent (<one month) smoker, HTN, HLP, family history of CAD, obesity. Course & Med Decision Making Course & Med Decision Making ABCs unremarkable, patient in no acute distress, well appearing and ambulatory Discussed most likely diagnosis of benign inflamed nevus of scalp. Advised supportive care, advised patient to stop scratching it, offered she put Vaseline on lesion to assist in healing I advised patient to follow-up with her primary care physician regarding this matter. Strict return precautions were discussed with good understanding by patient, all questions and concerns addressed prior to ER departure in stable condition Dragon Disclaimer Dragon Disclaimer This electronic medical record was generated, in whole or in part, using a voice recognition dictation system. Departure Departure: Impression: Primary Impression: Nevus of head Disposition: 01 DC HOME SELF CARE/HOMELESS Condition: STABLE Referrals: HEBER GRAJEDA MD (PCP) Additional Instructions: As discussed prior to ER departure, please call your primary care physician first thing Tuesday morning to schedule outpatient follow-up for upcoming 7 to 14 days after ER departure You are diagnosed with AN inflamed/irritated nevus on your head which appears benign looking in etiology. No indications for antibiotics or other ER work-up. You were advised to continue supportive care practices such as applying Vase line on to lesion and not itching it as this will worsen your symptoms If any concerning signs or symptoms present prior to outpatient follow-up please do not hesitate to come back for repeat examination It was pleasure to take care of you and I wish you the best going forward DIAN TORO DO Jun 22, 2020 10:00
== END 2020-06-22 10:24 | disposition home or self-care (01) ==
LOC: ER 09:41
DX: D22.4 Melanocytic nevi of scalp and neck (principal); L29.9 Pruritus, unspecified; F41.9 Anxiety disorder, unspecified; J44.9 Chronic obstructive pulmonary disease, unspecified; F17.210 Nicotine dependence, cigarettes, uncomplicated; Z90.49 Acquired absence of other specified parts of digestive tract; Z90.710 Acquired absence of both cervix and uterus; Z98.890 Other specified postprocedural states; Z88.2 Allergy status to sulfonamides; Z88.5 Allergy status to narcotic agent; Z88.8 Allergy status to other drugs, medicaments and biological substances
CPT/HCPCS: 99281

== ENCOUNTER 2020-07-05 15:07 | Emergency (ER) | payer OTHER ==
[~2020-07-05] VITALS: Ht 162.6 cm; Wt 48.6 kg
[2020-07-05 15:07] VITALS: BP 125/75
--- NOTE | 2020-07-05 15:21 | PHYS DOC ---
Past History Past Medical History: Anxiety, COPD, Seizure, Other Additional Past Medical Histor: adhd; endocarditis; right shoulder dislocations, H PYLORI Past Surgical History: Cholecystectomy, Hysterectomy, Other Additional Past Surgical Histo: shoulder repair, hernia, abd surgery,tumor removal Smoking: Cigarettes, Greater than 1 pack/day Alcohol Use: None Drug Use: None Adult General Chief Complaint Chief Complaint: HAND PROBLEM HPI HPI Patient is a 44-year-old female who presents emergency department today with r ight index finger pain. Patient states she was horse playing with her boyfriend when she poked him in the ribs with her pointed finger and he moved in such a way that jammed her knuckle. Patient states she has pain with movement of her right pointer finger. Patient states this happened at approximately 10 AM, patient states she took Tylenol or Motrin for pain which helps some, patient fears that she may have broken her finger and has come in for an x-ray today. Patient denies any other physical symptoms or physical illnesses. Patient denies COVID-19 symptoms and does not wish to be checked for the COVID-19 virus today. Review of Systems Review of Systems 14 body systems of review of systems have been reviewed. See HPI for pertinent positives and negative responses, otherwise all other systems are negative, nonpertinent or noncontributory. Allergies Allergies Allergies Coded Allergies Type Severity Reaction Last Updated Verified codeine Allergy Intermediate 04/25/20 Yes Sulfa (Sulfonamide Antibiotics) Allergy Unknown 04/25/20 Yes Physical Exam Physical Exam Constitutional: Well developed, well nourished, no acute distress, non-toxic appearance. [] HENT: Normocephalic, atraumatic, bilateral external ears normal, oropharynx moist, no oral exudates, nose normal. [] Eyes: PERRLA, EOMI, conjunctiva normal, no discharge. [] Neck: Normal range of motion, no tenderness, supple, no stridor. [] Cardiovascular:Heart rate regular rhythm, no murmur [] Lungs & Thorax: Bilateral breath sounds clear to auscultation [] Abdomen: Bowel sounds normal, soft, no tenderness, no masses, no pulsatile masses. [] Skin: Warm, dry, no erythema, no rash. [] Back: No tenderness, no CVA tenderness. [] Extremities: No tenderness, no cyanosis, no clubbing, ROM intact, no edema. Focused examination of right hand, full AROM/PROM of all digits, no deformities appreciated, no crepitus noted, distal cap refill of right index finger less th an 2 seconds, no swelling noted. Neurologic: Alert and oriented X 3, normal motor function, normal sensory function, no focal deficits noted. [] Psychologic: Affect normal, judgement normal, mood normal. [] EKG EKG [] Radiology/Procedures Radiology/Procedures STATUS: REG ER ORD. PHYSICIAN: RAIZA LOZANO APRN REASON: BLUNT TRAUMA #2 DIGIT MP JOINT PROCEDURE: HAND RIGHT 3V EXAMINATION: XR HAND_RIGHT 3 VIEWS CLINICAL HISTORY: Blunt trauma second MCP joint TECHNIQUE: XR HAND_RIGHT 3 VIEWS Number of Images/Views: 3 COMPARISON: 09/29/2018 FINDINGS: Mild degenerative changes first CMC joint. Joint spaces and alignment otherwise maintained. No acute fracture. Small corticated ossicle along the volar aspect of the third middle phalangeal base, similar to prior study and possibly related to remote trauma. No focal soft tissue swelling. IMPRESSION: No acute osseous abnormality right hand. Electronically signed by: Tomer Villarreal DO (07/05/2020 3:50 PM) [facility] DICTATED AND SIGNED BY: TOMER VILLARREAL DO DATE: 07/05/20 1546 CC: RAIZA LOZANO APRN; HEBER GRAJEDA MD ~MTH0 0 Heart Score Risk Factors: Risk Factors: DM, Current or recent (<one month) smoker, HTN, HLP, family history of CAD, obesity. Risk Scores: Risk Factors: DM, Current or recent (<one month) smoker, HTN, HLP, family history of CAD, obesity. Course & Med Decision Making Course & Med Decision Making Pertinent Labs and Imaging studies reviewed. (See chart for details) 44-year-old female presented to emergency department, vital signs reviewed, reports she was horse playing with boyfriend and jammed her right index finger, patient had right #2 digit MP joint pain without swelling or crepitus. X-ray was performed and read negative per house radiologist interpretation. Discussed findings with patient, discharge home instructions to include using [id number] Tylenol and/or Motrin for pain, no splinting required, ice and elevate over the next couple of days. Patient gave verbal understanding of discharge home instructions, return to ER precautions and concerns, patient had no further questions or concerns, patient discharged home without incident. Diagnosis contusion of right MP joint without acute fracture. Dragon Disclaimer Dragon Disclaimer This electronic medical record was generated, in whole or in part, using a voice recognition dictation system. Departure Departure: Impression: Primary Impression: Finger contusion Disposition: 01 DC HOME SELF CARE/HOMELESS Condition: GOOD Referrals: HEBER GRAJEDA MD (PCP) Patient Instructions: Contusion Additional Instructions: We have done an x-ray of your right hand, there is no fracture noted, continue to use [id number] Tylenol and/or Motrin for generalized pain, return to the emergency department for worsening symptoms or other concerns. Scripts Ibuprofen (IBUPROFEN) 200 Mg Tablet 600 MG PO QIDPRN PRN for PAIN, #15 TAB 0 Refills Prov: RAIZA LOZANO APRN 07/05/20 Problem Qualifiers Primary Impression: Finger contusion Encounter type: initial encounter Finger: index finger Damage to nail status: without damage Laterality: right Qualified Codes: S60.021A - Contusion of right index finger without damage to nail, initial encounter RAIZA LOZANO APRN Jul 05, 2020 15:21
--- NOTE | 2020-07-05 15:52 | RAD ---
EXAMINATION: XR HAND_RIGHT 3 VIEWS CLINICAL HISTORY: Blunt trauma second MCP joint TECHNIQUE: XR HAND_RIGHT 3 VIEWS Number of Images/Views: 3 COMPARISON: 09/29/2018 FINDINGS: Mild degenerative changes first CMC joint. Joint spaces and alignment otherwise maintained. No acute fracture. Small corticated ossicle along the volar aspect of the third middle phalangeal base, simila r to prior study and possibly related to remote trauma. No focal soft tissue swelling. IMPRESSION: No acute osseous abnormality right hand. Electronically signed by: Tomer Villarreal DO (07/05/2020 3:50 PM) [place]
[2020-07-05] MEDS ORDERED: IBUP-1673 PO (16:26)
== END 2020-07-05 16:25 | disposition home or self-care (01) ==
LOC: ER 15:07
DX: S60.021A Contusion of right index finger without damage to nail, initial encounter (principal); J44.9 Chronic obstructive pulmonary disease, unspecified; F17.210 Nicotine dependence, cigarettes, uncomplicated; Z88.5 Allergy status to narcotic agent; Z88.2 Allergy status to sulfonamides; W50.0XXA Accidental hit or strike by another person, initial encounter; Y93.83 Activity, rough housing and horseplay; Y92.89 Other specified places as the place of occurrence of the external cause; Y99.8 Other external cause status
CPT/HCPCS: 73130; 99283

== ENCOUNTER 2020-07-12 16:31 | Emergency (ER) | payer OTHER ==
[~2020-07-12] VITALS: Ht 162.6 cm; Wt 48.6 kg
[2020-07-12 16:31] VITALS: BP 105/77
[~2020-07-12 16:31] MED LIST changes: +IBUP-1673 PO
--- NOTE | 2020-07-12 17:17 | PHYS DOC ---
Past History Past Medical History: Anxiety, COPD, Seizure, Other Additional Past Medical Histor: adhd; endocarditis; right shoulder dislocations, H PYLORI Past Surgical History: Cholecystectomy, Hysterectomy, Other Additional Past Surgical Histo: shoulder repair, hernia, abd surgery,tumor removal Smoking: Cigarettes, Greater than 1 pack/day Alcohol Use: None Drug Use: None General Adult EDM: Chief Complaint: WRIST PAIN HPI: HPI: Patient is a 44-year-old female who presents with right wrist pain. Patient states that she slammed her fist down on the table, and now is unable to use her right hand. Patient has pain with extending and flexing her wrist. Review of Systems: Review of Systems: Constitutional: Denies fever or chills Eyes: Denies change in visual acuity HENT: Denies nasal congestion or sore throat Respiratory: Denies cough or shortness of breath Cardiovascular: Denies chest pain or edema GI: Denies abdominal pain, nausea, vomiting, bloody stools or diarrhea : Denies dysuria Musculoskeletal: Denies back pain or joint pain, right wrist pain with extension and flexion Integument: Denies rash Neurologic: Denies headache, focal weakness or sensory changes Endocrine: Denies polyuria or polydipsia Lymphatic: Denies swollen glands Psychiatric: Denies depression or anxiety Allergies: Allergies: Allergies Coded Allergies Type Severity Reaction Last Updated Verified codeine Allergy Intermediate 04/25/20 Yes Sulfa (Sulfonamide Antibiotics) Allergy Unknown 04/25/20 Yes Physical Exam: PE: Constitutional: Well developed, well nourished, no acute distress, non-toxic radha earance. [] HENT: Normocephalic, atraumatic, bilateral external ears normal, oropharynx moist, no oral exudates, nose normal. [] Eyes: PERRLA, EOMI, conjunctiva normal, no discharge. [] Neck: Normal range of motion, no tenderness, supple, no stridor. [] Cardiovascular:Heart rate regular rhythm, no murmur [] Lungs & Thorax: Bilateral breath sounds clear to auscultation [] Abdomen: Bowel sounds normal, soft, no tenderness, no masses, no pulsatile masses. [] Skin: Warm, dry, no erythema, no rash. [] Back: No tenderness, no CVA tenderness. [] Extremities: No tenderness, no cyanosis, no clubbing, ROM intact, no edema.Pain with wrist extension and flexion. No swelling noted. Radial pulse strong. Cap refill <2sec Neurologic: Alert and oriented X 3, normal motor function, normal sensory function, no focal deficits noted. [] Psychologic: Affect normal, judgement normal, mood normal. [] Radiology/Procedures: Radiology/Procedures: [] Heart Score: Risk Factors: Risk Factors: DM, Current or recent (<one month) smoker, HTN, HLP, family history of CAD, obesity. Risk Scores: Score 0 - 3: 2.5% MACE over next 6 weeks - Discharge Home Score 4 - 6: 20.3% MACE over next 6 weeks - Admit for Clinical Observation Score 7 - 10: 72.7% MACE over next 6 weeks - Early Invasive Strategies Course & Med Decision Making: Course & Med Decision Making Pertinent Labs and Imaging studies reviewed. (See chart for details) 44-year-old female presents with right wrist pain patient reports hitting her hand down on a table. Patient number stating she has pain with extension extending and flexing her wrist. Right wrist x-ray ordered to rule out fracture. No swelling noted, strong radial pulse, cap refill less than 2 seconds. [] Dragon Disclaimer: Dragon Disclaimer: This electronic medical record was generated, in whole or in part, using a voice recognition dictation system. Departure Departure: Impression: Primary Impression: Wrist pain Qualified Codes: M25.531 - Pain in right wrist Disposition: 01 DC HOME SELF CARE/HOMELESS Condition: GOOD Referrals: HEBER GRAJEDA MD (PCP) Patient Instructions: Wrist Pain, [id number] Additional Instructions: EMERGENCY DEPARTMENT GENERAL DISCHARGE INSTRUCTIONS Thank you for coming to [facility] (ED) today and trusting us with you care. We trust that you had a positivie experience in our Emergency Department. If you wish to speak to the department management, you may call the director at [phone]. YOUR FOLLOW UP INSTRUCTIONS ARE FOLLOWS: 1. Do you have a private Doctor? If you do not have a private doctor, please ask for a resource list of physicians or clinics that may be able to assist you with follow up care. 2. The Emergency Physician has interpreted your x-rays. The X-Ray specialist will also review them. If there is a change in the findings, you will be notified in 48 hours when at all possible. 3. A lab test or culture has been done, your results will be reviewed and you will be notified if you need a change in treatment. ADDITIONAL INSTRUCTIONS AND INFORMATION: 1. Your care today has been supervised by a physician who is specially trained in emergency care. Many problems require more than one evaluation for a complete diagnosis and treatment. We recommend that you schedule your follow up appointment as recommended to ensure complete treatment of you illness or injury. If you are unable to obtain follow up care and continue to have a problem, or if your condition worsens, we recommend that you return to the ED. 2. We are not able to safely determine your condition over the phone nor are we able to give sound medical advice over the phone. For these safety reasons, if you call for medical advice we will ask you to come to the ED for further evaluation. 3. If you have any questions regarding these discharge instructions please call the ED at [phone]. SAFETY INFORMATION: In the interest of safety, wellness, and injury prevention; we encourage you to wear your sealbelt, if you smoke; quite smoking, and we encourage family to use a protective helmet for bicycling and other sporting events that present an increased risk for head injury. IF YOUR SYMPTOMS WORSEN OR NEW SYMPTOMS DEVELOP, OR YOU HAVE CONCERNS ABOUT YOUR CONDITION; OR IF YOUR CONDITION WORSENS WHILE YOU ARE WAITING FOR YOUR FOLLOW UP APPOINTMENT; EITHER CONTACT YOUR PRIMARY CARE DOCTOR, THE PHYSICIAN WHOSE NAME AND NUMBER YOU WERE GIVEN, OR RETURN TO THE ED IMMEDIATELY. NAHED MTZ APRN Jul 12, 2020 17:17
--- NOTE | 2020-07-12 18:01 | RAD ---
Exam: Right wrist 3 views INDICATION: Right wrist injury TECHNIQUE: Frontal, lateral and oblique views of the right wrist Comparisons: None FINDINGS: Bone mineralization is normal. No acute or healed fractures. Soft tissues are unremarkable. Joint spa yudith are well-maintained. IMPRESSION: No acute osseous abnormality. Electronically signed by: Yamile Belcher MD (07/12/2020 5:59 PM) [facility]
[2020-07-12] MEDS ORDERED: ONDANSETRON ODT 4 MG TAB.RAPDIS PO ONE (19:00)
== END 2020-07-12 18:38 | disposition home or self-care (01) ==
LOC: ER 16:31
DX: M25.531 Pain in right wrist (principal); F41.9 Anxiety disorder, unspecified; J44.9 Chronic obstructive pulmonary disease, unspecified; F17.210 Nicotine dependence, cigarettes, uncomplicated; Z98.890 Other specified postprocedural states; Z90.89 Acquired absence of other organs; Z90.710 Acquired absence of both cervix and uterus; Z88.5 Allergy status to narcotic agent; Z88.2 Allergy status to sulfonamides
CPT/HCPCS: 73110; 99283; Q0162

== ENCOUNTER 2020-07-27 08:57 | Emergency (ER) | payer OTHER ==
[~2020-07-27] VITALS: Ht 162.6 cm; Wt 48.6 kg
[2020-07-27 09:05] VITALS: BP 106/57
--- NOTE | 2020-07-27 09:27 | PHYS DOC ---
Past History Past Medical History: Anxiety, COPD, Seizure, Other Additional Past Medical Histor: adhd; endocarditis; right shoulder dislocations, H PYLORI Past Surgical History: Cholecystectomy, Hysterectomy, Other Additional Past Surgical Histo: shoulder repair, hernia, abd surgery,tumor removal Smoking: Cigarettes, Greater than 1 pack/day Alcohol Use: None Drug Use: None General Adult HPI: HPI: 44-year-old female past medical history significant for anxiety and COPD with tobacco dependence, presents the ED with complaints spontaneous, sharp, nonradi ating, left hip and left distal, lateral thigh pain that started 3 days ago while walking around. Patient has a SWYF alert necklace and states she is a fall risk, but denies any trauma/falls, assault or left hip injury. Is not sure how she sustained a bruise on her left hip and distal thigh. No difficulities ambulating. 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 Reports her pmd won't refill her tizanidine and requests tramadol for pain. Took motrin prior to coming into ed. Later reports she can't take tylenol because of her liver - cannot specify why (denies hepatitis or alcoholic cirrhosis). Review of Systems: Review of Systems: Constitutional: Denies fever or chills Eyes: Denies change in visual acuity HENT: Denies nasal congestion or sore throat Respiratory: Denies cough or shortness of breath Cardiovascular: Denies chest pain or edema GI: Denies abdominal pain, nausea, vomiting, bloody stools or diarrhea : Denies dysuria or hematuria, denies any urinary or bowel retention or incontinence Musculoskeletal: Denies midline back pain or joint swelling/deformity, patient denies any saddle anesthesia or radiculopathy Integument: Denies rash or crepitus Neurologic: Denies headache, neck stiffness, focal weakness or sensory changes Endocrine: Denies polyuria or polydipsia Lymphatic: Denies swollen glands Psychiatric: Denies depression or anxiety Allergies: Allergies: Allergies Coded Allergies Type Severity Reaction Last Updated Verified codeine Allergy Intermediate 04/25/20 Yes Sulfa (Sulfonamide Antibiotics) Allergy Unknown 04/25/20 Yes Physical Exam: PE: Constitutional: no acute distress, non-toxic appearance, thin/unkept appearance, low bmi HENT: Normocephalic, atraumatic, Eyes: EOMI, conjunctiva normal, no discharge. Neck: Normal range of motion, supple, Cardiovascular: S1/2 present, regular rhythm Lungs & Thorax: Speaking in full sentences, bilateral equal chest rise, no tachypnea or increased work of breathing Abdomen: soft, no tenderness, Skin: Warm, dry, no erythema, no rash. [] Back: No tenderness, no CVA tenderness. [] Extremities: No tenderness, no cyanosis, no edema, no pain at both knees or proximal femurs/hips, pulls down pant leg and shows me location of her pain - proximal lateral thigh where she has a 3x8 cm purple ecchomotic bruise and distal lateral thigh with 0.5x2.5 cm purple ecchymotic bruise - no yellowing, no underlying bone pain, intact LLE DP/PT Neurologic: Alert and oriented X 3, normal motor function, normal sensory function, no focal deficits noted, normal gait Psychologic: Affect normal, judgement normal, mood normal. [] EKG: EKG: [] Radiology/Procedures: Radiology/Procedures: IMAGING REPORT Signed PATIENT: MY DERAS ACCOUNT: [id number] : 1975 LOCATION: ER AGE: 44 SEX: F EXAM STATUS: REG ER ORD. PHYSICIAN: BAY INIGUEZ DO REASON: let hip and left distal thigh pain PROCEDURE: HIP LEFT 2V WITH PELVIS XR BILATERAL HIP (WITH OR WITHOUT PELVIS) LEFT 2 VIEWS, XR FEMUR_LEFT 1 VIEW DATE: 07/27/2020 9:26 AM INDICATION: Reason: let hip and left distal thigh pain / Spl. Instructions: / History: COMPARISON: None. FINDINGS: Bones: There is no evidence of acute fracture or dislocation. Joints: The joint spaces are normal. Miscellaneous: None. IMPRESSION: No acute osseous abnormality. Electronically signed by: Kimberlyn Ng MD (07/27/2020 9:45 AM) [id number] DICTATED AND SIGNED BY: KIMBERLYN NG MD DATE: 07/27/20 0941 CC: HEBER GRAJEDA MD; BAY INIGUEZ DO ~MTH0 0 IMAGING REPORT Signed PATIENT: MY DERAS ACCOUNT: [id number] : 1975 LOCATION: ER AGE: 44 SEX: F EXAM STATUS: REG ER ORD. PHYSICIAN: BAY INIGUEZ DO REASON: let hip and left distal thigh pain PROCEDURE: LEFT FEMUR XRAY XR BILATERAL HIP (WITH OR WITHOUT PELVIS) LEFT 2 VIEWS, XR FEMUR_LEFT 1 VIEW DATE: 07/27/2020 9:26 AM INDICATION: Reason: let hip and left distal thigh pain / Spl. Instructions: / History: COMPARISON: None. FINDINGS: Bones: There is no evidence of acute fracture or dislocation. Joints: The joint spaces are normal. Miscellaneous: None. IMPRESSION: No acute osseous abnormality. Electronically signed by: Kimberlyn Ng MD (07/27/2020 9:45 AM) [id number] DICTATED AND SIGNED BY: KIMBERLYN NG MD DATE: 07/27/20 0941 CC: HEBER GRAJEDA MD; BAY INIGUEZ DO ~MTH0 0 Heart Score: Risk Factors: Risk Factors: DM, Current or recent (<one month) smoker, HTN, HLP, family history of CAD, obesity. Risk Scores: Score 0 - 3: 2.5% MACE over next 6 weeks - Discharge Home Score 4 - 6: 20.3% MACE over next 6 weeks - Admit for Clinical Observation Score 7 - 10: 72.7% MACE over next 6 weeks - Early Invasive Strategies Course & Med Decision Making: Course & Med Decision Making Pertinent Labs and Imaging studies reviewed. (See chart for details) Concern for localized, pt reports atraumatic, thigh pain with underlying ecchomysos/contusion. Xrays with no acute process. Pt with steady gait, left lower extremity neurovascularly intact with no severe pain out of proportion. Will discharge home with strict ED return precautions were given for severe pain, skin color changes, swelling, cyanosis, temperature changes or neurologic deficits. Encouraged urgent outpatient follow-up with PMD and Ortho specialist. Life-threatening processes were considered but are low suspicion at this time, given history, physical exam and ED workup. Pt was educated on all prescription medications and adverse effects. All patient's questions were answered and pt was stable at time of discharge. Life/limb-threatening differential includes but is not limited to, trauma (fracture, dislocation, laceration, compartment syndrome, tendon or ligament injury), neurovascular injury or deficit, infection (osteomyelitis, abscess, cellulitis, septic arthritis, necrotizing fasciitis), deep vein thrombosis, renal/cardiac/liver disease, medication adverse effect, lymphedema/anasarca, vascular insufficiency or malignancy, I spoken with the patient and her caregivers. I explained the patient's condition, diagnoses and treatment plan based on the information available to me at this time. I have answered the patient and her caregiver's questions and addressed any concerns. The patient and her caregivers have a good understanding of patient's diagnosis, condition and treatment plan as can be ex pected at this point. Vital signs have been stable. Patient's condition is stable and appropriate for discharge from the emergency department. Patient will pursue further outpatient evaluation with primary care physician or other designated or consulting physician as outlined in the discharge instructions. The patient and/or caregivers are agreeable to this plan of care and follow-up instructions have been explained in detail. The patient and/or caregivers have received these instructions in written form and have expressed an understanding of the discharge instructions. The patient and/or caregivers are aware that any significant change of condition or worsening of symptoms should prompt immediate return to this or the closest emergency department or call to [id number] Perez Disclaimer: Ana Disclaimer: This electronic medical record was generated, in whole or in part, using a voice recognition dictation system. Departure Departure: Impression: Primary Impression: Hip pain, left Additional Impression: Contusion of left hip Disposition: 01 DC HOME SELF CARE/HOMELESS Condition: STABLE Referrals: HEBER GRAJEDA MD (PCP) followup in 1 week Patient Instructions: Contusion, Hip Pain Additional Instructions: FOLLOW UP WITH ORTHOPEDICS: [facility] [address] [facility], [address] [address] EMERGENCY DEPARTMENT GENERAL DISCHARGE INSTRUCTIONS Thank you for coming to [facility] (ED) today and trusting us with you care. We trust that you had a positivie experience in our Emergency Department. If you wish to speak to the department management, you may call the director at [phone]. YOUR FOLLOW UP INSTRUCTIONS ARE FOLLOWS: 1. Do you have a private Doctor? If you do not have a private doctor, please ask for a resource list of physicians or clinics that may be able to assist you with follow up care. 2. The Emergency Physician has interpreted your x-rays. The X-Ray specialist will also review them. If there is a change in the findings, you will be notified in 48 hours when at all possible. 3. A lab test or culture has been done, your results will be reviewed and you w ill be notified if you need a change in treatment. ADDITIONAL INSTRUCTIONS AND INFORMATION: 1. Your care today has been supervised by a physician who is specially trained in emergency care. Many problems require more than one evaluation for a complete diagnosis and treatment. We recommend that you schedule your follow up appointment as recommended to ensure complete treatment of you illness or injury. If you are unable to obtain follow up care and continue to have a problem, or if your condition worsens, we recommend that you return to the ED. 2. We are not able to safely determine your condition over the phone nor are we able to give sound medical advice over the phone. For these safety reasons, if you call for medical advice we will ask you to come to the ED for further evaluation. 3. If you have any questions regarding these discharge instructions please call the ED at [phone]. SAFETY INFORMATION: In the interest of safety, wellness, and injury prevention; we encourage you to wear your sealbelt, if you smoke; quite smoking, and we encourage family to use a protective helmet for bicycling and other sporting events that present an increased risk for head injury. IF YOUR SYMPTOMS WORSEN OR NEW SYMPTOMS DEVELOP, OR YOU HAVE CONCERNS ABOUT YOUR CONDITION; OR IF YOUR CONDITION WORSENS WHILE YOU ARE WAITING FOR YOUR FOLLOW UP APPOINTMENT; EITHER CONTACT YOUR PRIMARY CARE DOCTOR, THE PHYSICIAN WHOSE NAME AND NUMBER YOU WERE GIVEN, OR RETURN TO THE ED IMMEDIATELY. BAY INIGUEZ DO Jul 27, 2020 09:27
--- NOTE | 2020-07-27 09:48 | RAD ---
XR BILATERAL HIP (WITH OR WITHOUT PELVIS) LEFT 2 VIEWS, XR FEMUR_LEFT 1 VIEW DATE: 07/27/2020 9:26 AM INDICATION: Reason: let hip and left distal thigh pain / Spl. Instructions: / History: COMPARISON: None. FINDINGS: Bones: There is no evidence of acute fracture or dislocation. Joints: The joint spaces are normal. Miscellaneous: None. IMPRESSION: No acute osseous abnormality. Electronically signed by: Servando Ng MD (07/27/2020 9:45 AM) [id number]
[2020-07-27] MEDS ORDERED: METOCLOPRAMIDE 10 MG TABLET PO ONE (10:15)
[2020-07-27] MEDS ORDERED: ACETAMINOPHEN 325 MG TABLET PO ONE (10:15)
[2020-07-27] MEDS ORDERED: METOCLOPRAMIDE 10 MG TABLET ONE (10:16)
[2020-07-27] MEDS ORDERED: CYCLOBENZAPRINE 10 MG TABLET. PO ONE (10:30)
== END 2020-07-27 10:38 | disposition home or self-care (01) ==
LOC: ER 08:57
DX: S70.02XA Contusion of left hip, initial encounter (principal); S70.12XA Contusion of left thigh, initial encounter; F41.9 Anxiety disorder, unspecified; J44.9 Chronic obstructive pulmonary disease, unspecified; F17.210 Nicotine dependence, cigarettes, uncomplicated; Z88.5 Allergy status to narcotic agent; Z88.2 Allergy status to sulfonamides; X50.9XXA Other and unspecified overexertion or strenuous movements or postures, initial encounter; Y93.89 Activity, other specified; Y92.89 Other specified places as the place of occurrence of the external cause; Y99.8 Other external cause status
CPT/HCPCS: 73502; 73552; 99284

== ENCOUNTER 2020-08-14 22:23 | Emergency (ER) | payer OTHER ==
[~2020-08-14] VITALS: Ht 162.6 cm; Wt 50.6 kg
[2020-08-14 22:25] VITALS: BP 105/62
--- NOTE | 2020-08-14 22:35 | PHYS DOC ---
Past History Past Medical History: Anxiety, COPD, Seizure, Other Additional Past Medical Histor: adhd; endocarditis; right shoulder dislocations, H PYLORI Past Surgical History: Cholecystectomy, Hysterectomy, Other Additional Past Surgical Histo: shoulder repair, hernia, abd surgery,tumor removal Smoking: Cigarettes, Greater than 1 pack/day Alcohol Use: None Drug Use: None Adult General Chief Complaint Chief Complaint: CHEST PAIN HPI HPI Patient is a 45-year-old female with past medical history significant for COPD w ho presents with 4 days of left-sided chest pain with radiation to her left shoulder, and mild wheezing in the evening when she lays down. States she has been using her COPD medications at home with little relief. Denies any recent illnesses, fevers, headache, abdominal pain, nausea, vomiting, dysuria, hematuria, diarrhea or blood in the stool. Denies any recent travel, known ill contacts, traumas or history of DVT/PE. States she is still a current smoker and does use 1 to 2 L of oxygen only at night when needed. Denies dyspnea on exertion, orthopnea, PND or edema. States she is making urine and stool normally for her with no blood in either. States she has been eating and drinking normally for her. Review of Systems Review of Systems Review of systems otherwise unremarkable except noted in HPI Allergies Allergies Allergies Coded Allergies Type Severity Reaction Last Updated Verified codeine Allergy Intermediate 04/25/20 Yes Sulfa (Sulfonamide Antibiotics) Allergy Unknown 04/25/20 Yes Physical Exam Physical Exam Constitutional: Well developed, well nourished, no acute distress, non-toxic appearance. [] HENT: Normocephalic, atraumatic, oropharynx moist, no oral exudates Eyes: conjunctiva normal, no discharge. [] Neck: Normal range of motion, no tenderness, supple, no stridor. [] Cardiovascular:Heart rate regular rhythm, no murmur [] Lungs & Thorax: Patient has mild global rhonchi with some end expiratory wheeze on the right Abdomen: soft, no tenderness, no masses, no pulsatile masses. [] Skin: Warm, dry, no erythema, no rash. [] Back: No tenderness Extremities: No tenderness, no cyanosis, ROM intact, no edema. [] Neurologic: Alert and oriented X 3, normal motor function, normal sensory function, no focal deficits noted. [] Psychologic: Affect normal, judgement normal, mood normal. [] Current Patient Data Lab Results Laboratory Tests Test 08/14/20 22:45 White Blood Count 12.0 x10^3/uL (4.0-11.0) Red Blood Count 4.36 x10^6/uL (3.50-5.40) Hemoglobin 13.8 g/dL (12.0-15.5) Hematocrit 40.1 % (36.0-47.0) Mean Corpuscular Volume 92 fL (79-100) Mean Corpuscular Hemoglobin 32 pg (25-35) Mean Corpuscular Hemoglobin Concent 34 g/dL (31-37) Red Cell Distribution Width 13.2 % (11.5-14.5) Platelet Count 186 x10^3/uL (140-400) Neutrophils (%) (Auto) 72 % (31-73) Lymphocytes (%) (Auto) 23 % (24-48) Monocytes (%) (Auto) 4 % (0-9) Eosinophils (%) (Auto) 1 % (0-3) Basophils (%) (Auto) 1 % (0-3) Neutrophils # (Auto) 8.6 x10^3uL (1.8-7.7) Lymphocytes # (Auto) 2.7 x10^3/uL (1.0-4.8) Monocytes # (Auto) 0.5 x10^3/uL (0.0-1.1) Eosinophils # (Auto) 0.1 x10^3/uL (0.0-0.7) Basophils # (Auto) 0.1 x10^3/uL (0.0-0.2) Sodium Level 142 mmol/L (136-145) Potassium Level 3.7 mmol/L (3.5-5.1) Chloride Level 106 mmol/L (98-107) Carbon Dioxide Level 28 mmol/L (21-32) Anion Gap 8 (6-14) Blood Urea Nitrogen 15 mg/dL (7-20) Creatinine 0.8 mg/dL (0.6-1.0) Estimated GFR (Cockcroft-Gault) 77.2 BUN/Creatinine Ratio 19 (6-20) Glucose Level 108 mg/dL (70-99) Calcium Level 9.1 mg/dL (8.5-10.1) Total Bilirubin 0.2 mg/dL (0.2-1.0) Aspartate Amino Transf (AST/SGOT) 12 U/L (15-37) Alanine Aminotransferase (ALT/SGPT) 20 U/L (14-59) Alkaline Phosphatase 56 U/L (46-116) Troponin I Quantitative < 0.017 ng/mL (0-0.055) Total Protein 6.6 g/dL (6.4-8.2) Albumin 3.5 g/dL (3.4-5.0) Albumin/Globulin Ratio 1.1 (1.0-1.7) EKG EKG EKG with a rate of 78, QRS of 86, QTc of 414, no STEMI [] Radiology/Procedures Radiology/Procedures [] IMPRESSION: 1. No acute pulmonary embolism 2. Mild paraseptal emphysema. 3. Unchanged approximately 3 cm subcapsular cystic lesion in the other scattered subcentimeter hypodensities in the liver. 4. Unchanged old T12 compression fracture. Electronically signed by: Yamini Malhotra MD (08/15/2020 12:29 AM) [id number] Heart Score HEART Score for Chest Pain: HEART Score for Chest Pain Response (Comments) Value History Slighlty/Non-Suspicious 0 ECG Normal 0 Age >45 - < 65 1 Risk Factors 1 or 2 Risk Factors 1 Troponin < Normal Limit 0 Total 2 Risk Factors: Risk Factors: DM, Current or recent (<one month) smoker, HTN, HLP, family history of CAD, obesity. Risk Scores: Risk Factors: DM, Current or recent (<one month) smoker, HTN, HLP, family history of CAD, obesity. Course & Med Decision Making Course & Med Decision Making Patient is a 45-year-old female who presents with chest pain for 3 to 4 days Vital signs not concerning. Physical exam noted above. EKG noted above and not concerning. Heart score of 2. Low risk Wells, PERC negative. Given breathing treatment, steroids and started on doxycycline for COPD exacerbation. Given Percocet, that patient states she is not allergic to. Covid swab pending. CT with no pulmonary embolism, pneumothorax, pleural effusion or pneumonia. Was suggestive of emphysema with some apical blebs. On reevaluation patient's vital signs were normal. Wheezing had resolved. Pain had improved with breathing treatment and Percocet. Discussed all findings with patient and recommended follow-up as soon as she can with her primary care physician to discuss her ED visit and need for further evaluation and treatment. Given Covid education and recommended quarantine at home until her test results. Advised to quit smoking cigarettes. Advised, to the ED with new or concerning symptoms. Patient grateful, verbalized understanding and agreed with plan of discharge. [] Dragon Disclaimer Dragon Disclaimer This electronic medical record was generated, in whole or in part, using a voice recognition dictation system. Departure Departure: Impression: Primary Impression: Chest pain Additional Impression: Wheezing Disposition: 01 DC HOME SELF CARE/HOMELESS Condition: IMPROVED Referrals: HEBER GRAJEDA MD (PCP) Patient Instructions: Chest Pain (Nonspecific), [id number] Additional Instructions: You have been tested for or diagnosed with COVID-19. It is an infection caused by a new type of coronavirus. COVID-19 will cause cold-like or mild flu symptoms in most. It can cause more severe symptoms like problems breathing in some. There is no treatment for COVID-19. The body will clear the infection over time. Self-care will help to ease discomfort. Steps to Take: Self-Care Rest as needed. Healthy habits may help you feel better. Steps include: Choose healthy foods including fruits and vegetables. Drink water throughout the day. Get plenty of sleep each night. If you smoke, try to quit. It may ease breathing. Avoid alcohol. Keep Others Healthy The virus can spread to others. Droplets are released every time you sneeze or cough. The droplets can get into the mouth, nose, or eyes of people near you and lead to infection. To lower the chances of spreading COVID-19 to others: Stay at home until your doctor has said it is safe to leave. If you tested positive this will mean staying isolated until both of the following are true: At least 7 days have passed since the start of illness. You are free of fever for at least 72 hours without the use of medicine. During this time: - Avoid public areas, events, or transportation. Do not return to work or school until your doctor has said it is safe to do so. - Call ahead if you need to go to a medical center. Let them know you may have COVID-19. It will help them guide you where to go. They may also ask you to wear a facemask when you come to the office. - If you call for emergency medical services, let them know you may have COVID- 19. While at home: - Try to avoid close contact with others. Stay about 6 feet away. - If possible, spend most of your time in a separate room from others. - Use a face mask if you will be in close contact with others such as sharing a room or vehicle. - Have someone wipe down common surfaces in the home. Use household carrier blower every day on areas like doorknobs, counters, or sinks. - Cough or sneeze into a tissue. Throw the tissue away right after use. If a tissue is not available, cough or sneeze into your elbow. - Wash your hands often. Wash them after sneezing or coughing. Use soap and water and wash for at least 20 seconds. Alcohol based hand wafer cleaner can be used if soap and water is not available. - Do not prepare food for others. Avoid sharing personal items like forks, spoons, or toothbrushes. - Avoid close contact with pets while you are sick. There is no evidence of the virus passing to pets. This is a safety step until more is known about this virus. Isolation can be frustrating. Social interaction can help. Keep in touch with friends and family through phone and tech options. You can still interact with others in your home, just keep a safe distance of about 6 feet. Follow-up: Your doctors office will check in with you to see if there are any changes in your health. You may be asked to keep track of symptoms to share with them. They will also let you know when you are clear to be in public again. Problems to Look Out For: Contact your doctor if your recovery is not going as you expect. Get emergency care if you have problems such as: - Trouble breathing - Nonstop chest pain or pressure - Changes in awareness, confusion, or problems waking - Lips or face have bluish color - Worsening of symptoms If you think you have an emergency, call for emergency medical services right away. As taken from [facility] Oxycodone HCl/Acetaminophen (Percocet 5-325 mg Tablet) 1 Each Tablet 1 TAB PO PRN BID PRN for PAIN MDD 2 Tablet(s) for 3 Days, #6 TAB 0 Refills Prov: DACIA LOUIS MD 08/15/20 Doxycycline Hyclate (DOXYCYCLINE HYCLATE) 50 Mg Capsule 1 CAP PO BID for copd for 7 Days, #14 CAP Prov: DACIA LOUIS MD 08/15/20 Problem Qualifiers DACIA LOUIS MD Aug 14, 2020 22:35
[2020-08-14] MEDS ORDERED: IPRATRPIUM/ALBUTEROL 0.5/2.5MG 3 ML NEBU. NEB ONE (23:00)
[2020-08-14] MEDS ORDERED: DEXAMETHASONE 4 MG TABLET PO ONE (23:00)
[2020-08-14] MEDS ORDERED: oxyCODONE/APAP 5/325 1 TAB TABLET PO ONE (23:00)
[2020-08-14] MEDS ORDERED: DOXYCYCLINE HYCLATE 100 MG TABLET PO ONE (23:00)
[2020-08-14 23:02] LABS: BASO # 0.1 x10^3/uL (0.0-0.2); BASO % 1 % (0-3); EOS # 0.1 x10^3/uL (0.0-0.7); EOS % 1 % (0-3); HEMATOCRIT 40.1 % (36.0-47.0); HEMOGLOBIN 13.8 g/dL (12.0-15.5); LYMPH # 2.7 x10^3/uL (1.0-4.8); LYMPH % 23 % (24-48); MEAN CORPUSCULAR HEMOGLOBIN 32 pg (25-35); MEAN CORPUSCULAR HGB CONC 34 g/dL (31-37); MEAN CORPUSCULAR VOLUME 92 fL (79-100); MONO # 0.5 x10^3/uL (0.0-1.1); MONO % 4 % (0-9); NEUT # 8.6 x10^3uL (1.8-7.7); NEUT % 72 % (31-73); PLATELET COUNT 186 x10^3/uL (140-400); RED BLOOD COUNT 4.36 x10^6/uL (3.50-5.40); RED CELL DISTRIBUTION WIDTH 13.2 % (11.5-14.5)
--- NOTE | 2020-08-14 23:06 | RAD ---
Exam: Chest one view INDICATION: Chest pain TECHNIQUE: Frontal view of the chest Comparisons: 04/08/2020 FINDINGS: The cardiomediastinal silhouette and pulmonary vessels are within normal limits. The lung and pleural spaces are clear. IMPRESSION: No acute cardiopulmonary process. Electronically signed by: Yamile Belcher MD (08/14/2020 11:03 PM) ALEENA
[2020-08-14] MEDS ORDERED: OMEG1CAP50 PO (23:08)
[2020-08-14] MEDS ORDERED: PANT40TA3 PO (23:08)
[2020-08-14] MEDS ORDERED: SUCR1TAB35 PO (23:08)
[2020-08-14] MEDS ORDERED: MULTIVITAMIN GUMMIE (23:08)
[2020-08-14 23:09] LABS: CALCIUM 9.1 mg/dL (8.5-10.1); CREATININE 0.8 mg/dL (0.6-1.0); GFR 77.2; POTASSIUM 3.7 mmol/L (3.5-5.1)
[2020-08-14 23:14] LABS: ALBUMIN 3.5 g/dL (3.4-5.0); ALBUMIN/GLOBULIN RATIO 1.1 (1.0-1.7); TOTAL BILIRUBIN 0.2 mg/dL (0.2-1.0); TOTAL PROTEIN 6.6 g/dL (6.4-8.2)
[2020-08-14] MEDS ORDERED: ONDANSETRON ODT 4 MG TAB.RAPDIS PO ONE (23:30)
[2020-08-14] MEDS ORDERED: IOHEXOL 300 MG/ML 75 ML VIAL. IV ONE (23:30)
[2020-08-14] MEDS ORDERED: CONTRAST GIVEN. MC PRN (23:30)
[2020-08-14] MEDS ORDERED: IOHEXOL 350 MG/ML 100 ML VIAL. IV ONE (23:45)
--- NOTE | 2020-08-15 00:32 | RAD ---
Study: CT CHEST WITH CONTRAST - PULMONARY ANGIOGRAM History: Chest pain Comparison: CT abdomen pelvis 10/21/2018 and 03/04/2020 Technique: Helical CT of the chest performed after the administration of 100 mL Omnipaque 350 intrav enous contrast and timed for angiographic evaluation of the pulmonary arteries per PE protocol. Coron al and sagittal 3D MIP reformations were obtained. One or more of the following individualized dose reduction techniques were utilized for this examinat ion: 1. Automated exposure control 2. Adjustment of the mA and/or kV according to patient size 3. Use of iterative reconstruction technique. Findings: Pulmonary Arteries: Contrast bolus is adequate. Mild motion artifact. No acute pulmonary embolism. Heart/Systemic Vasculature: The heart is normal in size. No pericardial effusion. Thoracic aorta is n ormal in caliber. Mediastinum: No lymphadenopathy. Lungs: Mild paraseptal emphysema in the lung apices. Lungs are otherwise clear. No pleural effusion. Neck/Axilla/Body Wall: Breast tissue symmetric. No axillary lymphadenopathy. Thyroid gland is normal. Upper Abdomen: Unchanged 2.9 cm subcapsular cystic lesion in the posterior right hepatic lobe with so me peripheral hyperdensity. A few other scattered subcentimeter hypodensities are seen in the liver, also unchanged. Bones: Unchanged old T12 compression fracture of mild height loss and no retropulsion of cortex. IMPRESSION: 1. No acute pulmonary embolism 2. Mild paraseptal emphysema. 3. Unchanged approximately 3 cm subcapsular cystic lesion in the other scattered subcentimeter hypod ensities in the liver. 4. Unchanged old T12 compression fracture. Electronically signed by: Yamini Malhotra MD (08/15/2020 12:29 AM) [id number]
[2020-08-15] MEDS ORDERED: OXYC-325 PO (00:42)
[2020-08-15] MEDS ORDERED: DOXY50CA PO (00:42)
--- NOTE | 2020-08-15 03:10 | EKG ---
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
--- NOTE | 2020-08-18 09:21 | NUR ---
IP: patient notified of COVID result.
== END 2020-08-15 01:35 | disposition home or self-care (01) ==
LOC: ER 22:23
DX: R07.89 Other chest pain (principal); R06.2 Wheezing; F41.9 Anxiety disorder, unspecified; J44.9 Chronic obstructive pulmonary disease, unspecified; F17.210 Nicotine dependence, cigarettes, uncomplicated; Z20.822 Contact with and (suspected) exposure to COVID-19; Z88.5 Allergy status to narcotic agent; Z88.2 Allergy status to sulfonamides
CPT/HCPCS: 36415; 71045; 71275; 80053; 84484; 85025; 93005; 94640; 99285; C9803; J8540; Q0162; Q9967; U0003

== ENCOUNTER 2020-09-25 08:04 | Emergency (ER) | payer OTHER ==
[~2020-09-25] VITALS: Ht 162.6 cm; Wt 50.6 kg
[~2020-09-25 08:04] MED LIST changes: +DOXY50CA PO; +MULTIVITAMIN GUMMIE; +OMEG1CAP50 PO; +OXYC-325 PO; +PANT40TA3 PO; +SUCR1TAB35 PO
[2020-09-25 08:10] VITALS: BP 102/69
--- NOTE | 2020-09-25 08:59 | PHYS DOC ---
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 She states the chest pain is related to coughing. She is not bringing anything up. She saw her primary care doctor for the last week who put her on steroids. She states the steroids did not help. She finished the steroids a few days ago. S he continues to have shortness of breath. She has been using her rescue inhaler at home without relief. She denies any nausea, vomiting, diarrhea, constipation, fever, chills, sweats Review of Systems Review of Systems Complete ROS is negative unless otherwise documented in HPI Allergies Allergies Allergies Coded Allergies Type Severity Reaction Last Updated Verified codeine Allergy Intermediate 04/25/20 Yes Sulfa (Sulfonamide Antibiotics) Allergy Unknown 04/25/20 Yes Physical Exam Physical Exam General: Awake, alert, NAD. Well Nourished, well hydrated. Cooperative HEENT: Atraumatic, EOMI, PERRL, airway patent, moist oral mucosa Neck: Supple, trachea midline Respiratory: CTA bilaterally, normal effort, no wheezing/crackles CV: RRR, no murmur, cap refill <2 GI: Soft, nondistended, nontender, no masses MSK: No obvious deformities Skin: Warm, dry, intact Neuro: A&O x3, speech NL, sensory and motor grossly intact, no focal deficits Psych: Normal affect, normal mood, not suicidal or homicidal Current Patient Data Vital Signs Vital Signs Date Time Temp Pulse Resp B/P (MAP) Pulse Ox O2 Delivery O2 Flow Rate FiO2 09/25/20 08:10 96.9 75 16 102/69 (80) 96 Room Air EKG EKG [] Radiology/Procedures Radiology/Procedures [] Heart Score Risk Factors: Risk Factors: DM, Current or recent (<one month) smoker, HTN, HLP, family history of CAD, obesity. Risk Scores: Risk Factors: DM, Current or recent (<one month) smoker, HTN, HLP, family history of CAD, obesity. Course & Med Decision Making Course & Med Decision Making Pertinent Labs and Imaging studies reviewed. (See chart for details) Patient is a 45-year-old well-appearing female with past medical history of emphysema who presents to the emergency room complaining of shortness of breath that is been ongoing for the last week. Patient has been seen by her primary care doctor for the same and just finished a round of steroids. Chest pain is only with coughing and is not suggestive of cardiac chest pain. Patient is well-known to this emergency room. She is concerned with possible pneumonia. Chest x-ray is normal. Patient was given a DuoNeb with improvement. Patient would like to go home. She is requesting something for anxiety that she develop ed after her breathing treatment. Patient's test results and vitals while in the ED were fully reviewed and discussed with the patient. Patient is stable and at this time does not need admission to the hospital. We have discussed strict return precautions and the importance of following up with their Primary Care Physician. Patient stated understanding and was given an opportunity to ask any questions. Patient is in agreement with plan. Dragon Disclaimer Dragon Disclaimer This electronic medical record was generated, in whole or in part, using a voice recognition dictation system. Departure Departure: Impression: Primary Impression: COPD (chronic obstructive pulmonary disease) Disposition: 01 DC HOME SELF CARE/HOMELESS Condition: STABLE Referrals: HEBER GRAJEDA MD (PCP) Patient Instructions: Chronic Obstructive Pulmonary Disease CARLA MONTENEGRO MD Sep 25, 2020 08:59
[2020-09-25] MEDS ORDERED: IPRATRPIUM/ALBUTEROL 0.5/2.5MG 3 ML NEBU. NEB ONE (09:00)
[2020-09-25] MEDS ORDERED: ONDANSETRON ODT 4 MG TAB.RAPDIS PO ONE (09:15)
--- NOTE | 2020-09-25 09:32 | RAD ---
AP chest. HISTORY: Short of breath AP view was taken of the chest. There is mild elevation the right diaphragm which is chronic. There i s mild right pleural thickening unchanged from old studies. There is mild blunting of the left costop hrenic angle similar to the old exam as well. There are no confluent infiltrates. Heart is normal in size. IMPRESSION: 1. Chronic changes at the diaphragms similar to old studies. 2. No new infiltrates. Electronically signed by: Nikolay Martinez MD (09/25/2020 9:30 AM) [id number]
[2020-09-25] MEDS ORDERED: ALPRAZolam 0.25 MG TABLET PO ONE (09:45)
== END 2020-09-25 09:40 | disposition home or self-care (01) ==
LOC: ER 08:04
DX: J44.9 Chronic obstructive pulmonary disease, unspecified (principal); G43.909 Migraine, unspecified, not intractable, without status migrainosus; K21.9 Gastro-esophageal reflux disease without esophagitis; F17.210 Nicotine dependence, cigarettes, uncomplicated; Z88.2 Allergy status to sulfonamides; Z88.5 Allergy status to narcotic agent
CPT/HCPCS: 71045; 94640; 99283; Q0162

== ENCOUNTER 2020-10-05 08:08 | Emergency (ER) | payer OTHER ==
[~2020-10-05] VITALS: Ht 162.6 cm; Wt 50.6 kg
[2020-10-05 08:08] VITALS: BP 108/75
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
[2020-10-05] MEDS ORDERED: traMADol 50 MG TABLET ONE (08:43)
[2020-10-05] MEDS ORDERED: traMADol 50 MG TABLET PO ONE (08:45)
== END 2020-10-05 08:50 | disposition home or self-care (01) ==
LOC: ER 08:08
DX: S09.90XA Unspecified injury of head, initial encounter (principal); Z76.5 Malingerer [conscious simulation]; J44.9 Chronic obstructive pulmonary disease, unspecified; K21.9 Gastro-esophageal reflux disease without esophagitis; G43.909 Migraine, unspecified, not intractable, without status migrainosus; F17.210 Nicotine dependence, cigarettes, uncomplicated; Z88.2 Allergy status to sulfonamides; Z88.5 Allergy status to narcotic agent; Y04.2XXA Assault by strike against or bumped into by another person, initial encounter; Y93.89 Activity, other specified; Y92.098 Other place in other non-institutional residence as the place of occurrence of the external cause; Y99.8 Other external cause status
CPT/HCPCS: 99283

== ENCOUNTER 2020-10-20 11:08 | Emergency (ER) | payer OTHER ==
[~2020-10-20] VITALS: Ht 162.6 cm; Wt 50.6 kg
--- NOTE | 2020-10-20 11:19 | EKG ---
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
--- NOTE | 2020-10-20 12:10 | RAD ---
Chest, PA and Lateral: Technique: PA and lateral views of the chest were obtained. History: Palpitations, chest pain. Comparison: 09/25/2020. Findings: The cardiomediastinal silhouette grossly appears unremarkable. Mild elevation diaphragm with blunting of the costophrenic angle probably scarring changes/chronic changes similar to prior exam.. Mild deg enerative changes thoracic spine. IMPRESSION: Unchanged exam. Electronically signed by: Willi Mast MD (10/20/2020 12:07 PM) [id number]
[2020-10-20 12:19] LABS: BASO % 0 % (0-3); EOS # 0.1 x10^3/uL (0.0-0.7); EOS % 1 % (0-3); HEMATOCRIT 43.4 % (36.0-47.0); HEMOGLOBIN 14.9 g/dL (12.0-15.5); LYMPH # 2.1 x10^3/uL (1.0-4.8); LYMPH % 30 % (24-48); MEAN CORPUSCULAR HEMOGLOBIN 32 pg (25-35); MEAN CORPUSCULAR HGB CONC 34 g/dL (31-37); MEAN CORPUSCULAR VOLUME 93 fL (79-100); MONO # 0.4 x10^3/uL (0.0-1.1); MONO % 6 % (0-9); NEUT # 4.4 x10^3uL (1.8-7.7); NEUT % 63 % (31-73); PLATELET COUNT 155 x10^3/uL (140-400); RED BLOOD COUNT 4.67 x10^6/uL (3.50-5.40); RED CELL DISTRIBUTION WIDTH 13.9 % (11.5-14.5); WHITE BLOOD COUNT 6.9 x10^3/uL (4.0-11.0)
[2020-10-20 12:26] LABS: CALCIUM 9.5 mg/dL (8.5-10.1); CREATININE 0.6 mg/dL (0.6-1.0)
[2020-10-20 12:27] LABS: GFR 107.6; POTASSIUM 3.6 mmol/L (3.5-5.1)
[2020-10-20 12:32] LABS: ALBUMIN 3.7 g/dL (3.4-5.0); ALBUMIN/GLOBULIN RATIO 1.1 (1.0-1.7); MAGNESIUM 2.1 mg/dL (1.8-2.4); TOTAL BILIRUBIN 0.2 mg/dL (0.2-1.0)
[2020-10-20 13:32] VITALS: BP 116/74
--- NOTE | 2020-10-20 13:40 | PHYS DOC ---
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; peritonitis s/p hyst Past Surgical History: Appendectomy, Cholecystectomy, Hysterectomy, Other Additional Past Surgical Histo: tumor removed from rt humerus; rt rotator cuff x2;endocarditis;enl bile cheo Smoking: Cigarettes, Greater than 1 pack/day Alcohol Use: None Drug Use: None General Adult EDM: Chief Complaint: ALLERGIC REACTION HPI: HPI: Patient is a [age] year old [sex] who presents with [] Review of Systems: Review of Systems: Constitutional: Denies fever or chills Eyes: Denies change in visual acuity HENT: Denies nasal congestion or sore throat Respiratory: Denies cough or shortness of breath Cardiovascular: Denies chest pain or edema GI: Denies abdominal pain, nausea, vomiting, bloody stools or diarrhea : Denies dysuria Musculoskeletal: Denies back pain or joint pain Integument: Denies rash Neurologic: Denies headache, focal weakness or sensory changes Endocrine: Denies polyuria or polydipsia Lymphatic: Denies swollen glands Psychiatric: Denies depression or anxiety Allergies: Allergies: Allergies Coded Allergies Type Severity Reaction Last Updated Verified codeine Allergy Intermediate 04/25/20 Yes Sulfa (Sulfonamide Antibiotics) Allergy Unknown 04/25/20 Yes Physical Exam: PE: Constitutional: Well developed, well nourished, no acute distress, non-toxic appearance. HENT: Normocephalic, atraumatic, Eyes: EOMI, conjunctiva normal, no discharge. Neck: Normal range of motion, supple, Cardiovascular: S1/2 present, regular rhythm Lungs & Thorax: Speaking in full sentences, bilateral equal chest rise, no tachypnea or increased work of breathing Abdomen: soft, no tenderness, Skin: Warm, dry, no erythema, no rash. [] Back: No tenderness, no CVA tenderness. [] Extremities: No tenderness, no cyanosis, no lower extremity edema Neurologic: Alert and oriented X 3, normal motor function, normal sensory function, no focal deficits noted. [] Psychologic: Affect normal, judgement normal, mood normal. [] Current Patient Data: Labs: Laboratory Tests Test 10/20/20 12:04 White Blood Count 6.9 x10^3/uL (4.0-11.0) Red Blood Count 4.67 x10^6/uL (3.50-5.40) Hemoglobin 14.9 g/dL (12.0-15.5) Hematocrit 43.4 % (36.0-47.0) Mean Corpuscular Volume 93 fL (79-100) Mean Corpuscular Hemoglobin 32 pg (25-35) Mean Corpuscular Hemoglobin Concent 34 g/dL (31-37) Red Cell Distribution Width 13.9 % (11.5-14.5) Platelet Count 155 x10^3/uL (140-400) Neutrophils (%) (Auto) 63 % (31-73) Lymphocytes (%) (Auto) 30 % (24-48) Monocytes (%) (Auto) 6 % (0-9) Eosinophils (%) (Auto) 1 % (0-3) Basophils (%) (Auto) 0 % (0-3) Neutrophils # (Auto) 4.4 x10^3uL (1.8-7.7) Lymphocytes # (Auto) 2.1 x10^3/uL (1.0-4.8) Monocytes # (Auto) 0.4 x10^3/uL (0.0-1.1) Eosinophils # (Auto) 0.1 x10^3/uL (0.0-0.7) Basophils # (Auto) 0.0 x10^3/uL (0.0-0.2) Sodium Level 144 mmol/L (136-145) Potassium Level 3.6 mmol/L (3.5-5.1) Chloride Level 107 mmol/L (98-107) Carbon Dioxide Level 28 mmol/L (21-32) Anion Gap 9 (6-14) Blood Urea Nitrogen 8 mg/dL (7-20) Creatinine 0.6 mg/dL (0.6-1.0) Estimated GFR (Cockcroft-Gault) 107.6 BUN/Creatinine Ratio 13 (6-20) Glucose Level 90 mg/dL (70-99) Calcium Level 9.5 mg/dL (8.5-10.1) Magnesium Level 2.1 mg/dL (1.8-2.4) Total Bilirubin 0.2 mg/dL (0.2-1.0) Aspartate Amino Transferase (AST) 12 U/L (15-37) L Alanine Aminotransferase (ALT) 21 U/L (14-59) Alkaline Phosphatase 66 U/L (46-116) Troponin I Quantitative < 0.017 ng/mL (0-0.055) Total Protein 7.0 g/dL (6.4-8.2) Albumin 3.7 g/dL (3.4-5.0) Albumin/Globulin Ratio 1.1 (1.0-1.7) Vital Signs: Vital Signs Date Time Temp Pulse Resp B/P (MAP) Pulse Ox O2 Delivery O2 Flow Rate FiO2 10/20/20 13:32 66 16 116/74 (88) 95 Room Air 10/20/20 11:15 98.3 EKG: EKG: [] Radiology/Procedures: Radiology/Procedures: [] Heart Score: Risk Factors: Risk Factors: DM, Current or recent (<one month) smoker, HTN, HLP, family history of CAD, obesity. Risk Scores: Score 0 - 3: 2.5% MACE over next 6 weeks - Discharge Home Score 4 - 6: 20.3% MACE over next 6 weeks - Admit for Clinical Observation Score 7 - 10: 72.7% MACE over next 6 weeks - Early Invasive Strategies Course & Med Decision Making: Course & Med Decision Making Pertinent Labs and Imaging studies reviewed. (See chart for details) Will discharge home with strict ED return precautions were given for []. Encouraged urgent outpatient follow-up with PMD and cardiology. Life- threatening processes were considered but are low suspicion at this time, given history, physical exam and ED workup. Pt was educated on all prescription medications and adverse effects. All patient's questions were answered and pt was stable at time of discharge. Life/limb-threatening differential includes but is not limited to, acute myocardial infarction, aortic dissection, congestive heart failure, esophageal injury including rupture, surgical abdomen, arrhythmia, cardiomyopathy, myocarditis, pericarditis, peptic ulcer disease, pneumomediastinum, pneumonia, pneumothorax, pulmonary embolus, unstable angina, rib fracture, contusion, pericardial tamponade or effusion, traumatic injury including mediastinal hemorrhage or hematoma, or pulmonary contusion. I spoken with the patient and her caregivers. I explained the patient's condition, diagnoses and treatment plan based on the information available to me at this time. I have answered the patient and her caregiver's questions and addressed any concerns. The patient and her caregivers have a good understanding of patient's diagnosis, condition and treatment plan as can be expected at this point. Vital signs have been stable. Patient's condition is stable and appropriate for discharge from the emergency department. Patient will pursue further outpatient evaluation with primary care physician or other designated or consulting physician as outlined in the discharge instructions. The patient and/or caregivers are agreeable to this plan of care and follow-up instructions have been explained in detail. The patient and/or caregivers have received these instructions in written form and have expressed an understanding of the discharge instructions. The patient and/or caregivers are aware that any significant change of condition or worsening of symptoms should prompt immediate return to this or the closest emergency department or call to [phone]. [place] Disclaimer: [employer] Data Disclaimer: This electronic medical record was generated, in whole or in part, using a voice recognition dictation system. Departure Departure: Impression: Primary Impression: Atypical chest pain Additional Impression: Palpitations Disposition: 01 DC HOME SELF CARE/HOMELESS Condition: STABLE Referrals: HEBER GRAJEDA MD (PCP) In 24 to 48 hours Patient Instructions: Palpitations Additional Instructions: FOLLOW UP WITH CARDIOLOGY: [facility] [address] [address] [place] [facility] [address] [address] EMERGENCY DEPARTMENT GENERAL DISCHARGE INSTRUCTIONS Thank you for coming to [facility] (ED) today and trusting us with you care. We trust that you had a positivie experience in our Emergency Department. If you wish to speak to the department management, you may call the director at [phone]. YOUR FOLLOW UP INSTRUCTIONS ARE FOLLOWS: 1. Do you have a private Doctor? If you do not have a private doctor, please ask for a resource list of physicians or clinics that may be able to assist you with follow up care. 2. The Emergency Physician has interpreted your x-rays. The X-Ray specialist will also review them. If there is a change in the findings, you will be notified in 48 hours when at all possible. 3. A lab test or culture has been done, your results will be reviewed and you will be notified if you need a change in treatment. ADDITIONAL INSTRUCTIONS AND INFORMATION: 1. Your care today has been supervised by a physician who is specially trained in emergency care. Many problems require more than one evaluation for a complete diagnosis and treatment. We recommend that you schedule your follow up appointment as recommended to ensure complete treatment of you illness or injury. If you are unable to obtain follow up care and continue to have a problem, or if your condition worsens, we recommend that you return to the ED. 2. We are not able to safely determine your condition over the phone nor are we able to give sound medical advice over the phone. For these safety reasons, if you call for medical advice we will ask you to come to the ED for further evaluation. 3. If you have any questions regarding these discharge instructions please call the ED at [phone]. SAFETY INFORMATION: In the interest of safety, wellness, and injury prevention; we encourage you to wear your sealbelt, if you smoke; quite smoking, and we encourage family to use a protective helmet for bicycling and other sporting events that present an increased risk for head injury. IF YOUR SYMPTOMS WORSEN OR NEW SYMPTOMS DEVELOP, OR YOU HAVE CONCERNS ABOUT YOUR CONDITION; OR IF YOUR CONDITION WORSENS WHILE YOU ARE WAITING FOR YOUR FOLLOW UP APPOINTMENT; EITHER CONTACT YOUR PRIMARY CARE DOCTOR, THE PHYSICIAN WHOSE NAME AND NUMBER YOU WERE GIVEN, OR RETURN TO THE ED IMMEDIATELY. BAY INIGUEZ DO Oct 20, 2020 13:40
== END 2020-10-20 13:50 | disposition home or self-care (01) ==
LOC: ER 11:08
DX: R07.89 Other chest pain (principal); R00.2 Palpitations; K21.9 Gastro-esophageal reflux disease without esophagitis; G43.909 Migraine, unspecified, not intractable, without status migrainosus; J44.9 Chronic obstructive pulmonary disease, unspecified; F17.210 Nicotine dependence, cigarettes, uncomplicated; Z88.2 Allergy status to sulfonamides; Z88.5 Allergy status to narcotic agent
CPT/HCPCS: 36415; 71046; 80053; 83735; 84484; 85025; 93005; 99285-25

== ENCOUNTER → 2020-11-01 | Outpatient (CLI) | payer OTHER ==
[2020-10-20 13:32] VITALS: BP 116/74
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
== END ==
LOC: RAD 09:03
PROVIDERS: ATTEND Nurse Practitioner Family
DX: M25.561 Pain in right knee (principal); W19.XXXA Unspecified fall, initial encounter
CPT/HCPCS: 73562

== ENCOUNTER → 2020-11-04 | Outpatient (CLI) | payer OTHER ==
[2020-10-20 13:32] VITALS: BP 116/74
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
== END ==
LOC: PMG 11:40
PROVIDERS: ATTEND Physician Assistant
DX: M19.011 Primary osteoarthritis, right shoulder (principal)
CPT/HCPCS: 73030; 73060

== ENCOUNTER 2020-11-27 05:31 | Emergency (ER) | payer OTHER ==
[~2020-11-27] VITALS: Ht 162.6 cm; Wt 50.6 kg
[2020-11-27] MEDS: IBUPROFEN 800 MG TABLET. PO ONE (06:18)
[2020-11-27] MEDS: ONDANSETRON ODT 4 MG TAB.RAPDIS PO ONE (06:18)
[2020-11-27] MEDS: ACETAMINOPHEN 500 MG TABLET PO ONE (06:18)
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
[2020-11-27 06:47] VITALS: BP 105/62
== END 2020-11-27 06:48 | disposition home or self-care (01) ==
LOC: ER 05:31
DX: S90.31XA Contusion of right foot, initial encounter (principal); J44.9 Chronic obstructive pulmonary disease, unspecified; K21.9 Gastro-esophageal reflux disease without esophagitis; F41.9 Anxiety disorder, unspecified; Z90.49 Acquired absence of other specified parts of digestive tract; Z90.710 Acquired absence of both cervix and uterus; Z88.2 Allergy status to sulfonamides; Z88.6 Allergy status to analgesic agent; W22.8XXA Striking against or struck by other objects, initial encounter; Y93.89 Activity, other specified; Y92.89 Other specified places as the place of occurrence of the external cause; Y99.8 Other external cause status
CPT/HCPCS: 73610; 73630; 99284; Q0162

== ENCOUNTER → 2020-11-28 | Outpatient (CLI) | payer OTHER ==
[2020-11-27 06:47] VITALS: BP 105/62
--- NOTE | 2020-11-28 15:14 | RAD ---
EXAMINATION: CT ABDOMEN+PELVIS WO (CT ABDOMEN/PELVIS WITHOUT IV CONTRAST) CLINICAL HISTORY: Abdominal pain, constipation TECHNIQUE: Non-IV contrast imaging of the abdomen and pelvis was performed using standard technique, scanning from just above the dome of the diaphragm to the symphysis pubis. Unenhanced imaging is tsern ited for the evaluation of some intra-abdominal and pelvic pathology. CT Dose Reduction Employed: One or more of the following individualized dose reduction techniques wer e utilized for this examination: 1. Automated exposure control 2. Adjustment of the mA and/or kV ac cording to patient size 3. Use of iterative reconstruction technique. COMPARISON: 03/04/2020 FINDINGS: Mild bibasilar subsegmental atelectasis and/or scarring. 3.5 x 1.5 cm hypodense lesion along the peripheral aspect of the posterolateral right hepatic lobe wi th mild scattered rim calcification, essentially unchanged when measured in similar planes. Multiple additional tiny hypoenhancing lesions again noted throughout the liver, too small adequately characte rize but likely benign. Prominent right hepatic lobe which may be related to hepatomegaly and/or norm al variant Stephanie's lobe, similar to prior study. Cholecystectomy. Pancreas, spleen, adrenal glands, and kidneys unremarkable. Mildly filled urinary bladder. Uterus and ovaries not visualized and likely surgically absent. Prominent stool in the right colon. Prominent bowel gas and scattered stool in the left colon. No dil ated small bowel. Appendectomy. Arterial atherosclerotic calcification without aneurysm. No evidence of acute osseous abnormality. IMPRESSION: Findings compatible with reported constipation. Essentially unchanged hypodense hepatic lesions as described. Electronically signed by: Tomer Villarreal DO (11/28/2020 3:12 PM) [facility]
== END ==
LOC: CT 14:16
DX: K59.00 Constipation, unspecified (principal); I25.10 Atherosclerotic heart disease of native coronary artery without angina pectoris
CPT/HCPCS: 74176

== ENCOUNTER 2021-12-15 09:27 | Emergency (ER) | payer SELFPAY ==
[~2021-12-15] VITALS: Ht 162.6 cm; Wt 56.0 kg
[~2021-12-15 09:27] MED LIST changes: +TIZA-75 PO; -TIZA4TAB2 PO
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
[2021-12-15] MEDS ORDERED: HYDROcodone/APAP 5/325MG 1 TAB TABLET PO ONE (10:15)
[2021-12-15] MEDS ORDERED: DIPHTH,PERTUSS(ACELL),TET TOX 0.5 ML DISP.SYRIN. VAX IM ONE (11:00)
--- NOTE | 2021-12-15 11:05 | RAD ---
XR EXAM OF ANKLE_LEFT 3V History: Injury. Pain. Comparison: None. Findings: Osseous mineralization is normal. No acute fracture or dislocaton. The ankle mortise and talar dome a re intact. No significant degenerative changes. Soft tissues are unremarkable. Impression: 1. Unremarkable left ankle. Electronically signed by: Suleman Shafer MD (12/15/2021 11:02 AM) [id number]
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
[2021-12-15 11:35] VITALS: BP 102/58
== END 2021-12-15 11:40 | disposition home or self-care (01) ==
LOC: EEVIPCON 09:27 → ER 09:27
DX: S06.0X9A Concussion with loss of consciousness of unspecified duration, initial encounter (principal); S90.512A Abrasion, left ankle, initial encounter; J44.9 Chronic obstructive pulmonary disease, unspecified; K21.9 Gastro-esophageal reflux disease without esophagitis; G43.909 Migraine, unspecified, not intractable, without status migrainosus; F17.210 Nicotine dependence, cigarettes, uncomplicated; Z88.5 Allergy status to narcotic agent; Z88.2 Allergy status to sulfonamides; Y08.89XA Assault by other specified means, initial encounter; Y93.89 Activity, other specified; Y92.89 Other specified places as the place of occurrence of the external cause; Y99.8 Other external cause status
CPT/HCPCS: 70450; 70486; 73610; 90471; 90715; 99284

== ENCOUNTER 2021-12-18 23:42 | Emergency (ER) | payer SELFPAY ==
[~2021-12-18] VITALS: Ht 162.6 cm; Wt 56.0 kg
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
[2021-12-19] MEDS: IV RINGERS SOLUTION,LACTATED 1,000 ML IV ONE (00:43)
[2021-12-19] MEDS: IBUPROFEN 600 MG TABLET. PO ONE (00:43)
[2021-12-19] MEDS: ACETAMINOPHEN 500 MG TABLET PO ONE (00:43)
--- NOTE | 2021-12-19 01:47 | RAD ---
Ribs left with PA chest History: Pain PA view of the chest and dedicated views of the left ribs were obtained. The heart and pulmonary vessels appear normal. There is reticular opacities in the lower lungs and bl unting costophrenic angles. The visualized osseous structures appear intact. Impression: 1. Bilateral pleural effusions and basilar infiltrates could be disc atelectasis. 2. No evidence of a bony displaced rib fracture. IMPRESSION: Three views left shoulder History: pain Internally and externally rotated AP of shoulder obtained, as well as "Y" view. The glenohumeral relationship is normal. The visualized osseous structures appear normal. Impression: No acute findings. end impression Electronically signed by: Fan Mcgee III, MD (12/19/2021 1:45 AM) [facility]
[2021-12-19] MEDS: NALOXONE 0.4 MG/ML VIAL. IV ONE (02:51)
[2021-12-19 03:35] VITALS: BP 95/59
== END 2021-12-19 03:45 | disposition home or self-care (01) ==
LOC: ER 23:42
DX: M25.512 Pain in left shoulder (principal); R07.81 Pleurodynia; J44.9 Chronic obstructive pulmonary disease, unspecified; K21.9 Gastro-esophageal reflux disease without esophagitis; G43.909 Migraine, unspecified, not intractable, without status migrainosus; F41.9 Anxiety disorder, unspecified; F32.9 Major depressive disorder, single episode, unspecified; F17.210 Nicotine dependence, cigarettes, uncomplicated; Z59.00 Homelessness unspecified; Z88.5 Allergy status to narcotic agent; Z88.2 Allergy status to sulfonamides
CPT/HCPCS: 82947; 96361; 96374; 99285

== ENCOUNTER 2021-12-19 22:35 | Emergency (ER) | payer SELFPAY ==
[~2021-12-19] VITALS: Ht 162.6 cm; Wt 56.0 kg
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
[2021-12-19] MEDS ORDERED: IV RINGERS SOLUTION,LACTATED 1,000 ML IV ONE (23:00)
[2021-12-19 23:45] VITALS: BP 92/66
== END 2021-12-19 23:53 | disposition home or self-care (01) ==
LOC: ER 22:35
DX: F10.129 Alcohol abuse with intoxication, unspecified (principal); F41.9 Anxiety disorder, unspecified; J44.9 Chronic obstructive pulmonary disease, unspecified; F32.9 Major depressive disorder, single episode, unspecified; K21.9 Gastro-esophageal reflux disease without esophagitis; G43.909 Migraine, unspecified, not intractable, without status migrainosus; F17.210 Nicotine dependence, cigarettes, uncomplicated; Z88.5 Allergy status to narcotic agent; Z88.2 Allergy status to sulfonamides; Y90.9 Presence of alcohol in blood, level not specified
CPT/HCPCS: 96360; 99283; J7120

== ENCOUNTER 2021-12-20 10:13 | Emergency (ER) | payer MEDICAID ==
[~2021-12-20] VITALS: Ht 162.6 cm; Wt 56.0 kg
[2021-12-20] MEDS ORDERED: IBUPROFEN 600 MG TABLET. PO ONE (10:30)
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
[2021-12-20 11:27] VITALS: BP 114/85
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
--- NOTE | 2021-12-20 12:21 | RAD ---
Right ankle 3 views, right RIBS with PA chest. Right ankle 3 views were taken of the right ankle. There is soft tissue swelling. There is no acute fracture or o sseous abnormality. Right RIBS with PA chest PA view was taken of the chest. Comparison is made with a study from one day ago. There is right pleu ral thickening. There is no pneumothorax. Heart is normal in size. There is mild linear scarring or a telectasis at the left costophrenic angle. AP and oblique views were taken of the right ribs. There is no acute rib fracture. IMPRESSION: 1. Soft tissue swelling right ankle. 2. No acute fracture right ankle. 3. Right pleural thickening. 4. No acute right rib fracture. Electronically signed by: Nikolay Martinez MD (12/20/2021 12:19 PM) [id number]
== END 2021-12-20 12:30 | disposition home or self-care (01) ==
LOC: ER 10:13
DX: S00.83XA Contusion of other part of head, initial encounter (principal); M25.571 Pain in right ankle and joints of right foot; R07.81 Pleurodynia; J44.9 Chronic obstructive pulmonary disease, unspecified; G43.909 Migraine, unspecified, not intractable, without status migrainosus; F17.210 Nicotine dependence, cigarettes, uncomplicated; Z88.5 Allergy status to narcotic agent; Z88.2 Allergy status to sulfonamides; X58.XXXA Exposure to other specified factors, initial encounter; Y93.89 Activity, other specified; Y92.89 Other specified places as the place of occurrence of the external cause; Y99.8 Other external cause status
CPT/HCPCS: 70450; 70486; 71101; 73610; 99284